=== PATIENT | male | born 1970 | race Caucasian/White ===

== ENCOUNTER 2018-06-19 10:01 | Observation (INO) ==
[2018-06-19 10:19] LABS: Basophils # 0.1 K/mm3 (0-0.2); Basophils % 0.6 % (0.1-2.0); Eosinophils # 0.3 K/mm3 (0.0-0.4); Eosinophils % 2.7 % (0.1-12.0); Hematocrit 46.9 % (42.0-52.0); Hemoglobin 15.3 g/dL (14.1-18.0); Lymphocytes # 2.3 K/mm3 (0.7-4.5); Lymphocytes % 23.5 % (10-50); Mean Corpuscular HGB Conc 32.7 g/dL (31.8-35.4); Mean Corpuscular Hemoglobin 30.2 pg (27.0-31.2); Mean Corpuscular Volume 92.5 fl (80-94); Mean Platelet Volume 6.5 fl (7.4-10.4); Monocytes # 0.6 K/mm3 (0.1-1.0); Monocytes % 6.3 % (1.7-9.3); Neutrophils # 6.5 K/mm3 (1.8-7.8); Neutrophils % 66.9 % (37.0-80.0); Platelet Count 292 K/mm3 (142-424); Red Blood Count 5.07 M/mm3 (4.60-6.20); White Blood Count 9.7 K/mm3 (4.8-10.8)
--- NOTE | 2018-06-19 10:23 | Emergency Department Note ---
ED Disposition Clinical Impression: Chest pain, Hyperlipidemia, Tobacco abuse disorder Disposition: Still a Patient Condition on Discharge: Fair Referrals: Provider,Referral, [Primary Care Provider] - - Critical Care Critical Care Time: No Attestation: On 06/19/18, the high probability of a clinically significant, sudden or life threatening deterioration of the following system(s) required my full and direct attention, intervention and personal management. The time I documented below is in addition to time spent performing reported procedures but includes the following listed in this critical care notation. Medical Decision Making - Medical Records Medical records reviewed: Yes: I reviewed the patient's medical records. - Ken Inquiry Pt receiving controlled substance: No Ken was queried for this patient: No Vital Signs: 06/19/18 10:02 06/19/18 10:14 06/19/18 11:03 Temperature 98.0 F Temperature Source Oral Pulse Rate Pulse Rate [Left Brachial] 71 74 71 Respiratory Rate 22 Blood Pressure [Left Arm] 139/76 124/87 134/83 Blood Pressure Mean [Left Arm] 97 99 100 Blood Pressure Source [Left Arm] Automatic Cuff Automatic Cuff Automatic Cuff Blood Pressure Position [Left Arm] Sitting Sitting Sitting 02 Sat by Pulse Oximetry 97 92 L 95 Oxygen Delivery Method Room Air Nasal Cannula 06/19/18 11:04 06/19/18 11:30 Temperature Temperature Source Pulse Rate 77 Pulse Rate [Left Brachial] 75 Respiratory Rate Blood Pressure [Left Arm] 143/84 H Blood Pressure Mean [Left Arm] 103 Blood Pressure Source [Left Arm] Automatic Cuff Blood Pressure Position [Left Arm] Sitting 02 Sat by Pulse Oximetry 95 95 Oxygen Delivery Method Room Air - Lab Data Lab Results 06/19/18 10:05: WBC 9.7, RBC 5.07, Hgb 15.3, Hct 46.9, MCV 92.5, MCH 30.2, MCHC 32.7, RDW 13.0, Plt Count 292, MPV 6.5 L, Neut % (Auto) 66.9, Lymph % (Auto) 23.5, [place] % (Auto) 6.3, Eos % (Auto) 2.7, Baso % (Auto) 0.6, Neut # (Auto) 6.5, Lymph # (Auto) 2.3, [place] # (Auto) 0.6, Eos # (Auto) 0.3, Baso # (Auto) 0.1 06/19/18 10:05: D-Dimer 101 06/19/18 10:05: Sodium 140, Potassium 4.0, Chloride 105, Carbon Dioxide 23, Anion Gap 16.0 H, BUN 7, Creatinine 0.85, Estimated Creat Clear 118, Estimated GFR 96, Est GFR ( Amer) 116, Glucose 84, Calcium 8.6, Troponin I < 0.02 06/19/18 10:05: Lactate 1.2 06/19/18 10:05: Total Bilirubin 0.5, Direct Bilirubin 0.2, Indirect Bilirubin 0.3, AST 14 L, ALT 27, Alkaline Phosphatase 68, Total Protein 7.3, Albumin 3.8 06/19/18 10:05: B-Natriuretic Peptide < 5 06/19/18 10:29: Specimen Source Left radial, O2 % room air, ABG pH 7.44, ABG pCO2 30.4 L, ABG pO2 73.5 L, ABG HCO3 20.4 L, ABG Total CO2 21.3 L, ABG O2 Saturation 95, ABG Base Excess -3.7 L, Seng Test Acceptable Result diagrams: 06/19/18 10:05 06/19/18 10:05 Orders (Tests/Meds): ED MEDICATIONS Discontinued Medications Generic Name Dose Route Start Last Admin Trade Name Freq PRN Reason Stop Dose Admin Albuterol/Ipratropium 3 ml 06/19/18 10:28 06/19/18 10:48 Duoneb 3ml Neb IH 06/19/18 10:29 3 ml ONCE ONE Administration Enoxaparin Sodium 80 mg 06/19/18 10:19 06/19/18 10:48 Lovenox 80mg/0.8ml Syringe SQ 06/19/18 10:20 80 mg ONCE ONE Administration Famotidine 20 mg 06/19/18 10:19 06/19/18 10:48 Pepcid 20mg/2ml Vial IV 06/19/18 10:20 20 mg ONCE ONE Administration Sodium Chloride 1,000 mls @ 999 mls/hr 06/19/18 10:30 06/19/18 10:48 Sod Chlor 0.9% 1000ml Bag IV 06/19/18 11:30 999 mls/hr .Q1H1M DIANELYS Administration Nitroglycerin 0.5 gm 06/19/18 10:19 06/19/18 10:48 Nitroglycerin 1 Inch Oint Udp TD 06/19/18 10:20 0.5 gm ONCE ONE Administration ORDERS Category Date Time Status Blood Culture Stat Micro 06/19/18 10:05 Received - Radiology Data #1 Image(s): Chest Image Reviewed: Yes I reviewed the patient's radiology image Preliminary Findings: Normal/NAD IMPRESSION: Stable chest with nothing definitely acute. - ECG Data Tracing #1 Normal sinus rhythm 85/min nonspecific T wave changes in lead III Q wave in V1 and V2 with no acute ST segment changes or T wave changes no acute changes from prior EKGs done in April and May 2017. ECG initial impression date: 06/19/18 ECG initial impression time: 10:05 Medical Decision Narrative: The patient underwent a DuoNeb nitroglycerin sublingual with decrease of his chest pain to 4/10, his first set of troponin was negative his dimer was 100 and his BNP was within normal. His cardiac catheterization and September 2014 was negative for coronary artery disease with normal LV function. The patient was hungry and requested a lunch tray. I discussed the patient presentation with Dr. Lowry his manager reporting. Then I called Dr. Kwon who was packaging sales consultant for Dr. Bautista his primary care physician. 1200 Dr. Kwon called back and accepted the patient for admission. Chest Pain HPI - General Chief Complaint: Chest Pain Stated Complaint: chest pain Time Seen by Provider: 06/19/18 10:05 - History of Present Illness HPI narrative: 47 years old white male smoker with history of hyperlipidemia and bradycardia status post pacemaker placement [address] Lowry. Today at 4 AM the patient developed left-sided chest pressure rated 8/10 woke him up from sleep with a result of shortness of breath and palpitations, the pain worsened by exertion and radiates to the left upper extremity. patient was given aspirin by the ambulance and nitroglycerin did reduce his chest pain to 6/10. he denies nausea vomiting hematemesis coffee-ground emesis melanotic stool or bleeding per rectum. MD complaint: chest pain indicative of cardiac Onset (ago): hour(s) (6 hours.) Time: 04:00 Duration: constant Activity at onset: during rest Pain location: left chest Severity: moderate Severity scale (1-10): 6 Pain radiation: LUE Relieving factors: nitroglycerin Exacerbating factors: nothing Associated symptoms: dyspnea, palpitations Risk Factors for CAD: Hypercholesterolemia, Smoking Treatments prior to or on arrival for Cardiac Chest Pain: aspirin - Related Data Home Medications Medication Instructions Recorded Confirmed aspirin 81 mg tablet,delayed 81 mg PO DAILY tab 11/06/17 06/19/18 release Clopidogrel Bisulfate [Plavix 75mg 75 mg PO DAILY 06/19/18 06/19/18 Tab] Lisinopril [Prinivil 20mg Tablet] 20 mg PO DAILY 06/19/18 06/19/18 Nebivolol HCl [Bystolic] 10 mg PO DAILY 06/19/18 06/19/18 Pravastatin Sodium [Pravachol] 40 mg PO DAILY 06/19/18 06/19/18 Allergies Allergy/AdvReac Type Severity Reaction Status Date / Time No Known Allergies Allergy Verified 11/10/17 09:51 [facility] History I have reviewed the patient's past medical history: Yes (I reviewed his catheter report from September 2014. ) Medical History: Reports:: Cardiomyopathy, Cerebrovascular Accident, Hypertension, Internal Pacemaker, Supraventricular Tachycardia Other Surgeries: Yes: Cardiac Catheterization, Hernia Repair, Pacemaker - Social History Smoking Status: Current every day smoker Tobacco Type: cigarettes # Packs/Day (cigarettes): 1 Alcohol Intake: never Family Hx:: Diabetes, Heart Attack ROS Obtained: Yes All systems reviewed & no additional complaints Physical Exam - General General appearance: alert, in no apparent distress, anxious - Head Head exam: atraumatic, normocephalic, normal inspection - Eye Eye exam: Present: normal appearance, PERRL, EOMI. Absent: scleral icterus, nystagmus - ENT ENT exam: Present: normal exam, normal oropharynx, mucous membranes moist, TM's normal bilaterally, normal external ear exam - Neck Neck exam: Present: normal inspection, full ROM, trachea midline. Absent: tenderness, meningismus, lymphadenopathy - Chest Chest inspection: Present: normal inspection, symmetric chest wall rise. Absent: tenderness - Respiratory Respiratory exam: Present: normal lung sounds bilaterally. Absent: respiratory distress, wheezes - Cardiovascular Cardiovascular exam: Present: regular rate, normal rhythm, normal heart sounds. Absent: JVD - Abdominal Exam Abdominal exam: Present: soft, normal bowel sounds. Absent: distention, tenderness, guarding, rebound, rigidity - Extremities Exam Extremities exam: Present: normal inspection, full ROM, normal capillary refill. Absent: tenderness, pedal edema, calf tenderness - Back Exam Back exam: Present: normal inspection. Absent: tenderness, CVA tenderness (R), CVA tenderness (L), paraspinal tenderness, vertebral tenderness - Neurological Exam Neurological exam: Present: alert, oriented X3, CN II-XII intact, motor sensory deficit, reflexes normal - Psychiatric Psychiatric exam: Present: normal affect, normal mood - Skin Skin exam: Present: warm, dry, intact, normal color - Lymphatic Lymphatic Findings: no adenopathy
[2018-06-19 10:32] LABS: Blood Urea Nitrogen 7 mg/dL (7-18); Calcium 8.6 mg/dL (8.5-10.1); Carbon Dioxide 23 mmol/L (21.0-32.0); Chloride 105 mmol/L (98-107); Glucose 84 mg/dL (74-106); Sodium 140 mmol/L (136-145)
[2018-06-19 10:34] LABS: Albumin Level 3.8 gm/dL (3.4-5.0); Bilirubin,Direct 0.2 mg/dL (0.0-0.2); Bilirubin,Indirect 0.3 mg/dL (0.0-0.9); Bilirubin,Total 0.5 mg/dL (0.2-1.0); Total Protein,Serum 7.3 gm/dL (6.4-8.2)
[2018-06-19 11:01] LABS: ABG Base Excess -3.7 mmol/L (-2.4-2.3); ABG HCO3 20.4 mmhg (22.0-26.0); ABG Oxygen Saturation 95 % (90-100); ABG PCO2 30.4 mmhg (35.0-45.0); ABG PH 7.44 mmol/L (7.35-7.45); ABG PO2 73.5 mmhg (80-100); ABG TCO2 21.3 mmhg (23-27)
[2018-06-19 11:06] LABS: Allen's Test Acceptable; Oxygen room air %
--- NOTE | 2018-06-19 12:35 | Pharmacy Consult Notes ---
[facility] Pharmacy VTE Monitoring - Patient Demographics Admission date: 06/19/18 Report Date: 06/19/18 Time: 12:34 Allergies/Adverse Reactions: Patient Allergies No Known Allergies Allergy (Verified 11/10/17 09:51) Height: 1.88 m Weight: 79.379 kg Patient Problems: Current Active Problems Chest pain (Acute) Tobacco abuse disorder (Acute) HLD (hyperlipidemia) (Chronic) - VTE Risk Labs: VTE Related Lab Results Hgb 15.3 g/dL (14.1-18.0) 06/19/18 10:05 Hct 46.9 % (42.0-52.0) 06/19/18 10:05 Plt Count 292 K/mm3 (142-424) 06/19/18 10:05 BUN 7 mg/dL (7-18) 06/19/18 10:05 Creatinine 0.85 mg/dL (0.70-1.30) 06/19/18 10:05 Estimated Creat Clear 118 mL/min (50-200) 06/19/18 10:05 - Prophylaxis VTE Prophylaxis Ordered?: Yes Types of VTE Prophylaxis: Pharmacological Pharmacologic Type: Enoxaparin - VTE Diagnosis Confirmed Treatment or plan recommended: Continue Current Treatment
[2018-06-20 06:42] LABS: Basophils % 0.6 % (0.1-2.0); Eosinophils # 0.4 K/mm3 (0.0-0.4); Eosinophils % 5.6 % (0.1-12.0); Hematocrit 44.3 % (42.0-52.0); Hemoglobin 14.3 g/dL (14.1-18.0); Lymphocytes # 2.1 K/mm3 (0.7-4.5); Lymphocytes % 28.2 % (10-50); Mean Corpuscular HGB Conc 32.2 g/dL (31.8-35.4); Mean Corpuscular Hemoglobin 30.2 pg (27.0-31.2); Mean Corpuscular Volume 93.7 fl (80-94); Mean Platelet Volume 6.5 fl (7.4-10.4); Monocytes # 0.6 K/mm3 (0.1-1.0); Monocytes % 7.9 % (1.7-9.3); Neutrophils # 4.3 K/mm3 (1.8-7.8); Neutrophils % 57.7 % (37.0-80.0); Platelet Count 275 K/mm3 (142-424); Red Blood Count 4.73 M/mm3 (4.60-6.20); White Blood Count 7.4 K/mm3 (4.8-10.8)
[2018-06-20 07:06] LABS: Anion Gap 12.5 mEq/L (5-15); Calcium 8.4 mg/dL (8.5-10.1); Chol/HDL Ratio 2.9 (1-3.5); Potassium 4.5 mmoL/L (3.5-5.1)
--- NOTE | 2018-06-20 12:17 | History & Physical Report ---
*Admission Date: 06/19/18 *Chief complaint: chest pain *History of present illness: this wm who has sig risk factors presents with new chest pain to the ed -years old white male smoker with history of hyperlipidemia and bradycardia status post pacemaker placement [address] Lowry. Today at 4 AM the patient developed left-sided chest pressure rated 8/10 woke him up from sleep with a result of shortness of breath and palpitations, the pain worsened by exertion and radiates to the left upper extremity. patient was given aspirin by the ambulance and nitroglycerin did reduce his chest pain to 6/10. [facility] History I have reviewed the patient's past medical history: Yes Medical History: Reports:: Cardiomyopathy, Cerebrovascular Accident, Hypertension, Internal Pacemaker, Supraventricular Tachycardia Denies:: Cancer, Diabetes Mellitus Type 1, Diabetes Mellitus Type 2, MRSA Other Surgeries: Yes: Cardiac Catheterization, Hernia Repair, Pacemaker Amputation: No Fractures: No - *Social History Educational Level: Completed GED/General Educational Development Smoking Status: Current every day smoker Tobacco Type: cigarettes # Packs/Day (cigarettes): 1 Alcohol Intake: current Alcohol Intake Frequency:: a few times a week Occupational Status: disabled Housing: house Household Members: significant other - Psychiatric History Expresses thoughts of harming self/others: None Suicide Plan Description: No Plan *Family Hx:: Diabetes, Heart Attack Review of Systems - Review of Systems Review of systems:: pertinent systems reviewed and negative unless documented b elow - Constitutional Denies fever(s) - Eyes Denies change in vision - ENT Denies dizziness - *Cardiovascular Reports chest pain at rest, Reports shortness of breath - *Respiratory Denies cough - *Gastrointestinal Denies abdominal pain - *Genitourinary Denies decreased urination - *Musculoskeletal Denies joint pain - Integumentary/Breasts Denies rash - *Neurologic Denies seizure-like activity - Psychiatric Denies anxiety Meds Home Medications Medication Instructions Recorded Confirmed Type aspirin 81 mg tablet,delayed 81 mg PO DAILY tab 11/06/17 06/19/18 History release Clopidogrel Bisulfate [Plavix 75mg 75 mg PO DAILY 06/19/18 06/19/18 History Tab] Lisinopril [Prinivil 20mg Tablet] 20 mg PO DAILY 06/19/18 06/19/18 History Nebivolol HCl [Bystolic] 10 mg PO DAILY 06/19/18 06/19/18 History Pravastatin Sodium [Pravachol] 40 mg PO DAILY 06/19/18 06/19/18 History Allergies Allergy/AdvReac Type Severity Reaction Status Date / Time No Known Allergies Allergy Verified 06/19/18 13:39 Exam Vital signs and Labs for Last 24 Hours: Temp Pulse Resp BP Pulse Ox 98.1 F 71 20 123/87 96 06/20/18 11:32 06/20/18 11:32 06/20/18 11:32 06/20/18 11:32 06/20/18 11:32 Laboratory Results - last 24 hr 06/19/18 15:18: Troponin I < 0.02 06/19/18 18:15: Troponin I < 0.02 06/20/18 06:20: WBC 7.4, RBC 4.73, Hgb 14.3, Hct 44.3, MCV 93.7, MCH 30.2, MCHC 32.2, RDW 13.0, Plt Count 275, MPV 6.5 L, Neut % (Auto) 57.7, Lymph % (Auto) 28.2, [place] % (Auto) 7.9, Eos % (Auto) 5.6, Baso % (Auto) 0.6, Neut # (Auto) 4.3, Lymph # (Auto) 2.1, [place] # (Auto) 0.6, Eos # (Auto) 0.4, Baso # (Auto) 0.0 06/20/18 06:20: Sodium 141, Potassium 4.5, Chloride 106, Carbon Dioxide 27, Anion Gap 12.5, BUN 9 D, Creatinine 0.91, Estimated Creat Clear 143, Estimated GFR 89, Est GFR ( Amer) 107, Glucose 85, Calcium 8.4 L, Triglycerides 83, Cholesterol 126 L, LDL Cholesterol 65, VLDL Cholesterol 17, HDL Cholesterol 44, Cholesterol/HDL Ratio 2.9 I & O for Last 24 hours: Intake & Output 06/18/18 06/19/18 06/20/18 06/21/18 11:59 11:59 11:59 11:59 Intake Total 840 / 840 Output Total 0 / 0 Balance 840 / 840 Weight 175 lb 227 lb 9 oz - Constitutional no acute distress, obese - *Routine HEENT Exam Head: Present: normocephalic Eye: Present: EOMI, PERRL ENT: Present: mucous membranes dry - *Routine Neck Exam Present: supple. Absent: JVD - Routine Chest/Breast/Axilla Exam Chest wall: Absent: tenderness - *Routine Respiratory Exam Present: CTA bilaterally - *Routine Cardiovascular Exam Present: RRR, murmur - *Routine Abdominal Exam Present: soft - *Routine Extremities Exam Absent: edema, calf tenderness - *Routine Skin Exam Present: intact - *Routine Neurological Exam Present: alert - Routine Psychiatric Exam Present: normal affect Assessment and Plan (1) Overweight Current visit: Yes Status: Acute Category: Medical Code(s): E66.3 - Overweight (2) Chest pain Current visit: Yes Status: Acute Category: Medical Code(s): R07.9 - Chest pain, unspecified (3) Tobacco abuse disorder Current visit: Yes Status: Acute Category: Medical Code(s): Z72.0 - Tobacco use (4) Cardiac pacemaker in situ Current visit: No Status: Chronic Category: Medical Code(s): Z95.0 - Presence of cardiac pacemaker
--- NOTE | 2018-06-21 08:08 | Consult Report ---
Addendum entered and electronically signed by NIKI Hill 06/21/18 15:38: Pacer interrogation shows no significant tachyarrhythmias. Cardiac cath showed only mild CAD with normal LVEF and mildly elevated LVEDP at 20 mm Hg. Stable from a cardiac standpoint for discharge. Follow up in 2 wks. Original Note: History of Present Illness Consult date: 06/21/18 Requesting physician: Chris Bautista Consult reason: chest pain Chief complaint: Chest pain Additional Medical History:: 1. Chest pain, 09/2014, A. LHC, 09/2014, normal coronaries with LVEF of 45-50%. Possible microvascular dysfunction 2. Cardiovascular Disease with history of CVA's a. Left side residual weakness, paresthesias and poor memory 3. Tobacco Use A. 1.5-2 ppd for many years 4. Hypertension 5. FH of CAD 6. Dyslipidemia 7. History of permanent pacemaker placement for symptomatic bradycardia, 10/2014 with a [employer] [place] [employer] device. A. Atrial lead repositioning approximately January 2015 B. History of brief episodes of nonsustained SVT and 2 seconds of VT, controlled on meds History of present illness: this wm who has sig risk factors presents with new chest pain to the ed -years old white male smoker with history of hyperlipidemia and bradycardia status post pacemaker placement [address] Lowry. Today at 4 AM the patient developed left-sided chest pressure rated 8/10 woke him up from sleep with a result of shortness of breath and palpitations, the pain worsened by exertion and radiates to the left upper extremity. patient was given aspirin by the ambulance and nitroglycerin did reduce his chest pain to 6/[address] Bautista 47-year-old white male is somewhat historian but states he had been up at night prior to admission drinking coffee and talking with a longtime friend. He does relate some history of palpitations but the next morning noted significant chest discomfort that alarmed him. EMS transported patient to the hospital for further evaluation and treatment. EKG showed sinus rhythm with poor R wave progression anteriorly but no acute ST segment changes. Symptoms did gradually resolve during initial part of his hospital stay with no recurrence since. His troponins have returned normal. Cardiology consulted for evaluation recommendations. [facility] History Medical History: Reports:: Cardiomyopathy, Cerebrovascular Accident, Hypertension, Internal Pacemaker, Supraventricular Tachycardia Denies:: Cancer, Diabetes Mellitus Type 1, Diabetes Mellitus Type 2, MRSA Other Surgeries: Yes: Cardiac Catheterization, Hernia Repair, Pacemaker Amputation: No Fractures: No - *Social History Educational Level: Completed GED/General Educational Development Smoking Status: Current every day smoker Tobacco Type: cigarettes # Packs/Day (cigarettes): 1 Alcohol Intake: current Alcohol Intake Frequency:: a few times a week Occupational Status: disabled Housing: house Household Members: significant other - Psychiatric History Expresses thoughts of harming self/others: None Suicide Plan Description: No Plan *Family Hx:: Diabetes, Heart Attack Meds Home Medications Medication Instructions Recorded Confirmed Type aspirin 81 mg tablet,delayed 81 mg PO DAILY tab 11/06/17 06/19/18 History release Clopidogrel Bisulfate [Plavix 75mg 75 mg PO DAILY 06/19/18 06/19/18 History Tab] Lisinopril [Prinivil 20mg Tablet] 20 mg PO DAILY 06/19/18 06/19/18 History Nebivolol HCl [Bystolic] 10 mg PO DAILY 06/19/18 06/19/18 History Pravastatin Sodium [Pravachol] 40 mg PO DAILY 06/19/18 06/19/18 History Allergies Allergy/AdvReac Type Severity Reaction Status Date / Time No Known Allergies Allergy Verified 06/19/18 13:39 Review of Systems - *Cardiovascular Reports chest pain, Reports shortness of breath with activity - *Respiratory Reports shortness of breath with activity - *Gastrointestinal Denies abdominal pain, Denies loose stools - *Genitourinary Denies blood in urine - *Musculoskeletal Reports back pain - *Neurologic Denies seizure-like activity, Denies dizziness Exam Vital signs and Labs for Last 24 Hours: Temp Pulse Resp BP Pulse Ox 97.9 F 70 18 135/85 96 06/21/18 07:53 06/21/18 07:53 06/21/18 07:53 06/21/18 07:53 06/21/18 07:53 I & O for Last 24 hours: Intake & Output 06/18/18 06/19/18 06/20/18 06/21/18 11:59 11:59 11:59 11:59 Intake Total 840 / 840 1140 / 1140 Output Total 0 / 0 3600 / 3600 Balance 840 / 840 -2460 / -2460 Weight 175 lb 227 lb 9 oz - *Routine Neck Exam Present: supple. Absent: JVD, carotid bruit - *Routine Respiratory Exam Present: stridor. Absent: accessory muscle use, rales, rhonchi, wheezes - *Routine Cardiovascular Exam Present: RRR. Absent: murmur, gallop, rubs - *Routine Abdominal Exam Present: soft. Absent: tenderness, distended, guarding - *Routine Extremities Exam Absent: edema, calf tenderness - *Routine Neurological Exam Present: alert, oriented X3, moving all extremities Assessment and Plan (1) Chest pain Current visit: Yes Status: Acute Category: Medical Code(s): R07.9 - Chest pain, unspecified (2) Overweight Current visit: Yes Status: Acute Category: Medical Code(s): E66.3 - Overweight (3) Tobacco abuse disorder Current visit: Yes Status: Acute Category: Medical Code(s): Z72.0 - Tobacco use (4) Cardiac pacemaker in situ Current visit: No Status: Chronic Category: Medical Code(s): Z95.0 - Presence of cardiac pacemaker - Assessment and plan all Dx Assessment and Plan for all problems:: 1. Significant chest pain while on beta-elyssa and aspirin therapy with significant smoking history and LUCY score of 3 (risk factors, ASA use, recurrent chest pain). Concern for unstable angina. Patient is a poor historian due to previous history of stroke. Recommend proceeding with left heart catheterization to evaluate. 2. Regarding history of palpitations will interrogate pacemaker for possible arrhythmias or recurrent lead malfunction. 3. Further recommendations to follow.
--- NOTE | 2018-06-21 15:28 | Discharge Summary ---
General - General Admission date:: 06/19/18 Discharge date: 06/21/18 HPI HPI: this wm who has sig risk factors presents with new chest pain to the ed -years old white male smoker with history of hyperlipidemia and bradycardia status post pacemaker placement [address] Lowry. Today at 4 AM the patient developed left-sided chest pressure rated 8/10 woke him up from sleep with a result of shortness of breath and palpitations, the pain worsened by exertion and radiates to the left upper extremity. patient was given aspirin by the ambulance and nitroglycerin did reduce his chest pain to 6/10. Hospital Course Hospital Course: pt remained stable in hospital and had neg enz- we discussed wt and tob use and compliance and diet - param stimulants - he was seen by jin -ezequiel [facility]cks, 09/2014, [facility], 09/2014, normal coronaries with LVEF of 45-50%. Possible microvascular dysfunction 2. Cardiovascular Disease with history of CVA's a. Left side residual weakness, paresthesias and poor memory 3. Tobacco Use A. 1.5-2 ppd for many years 4. Hypertension 5. FH of CAD 6. Dyslipidemia 7. History of permanent pacemaker placement for symptomatic bradycardia, 10/2014 with a [employer] device. A. Atrial lead repositioning approximately January 2015 B. History of brief episodes of nonsustained SVT and 2 seconds of VT, controlled on meds History of present illness: this wm who has sig risk factors presents with new chest pain to the ed -years old white male smoker with history of hyperlipidemia and bradycardia status post pacemaker placement [address] Lowry. Today at 4 AM the patient developed left-sided chest pressure rated 8/10 woke him up from sleep with a result of shortness of breath and palpitations, the pain worsened by exertion and radiates to the left upper extremity. patient was given aspirin by the ambulance and nitroglycerin did reduce his chest pain to 6/[address] Bautista 47-year-old white male is somewhat historian but states he had been up at night prior to admission drinking coffee and talking with a longtime friend. He does relate some history of palpitations but the next morning noted significant chest discomfort that alarmed him. EMS transported patient to the hospital for further evaluation and treatment. EKG showed sinus rhythm with poor R wave progression anteriorly but no acute ST segment changes. Symptoms did gradually resolve during initial part of his hospital stay with no recurrence since. His troponins have returned normal. Cardiology consulted for evaluation gnificant chest pain while on beta-elyssa and aspirin therapy with significant smoking history and LUCY score of 3 (risk factors, ASA use, recurrent chest pain). Concern for unstable angina. Patient is a poor historian due to previous history of stroke. Recommend proceeding with left heart catheterization to evaluate. 2. Regarding history of palpitations will interrogate pacemaker for possible arrhythmias or recurrent lead malfunction. 3. Further recommendations to follow. pt had card cath -GRAPHIC RESULTS: 1. The left main artery normal 2. The left anterior descending artery small mild luminal irregularities 10% 3. The circumflex artery nondominant luminal irregularities 10% 4. The right coronary artery large dominant luminal irregularities of 10% 5. The ALEMAN ventriculogram reveals normal 65% 6. The left ventricular end-diastolic pressure 20 mmHg IMPRESSION: 1. Mild nonflow limiting coronary disease 2. Normal ejection fraction 3. Elevated LVEDP consistent with diastolic dysfunction PLAN: 1. Medical management Objective Vital signs: Temp Pulse Resp BP Pulse Ox 98.4 F 70 18 115/74 93 L 06/21/18 11:41 06/21/18 15:10 06/21/18 15:10 06/21/18 15:10 06/21/18 15:10 no acute distress, obese - *Routine HEENT Exam Head: Present: normocephalic Eye: Present: EOMI, PERRL ENT: Present: mucous membranes dry - *Routine Neck Exam Present: supple - *Routine Respiratory Exam Present: CTA bilaterally - *Routine Cardiovascular Exam Present: RRR, murmur - *Routine Abdominal Exam Present: soft - *Routine Extremities Exam Absent: edema - *Routine Skin Exam Present: intact - *Routine Neurological Exam Present: alert, oriented X3, CN II-XII intact - Routine Psychiatric Exam Present: normal affect Results Labs on day of discharge: Preliminary micro results at discharge 06/19/18 10:05 Blood Culture - Preliminary Blood NO GROWTH AFTER 48 HOURS 06/19/18 10:05 Blood Culture - Preliminary Blood NO GROWTH AFTER 48 HOURS DS: Diagnosis - Discharge Diagnosis (1) Chest pain Status: Acute (2) Overweight Status: Acute (3) Tobacco abuse disorder Status: Acute (4) Cardiac pacemaker in situ Status: Chronic Discharge Plan - Patient Discharge Instructions ACTIVITY: Continue current activity DIET: continue same diet Patient Instructions: Angina, How to Quit Smoking - Follow up Plan Disposition: Home, Self-Residential Medications: Home Medications Medication Instructions Recorded Confirmed Type aspirin 81 mg tablet,delayed 81 mg PO DAILY tab 11/06/17 06/19/18 History release Clopidogrel Bisulfate [Plavix 75mg 75 mg PO DAILY 06/19/18 06/19/18 History Tab] Lisinopril [Prinivil 20mg Tablet] 20 mg PO DAILY 06/19/18 06/19/18 History Nebivolol HCl [Bystolic] 10 mg PO DAILY 06/19/18 06/19/18 History Pravastatin Sodium [Pravachol] 40 mg PO DAILY 06/19/18 06/19/18 History Prescriptions/Medication Reconciliation: New Nicotine [Nicoderm 21mg/24hr patch] 21 mg TD DAILYP PRN #30 patch.td24 PRN Reason: Nicotine Cravings Continue aspirin 81 mg tablet,delayed release 81 mg PO DAILY tab Nebivolol HCl [Bystolic] 10 mg PO DAILY Lisinopril [Prinivil 20mg Tablet] 20 mg PO DAILY Clopidogrel Bisulfate [Plavix 75mg Tab] 75 mg PO DAILY Pravastatin Sodium [Pravachol] 40 mg PO DAILY
== END 2018-06-21 19:05 | disposition home or self-care (01) ==
LOC: ER 10:01 → 2ND 10:01
PROVIDERS: ADMIT Family Medicine; ATTEND Emergency Medicine

== ENCOUNTER → 2018-08-24 12:02 | Outpatient (CLI) | payer MEDICARE, MEDICAID, SELFPAY ==
--- NOTE | 2018-08-24 12:22 | XR_ITS ---
EXAM: XR lumbar spine 6V w bending HISTORY: ITS.REASON: back pain ORDERING PHYSICIAN: Tracey Page PATIENT AGE: 48 years COMPARISON: None FINDINGS: Normal alignment. No fracture or dislocation. No lytic or blastic change. There is mild degenerative disc disease at L4-L5 and L5-S1. There is lumbarization of S1 with mild anterolisthesis of L5 on S1 of 3 mm. There is mild wedging involving T12 and L1 appears old with degenerative disc disease at T12-L1 and L1-L2. There are mild facet arthritic changes at L5-S1. IMPRESSION: Degenerative changes as described above
[2018-08-25 09:31] LABS: HIV Screen 4th Generation wRfx Non Reactive (Non Reactive)
[2018-08-26 08:13] LABS: Neisseria gonorrhoeae, NAA Negative (Negative)
== END ==
PROVIDERS: Visit Provider Nurse Practitioner Family
DX: Z20.2 Contact with and (suspected) exposure to infections with a predominantly sexual mode of transmission (principal); M79.605 Pain in left leg; M54.42 Lumbago with sciatica, left side; R21 Rash and other nonspecific skin eruption; Z11.4 Encounter for screening for human immunodeficiency virus [HIV]
CPT/HCPCS: 36415; 72114; 86695; 86703; 86790; 87491; 87591; G0432

== ENCOUNTER → 2019-05-23 14:57 | Outpatient (CLI) | payer MEDICARE, MEDICAID, SELFPAY ==
--- NOTE | 2019-05-23 15:00 | XR_ITS ---
PROCEDURE: XR CHEST 2V CLINICAL HISTORY: cough Cough, smoker, congestion COMPARISON: CXR CHEST(2 VIEWS-NOT PORTABLE) from 05/11/2015 CXR1 CHEST-PORTABLE from 06/12/2015 CXR1 CHEST-PORTABLE from 09/10/2015 CXR2V XR chest 2V from 06/19/2018 FINDINGS: Normal heart size. Bipolar pacemaker is present from the left subclavian approach. Mild atelectatic or fibrotic changes are present in the lingula. The remaining lungs are clear. Prior ORIF right clavicle. Degenerative changes thoracic spine IMPRESSION: Mild atelectatic change in the lingula Dictated by: Seng Pedroza MD 05/23/2019 15:15 Electronically signed by Seng Pedroza MD in [place] 05/23/2019 15:15
== END ==
PROVIDERS: PCP Nurse Practitioner Family; Visit Provider Nurse Practitioner Family
DX: R05 Cough (principal); R09.89 Other specified symptoms and signs involving the circulatory and respiratory systems
CPT/HCPCS: 71046

== ENCOUNTER → 2019-05-30 09:20 | Outpatient (CLI) | payer MEDICARE, MEDICAID, SELFPAY ==
--- NOTE | 2019-05-30 09:22 | FL_ITS ---
PROCEDURE: FL BARIUM SWALLOW CLINICAL INDICATION: trouble swallowing Dysphagia COMPARISON: No exams were available for comparison TECHNIQUE: In the upright position the patient was observed to swallow barium in both the AP and lateral view. The cervical esophagus was examined under fluoroscopy with images obtained. The patient was then placed prone in the right anterior oblique position and was observed to swallow barium with Valsalva technique . FLUOROSCOPY TIME: 42 seconds FINDINGS: There was no evidence of aspiration. There was normal peristalsis. No mucosal abnormalities or annular constricting lesions. Mild compression of the posterior aspect of the esophagus at C5-C6 and C6-C7 from osteophytes at those levels more prominent at C5-C6. No hiatal hernia or reflux. IMPRESSION: Mild impingement upon the posterior aspect of the esophagus at from osteophytes at C5-C6 and C6-C7 otherwise negative barium swallow Dictated by: Seng Pedroza MD 05/30/2019 11:46 Electronically signed by Seng Pedroza MD in [place] 05/30/2019 11:46
== END ==
PROVIDERS: PCP Nurse Practitioner Family; Visit Provider Nurse Practitioner Family
DX: R13.10 Dysphagia, unspecified (principal)
CPT/HCPCS: 74220

== ENCOUNTER → 2019-06-22 13:41 | Outpatient (CLI) | payer MEDICARE, MEDICAID, SELFPAY ==
--- NOTE | 2019-06-22 13:43 | CA_ITS ---
APPROVED REPORT EXAM: Comprehensive 2D, Doppler, and color-flow Echocardiogram Business Operations Consultant: Aiyana Bradley RDCS Ht: 5 ft 11 in Wt: 247lbs BSA: 2.31 BP: 130/88 mmHg Indications: Shortness of Breath, Dyspnea, Hyperlipidemia, Hypertension/HDD,PP 2D Dimensions LVOT 2.00 cm (M/F) 1.5-2.5 M-Mode Dimensions RVDd 3.11 cm (0.9-2.6) LVDd 4.70 cm (3.5-5.7) LVDs 3.22 cm (3.5-5.7) IVSd 0.98 cm (0.6-1.1) PWd 1.06 cm (0.6-1.1) EF (Teich) 59.40% FS 31.50% EDV (Teich) 102.40 mL ESV (Teich) 41.60 mL LV Diastology E/A Ratio 0.78 Mitral Valve MV A Velocity 64.00 (40-130 cm/s) Left Ventricle Left atrium is mildly enlarged, left ventricle is normal size, mild concentric left ventricular hypertrophy, visually estimated ejection fraction 55% with no regional wall motion abnormality, grade 1 diastolic dysfunction seen without tissue Doppler evidence of raise left atrial pressure. Right Ventricle Right atrium and right ventricular normal size and contractility, there is a pacemaker lead seen in the right ventricle. Aortic Valve Aortic valve is minimally thickened and fibrosed, there is no aortic stenosis aortic insufficiency. Mitral Valve Mitral valve is grossly normal, there is mild mitral regurgitation. Tricuspid Valve Tricuspid valve is grossly normal, there is mild tricuspid regurgitation. Pulmonic Valve Pulmonic valve is poorly visualized. Great Vessels Aortic root is normal size. Pericardium No significant pericardial effusion noted. Conclusion 1. Mildly enlarged left atrium, normal left ventricular size, mild concentric left ventricular hypertrophy, visually estimated ejection fraction 55% with no regional wall motion abnormality, grade 1 diastolic dysfunction seen without tissue Doppler evidence of raise left atrial pressure. 2. Mild mitral and tricuspid regurgitation. 3. No significant pericardial effusion noted. Electronically signed by : Travis Llanes, 06/23/2019 14:49:34
== END ==
PROVIDERS: PCP Emergency Medicine; Visit Provider Nurse Practitioner Family
DX: R06.09 Other forms of dyspnea (principal)
CPT/HCPCS: 93306

== ENCOUNTER → 2019-09-09 12:48 | Outpatient (CLI) | payer MEDICARE, MEDICAID, SELFPAY | PROVIDERS: PCP Emergency Medicine; Visit Provider Nurse Practitioner Family | DX: J44.9 Chronic obstructive pulmonary disease, unspecified (principal) | CPT/HCPCS: 94060; 94618; 94726; 94729 ==

== ENCOUNTER → 2019-09-13 10:28 | Outpatient (CLI) | payer MEDICARE, MEDICAID, SELFPAY ==
[2019-09-13 11:54] LABS: Prostate Specific Ag, Diagnost 8.86 ng/mL (0.0-4.0)
== END ==
PROVIDERS: Visit Provider Urology
DX: N40.0 Benign prostatic hyperplasia without lower urinary tract symptoms (principal)
CPT/HCPCS: 36415; 84153

== ENCOUNTER → 2019-09-22 14:09 | Outpatient (CLI) | payer MEDICARE, MEDICAID, SELFPAY ==
[2019-09-24 07:03] LABS: PSA, Free 0.66 ng/mL; Prostate Specific Ag 5.3 ng/mL (0.0-4.0)
== END ==
PROVIDERS: Visit Provider Urology
DX: R97.20 Elevated prostate specific antigen [PSA] (principal)
CPT/HCPCS: 36415; 84153; 84154

== ENCOUNTER 2020-02-24 12:13 | Emergency (ER) | payer MEDICARE, MEDICAID, SELFPAY ==
[2020-02-24 12:16] VITALS: BP 124/77; PULSE 69; RESP 18; TEMP 36.8; O2SAT 97; BMI 34.8
--- NOTE | 2020-02-24 12:31 | CT_ITS ---
PROCEDURE: CT ABDOMEN PELVIS W CON CLINICAL INDICATION: abd pain Abdominal pain with right red bleeding COMPARISON: ABDPELW CT ABD PELVIS W/ CONTRAST from 04/30/2014 TECHNIQUE: IV Contrast: 75ML OPTIRAY 350 Oral Contrast None Axial images obtained with sagittal and coronal reformats. All CT scans at the facility use one or more dose reduction, viz: automated exposure control, ma/kV adjustment per patient size (including targeted exams where dose is matched to indication, i.e. head), or iterative reconstruction technique. FINDINGS: LOWER THORAX: No acute finding. Artifact is present from pacemaker lead ABDOMEN & PELVIS: The liver, gallbladder, spleen, and pancreas have an unremarkable appearance. There is nodular enlargement of both adrenal glands not significantly changed and may be due to adenomatous involvement. No renal or ureteral calculi. No hydronephrosis. There is an exophytic hypodensity projecting off the anterior superior aspect of the left kidney which measures 2 cm which may represent a renal cyst and could be confirmed with ultrasound. There is a small umbilical hernia containing fat and a tiny supraumbilical hernia centrally 2 cm cephalad to the umbilicus containing a vessel. Unremarkable appendix. The prostate is enlarged at 5.2 cm. Unremarkable appearing urinary bladder. There is diverticulosis of the descending and sigmoid colon and transverse colon. No evidence of diverticulitis. Postsurgical changes with prior fusion at L4-5 with disc spacer device. There is a small right inguinal hernia which contains fat. IMPRESSION: 1. No acute abdominal or pelvic findings. 2. Colonic diverticulosis without diverticulitis 3. Other nonacute findings as described above. Dictated by: Seng Pedroza MD 02/24/2020 13:41 Electronically signed by Seng Pedroza MD in [place] 02/24/2020 13:41
[2020-02-24 12:48] LABS: Basophils # 0.1 K/mm3 (0-0.2); Basophils % 0.6 % (0.1-2.0); Eosinophils # 0.2 K/mm3 (0.0-0.4); Eosinophils % 2.7 % (0.1-12.0); Hematocrit 50.1 % (42.0-52.0); Hemoglobin 17.3 g/dL (14.1-18.0); Lymphocytes # 1.8 K/mm3 (0.7-4.5); Lymphocytes % 22.1 % (10-50); Mean Corpuscular HGB Conc 34.5 g/dL (31.8-35.4); Mean Corpuscular Hemoglobin 33.3 pg (27.0-31.2); Mean Corpuscular Volume 96.7 fl (80-94); Mean Platelet Volume 6.9 fl (7.4-10.4); Monocytes # 0.4 K/mm3 (0.1-1.0); Monocytes % 5.2 % (1.7-9.3); Neutrophils # 5.6 K/mm3 (1.8-7.8); Neutrophils % 69.3 % (37.0-80.0); Platelet Count 308 K/mm3 (142-424); Red Blood Count 5.19 M/mm3 (4.60-6.20); Red Cell Distribution Width 14.2 % (11.5-17.5); White Blood Count 8.1 K/mm3 (4.8-10.8)
[2020-02-24 12:56] LABS: Alanine Aminotransferase 18 U/L (12-78); Albumin Level 4.3 g/dl (3.5-5.0); Albumin/Globulin Ratio 1.2 (1.1-1.8); Alkaline Phosphatase 92 U/L (38-126); Amylase 83 U/L (30-110); Anion Gap 16.7 mEq/L (5-15); Aspartate Amino Transferase 26 U/L (17-59); Bilirubin,Total 0.5 mg/dl (0.2-1.3); Blood Urea Nitrogen 5 mg/dl (9-20); Calcium 9.3 mg/dl (8.4-10.2); Carbon Dioxide 21 mmol/L (22.0-30.0); Chloride 106 mmol/L (98-107); Creatinine Clearance Estimated 156 mL/min (50-200); Estimated Glomerular Filt Rate 89 ml/min (>60); GFR (African American) 108 ML/MIN (>60); Globulin 3.6 g/dL (1.3-3.2); Glucose 142 mg/dl (74-100); Lipase 135 U/L (23-300); Potassium 3.7 mmoL/L (3.5-5.1); Sodium 140 mmol/L (136-145); Total Protein,Serum 7.9 g/dl (6.3-8.2)
[2020-02-24 13:00] VITALS: BP 128/82; PULSE 70; O2SAT 95
--- NOTE | 2020-02-24 13:05 | PC.NURSE ---
Pt to rad.
--- NOTE | 2020-02-24 13:13 | HMH.EDABDPAI ---
ED Disposition Clinical Impression: Abdominal pain Disposition: Home, Self-Care Condition on Discharge: Good Instructions: Acute Abdominal Pain, Constipation Prescriptions: polyethylene glycoL 3350 [Miralax 17gm Packet] 17 gm PO DAILY #30 packet Transmission Status: P[facility] to [facility] Referrals: Chris Bautista MD [Primary Care Provider] - - Critical Care Critical Care Time: No Attestation: On 02/24/20, the high probability of a clinically significant, sudden or life threatening deterioration of the following system(s) required my full and direct attention, intervention and personal management. The time I documented below is in addition to time spent performing reported procedures but includes the following listed in this critical care notation. Medical Decision Making - Medical Records Medical records reviewed: Yes: I reviewed the patient's medical records. - Ken Inquiry Pt receiving controlled substance: No Vital Signs: 02/24/20 12:16 02/24/20 13:00 Temperature 98.2 F Temperature Source Oral Pulse Rate [Right] 69 70 Respiratory Rate 18 Blood Pressure [Right Arm] 124/77 128/82 Blood Pressure Mean [Right Arm] 92 97 Blood Pressure Source [Right Arm] Automatic Cuff Blood Pressure Position [Right Arm] Sitting 02 Sat by Pulse Oximetry 97 95 Oxygen Delivery Method Room Air - Lab Data Lab results reviewed: Yes: I reviewed the patient's lab results. Lab Results 02/24/20 12:34: WBC 8.1, RBC 5.19, Hgb 17.3, Hct 50.1, MCV 96.7 H, MCH 33.3 H, MCHC 34.5, RDW 14.2, Plt Count 308, MPV 6.9 L, Neut % (Auto) 69.3, Lymph % (Auto) 22.1, Lea % (Auto) 5.2, Eos % (Auto) 2.7, Baso % (Auto) 0.6, Neut # (Auto) 5.6, Lymph # (Auto) 1.8, Lea # (Auto) 0.4, Eos # (Auto) 0.2, Baso # (Auto) 0.1 02/24/20 12:34: Sodium 140, Potassium 3.7, Chloride 106, Carbon Dioxide 21 L, Anion Gap 16.7 H, BUN 5 L, Creatinine 0.90, Estimated Creat Clear 156, Estimated GFR 89, Est GFR ( Amer) 108, Glucose 142 H, Calcium 9.3, Total Bilirubin 0.5, AST 26, ALT 18, Alkaline Phosphatase 92, Total Protein 7.9, Albumin 4.3, Globulin 3.6 H, Albumin/Globulin Ratio 1.2, Amylase 83, Lipase 135 02/24/20 13:34: Urine Color Yellow, Urine Appearance Clear, Urine pH 7.5, Ur Specific [place] 1.010, Urine Protein Negative, Urine Glucose (UA) Negative, Urine Ketones Negative, Urine Blood Trace-i, Urine Nitrate Negative, Urine Bilirubin Negative, Urine Urobilinogen 0.2, Ur Leukocyte Esterase Trace Result diagrams: 02/24/20 12:34 02/24/20 12:34 Orders (Tests/Meds): ED MEDICATIONS Discontinued Medications Generic Name Dose Route Start Last Admin Trade Name Sylvia PRN Reason Stop Dose Admin Ioversol 75 ml 02/24/20 13:18 02/24/20 13:19 Rad-Optiray 350 100ml Vial IV 02/24/20 13:19 75 ml ONCE ONE Administration Protocol Sodium Chloride 10 ml 02/24/20 13:18 02/24/20 13:19 Rad-Saline Flush 10ml Syringe IV 02/24/20 13:19 10 ml ONCE ONE Administration ORDERS Category Date Time Status Occult Blood,Stool Stat Lab 02/24/20 12:31 Ordered Urinalysis and Microscopic Stat Lab 02/24/20 13:34 Results - CT Data CT Scan: Abdomen, Pelvis Time Received: 13:[address] Reviewed: Yes: I have viewed the radiologist's interpretation Preliminary Findings: Normal/NAD (Patient has diverticulosis without diverticulitis, and constipation.) Abdominal Pain HPI - General Chief Complaint: Abdominal Pain Stated Complaint: blood in stool abd pain Time Seen by Provider: 02/24/20 13:13 Mode of Arrival: Ambulatory Source of Information: Patient Limitations: No Limitations Description of Symptoms (Recalled from ER Triage Doc. by RN): C/O bleeding from his rectum this morning when he went to get out of bed. Pt also states his abdomen is hurt and feel tight Denies NVD. - History of Present Illness HPI narrative: 49-year-old male presents the emergency department with an acute onset of abdominal pain. He describes
[2020-02-24 13:40] LABS: Microscopic, Urine URINE MICROSCOPIC (MICROSCOPIC)
[2020-02-24 13:43] LABS: Appearance,Urine CLEAR (Clear); Bilirubin,Urine Negative (Negative); Blood, Urine TRACE-I (Negative); Color,Urine YELLOW (Yellow); Glucose,Urine (UA) Negative (Negative); Ketones,Urine Negative (Negative); Leukocyte Esterase,Urine TRACE (Negative); Nitrate,Urine Negative (Negative); PH,Urine 7.5 (5.0-8.5); Protein,Urine Negative (Negative); Urobilinogen,Urine 0.2 EU/dl (0.2)
[2020-02-24 13:53] LABS: Bacteria,Urine Trace /lpf
[2020-02-24 14:16] VITALS: BP 124/87; PULSE 80; RESP 18; TEMP 36.8; O2SAT 98
== END 2020-02-24 14:17 | disposition home or self-care (01) ==
PROVIDERS: Emergency Provider Family Medicine; PCP Emergency Medicine
DX: R10.31 Right lower quadrant pain (principal); I10 Essential (primary) hypertension; E78.5 Hyperlipidemia, unspecified; Z95.0 Presence of cardiac pacemaker; F17.210 Nicotine dependence, cigarettes, uncomplicated; Z86.73 Personal history of transient ischemic attack (TIA), and cerebral infarction without residual deficits; I42.8 Other cardiomyopathies; K21.9 Gastro-esophageal reflux disease without esophagitis; Z79.899 Other long term (current) drug therapy
CPT/HCPCS: 74177; 80053; 81001; 82150; 83690; 85025; 99283; Q9967

== ENCOUNTER → 2020-03-21 12:25 | Outpatient (CLI) | payer MEDICARE, MEDICAID, SELFPAY ==
[2020-03-21 14:16] LABS: Prostate Specific Ag, Diagnost 5.12 ng/ml (0.0-4.0)
== END ==
PROVIDERS: Visit Provider Urology
DX: N52.9 Male erectile dysfunction, unspecified (principal); R97.20 Elevated prostate specific antigen [PSA]
CPT/HCPCS: 36415; 84153

== ENCOUNTER → 2020-04-12 12:12 | Outpatient (CLI) | payer MEDICARE, MEDICAID, SELFPAY ==
[2020-04-12 12:34] LABS: Basophils # 0.1 K/mm3 (0-0.2); Basophils % 0.7 % (0.1-2.0); Eosinophils # 0.3 K/mm3 (0.0-0.4); Eosinophils % 3.8 % (0.1-12.0); Hematocrit 52.6 % (42.0-52.0); Hemoglobin 17.5 g/dL (14.1-18.0); Lymphocytes # 2.3 K/mm3 (0.7-4.5); Lymphocytes % 28.3 % (10-50); Mean Corpuscular HGB Conc 33.2 g/dL (31.8-35.4); Mean Corpuscular Hemoglobin 32.7 pg (27.0-31.2); Mean Corpuscular Volume 98.4 fl (80-94); Mean Platelet Volume 6.9 fl (7.4-10.4); Monocytes # 0.6 K/mm3 (0.1-1.0); Monocytes % 7.6 % (1.7-9.3); Neutrophils # 4.8 K/mm3 (1.8-7.8); Neutrophils % 59.6 % (37.0-80.0); Platelet Count 262 K/mm3 (142-424); Red Blood Count 5.34 M/mm3 (4.60-6.20); Red Cell Distribution Width 13.3 % (11.5-17.5); White Blood Count 8.1 K/mm3 (4.8-10.8)
[2020-04-12 14:56] LABS: Coronavirus 19 IgG Antibody Negative (Negative); Coronavirus 19 IgM Antibody Negative (Negative)
[2020-04-12 21:55] LABS: Chloride 105 mmol/L (98-107); Potassium 5.2 mmoL/L (3.5-5.1); Sodium 140 mmol/L (136-145)
[2020-04-12 21:58] LABS: Anion Gap 13.2 mEq/L (5-15); Blood Urea Nitrogen 8 mg/dl (9-20); Carbon Dioxide 27 mmol/L (22.0-30.0); Estimated Glomerular Filt Rate 102 ml/min (>60); GFR (African American) 123 ML/MIN (>60)
[2020-04-12 21:59] LABS: Calcium 9.3 mg/dl (8.4-10.2); Glucose 81 mg/dl (74-100)
== END ==
PROVIDERS: Visit Provider Urology
DX: R97.20 Elevated prostate specific antigen [PSA] (principal); Z20.828 Contact with and (suspected) exposure to other viral communicable diseases; R10.9 Unspecified abdominal pain
CPT/HCPCS: 36415; 80048; 85025; 86328

== ENCOUNTER → 2020-06-11 12:21 | Outpatient (CLI) | payer MEDICARE, MEDICAID, SELFPAY ==
[2020-06-11 16:01] LABS: Coronavirus 19 IgG Antibody Positive (Negative); Coronavirus 19 IgM Antibody Negative (Negative)
== END ==
PROVIDERS: Visit Provider Surgery
DX: Z01.818 Encounter for other preprocedural examination (principal); Z12.11 Encounter for screening for malignant neoplasm of colon; Z86.010 Personal history of colon polyps; Z86.19 Personal history of other infectious and parasitic diseases
CPT/HCPCS: 36415; 86328

== ENCOUNTER 2020-06-12 07:25 | Day surgery (SDC) | payer MEDICARE, MEDICAID, SELFPAY ==
[2020-06-07 14:47] VITALS: BMI 35.9
[2020-06-12 07:43] VITALS: BP 144/94; PULSE 72; RESP 20; TEMP 36.3; O2SAT 97
--- NOTE | 2020-06-12 08:04 | HMH.GSHP ---
HPI HPI: Presents for follow-up colonoscopy scheduling. He is a 49-year-old white male who is somewhat of a poor historian from [place], [place] with a reported history of prior stroke, pacemaker placement, coronary artery disease on Plavix. He was referred by Dr. Bautista 1 year ago for initial screening colonoscopy. His colonoscopy revealed numerous polyps. He had at least 8 or 9 tubular adenomas removed a couple of which were rather large greater than 1 cm. He also had a couple of serrated adenomas and several hyperplastic polyps. Given these findings I recommended a one-year follow-up colonoscopy. At the time of his colonoscopy he stated he had some hemorrhoid issues and I had given him a prescription for Anusol HC suppositories. Patient did not fill this due to the cost. He states that he still does have some occasional bleeding consistent with hemorrhoids. Of note, the patient is undergoing prostate biopsy on May 07. At the end of my discussion with the patient he stated that he had a hernia noted on recent CT scan and points to his umbilical area. Asymptomatic to him. [facility] History Medical History: Reports:: Cardiomyopathy, Congestive Heart Failure, Cerebrovascular Accident, Hyperlipidemia, Hypertension, Internal Pacemaker, Supraventricular Tachycardia, Transient Ischemic Attacks (TIA) Denies:: Cancer, Diabetes Mellitus Type 1, Diabetes Mellitus Type 2, Lung Disease, MRSA, Seizures *Have you ever received a pneumonia vaccine?: No *Have you received a flu vaccine this season?: No Other Medical History: Reports: Arthritis Other Surgeries: Yes: No Previous Surgery, Cardiac Catheterization, Colonoscopy, EGD, Hernia Repair, Pacemaker, Other Amputation: No Fractures: Yes (clavical) - *Social History Last grade of school completed: GED Smoking Status: Current every day smoker Tobacco Type: cigarettes # Packs/Day (cigarettes): 1 Alcohol Intake: current Alcohol Intake Frequency:: a few times a month Substance Use Type: denies use *Occupational Status:: disabled Housing: house Household Members: none *Travel in the last 8 weeks: None Family Hx:: Unable to obtain Meds Home Medications Medication Instructions Recorded Confirmed Type aspirin 81 mg tablet,delayed 81 mg PO DAILY tab 11/06/17 06/12/20 History release valacyclovir 500 mg tablet 500 mg PO BID #60 tab 01/04/20 06/12/20 Rx Cholecalciferol (Vitamin D3) 400 unit PO DAILY 04/10/20 06/12/20 History [Vitamin D3] Cyanocobalamin (Vitamin B-12) 5,000 mcg PO DAILY 04/10/20 06/12/20 History [Vitamin B12 5mg Tab] polyethylene glycoL 3350 [Miralax 17 gm PO DAILY 04/10/20 06/12/20 History 17gm Packet] clopidogrel 75 mg tablet 75 mg PO DAILY #90 tab 05/17/20 06/12/20 Rx lisinopril 10 mg tablet 10 mg PO DAILY #90 tab 05/17/20 06/12/20 Rx nebivolol 10 mg tablet 10 mg PO DAILY #90 tab 05/17/20 06/12/20 Rx omeprazole 40 mg capsule,delayed 40 mg PO DAILY #90 cap 05/17/20 06/12/20 Rx release pravastatin 40 mg tablet 40 mg PO DAILY #90 tab 05/17/20 06/12/20 Rx Umeclidinium Brm/Vilanterol Tr See Rx Instructions .ROUTE .COMPLEX 06/07/20 06/12/20 History [Anoro Ellipta 62.5-25 Mcg INH] Allergies Allergy/AdvReac Type Severity Reaction Status Date / Time No Known Allergies Allergy Verified 06/07/20 14:26 Exam Vital signs and Labs for Last 24 Hours: Temp Pulse Resp BP Pulse Ox 97.3 F L 72 20 144/94 H 97 06/12/20 07:43 06/12/20 07:43 06/12/20 07:43 06/12/20 07:43 06/12/20 07:43 - *Routine HEENT Exam Head: Present: normocephalic Eye: Present: EOMI, PERRL ENT: Present: mucous membranes moist - *Routine Neck Exam Present: supple. Absent: lymphadenopathy - *Routine Respiratory Exam Present: CTA bilaterally - *Routine Cardiovascular Exam Present: RRR - *Routine Abdominal Exam Present: soft, normoactive bowel sounds. Absent: tenderness - *Routine Extremities Exam Absent: cyanosis, clubbing, edema - *Routine Skin Exam P
[2020-06-12 08:15] VITALS: O2SAT 97
--- NOTE | 2020-06-12 09:14 | P.PCN_ITS ---
- Procedure: Date: 06/12/20 Patient Date of :: 1970 Procedure Performed:: Total colonoscopy to terminal ileum with biopsy and polypectomy by snare and cold biopsy forceps Indications:: Presents for follow-up colonoscopy. He is a 49-year-old white male who is somewhat of a poor historian from [place], [place] with a reported history of prior stroke, cardiomyopathy, congestive heart failure, pacemaker placement, coronary artery disease on Plavix. He was referred by Dr. Bautista 1 year ago for initial screening colonoscopy. His colonoscopy revealed numerous polyps. He had at least 8 or 9 tubular adenomas removed a couple of which were rather large greater than 1 cm. He also had a couple of serrated adenomas and several hyperplastic polyps. Given these findings I recommended a one-year follow-up colonoscopy. At the time of his colonoscopy he stated he had some hemorrhoid issues and I had given him a prescription for Anusol HC suppositories. Patient did not fill this due to the cost. He states that he still does have some occasional bleeding consistent with hemorrhoids. Of note, the patient is undergoing prostate biopsy on May 07. At the end of my discussion with the patient he stated that he had a hernia noted on recent CT scan and points to his umbilical area. Asymptomatic to him. Performing Provider:: Oswaldo Syed MD Referring Provider:: Ravindra Bautista MD Sedation:: MAC sedation Procedure:: Consent was obtained. Patient was taken to endoscopy procedure room. He was positioned in a lateral decubitus position. Variable stiffness Olympus colonoscope was inserted via the anus. Advanced to the cecum easily. Ileocecal valve and appendiceal orifice were clearly identified. Colonoscope was advanced a short distance into the terminal ileum. There is minor nodule which was biopsied, likely lymphoid nodule. Colonoscope was withdrawn through the colon with careful surveillance. In the descending colon there is a small polyp removed with cold cutting snare. Sigmoid polyp was removed with cold cutting snare. In the distal sigmoid there is a small polyp removed with cold cutting snare. Retroflexion was done in the rectum revealing minimal internal hemorrhoids which appeared noninflamed at this time. The rectal region there was a hyperplastic appearing polyp removed with cold biopsy forceps. Col onoscope was withdrawn. Findings:: Terminal ileum nodule, likely lymphoid Descending colon polyp removed with cold cutting snare, small Small sigmoid polyp removed with cold cutting snare Distal sigmoid polyp removed with cold cutting snare Hyperplastic appearing rectal polyp removed with biopsy forceps Significant diverticulosis Recommendations:: Likely repeat colonoscopy 2 years given the prior history Complications:: None immediately apparent Estimated blood obtained (mL): 2
[2020-06-12 09:15] VITALS: BP 126/69; PULSE 70; RESP 18; TEMP 36.1; O2SAT 95
--- NOTE | 2020-06-12 09:18 | P.PN_ITS ---
[facility] Anesthesia Checklist - Structural Data Admitted From: Home Planned Operative Procedure/s: colonoscopy Consent for Planned Operative Procedure(s) Verified: Yes - Additional verifications Anesthesia Reactions: No - Airway Assessment C-Spine Mobility Assessed: Yes TMJ Mobility Assessed: Yes Dentition: Good Dentition - Neurological Assessment Level of Consciousness: Awake, Alert, Appropriate - Anesthesia Plan Anesthesia Risk discussed: Yes Anesthesia Plan: Verified ASA Class: III Anesthesia Type: MAC [facility] History I have reviewed the patient's past medical history: Yes Medical History: Reports:: Cardiomyopathy, Congestive Heart Failure, Cerebrovascular Accident, Hyperlipidemia, Hypertension, Internal Pacemaker, Supraventricular Tachycardia, Transient Ischemic Attacks (TIA) Denies:: Cancer, Diabetes Mellitus Type 1, Diabetes Mellitus Type 2, Lung Disease, MRSA, Seizures *Have you ever received a pneumonia vaccine?: No *Have you received a flu vaccine this season?: No Other Medical History: Reports: Arthritis Anesthesia experience/problems:: none Other Surgeries: Yes: No Previous Surgery, Cardiac Catheterization, Colonoscopy, EGD, Hernia Repair, Pacemaker, Other Amputation: No Fractures: Yes (clavical) - *Social History Last grade of school completed: GED Smoking Status: Current every day smoker Tobacco Type: cigarettes # Packs/Day (cigarettes): 1 Alcohol Intake: current Alcohol Intake Frequency:: a few times a month Substance Use Type: denies use *Occupational Status:: disabled Housing: house Household Members: none *Travel in the last 8 weeks: None Family Hx:: Unable to obtain
[2020-06-12 09:30] VITALS: BP 154/76; PULSE 70; RESP 18; O2SAT 99
[2020-06-12 09:45] VITALS: BP 130/82; PULSE 71; RESP 16; O2SAT 97
== END 2020-06-12 09:45 | disposition home or self-care (01) ==
LOC: OUTP 07:26
PROVIDERS: PCP Emergency Medicine; Visit Provider Surgery
PROC: 0DJD8ZZ Inspection of Lower Intestinal Tract, Via Natural or Artificial Opening Endoscopic (ICD-10-PCS; CPT 45380; principal; 2020-06-12 08:30)
DX: Z12.11 Encounter for screening for malignant neoplasm of colon (principal); K63.5 Polyp of colon; K62.1 Rectal polyp; K57.30 Diverticulosis of large intestine without perforation or abscess without bleeding; K63.89 Other specified diseases of intestine; Z86.010 Personal history of colon polyps; Z86.73 Personal history of transient ischemic attack (TIA), and cerebral infarction without residual deficits; Z95.0 Presence of cardiac pacemaker; Z79.02 Long term (current) use of antithrombotics/antiplatelets; I25.10 Atherosclerotic heart disease of native coronary artery without angina pectoris; I42.9 Cardiomyopathy, unspecified; I10 Essential (primary) hypertension
CPT/HCPCS: 45380; 45385; 88305

== ENCOUNTER → 2020-10-16 14:30 | Outpatient (CLI) | payer MEDICARE, MEDICAID, SELFPAY ==
[2020-10-18 11:38] LABS: PSA, Free 0.72 ng/mL; Prostate Specific Ag 4.7 ng/mL (0.0-4.0)
== END ==
PROVIDERS: Visit Provider Urology
DX: R97.20 Elevated prostate specific antigen [PSA] (principal)
CPT/HCPCS: 36415; 84153; 84154

== ENCOUNTER → 2021-01-16 14:12 | Outpatient (CLI) | payer MEDICARE, MEDICAID, SELFPAY ==
--- NOTE | 2021-01-16 14:13 | CA_ITS ---
APPROVED REPORT EXAM: Comprehensive 2D, Doppler, and color-flow Echocardiogram Ovens Supervisor: Farrah Solis, LIZZY, RVS Ht: 5 ft 10 in Wt: 290lbs BSA: 2.44 BP: 137/86 mmHg Indications: Hx-CVA, Pacer, CM, CHF, SOA, Smoker Echo Enhancing Agent Comments: Techbically limited due to extreme body habitus with lung impedence 2D Dimensions IVSd 0.92 cm LVEF (Visual) 77.30 % PWd 1.31 cm LA Volume 50.30 mL LVDd 5.89 cm LA Volume Index 21.20 mL/m2 (M/F) 16-34 LVDs 3.14 cm LVOT 2.01 cm (M/F) 1.5-2.5 M-Mode Dimensions LA Diam 4.04 cm (1.9-4.0) Ao Diam 3.76 cm (2.0-3.7) EPSs 0.85 cm TAPSE 3.01 (<1.7) LV Diastology E Decel Time 273.00 (160-240 msec) E/A Ratio 0.81 MED E' 7.10 (< 7 cm/sec) MED A' 9.70 cm/s E'/MED E' Ratio 9.37 (>14) LAT E' 11.10 (<10 cm/sec) LAT A' 16.50 cm/s E/LAT E' Ratio 5.99 (>14) Aortic Valve LVOT Max 143.00 (70-110 cm/s) LVOT VTI 25.73 cm AoV Peak Matthew. 189.00 (50-130 cm/s) AO Peak GR. 14.30 mmHg AO Mean GR. 7.00 (<5 mmHg) AO VTI 30.23 (18-25 cm) DEBI (VTI) 2.70 (2.5-4.5 cm2) Mitral Valve MV A Velocity 82.00 (40-130 cm/s) E/A Ratio 0.81 MV Decel. Time 273.00 (160-240 ms) Pulmonary Valve PV Peak Velocity 87.00 (50-150 cm/s) Tricuspid Valve TR P. Velocity 186.00 cm/s RAP Estimate 15.00 mmHg RVSP 28.80 mmHg Left Ventricle Left atrium is mildly enlarged, left ventricle is normal size, mild concentric left ventricular hypertrophy, visually estimated ejection fraction 55% with no regional wall motion abnormality, grade 1 diastolic dysfunction seen without tissue Doppler evidence of raise left atrial pressure. Right Ventricle Right atrium and right ventricle are mildly enlarged with normal contractility, there is pacemaker lead seen in the right ventricle. Aortic Valve Aortic valve is minimally thickened and fibrosed, there is no aortic stenosis or aortic insufficiency. Mitral Valve Mitral valve is grossly normal, there is trace mitral regurgitation. Tricuspid Valve Tricuspid grossly normal, there is trace tricuspid regurgitation, tricuspid regurgitation jet velocity is inadequate for calculation of the right ventricular systolic pressure. Pulmonic Valve Pulmonic valve is poorly visualized. Great Vessels Aortic root is normal size. Pericardium No significant pericardial effusion noted. Conclusion 1. Mild biatrial enlargement, normal left ventricular size, mild concentric left ventricular hypertrophy, visually estimated ejection fraction 55% with no regional wall motion abnormality, grade 1 diastolic dysfunction seen without tissue Doppler evidence of raise left atrial pressure. 2. Mildly enlarged right ventricle with normal contractility. 3. Trace mitral and tricuspid regurgitation. 4. No significant pericardial effusion noted. Electronically signed by : Travis Llanes, 01/17/2021 10:49:20
== END ==
PROVIDERS: PCP Emergency Medicine; Visit Provider Urology
DX: R06.09 Other forms of dyspnea (principal)
CPT/HCPCS: 93306

== ENCOUNTER 2021-02-27 11:16 | Emergency (ER) | payer MEDICARE, MEDICAID, SELFPAY ==
--- NOTE | 2021-02-27 11:12 | ECG_ITS ---
APPROVED REPORT Exam: Resting ECG HR:118 bpm ECG Measurements Heart Rate 118 AXES WA 168 P 30 QRSd 90 QRS -24 QT 316 T 49 QTc 442 Conclusion Sinus tachycardia Poor r wave progression Abnormal ECG Electronically signed by : Federico Carrillo, 02/27/2021 21:01:34
[2021-02-27 11:17] VITALS: BP 167/110; PULSE 118; RESP 18; TEMP 37; O2SAT 95; BMI 36.6
--- NOTE | 2021-02-27 11:18 | XR_ITS ---
PROCEDURE: XR CHEST 2V CLINICAL HISTORY: chest pain COMPARISON: CR CXR1 CHEST-PORTABLE from 09/10/2015 CR CXR2V XR chest 2V from 06/19/2018 DX XR CHEST 2V from 05/23/2019 FINDINGS: Bipolar pacemaker is present from left subclavian approach. Normal heart size. No evidence of CHF. There are increased markings in the lung bases felt to be related to summation density from vessels and ribs and patient positioning. No lobar consolidation or collapse. Degenerative changes thoracic spine. There is fracture of the right clavicular bone plate in its mid aspect. Midshaft clavicular fracture also noted with inferior displacement of the distal fracture fragment by approximately 8 mm. IMPRESSION: 1. Right midshaft clavicular fracture with associated fracture of the previously placed bone plate with inferior displacement of the distal fracture fragment. 2. Otherwise negative Dictated by: Seng Pedroza MD 02/27/2021 11:36 Seng Pedroza MD in OV 02/27/2021 11:36
--- NOTE | 2021-02-27 11:19 | HMH.EDGENADL ---
ED Disposition Clinical Impression: Atypical chest pain Hypertension Qualifiers: Hypertension type: unspecified Qualified Code(s): I10 - Essential (primary) hypertension Disposition: Home, Self-Care Condition on Discharge: Good Instructions: DI for Atypical Chest Pain Additional Instructions: You have been evaluated for atypical chest pain. Please follow-up with Dr. Lowry in clinic. Return to the emergency department at once for any new or worsening symptoms. Referrals: Provider,MD Warren [Primary Care Provider] - Landon Lowry MD [Staff Physician] - Time of Disposition: 15:18 - Critical Care Critical Care Time: No Attestation: On , the high probability of a clinically significant, sudden or life threatening deterioration of the following system(s) required my full and direct attention, intervention and personal management. The time I documented below is in addition to time spent performing reported procedures but includes the following listed in this critical care notation. Medical Decision Making - Medical Records Medical records reviewed: Yes: I reviewed the patient's medical records. - Ken Inquiry Pt receiving controlled substance: No Vital Signs: 02/27/21 11:17 02/27/21 11:30 02/27/21 12:00 Temperature 98.6 F Temperature Source Oral Pulse Rate 110 H 97 H Pulse Rate [Left Radial] 118 H Respiratory Rate 18 Blood Pressure 147/108 H 137/97 H Blood Pressure [Right Arm] 167/110 H Blood Pressure Mean [Right Arm] 129 Blood Pressure Source [Right Arm] Automatic Cuff Blood Pressure Position [Right Arm] Sitting 02 Sat by Pulse Oximetry 95 94 L 94 L Oxygen Delivery Method Room Air Nasal Cannula Nasal Cannula Oxygen Flow Rate (LPM) 2 2 02/27/21 12:30 Temperature Temperature Source Pulse Rate 87 Pulse Rate [Left Radial] Respiratory Rate Blood Pressure 146/99 H Blood Pressure [Right Arm] Blood Pressure Mean [Right Arm] Blood Pressure Source [Right Arm] Blood Pressure Position [Right Arm] 02 Sat by Pulse Oximetry 94 L Oxygen Delivery Method Nasal Cannula Oxygen Flow Rate (LPM) 2 - Lab Data Lab Results 02/27/21 11:15: WBC 7.4, RBC 5.20, Hgb 16.6, Hct 48.5, MCV 93.4, MCH 31.9 H, MCHC 34.1, RDW 13.9, Plt Count 273, MPV 7.7, Neut % (Auto) 66.0, Lymph % (Auto) 24.6, [place] % (Auto) 7.3, Eos % (Auto) 1.5, Baso % (Auto) 0.6, Neut # (Auto) 4.9, Lymph # (Auto) 1.8, [place] # (Auto) 0.5, Eos # (Auto) 0.1, Baso # (Auto) 0.0 02/27/21 11:15: Sodium 139, Potassium 3.9, Chloride 107, Carbon Dioxide 21 L, Anion Gap 14.9, BUN 3 L, Creatinine 0.70, Estimated Creat Clear 202, Estimated GFR 118, Est GFR ( Amer) 143, Glucose 95, Calcium 8.9, Troponin I < 0.01 02/27/21 13:52: Troponin I < 0.01 Result diagrams: 02/27/21 11:15 02/27/21 11:15 Orders (Tests/Meds): ORDERS Category Date Time Status Troponin I Q3H Lab 02/27/21 17:30 Ordered ECG Request by /Nse Stat Y 02/27/21 11:18 Ordered - ECG Data Tracing #1 Ventricular rates of 118 bpm. QRS 90, QTc 442. ST segment flattening in the inferior leads. No ST segment elevation. No arrhythmia. - RASHAAD Score for Non-Stemi Age of Patient: 50-59 years old Heart Rate: 110-149 bpm Systolic Blood Pressure: 160-199 mmHg Serum Creatinine: 0.80-1.19 mg/dl CHF [place] Class: I-No CHF Other Risk Factors: None Non-Stemi Risk Score: 82 Medical Decision Narrative: In summary this is a 50-year-old male with history of coronary artery disease and stroke presenting to the emergency department with chest pain. Patient tachycardic and hypertensive on arrival. Otherwise stable, conversational. Concern for ACS, vasospasm. Will obtain CBC, CMP, chest x-ray, EKG, troponin profile. Patient has received full dose aspirin. Will hold nitroglycerin. Cardiac catheterization June 2018 ANGIOGRAPHIC RESULTS: 1. The left main artery normal 2. The left anterior descending artery small mild luminal irregularities 10% 3. The ci
[2021-02-27 11:30] VITALS: BP 147/108; PULSE 110; O2SAT 94
[2021-02-27 11:35] LABS: Anion Gap 14.9 mEq/L (5-15); Blood Urea Nitrogen 3 mg/dl (9-20); Calcium 8.9 mg/dl (8.4-10.2); Carbon Dioxide 21 mmol/L (22.0-30.0); Chloride 107 mmol/L (98-107); Creatinine Clearance Estimated 202 mL/min (50-200); Estimated Glomerular Filt Rate 118 ml/min (>60); GFR (African American) 143 ML/MIN (>60); Glucose 95 mg/dl (74-100); Potassium 3.9 mmoL/L (3.5-5.1); Sodium 139 mmol/L (136-145)
[2021-02-27 11:39] LABS: Basophils % 0.6 % (0.1-2.0); Eosinophils # 0.1 K/mm3 (0.0-0.4); Eosinophils % 1.5 % (0.1-12.0); Hematocrit 48.5 % (42.0-52.0); Hemoglobin 16.6 g/dL (14.1-18.0); Lymphocytes # 1.8 K/mm3 (0.7-4.5); Lymphocytes % 24.6 % (10-50); Mean Corpuscular HGB Conc 34.1 g/dL (31.8-35.4); Mean Corpuscular Hemoglobin 31.9 pg (27.0-31.2); Mean Corpuscular Volume 93.4 fl (80-94); Mean Platelet Volume 7.7 fl (7.4-10.4); Monocytes # 0.5 K/mm3 (0.1-1.0); Monocytes % 7.3 % (1.7-9.3); Neutrophils # 4.9 K/mm3 (1.8-7.8); Platelet Count 273 K/mm3 (142-424); Red Cell Distribution Width 13.9 % (11.5-17.5); White Blood Count 7.4 K/mm3 (4.8-10.8)
[2021-02-27 11:50] LABS: Troponin I < 0.01 ng/ml (0.00-0.034)
[2021-02-27 12:00] VITALS: BP 137/97; PULSE 97; O2SAT 94
[2021-02-27 12:30] VITALS: BP 146/99; PULSE 87; O2SAT 94
--- NOTE | 2021-02-27 13:59 | PC.NURSE ---
2.5 HOUR TROP SENT TO LAB PER
[2021-02-27 14:21] LABS: Troponin I < 0.01 ng/ml (0.00-0.034)
[2021-02-27 15:22] VITALS: BP 125/85; PULSE 76
--- NOTE | 2021-02-27 15:26 | HMH.CNCARD ---
History of Present Illness Consult date: 02/27/21 Requesting physician: Phyllis Muñiz Consult reason: chest pain Chief complaint: Chest pain History of present illness: 50-year-old male presented to ED with midsternal chest pain radiating down left arm. Patient states the chest pain and pressure started while he was doing laundry 2 hours prior to arrival to the ED. Patient states this a.m. he was having coffee with his friend, and after having this coffee is when the chest pain began. Patient states he did become short of breath and felt like his heart was racing. Patient states he was able to drive himself to the ED and once he arrived to the ED he was feeling much better. Patient denies chest pain, tightness or pressure during this assessment. Patient denies shortness of breath. Patient denies dizziness or palpitations. Patient was noted to have elevated blood pressure upon arrival to the ED. Vital signs are stable at this time. Patient states he did run out of his lisinopril and has not taken it for a few days. Lisinopril prescription had been sent to the pharmacy earlier today for him. Patient was just last seen in cardiology office in January 2021 for routine checkup. Echocardiogram was performed which revealed EF 55% with no regional wall abnormality grade 1 diastolic dysfunction with a trace of MR and TR noted. Patient does have permanent pacemaker due to tachybradycardia syndrome. Implant date was September 2014. Interrogation had been performed on pacemaker which revealed 3 episodes of non-sustained V. tach. Patient is currently on beta-elyssa. Patient does follow-up in the pacemaker clinic. Patient does have history of hypertension which is uncontrolled. Due to patient being noncompliant with medications. Patient has history of hyperlipidemia. Patient is on statin therapy. Patient does have history of CVA. Patient is currently on Plavix. Patient does have history of coronary artery disease. Left heart catheterization was in 2018 which revealed mild nonflow limiting coronary artery disease with elevated LVEDP consistent with diastolic dysfunction. Initial work-up was performed in the ED. Initial EKG sinus tach with a heart rate of 118 bpm. Heart rate is now 68 bpm. Serial troponins negative x2. Otherwise all lab work unremarkable. Chest x-ray was performed which revealed no acute findings. LHC:ANGIOGRAPHIC RESULTS: 1. The left main artery normal 2. The left anterior descending artery small mild luminal irregularities 10% 3. The circumflex artery nondominant luminal irregularities 10% 4. The right coronary artery large dominant luminal irregularities of 10% 5. The ALEMAN ventriculogram reveals normal 65% 6. The left ventricular end-diastolic pressure 20 mmHg IMPRESSION: 1. Mild nonflow limiting coronary disease 2. Normal ejection fraction 3. Elevated LVEDP consistent with diastolic dysfunction PLAN: 1. Medical management Echo (01/21)Conclusion 1. Mild biatrial enlargement, normal left ventricular size, mild concentric left ventricular hypertrophy, visually estimated ejection fraction 55% with no regional wall motion abnormality, grade 1 diastolic dysfunction seen without tissue Doppler evidence of raise left atrial pressure. 2. Mildly enlarged right ventricle with normal contractility. 3. Trace mitral and tricuspid regurgitation. 4. No significant pericardial effusion noted. CXR:Impression 1. Right midshaft clavicular fracture with associated fracture of the previously placed bone plate with inferior displacement of the distal fracture fragment. 2. Otherwise negative Discussed plan of care with Dr. Lowry. Orders received from Dr. Lowry. Patient was offered admission due to chest pain. Patient declined and stated if he begins to feel worse or the chest pain returns he will return to the ED. Troponins x2 were negative. Vital signs are stable. Patient is to follow-up in the car
[2021-02-27 15:45] VITALS: BP 121/83; PULSE 74; RESP 18; TEMP 37; O2SAT 96
== END 2021-02-27 15:45 | disposition home or self-care (01) ==
PROVIDERS: Emergency Provider Emergency Medicine
DX: R07.89 Other chest pain (principal); I10 Essential (primary) hypertension; I25.10 Atherosclerotic heart disease of native coronary artery without angina pectoris; I50.9 Heart failure, unspecified; E78.5 Hyperlipidemia, unspecified; Z86.73 Personal history of transient ischemic attack (TIA), and cerebral infarction without residual deficits; Z95.0 Presence of cardiac pacemaker; F17.210 Nicotine dependence, cigarettes, uncomplicated; Z79.899 Other long term (current) drug therapy
CPT/HCPCS: 71046; 80048; 84484; 85025; 93005; 99283

== ENCOUNTER → 2021-04-18 13:58 | Outpatient (CLI) | payer MEDICARE, MEDICAID, SELFPAY ==
[2021-04-20 11:11] LABS: PSA, Free 0.52 ng/mL; Prostate Specific Ag 3.6 ng/mL (0.0-4.0)
== END ==
PROVIDERS: Visit Provider Urology
DX: R97.20 Elevated prostate specific antigen [PSA] (principal)
CPT/HCPCS: 36415; 84153; 84154

== ENCOUNTER 2021-08-06 09:11 | Emergency (ER) | payer MEDICARE, MEDICAID, SELFPAY ==
[2021-08-06 09:15] VITALS: BP 143/93; PULSE 71; RESP 18; TEMP 36.6; O2SAT 95; BMI 36.9
[2021-08-06 10:11] VITALS: BP 143/93; PULSE 71; RESP 18; TEMP 36.6; O2SAT 95
--- NOTE | 2021-08-06 10:18 | HMH.EDUTC ---
[facility] [place] Clinical Impression: Bronchitis Sinusitis Qualifiers: Sinusitis location: unspecified location Chronicity: unspecified Qualified Code(s): J32.9 - Chronic sinusitis, unspecified Disposition: Home, Self-Care Condition on Discharge: Good Instructions: Sinusitis, Acute Bronchitis, DI for Sinusitis Additional Instructions: ? Start antibiotic today. Be sure to complete entire prescription even if feeling better ? Monitor temp. Tylenol every 4 hours as needed and / or ibuprofen every 6 hours as needed ( As long as your primary care physician has told you that it ok to take both. For fever/aches/pains ER if no less than 101 despite Tylenol or Motrin ? Humidifier/vaporizer or hot steamy shower *Tessalon Perles will not cause drowsiness but use at bedtime to help stop cough so that you may get some rest. *Start steroid today. Helps with inflammation therefore, cough and wheezing. Follow directions on the package. Reviewed side effects. Patient reports taking them before. Follow up IMMEDIATELY for new or worsening of symptoms OR no noticeable improvement over the next 48-72 hours. 911 immediately for any life threatening symptoms such as chest pain or difficulty breathing Prescriptions: Benzonatate [Benzonatate 100mg cap] 100 mg PO Q8HP PRN #15 cap PRN Reason: Cough Transmission Status: Pending to [facility] Amoxicillin/Potassium Clav [Augmentin 875-125 Tablet] 1 tab PO Q12H 7 Days #14 tab Transmission Status: Pending to [facility] predniSONE [Deltasone 10mg tablet] 10 mg PO BID 5 Days #10 tab Transmission Status: Pending to [facility] Referrals: Chris Bautista MD [Primary Care Provider] - As needed Forms: Work/School Release Time of Disposition: 10:45 Medical Decision Making - Ken Inquiry Pt receiving controlled substance: No Ken was queried for this patient: No Vital Signs: 08/06/21 09:15 08/06/21 10:11 Temperature 97.9 F 97.9 F Temperature Source Oral Pulse Rate 71 Pulse Rate [Left Brachial] 71 Respiratory Rate 18 18 Blood Pressure 143/93 H Blood Pressure [Left Arm] 143/93 H Blood Pressure Mean [Left Arm] 109 Blood Pressure Source [Left Arm] Automatic Cuff Blood Pressure Position [Left Arm] Sitting 02 Sat by Pulse Oximetry 95 Oxygen Delivery Method Room Air [facility] [place]PI - General Stated complaint: sore throat, cough, runny nose, congestion, fever Time Seen by Provider: 08/06/21 10:18 Mode of Arrival: Ambulatory Source of Information: Patient Limitations: No Limitations Description of Symptoms (Recalled from Triage Doc. by RN): PATIENT C/O COUGH, CONGESTION, AND FATIGUE SINCE THURSDAY. REQUESTING MEDICINE AND A WORK NOTE HEENT Symptoms (Recalled from RN notes): No Resp Symptoms (Recalled from RN notes): Yes Skin Symptoms (Recalled from RN notes): No MS Symptoms (Recalled from RN notes): No Functional Status (Recalled from RN notes): WNL - History of Present Illness Provider Complaint: Patient states that he has been having cough, sinus congestion and pressure draining in the back of his throat and chest congestion like he gets when he gets Bronchitis State that he came in to get medication to help and a work note - Related Data Home Medications Medication Instructions Recorded Confirmed aspirin 81 mg tablet,delayed 81 mg PO DAILY tab 11/06/17 04/18/21 release Cholecalciferol (Vitamin D3) 400 unit PO DAILY 04/10/20 04/18/21 [Vitamin D3] Cyanocobalamin (Vitamin B-12) 5,000 mcg PO DAILY 04/10/20 04/18/21 [Vitamin B12 5mg Tab] polyethylene glycoL 3350 [Miralax 17 gm PO DAILY 04/10/20 04/18/21 17gm Packet] linaclotide 72 mcg capsule 72 mcg PO DAILY cap 01/09/21 04/18/21 omeprazole 40 mg capsule,delayed 40 mg PO DAILY cap 01/09/21 04/18/21 release Previous Rx's Medication Instructions Recorded valacyclovir 500 mg tablet See Rx Instructions .ROUTE 04/12/21 .COMPLEX #60 tab clopidogrel 75 mg tablet See Rx In
== END 2021-08-06 10:57 | disposition home or self-care (01) ==
PROVIDERS: Emergency Provider Nurse Practitioner; PCP Emergency Medicine
DX: J20.9 Acute bronchitis, unspecified (principal); J32.9 Chronic sinusitis, unspecified; E78.5 Hyperlipidemia, unspecified; I10 Essential (primary) hypertension
CPT/HCPCS: G0463; 99202; C9803; U0003; U0005

== ENCOUNTER → 2021-08-13 10:30 | Outpatient (CLI) | payer MEDICARE, MEDICAID, SELFPAY | PROVIDERS: Visit Provider Nurse Practitioner | DX: U07.1 COVID-19 (principal) | CPT/HCPCS: C9803; U0003; U0005 ==

== ENCOUNTER → 2021-08-19 13:48 | Outpatient (CLI) | payer MEDICARE, MEDICAID, SELFPAY | PROVIDERS: PCP Emergency Medicine; Visit Provider Nurse Practitioner | DX: U07.1 COVID-19 (principal) | CPT/HCPCS: C9803; U0003; U0005 ==

== ENCOUNTER → 2021-10-24 14:20 | Outpatient (CLI) | payer MEDICARE, MEDICAID, SELFPAY ==
[2021-10-26 08:15] LABS: PSA, Free 0.84 ng/mL; Prostate Specific Ag 5.1 ng/mL (0.0-4.0)
== END ==
PROVIDERS: Visit Provider Urology
DX: R97.20 Elevated prostate specific antigen [PSA] (principal)
CPT/HCPCS: 84153; 84154

== ENCOUNTER 2022-01-13 08:52 | Emergency (ER) | payer MEDICARE, MEDICAID, SELFPAY ==
--- NOTE | 2022-01-13 09:13 | HMH.EDUTC ---
[facility] [place] Impression: COPD exacerbation, Exposure to COVID-19 virus, Viral syndrome Disposition: Home, Self-Care Condition on Discharge: Good Instructions: DI for Chronic Obstructive Pulmonary Disease, DI for COVID-19 (Suspected or Confirmed ), Preventing the Spread of Coronavirus Discharge Instructions Additional Instructions: Drink plenty of fluids. Take tylenol or ibuprofen for pain or fever. Take the medications as directed. Follow up with your regular doctor. GO TO THE ER FOR ANY WORSENING SYMPTOMS Quarantine until you know the results of your covid-19 test. Notify your school or workplace of your results and follow their instructions regarding return to work/school. Don't start the oral steroids until tomorrow, since you had the shot here today. Prescriptions: Albuterol Sulfate [Albuterol Sulfate Hfa] 2 puffs IH Q6HP PRN 30 Days #1 each PRN Reason: Shortness Of Breath Transmission Status: Received by [facility] Amoxicillin/Potassium Clav [Amox-Clav 875-125 mg Tablet] 1 tab PO BID #20 tab Transmission Status: Received by [facility] Benzonatate [Benzonatate 100mg cap] 100 mg PO TIDP PRN #30 cap PRN Reason: Cough Transmission Status: Received by [facility] methylPREDNISolone [Medrol] 4 mg PO DIRECTED 6 Days #21 packet Transmission Status: Received by [facility] Referrals: Chris Bautista MD [Primary Care Provider] - Forms: Work/School Release Time of Disposition: 10:02 Medical Decision Making - Medical Records Medical records reviewed: No: I reviewed the patient's medical records. - Ken Inquiry Pt receiving controlled substance: No Vital Signs: 01/13/22 09:22 01/13/22 10:05 Temperature 98.0 F 98.0 F Temperature Source Oral Pulse Rate 70 Pulse Rate [Left Radial] 70 Respiratory Rate 19 19 Blood Pressure 118/78 Blood Pressure [Right Arm] 118/78 Blood Pressure Mean [Right Arm] 91 02 Sat by Pulse Oximetry 95 - Lab Data Lab Results 01/13/22 09:10: Influenza Type A Ag Negative, Influenza Type B Ag Negative Orders (Tests/Meds): ED MEDICATIONS Discontinued Medications Generic Name Dose Route Start Last Admin Trade Name Freq PRN Reason Stop Dose Admin Ceftriaxone Sodium 1 gm 01/13/22 09:53 01/13/22 10:05 Ceftriaxone 1gm Vial IM 01/13/22 09:54 1 gm ONCE ONE Administration Lidocaine HCl 0 ml 01/13/22 09:53 01/13/22 10:05 Lidocaine 1% 5ml Pf Vial IM 01/13/22 09:54 2 ml ONCE ONE Administration Methylprednisolone Sodium Succinate 125 mg 01/13/22 09:53 01/13/22 10:05 Methylprednisolone Sod Succ 125mg Vial IM 01/13/22 09:54 125 mg ONCE ONE Administration ORDERS Category Date Time Status Full Resp Panel w/COVID ([facility]) Routine Lab 01/13/22 09:10 Received - Radiology Data #1 Image(s): Chest Image Reviewed: Yes I reviewed the patient's radiology image, Yes I have reviewed radiologist's interpretation Preliminary Findings: Normal/NAD, No Infiltrates Seen FINAL REPORT CLINICAL HISTORY: cough since sat. smoker COMPARISON: February 27, 2021 FINDINGS: Two views of the chest were obtained. There is a left subclavian pacemaker. The heart size and pulmonary vascularity are within normal limits. The mediastinum is normal. No acute pulmonary abnormality is identified. There is no pneumothorax. There is a chronic fracture of the mid right clavicle with a broken screw plate, stable from prior. IMPRESSION: No active cardiopulmonary disease. Reviewed, Interpreted and Dictated by Oswaldo Dinero III, MD Transcribed by Avery Glass Authenticated and [facility] HPI - General Stated complaint: cough, runny nose, congestion Time Seen by Provider: 01/13/22 09:14 - History of Present Illness Provider Complaint: He states that for the past 1 week he has irving
[2022-01-13 09:19] LABS: Adenovirus,PCR Not Detected (NotDetected); Bordetella Pertussis Not Detected (NotDetected); Chlamydophila Pneumoniae, PCR Not Detected (NotDetected); Coronavirus 19, PCR Not Detected (NotDetected); Coronavirus 229E Not Detected (NotDetected); Coronavirus NL63 Not Detected (NotDetected); Coronavirus OC43 Not Detected (NotDetected); Coronovirus HKU1,PCR Not Detected (NotDetected); Human Metapneumovirus Not Detected (NotDetected); Influenza A, PCR Not Detected (NotDetected); Influenza AH1, 2009 Not Detected (NotDetected); Influenza AH1, PCR Not Detected (NotDetected); Influenza AH3,PCR Not Detected (NotDetected); Influenza B, PCR Not Detected (NotDetected); Mycoplasma Pneumoniae, PCR Not Detected (NotDetected); Parainfluenza 1, PCR Not Detected (NotDetected); Parainfluenza 2, PCR Not Detected (NotDetected); Parainfluenza 4, PCR Not Detected (NotDetected); Respiratory Syncytial Virus Not Detected (NotDetected); Rhinovirus/Enterovirus Not Detected (NotDetected)
[2022-01-13 09:22] VITALS: BP 118/78; PULSE 70; RESP 19; TEMP 36.7; O2SAT 95; BMI 36.9
--- NOTE | 2022-01-13 09:30 | XR_ITS ---
FINAL REPORT CLINICAL HISTORY: cough since sat. smoker COMPARISON: February 27, 2021 FINDINGS: Two views of the chest were obtained. There is a left subclavian pacemaker. The heart size and pulmonary vascularity are within normal limits. The mediastinum is normal. No acute pulmonary abnormality is identified. There is no pneumothorax. There is a chronic fracture of the mid right clavicle with a broken screw plate, stable from prior. IMPRESSION: No active cardiopulmonary disease. Reviewed, Interpreted and Dictated by Oswaldo Dinero III, MD Transcribed by Avery Glass Authenticated and . [facility]
[2022-01-13 09:31] LABS: UTC Influenza A Antigen Negative (Negative); UTC Influenza B Antigen Negative (Negative)
[2022-01-13 10:05] VITALS: BP 118/78; PULSE 70; RESP 19; TEMP 36.7
[2022-01-13 13:37] LABS: Parainfluenza 3, PCR Detected (NotDetected)
== END 2022-01-13 10:16 | disposition home or self-care (01) ==
PROVIDERS: Emergency Provider Nurse Practitioner Family; PCP Emergency Medicine
DX: J44.1 Chronic obstructive pulmonary disease with (acute) exacerbation (principal); B34.9 Viral infection, unspecified; Z20.822 Contact with and (suspected) exposure to COVID-19; I42.9 Cardiomyopathy, unspecified; I50.9 Heart failure, unspecified; I11.0 Hypertensive heart disease with heart failure; E78.5 Hyperlipidemia, unspecified; Z95.0 Presence of cardiac pacemaker; Z86.14 Personal history of Methicillin resistant Staphylococcus aureus infection; Z86.73 Personal history of transient ischemic attack (TIA), and cerebral infarction without residual deficits; Z87.39 Personal history of other diseases of the musculoskeletal system and connective tissue; Z72.0 Tobacco use
CPT/HCPCS: 71046; 87581; 87632; 87798; 87804; 96372; 99212; C9803; G0463; J0696; U0003; U0005

== ENCOUNTER 2022-02-26 09:08 | Emergency (ER) | payer MEDICARE, MEDICAID, SELFPAY ==
[2022-02-26 09:29] VITALS: BP 142/89; PULSE 100; RESP 18; TEMP 36.9; O2SAT 97; BMI 35.8
--- NOTE | 2022-02-26 09:38 | HMH.EDUTC ---
[facility] [place] Disposition Clinical Impression: Exposure to COVID-19 virus, Viral syndrome Disposition: Home, Self-Care Condition on Discharge: Good Instructions: DI for COVID-19 (Suspected or Confirmed ), Preventing the Spread of Coronavirus Discharge Instructions, Ondansetron, DI for Nausea -- Adult Additional Instructions: *Monitor Temp, Over the counter Motrin or Tylenol as directed/as needed Tylenol every 4 hours and Motrin every 6 hours (as long as your family doctor has told you that you can take it) for fever or pain. and straight to ER if unable to lower temp less than 101.0 after medication given *Warm salt water gargles may help to soothe the throat *Throat Lozenges *Warm fluids like tea with honey may help to soothe the throat *Sleep elevated *Humidifier/Vaporizer Drink extra fluids with and between meals. If you have difficulty drinking, try very small amounts of water or suck on ice chips. ? Avoid fruit juices, as these do not replace minerals and can actually increase diarrhea. ? Children and adults can use sports drinks to replenish electrolytes. Younger children and infants should use products formulated for children, like oral rehydration solutions. ? Eat food in small amounts and let your stomach recover. ? Get lots of rest. You may feel tired or weak. ? No greasy or fried foods for the next 24-48 hours BRAT diet Bananas Rice Apples and [place] ? Make sure to drink plenty of liquids ? Return if needed ? Straight to ER if any life threatening symptoms ? Zofran as prescribed ? Follow up with family doctor in the next 48-72 hours if no improvement or any worsening of symptoms Follow up IMMEDIATELY for new or worsening symptoms or no Noticeable improvement over the next 48-72 hours. 911 for difficulty breathing or swallowing You were tested for today for COVID19 your test result should be back in the next 24-48 hours, you may check your Results on [facility] My Health Portal Make sure to take your Vitamins Vit. C Vit D and Zinc if you can take them Prescriptions: Ondansetron [Zofran 4mg ODT] 4 mg PO TIDP PRN #10 tab PRN Reason: Nausea Transmission Status: Pending to [facility] Referrals: Chris Bautista MD [Primary Care Provider] - As needed Forms: Work/School Release Time of Disposition: 09:44 Medical Decision Making - Ken Inquiry Pt receiving controlled substance: No Ken was queried for this patient: No Vital Signs: 02/26/22 09:29 Temperature 98.5 F Temperature Source Oral Pulse Rate [Left] 100 H Respiratory Rate 18 Blood Pressure [Right Arm] 142/89 H Blood Pressure Mean [Right Arm] 106 02 Sat by Pulse Oximetry 97 Orders (Tests/Meds): ORDERS Category Date Time Status Full Resp Panel w/COVID ([facility]) Routine Lab 02/26/22 09:28 Ordered [facility] HPI - General Stated complaint: vomiting, diarrhea, fatigue Time Seen by Provider: 02/26/22 09:38 Mode of Arrival: Ambulatory Source of Information: Patient Limitations: No Limitations Description of Symptoms (Recalled from Triage Doc. by RN): patient comes in for covid test. patient complains of nausea, vomitting, diarrhea, headache. symptoms began thursday. patient was exposed by a coworker last . HEENT Symptoms (Recalled from RN notes): No Resp Symptoms (Recalled from RN notes): No Skin Symptoms (Recalled from RN notes): No MS Symptoms (Recalled from RN notes): No Functional Status (Recalled from RN notes): n/a - History of Present Illness Provider Complaint: Patient state that he was around co worker last week that was positive for COVID states that he has been having body aches, chills, N/V/D and over all not feeling well for the last couple of days State that today he came in to get a COVID test when he was still not feeling well - Related Data Home Medications Medication Instructions Recorded Confirmed aspirin 81 mg tablet,delayed 81 mg PO DAILY tab 11/06/17 10/24/21 release Cholecalciferol (Vitamin D3) 400 un
[2022-02-26 09:45] LABS: Adenovirus,PCR Not Detected (NotDetected); Bordetella Pertussis Not Detected (NotDetected); Chlamydophila Pneumoniae, PCR Not Detected (NotDetected); Coronavirus 19, PCR Not Detected (NotDetected); Coronavirus 229E Not Detected (NotDetected); Coronavirus NL63 Not Detected (NotDetected); Coronavirus OC43 Not Detected (NotDetected); Coronovirus HKU1,PCR Not Detected (NotDetected); Human Metapneumovirus Not Detected (NotDetected); Influenza A, PCR Not Detected (NotDetected); Influenza AH1, 2009 Not Detected (NotDetected); Influenza AH1, PCR Not Detected (NotDetected); Influenza AH3,PCR Not Detected (NotDetected); Influenza B, PCR Not Detected (NotDetected); Mycoplasma Pneumoniae, PCR Not Detected (NotDetected); Parainfluenza 1, PCR Not Detected (NotDetected); Parainfluenza 2, PCR Not Detected (NotDetected); Parainfluenza 3, PCR Not Detected (NotDetected); Parainfluenza 4, PCR Not Detected (NotDetected); Respiratory Syncytial Virus Not Detected (NotDetected); Rhinovirus/Enterovirus Not Detected (NotDetected)
[2022-02-26 09:47] VITALS: BP 142/89; PULSE 100; RESP 18; TEMP 36.9
== END 2022-02-26 10:00 | disposition home or self-care (01) ==
PROVIDERS: Emergency Provider Nurse Practitioner; PCP Emergency Medicine
DX: Z20.822 Contact with and (suspected) exposure to COVID-19 (principal)
CPT/HCPCS: 87581; 87632; 87798; 99212; C9803; G0463; U0003; U0005

== ENCOUNTER 2022-03-05 10:30 | Emergency (ER) | payer MEDICARE, MEDICAID, SELFPAY ==
--- NOTE | 2022-03-05 10:43 | HMH.EDUTC ---
[facility] Disposition Clinical Impression: Gastroenteritis Disposition: Home, Self-Care Condition on Discharge: Good Instructions: Viral Gastroenteritis, DI for Viral Gastroenteritis -- Adult, Ondansetron Additional Instructions: Drink plenty of fluids. Take tylenol or ibuprofen for pain or fever. Take the medications as directed. Follow up with your regular doctor. GO TO THE ER FOR ANY WORSENING SYMPTOMS Prescriptions: Ondansetron [Zofran 4mg ODT] 4 mg PO Q8HP PRN #20 tab PRN Reason: Nausea Transmission Status: Received by [email or web address] Referrals: Chris Bautista MD [Primary Care Provider] - Forms: Work/School Release Time of Disposition: 10:57 Medical Decision Making - Medical Records Medical records reviewed: No: I reviewed the patient's medical records. - Ken Inquiry Pt receiving controlled substance: No Vital Signs: 03/05/22 10:49 03/05/22 11:01 Temperature 98.3 F 98.3 F Temperature Source Oral Pulse Rate 84 Pulse Rate [Left] 84 Respiratory Rate 16 16 Blood Pressure 119/86 Blood Pressure [Right Arm] 119/86 Blood Pressure Mean [Right Arm] 97 02 Sat by Pulse Oximetry 96 - Lab Data Lab results reviewed: Yes: I reviewed the patient's lab results. [facility] HPI - General Stated complaint: upset stomache Time Seen by Provider: 03/05/22 10:43 - History of Present Illness Provider Complaint: He states that he ate some homemade egg rolls last night. When he got up this morning he had nausea and he vomited once. He denies any abdominal pain. He has had some diarrhea this morning also. He denies any fever, chills or body aches. - Related Data Home Medications Medication Instructions Recorded Confirmed aspirin 81 mg tablet,delayed 81 mg PO DAILY tab 11/06/17 10/24/21 release Cholecalciferol (Vitamin D3) 400 unit PO DAILY 04/10/20 10/24/21 [Vitamin D3] Cyanocobalamin (Vitamin B-12) 5,000 mcg PO DAILY 04/10/20 10/24/21 [Vitamin B12 5mg Tab] polyethylene glycoL 3350 [Miralax 17 gm PO DAILY 04/10/20 10/24/21 17gm Packet] linaclotide 72 mcg capsule 72 mcg PO DAILY cap 01/09/21 10/24/21 omeprazole 40 mg capsule,delayed 40 mg PO DAILY cap 01/09/21 10/24/21 release Previous Rx's Medication Instructions Recorded clopidogrel 75 mg tablet See Rx Instructions .ROUTE 06/04/21 .COMPLEX #90 tab lisinopril 10 mg tablet 10 mg PO DAILY #90 tab 06/04/21 nebivolol 10 mg tablet See Rx Instructions .ROUTE 06/04/21 .COMPLEX #90 tab pravastatin 40 mg tablet See Rx Instructions .ROUTE 06/04/21 .COMPLEX #90 tab umeclidinium 62.5 mcg-vilanterol See Rx Instructions .ROUTE 07/22/21 25 mcg/actuation powdr for .COMPLEX #60 blister inhalation Benzonatate [Benzonatate 100mg 100 mg PO Q8HP PRN #15 cap 08/06/21 cap] sildenafil 100 mg tablet 100 mg PO .COMPLEX PRN #30 tab 08/19/21 valacyclovir 500 mg tablet See Rx Instructions .ROUTE 09/13/21 .COMPLEX #60 tab Albuterol Sulfate [Albuterol 2 puffs IH Q6HP PRN 30 Days #1 each 01/13/22 Sulfate Hfa] Amoxicillin/Potassium Clav 1 tab PO BID #20 tab 01/13/22 [Amox-Clav 875-125 mg Tablet] Benzonatate [Benzonatate 100mg 100 mg PO TIDP PRN #30 cap 01/13/22 cap] methylPREDNISolone [Medrol] 4 mg PO DIRECTED 6 Days #21 01/13/22 packet Ondansetron [Zofran 4mg ODT] 4 mg PO TIDP PRN #10 tab 02/26/22 Ondansetron [Zofran 4mg ODT] 4 mg PO Q8HP PRN #20 tab 03/05/22 Allergies Allergy/AdvReac Type Severity Reaction Status Date / Time No Known Allergies Allergy Verified 03/05/22 10:52 [facility] History - Hepatitis A Screen Attestation statement:: This patient has been screened for Hepatitis A risk factors. I have reviewed the patient's past medical history: Yes Medical History: Reports:: BPH, Cancer, Cardiomyopathy, Congestive Heart Failure, Cerebrovascular Accident, Hyperlipidemia, Hypertension, Internal Pacemaker, MRSA, Supraventricular Tachycardia, Transient Ischemic Attacks
[2022-03-05 10:49] VITALS: BP 119/86; PULSE 84; RESP 16; TEMP 36.8; O2SAT 96; BMI 35.8
[2022-03-05 11:01] VITALS: BP 119/86; PULSE 84; RESP 16; TEMP 36.8
== END 2022-03-05 11:01 | disposition home or self-care (01) ==
PROVIDERS: Emergency Provider Nurse Practitioner Family; PCP Emergency Medicine
DX: K52.9 Noninfective gastroenteritis and colitis, unspecified (principal)
CPT/HCPCS: 99212; G0463

== ENCOUNTER 2022-07-11 13:12 | Observation (INO) | payer MEDICARE, MEDICAID, SELFPAY ==
[2022-07-11] VITALS (19 sets, daily range): BP systolic 116–140; BP diastolic 71–92; PULSE 85–122; RESP 18–26; TEMP 36.7–36.8; O2SAT 88–94; BMI 36.8
--- NOTE | 2022-07-11 13:31 | XR_ITS ---
FINAL REPORT CLINICAL HISTORY: SOA, cough COMPARISON: 01/13/2022 FINDINGS: SINGLE-VIEW CHEST The heart size is normal. The mediastinum is normal. Left subclavian pacer is identified. There are mild bibasilar opacities, favor atelectasis over pneumonia. There is no pneumothorax. There is a subacute to chronic mid right clavicle fracture with a broken screw plate, stable since previous. IMPRESSION: Mild bibasilar opacities, favor atelectasis over pneumonia. Reviewed, Interpreted and Dictated by Oswaldo Dinero III, MD Transcribed by Meliza Bella Authenticated and [facility]
[2022-07-11 13:43] LABS: Coronavirus 19, PCR Not Detected (NotDetected); Influenza B, PCR Not Detected (NotDetected)
--- NOTE | 2022-07-11 13:47 | HMH.EDGENADL ---
Discharge Plan Disposition Patient Disposition: Admitted As Inpatient Chief Complaint: Shortness of Breath/Dyspnea Prescriptions Prescriptions: No Action aspirin [Aspir-81] 81 mg tablet,delayed release (DR/EC) 81 mg PO DAILY linaclotide 72 mcg capsule 72 mcg PO DAILY Label Comments: TAKE ONE CAPSULE BY MOUTH EVERY DAY nebivolol [Bystolic] 10 mg tablet See Rx Instructions .ROUTE .COMPLEX Qty: 90 2RF Dose Instruction: TAKE 1 TABLET BY MOUTH EVERY DAY Rx Instructions: TAKE 1 TABLET BY MOUTH EVERY DAY pravastatin 40 mg tablet See Rx Instructions .ROUTE .COMPLEX Qty: 90 2RF Dose Instruction: TAKE 1 TABLET BY MOUTH EVERY DAY Rx Instructions: TAKE 1 TABLET BY MOUTH EVERY DAY clopidogrel 75 mg tablet See Rx Instructions .ROUTE .COMPLEX Qty: 90 2RF Dose Instruction: TAKE 1 TABLET BY MOUTH EVERY DAY Rx Instructions: TAKE 1 TABLET BY MOUTH EVERY DAY Anoro Ellipta 62.5-25 mcg/actuation blister with device See Rx Instructions .ROUTE .COMPLEX Qty: 60 2RF Dose Instruction: inhale 1 PUFF BY MOUTH EVERY DAY Rx Instructions: inhale 1 PUFF BY MOUTH EVERY DAY sildenafil 100 mg tablet 100 mg PO .COMPLEX PRN (Reason: sexual activity) Qty: 30 3RF Rx Instructions: 100 mg PO prn PRN; valacyclovir 500 mg tablet See Rx Instructions .ROUTE .COMPLEX Qty: 60 2RF Dose Instruction: TAKE ONE TABLET BY MOUTH TWICE DAILY Rx Instructions: TAKE ONE TABLET BY MOUTH TWICE DAILY pantoprazole 40 mg tablet,delayed release (DR/EC) 40 mg PO DAILY Qty: 60 4RF lisinopril 10 mg tablet 10 mg PO DAILY Qty: 90 2RF polyethylene glycol 3350 17 GM powder in packet 17 g PO DAILY cholecalciferol (vitamin D3) 400 UNIT capsule 400 unit PO DAILY cyanocobalamin (vitamin B-12) 5,000 MCG tablet,disintegrating 5,000 mcg PO DAILY albuterol sulfate 8.5 GM HFA aerosol inhaler 2 puffs IH Q6HP PRN (Reason: Shortness Of Breath) 30 Days Qty: 1 5RF Referrals Follow up/Referrals: Chris Bautista MD [Primary Care Provider] - See instructions Clinical Impressions Clinical Impression: COPD exacerbation, Influenza A, Pneumonia Discharge ED Provider: Vaibhav Boswell General Adult HPI General Chief complaint: Shortness of Breath/Dyspnea Stated complaint: sob, fever Time Seen by Provider: 07/11/22 13:45 Mode of Arrival: Ambulatory Source of Information: Patient Limitations: No Limitations Description of Symptoms (Recalled from ER Triage Doc. by RN): Pt reports productive cough, SOA and fever that began on thursday of this week. Pt reports hx of COPD History of Present Illness HPI narrative: Patient is a 51-year-old male with past medical history of mild COPD not on home oxygen who presents emergency department for evaluation of shortness of breath and cough. Onset was acute, occurring Thursday, progressive symptoms. Patient has been in contact with people with similar symptoms. No other acute complaints at this time. Symptoms are moderate to severe in intensity. Patient denies chest pain. Related Data Home Medications Medication Instructions Recorded Confirmed aspirin 81 mg tablet,delayed 81 mg PO DAILY heart health 11/06/17 04/21/22 release (Aspir-) cholecalciferol (vitamin D3) 10 400 unit PO DAILY Supplement 04/10/20 04/21/22 mcg (400 unit) capsule cyanocobalamin (vitamin B-12) 5,000 mcg PO DAILY Supplement 04/10/20 04/21/22 5,000 mcg disintegrating tablet polyethylene glycol 3350 17 gram 17 g PO DAILY constipation 04/10/20 04/21/22 oral powder packet linaclotide 72 mcg capsule 72 mcg PO DAILY 01/09/21 04/21/22 Previous Rx's Medication Instructions Recorded clopidogrel 75 mg tablet See Rx Instructions .Route 06/04/21 .COMPLEX #90 tabs nebivolol 10 mg tablet (Bystolic) See Rx Instructions .Route 06/04/21 .COMPLEX #90 tabs pravastatin 40 mg tablet See Rx Instructions .Route 06/04/21 .CO
[2022-07-11 14:00] LABS: VBG Base Excess -0.2 mmol/L (-2.4-2.3); VBG HCO3 25.2 mmol/L (23-30); VBG Oxygen Saturation 89.7 % (50-70); VBG PCO2 45.6 mmol/L (35-51); VBG PH 7.36 mmol/L (7.31-7.41); VBG PO2 57.7 mmol/L (28-40); VBG Total CO2 26.6 mmol/L (23-27)
[2022-07-11 14:06] LABS: Influenza A, PCR Detected (NotDetected)
[2022-07-11 14:07] LABS: Basophils # 0.1 K/mm3 (0-0.2); Basophils % 0.7 % (0.1-2.0); Chloride 102 mmol/L (98-107); Eosinophils # 0.1 K/mm3 (0.0-0.4); Eosinophils % 0.5 % (0.1-12.0); Hematocrit 52.6 % (42.0-52.0); Hemoglobin 17.7 g/dL (14.1-18.0); Lymphocytes # 1.2 K/mm3 (0.7-4.5); Lymphocytes % 11.7 % (10-50); Mean Corpuscular HGB Conc 33.7 g/dL (31.8-35.4); Mean Corpuscular Hemoglobin 31.5 pg (27.0-31.2); Mean Corpuscular Volume 93.7 fl (80-94); Mean Platelet Volume 7.8 fl (7.4-10.4); Monocytes # 0.8 K/mm3 (0.1-1.0); Monocytes % 7.5 % (1.7-9.3); Neutrophils # 8.5 K/mm3 (1.8-7.8); Neutrophils % 79.6 % (37.0-80.0); Platelet Count 268 K/mm3 (142-424); Red Blood Count 5.61 M/mm3 (4.60-6.20); Red Cell Distribution Width 13.2 % (11.5-17.5); White Blood Count 10.7 K/mm3 (4.8-10.8)
[2022-07-11 14:08] LABS: Potassium 4.3 mmoL/L (3.5-5.1); Sodium 138 mmol/L (136-145)
[2022-07-11 14:10] LABS: Blood Urea Nitrogen 15 mg/dl (9-20); Creatinine Clearance Estimated 176 mL/min (50-200); Estimated Glomerular Filt Rate 101 ml/min (>60); GFR (African American) 122 ML/MIN (>60)
[2022-07-11 14:11] LABS: Anion Gap 13.3 mEq/L (5-15); Calcium 9.5 mg/dl (8.4-10.2); Carbon Dioxide 27 mmol/L (22.0-30.0); Glucose 104 mg/dl (74-100)
--- NOTE | 2022-07-11 14:20 | ECG_ITS ---
APPROVED REPORT Exam: Resting ECG HR:118 bpm ECG Measurements Heart Rate 118 AXES TX 165 P 51 QRSd 89 QRS 3 QT 313 T 60 QTc 383 Conclusion SINUS TACHYCARDIA Previously noted poor r wave progression ABNORMAL ECG UNCONFIRMED REPORT Electronically signed by : Federico Carrillo MD 07/11/2022 16:40:02
[2022-07-11 14:27] LABS: Troponin I < 0.01 ng/ml (0.00-0.034)
--- NOTE | 2022-07-11 14:44 | PC.NURSE ---
patient given some crackers and water
--- NOTE | 2022-07-11 16:00 | PC.NURSE ---
dr. esquivel(hospitalist) at
--- NOTE | 2022-07-11 16:10 | PC.NURSE ---
Lab at to draw blood cultures
--- NOTE | 2022-07-11 16:12 | PC.NURSE ---
lab at obtaining blood cultures and lactic acid
--- NOTE | 2022-07-11 16:27 | CT_ITS ---
PROCEDURE INFORMATION: Exam: CT Chest Without Contrast; Diagnostic Exam date and time: 07/11/2022 4:48 PM Age: 51 years old Clinical indication: Abnormal findings; Abnormal radiologic exam of lung or chest; Additional info: Abnormal cxr, tobacco HX, HX covid TECHNIQUE: Imaging protocol: Diagnostic computed tomography of the chest without contrast. Radiation optimization: All CT scans at this facility use at least one of these dose optimization techniques: automated exposure control; mA and/or kV adjustment per patient size (includes targeted exams where dose is matched to clinical indication); or iterative reconstruction. COMPARISON: CR XR CHEST PORTABLE 07/11/2022 2:11 PM FINDINGS: Tubes, catheters and devices: A pulse generator device is present, and its leads are in appropriate position. Lungs: There are scattered tree-in-bud opacities in right lower Pleural spaces: Unremarkable. No pneumothorax. No pleural effusion. Heart: Unremarkable. No cardiomegaly. No pericardial effusion. Coronary arteries: No significant coronary artery calcifications. Lymph nodes: Borderline prominent, multi station nodes likely reactive Vasculature: Aorta is nonaneurysmal. Bones/joints: status post ORIF of right clavicular fracture. Malalignment along the clavicular fixation plate is better characterized on preceding chest radiograph. Multilevel degenerative changes along the included spine. No acute osseous abnormality. Soft tissues: Unremarkable. Other findings: IMPRESSION: Right lower lobe bronchiolitis. Aspiration is in the differential.
--- NOTE | 2022-07-11 16:32 | PC.NURSE ---
HOUSE CALLED FOR ADMISSION
--- NOTE | 2022-07-11 16:40 | EXP.HP ---
History of Present Illness *Admission Date: 07/11/22 *Reason for visit:: Chief complaint: Shortness of air *History of present illness: This is a 51-year-old male that presents to [facility] emergency department with concerns of shortness of air since Thursday not resolving with home albuterol use. His past medical history is significant for tobacco dependence 1 pack/day for 35 years, COPD, arrhythmia with pacemaker insertion, CVA 2013, hypertension and degenerative disc disease of the lumbar spine. He reports he started coughing on Thursday and it has gotten worse. He is now experiencing shortness of air made worse with exertion. Last night he started experiencing shortness of air at rest. He reports increased croupy cough with yellow sputum production. He has identified occasional blood streaks. He reports subjective fever and chills. He reports a past history of COVID?19 diagnoses with previous COVID?19 vaccine series. He reports not receiving the annual influenza vaccine. He denies nausea, vomiting or diarrhea. He has not experienced any retrosternal chest pain, palpitations, confusion or syncopal episodes. In the ED his room air sats were diminished and improved with 3 L of oxygen via nasal cannula. He was tachycardic and tachypneic with abnormal findings on chest x-ray. His influenza A study was positive. His ECG identified sinus tachycardia with a normal QTC. His venous blood gas identified hypoxia. His lactic acid is pending and blood cultures have been ordered. He reports some improvement with the ED directed nebulizer therapy. [facility] Disclaimer: The information contained in this section may have been updated after the patient was seen, as this information can be updated by other users. Medical History (Updated 07/11/22 @ 17:11 by Cain Retana MD) CAD (coronary artery disease) COPD (chronic obstructive pulmonary disease) CVA (cerebral vascular accident) GERD (gastroesophageal reflux disease) Hypertension Tobacco abuse disorder Surgical History Fusion of lumbar spine H/O cardiac catheterization H/O colonoscopy Open right clavicular fracture Family History (Updated 07/11/22 @ 16:59 by Cain Retana MD) Mother Diabetes Father Heart attack Social History (Updated 07/11/22 @ 17:07 by Cain Retana MD) Smoking Status: Current every day smoker tobacco type: cigarettes packs per day: 1 smoking status start date: 1 pack/day 35 years and ongoing alcohol intake: current substance use type: denies use current occupational status: employed Travel in the last 8 weeks: None household members: none housing: apartment marital status: number of children: 1 service: No 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 [employer] current occupational exposures/hazards: No Hx Recent Travel: No caffeine: Yes Review of Systems Review of Systems Review of systems:: pertinent systems reviewed and negative unless documented below Constitutional Constitutional: Reports chills, Reports difficulty sleeping, Reports fever(s), Denies headache(s) and Reports lethargy ENT Ears, Nose, Mouth, and Throat: Denies headache(s), Reports nasal congestion and Reports post nasal drip *Cardiovascular Cardiovascular: Denies chest pain, Reports dyspnea and Reports dyspnea on exertion *Respiratory Respiratory: Reports cough, Reports dyspnea, Reports dyspnea on exertion and Reports excessive phlegm production *Gastrointestinal Gastrointestinal: Denies nausea and Denies vomiting *Musculoskeletal Musculoskeletal: Reports back pain Integumentary/Breasts Skin/Breast: Denies rash *Neurologic Neurologic: Denies confusion and Denies headache(s) Psychiatric Psychiatric: Denies confusion Meds Home Medications and Allergies Home Medications Medication Instructions Recorded Confirmed Type aspirin 81 mg tablet,delayed 81 m
--- NOTE | 2022-07-11 16:45 | PC.NURSE ---
pt to CT
--- NOTE | 2022-07-11 16:52 | PC.NURSE ---
Pt returned from CT via wc with surveying technician
[2022-07-11 16:53] LABS: Lactic Acid 1.3 mmol/L (0.7-2.1)
[2022-07-11 17:11] LABS: Troponin I < 0.01 ng/ml (0.00-0.034)
[2022-07-11 17:25] LABS: Procalcitonin 0.271 ng/mL (0.0-2.0)
--- NOTE | 2022-07-11 17:31 | PC.NURSE ---
report called to florentin mera on second floor, states she will send staff down to transport pt.
--- NOTE | 2022-07-11 17:51 | PC.NURSE ---
PT BEING TRANSPORTED UP FOR ADMISSION
[2022-07-11 20:34] LABS: Troponin I < 0.01 ng/ml (0.00-0.034)
[2022-07-12] VITALS (14 sets, daily range): BP systolic 109–155; BP diastolic 57–86; PULSE 70–78; RESP 16–22; TEMP 36.4–37.1; O2SAT 85–97; BMI 36.4
--- NOTE | 2022-07-12 06:47 | PC.NURSE ---
Pt A/Ox4. Pt has not voiced any c/o to staff. Pt was found multiple times on rounds to be asleep with oxygen off of face. RA sat 84-86%. Continuous pulse ox applied to pt and O2 titrated up to 5 L nc. Pt tolerating well with sats 90-92%. Call light within reach.
[2022-07-12 08:19] LABS: Basophils % 0.5 % (0.1-2.0); Eosinophils # 0.1 K/mm3 (0.0-0.4); Eosinophils % 0.7 % (0.1-12.0); Hematocrit 46.6 % (42.0-52.0); Lymphocytes # 0.8 K/mm3 (0.7-4.5); Lymphocytes % 8.7 % (10-50); Mean Corpuscular Hemoglobin 31.2 pg (27.0-31.2); Mean Corpuscular Volume 94.7 fl (80-94); Mean Platelet Volume 7.8 fl (7.4-10.4); Monocytes # 0.5 K/mm3 (0.1-1.0); Monocytes % 5.9 % (1.7-9.3); Neutrophils # 7.5 K/mm3 (1.8-7.8); Neutrophils % 84.3 % (37.0-80.0); Platelet Count 271 K/mm3 (142-424); Red Blood Count 4.92 M/mm3 (4.60-6.20); Red Cell Distribution Width 13.3 % (11.5-17.5); White Blood Count 8.9 K/mm3 (4.8-10.8)
[2022-07-12 08:29] LABS: Hemoglobin 15.4 g/dL (14.1-18.0)
[2022-07-12 08:36] LABS: Anion Gap 11.4 mEq/L (5-15); Blood Urea Nitrogen 15 mg/dl (9-20); Calcium 8.8 mg/dl (8.4-10.2); Carbon Dioxide 23 mmol/L (22.0-30.0); Chloride 109 mmol/L (98-107); Creatinine Clearance Estimated 199 mL/min (50-200); Estimated Glomerular Filt Rate 118 ml/min (>60); GFR (African American) 143 ML/MIN (>60); Glucose 152 mg/dl (74-100); Potassium 4.4 mmoL/L (3.5-5.1); Sodium 139 mmol/L (136-145)
[2022-07-12 08:46] LABS: NT Pro Brain Natriuretic Pep. 50.5 pg/mL (0-125)
[2022-07-12 08:53] LABS: Procalcitonin 0.142 ng/mL (0.0-2.0)
--- NOTE | 2022-07-12 11:47 | EXP.PN ---
Subjective *Date: 07/12/22 *Time: 11:47 Interval history: Date of service July 12, 2022 The patient reports no acute events overnight. He describes an improvement in his symptomatology. Nursing staff report that he has transition from nasal cannula oxygen to room air. He remains afebrile with improved blood pressures, heart rates and respiratory rates. His blood, sputum and MRSA screen evaluations are pending. His morning labs identify a normal white blood cell count, stable hemoglobin and macrocytosis. His electrolytes and creatinine are normal. His procalcitonin is negative. His ED lactic acid was normal. CT of the chest identifies right lower lobe pneumonia. Exam Data for Last 24 hours Vital signs and Labs for Last 24 Hours: Temp Pulse Resp BP Pulse Ox 98.1 F 73 18 150/79 H 85 L 07/12/22 08:00 07/12/22 11:36 07/12/22 08:00 07/12/22 08:00 07/12/22 11:36 Laboratory Results - last 24 hr 07/11/22 13:20: SARS-CoV-2 (PCR) Not detected, Influenza A Untype (PCR) Detected A, Influenza Type B (PCR) Not detected 07/11/22 13:30: VBG pH 7.36, VBG pCO2 45.6, VBG pO2 57.7 H, VBG HCO3 25.2, VBG Total CO2 26.6, VBG O2 Saturation 89.7 H, VBG Base Excess -0.2 07/11/22 13:59: WBC 10.7, RBC 5.61, Hgb 17.7, Hct 52.6 H, MCV 93.7, MCH 31.5 H, MCHC 33.7, RDW 13.2, Plt Count 268, MPV 7.8, Neut % (Auto) 79.6, Lymph % (Auto) 11.7, Baldwin % (Auto) 7.5, Eos % (Auto) 0.5, Baso % (Auto) 0.7, Neut # (Auto) 8.5 H, Lymph # (Auto) 1.2, Baldwin # (Auto) 0.8, Eos # (Auto) 0.1, Baso # (Auto) 0.1 07/11/22 13:59: Sodium 138, Potassium 4.3, Chloride 102, Carbon Dioxide 27, Anion Gap 13.3, BUN 15, Creatinine 0.80, Estimated Creat Clear 176, Estimated GFR 101, Est GFR ( Amer) 122, Glucose 104 H, Calcium 9.5, Troponin I < 0.01 07/11/22 13:59: Procalcitonin 0.271 07/11/22 16:30: Troponin I < 0.01 07/11/22 16:30: Lactate 1.3 07/11/22 19:49: Troponin I < 0.01 07/12/22 08:03: WBC 8.9, RBC 4.92, Hgb 15.4 D, Hct 46.6, MCV 94.7 H, MCH 31.2, MCHC 33.0, RDW 13.3, Plt Count 271, MPV 7.8, Neut % (Auto) 84.3 H, Lymph % (Auto) 8.7 L, Baldwin % (Auto) 5.9, Eos % (Auto) 0.7, Baso % (Auto) 0.5, Neut # (Auto) 7.5, Lymph # (Auto) 0.8, Baldwin # (Auto) 0.5, Eos # (Auto) 0.1, Baso # (Auto) 0.0 07/12/22 08:03: Sodium 139, Potassium 4.4, Chloride 109 H, Carbon Dioxide 23, Anion Gap 11.4, BUN 15, Creatinine 0.70, Estimated Creat Clear 199, Estimated GFR 118, Est GFR ( Amer) 143, Glucose 152 H D, Calcium 8.8, Magnesium 2.0, NT-Pro-B Natriuret Pep 50.5, Procalcitonin 0.142 I & O for Last 24 hours: Intake & Output 07/09/22 07/10/22 07/11/22 07/12/22 23:59 23:59 23:59 23:59 Intake Total 240 / 480 1994 Output Total 0 / 0 Balance 240 / 480 1994 Weight 116.573 kg 115.4 kg Constitutional Constitutional: no acute distress, morbidly obese and cooperative *Routine HEENT Exam Head: Present normocephalic Eye: Present EOMI and PERRL ENT: Present mucous membranes moist *Routine Neck Exam Neck: Present supple and trachea midline; Absent JVD *Routine Respiratory Exam Respiratory: Present rhonchi, wheezes and normal respiratory effort; Absent respiratory distress *Routine Cardiovascular Exam Cardiovascular: Present RRR; Absent murmur *Routine Abdominal Exam Abdominal: Present soft and normoactive bowel sounds; Absent tenderness *Routine Extremities Exam Extremities: Present full ROM; Absent cyanosis, clubbing or edema *Routine Skin Exam Skin: Present intact and warm; Absent erythema or rash *Routine Neurological Exam Neurological: Present alert, oriented X3, moving all extremities, vision grossly intact, hearing grossly intact and normal speech; Absent sensory deficit or motor deficit Routine Psychiatric Exam Psychiatric: Present normal affect, normal thought process, cooperative, good insight and good judgment Assessment and Plan *Assessment and plan (1) Sepsis with acute hypoxic respiratory failure: Status: Acute Category: Medical Code
--- NOTE | 2022-07-12 16:11 | PC.NURSE ---
pt alert x4, lungs bilat rhonchi, o2 on 5l via nc with sats between 91%-96%. pt c/o of soa with activity. no other question or concerns at this time, cb and personal items within reach.
[2022-07-13 04:00] VITALS: BP 150/91; PULSE 112; RESP 22; TEMP 36.9; O2SAT 91
[2022-07-13 05:00] VITALS: BMI 36.4
--- NOTE | 2022-07-13 06:05 | PC.NURSE ---
PT O2 SAT AT THIS TIME IS 91%, ON 5 L NC. ENCOURAGED PT TO USE INCENTIVE SPIROMETER FREQUENTLY WHILE AWAKE. LUNG SOUNDS - EXPIRATORY WHEEZES. PT IS RECEIVING SCHEDULED BREATHING TX. IV INFUSING PER ORDER. PT VOIDING PER URINAL WITH ADEQUATE URINE OUTPUT. NO NEEDS OR COMPLAINTS VOICED AT THIS TIME. CALL LIGHT IN REACH.
[2022-07-13 06:16] VITALS: O2SAT 98
[2022-07-13 06:17] VITALS: PULSE 71; PULSE 74
--- NOTE | 2022-07-13 06:51 | PC.NURSE ---
RT PUT PT ON 4 L NC. O2 SAT CURRENTLY 90%.
[2022-07-13 08:00] VITALS: BP 169/82; PULSE 73; RESP 22; TEMP 36.3; O2SAT 90
--- NOTE | 2022-07-13 08:41 | EXP.DC.SUM ---
General Admission date:: 07/11/22 Discharge date: 07/13/22 HPI HPI HPI: This is a 51-year-old male that presents to [facility] emergency department with concerns of shortness of air since Thursday not resolving with home albuterol use. His past medical history is significant for tobacco dependence 1 pack/day for 35 years, COPD, arrhythmia with pacemaker insertion, CVA 2013, hypertension and degenerative disc disease of the lumbar spine. He reports he started coughing on Thursday and it has gotten worse. He is now experiencing shortness of air made worse with exertion. Last night he started experiencing shortness of air at rest. He reports increased croupy cough with yellow sputum production. He has identified occasional blood streaks. He reports subjective fever and chills. He reports a past history of COVID?19 diagnoses with previous COVID?19 vaccine series. He reports not receiving the annual influenza vaccine. He denies nausea, vomiting or diarrhea. He has not experienced any retrosternal chest pain, palpitations, confusion or syncopal episodes. In the ED his room air sats were diminished and improved with 3 L of oxygen via nasal cannula. He was tachycardic and tachypneic with abnormal findings on chest x-ray. His influenza A study was positive. His ECG identified sinus tachycardia with a normal QTC. His venous blood gas identified hypoxia. His lactic acid is pending and blood cultures have been ordered. He reports some improvement with the ED directed nebulizer therapy. Hospital Course Hospital Course Hospital Course: The patient was admitted to the medical unit with telemetry and routine pulse oximetry monitoring. His MRSA screen was negative and blood cultures continue to demonstrate no growth to date. His sputum cultures identified no specific organism. He was maintained on IV antibiotic therapy with oxygen supplementation to maintain appropriate oxygen saturations. Tobacco cessation education was provided. Influenza A antiviral therapy was provided as well. His laboratory studies and inflammatory markers were trended and identified improvement. The patient identified reduced symptomatology and improvement and inquired about discharge home. He does not use oxygen at home and he was dismissed with oxygen supplementation secondary to his diagnosis to follow-up with his PCP for discussions on sleep apnea evaluation and targeted COPD therapies. We discussed a outpatient pulmonology evaluation as well. I have recommended that he discontinue smoking cigarettes and follow-up with his PCP. He will be discharged with a short course of antibiotic therapy, oxygen and inhaler therapy. I spent 35 minutes in [id number] time with the patient and nursing staff (Nanda ROSALES) concerning the discharge process. We discussed the admitting diagnoses and hospital course. We discussed identified improvement and the patient's desire to be discharged. We reviewed inpatient studies and imaging. The patient voiced understanding on the importance of follow-up with his primary care provider and specialist(s). The patient plans to be compliant with the medication regimen prescribed and follow-up appointments. He understands that he needs to discontinue smoking. He understands that he can return to the emergency department with any sudden changes or concerns. Exam Data for Last 24 hours Vital signs and Labs for Last 24 Hours: Temp Pulse Resp BP Pulse Ox 98.4 F 71 22 150/91 H 98 07/13/22 04:00 07/13/22 06:17 07/13/22 04:00 07/13/22 04:00 07/13/22 06:16 Laboratory Results - last 24 hr 07/12/22 08:03: Sodium 139, Potassium 4.4, Chloride 109 H, Carbon Dioxide 23, Anion Gap 11.4, BUN 15, Creatinine 0.70, Estimated Creat Clear 199, Estimated GFR 118, Est GFR ( Amer) 143, Glucose 152 H D, Calcium 8.8, Magnesium 2.0, NT-Pro-B Natriuret Pep 50.5, Procalcitonin 0.142 I & O for Last 24 hours: Intake & Output 07/10/22 1
--- NOTE | 2022-07-13 08:55 | PC.NURSE ---
PTS O2 SAT AT RA IS 87%
--- NOTE | 2022-07-13 10:10 | PC.NURSE ---
DC PACKET WENT OVER WITH PT. PT WAITING ON HOME O2.
== END 2022-07-13 10:50 | disposition home or self-care (01) | DRG 193 ==
LOC: ER 15:27 → 2ND 16:39
PROVIDERS: Admitting Provider Family Medicine; Emergency Provider Emergency Medicine; PCP Emergency Medicine; Visit Provider Family Medicine
DX: J10.00 Influenza due to other identified influenza virus with unspecified type of pneumonia (principal); J18.9 Pneumonia, unspecified organism; I25.10 Atherosclerotic heart disease of native coronary artery without angina pectoris; I10 Essential (primary) hypertension; J44.9 Chronic obstructive pulmonary disease, unspecified; J96.01 Acute respiratory failure with hypoxia; F17.210 Nicotine dependence, cigarettes, uncomplicated; Z79.899 Other long term (current) drug therapy; Z95.0 Presence of cardiac pacemaker; R06.09 Other forms of dyspnea; Z20.822 Contact with and (suspected) exposure to COVID-19
CPT/HCPCS: G0378; 36415; 71045; 71250; 80048; 82803; 83605; 83735; 83880; 84145; 84484; 85025; 87040; 87070; 87081; 87205; 93005; 94640; 94761; 99285; C9803; J0456; J0696; U0003; U0005

== ENCOUNTER 2022-07-25 08:47 | Outpatient (CLI) | payer MEDICARE, MEDICAID, SELFPAY ==
--- NOTE | 2022-07-25 09:12 | CA_ITS ---
APPROVED REPORT EXAM: Comprehensive 2D, Doppler, and color-flow Echocardiogram Fleet Maintenance Manager: Kristel Schreiber CRT Ht: 5 ft 10 in Wt: 264lbs BSA: 2.35 BP: 137/86 mmHg Indications: COPD, Shortness of Breath, Hyperlipidemia, Hypertension/HDD, pacer, cva, svt 2D Dimensions LVOT 2.04 cm (M/F) 1.5-2.5 LA Volume 32.00 mL LA Volume Index 13.30 mL/m2 (M/F) 16-34 M-Mode Dimensions RVDd 3.25 cm (0.9-2.6) LA Diam 2.44 cm (1.9-4.0) LVDd 3.86 cm (3.5-5.7) Ao Diam 4.67 cm (2.0-3.7) LVDs 2.65 cm (3.5-5.7) IVSd 1.66 cm (0.6-1.1) PWd 1.32 cm (0.6-1.1) EF (Teich) 59.90% FS 31.30% EDV (Teich) 64.30 mL TAPSE 2.78 (<1.7) ESV (Teich) 25.80 mL LV Diastology E Decel Time 217.00 (160-240 msec) E/A Ratio 0.70 MED E' 4.10 (< 7 cm/sec) MED A' 6.50 cm/s E'/MED E' Ratio 13.05 (>14) LAT E' 6.00 (<10 cm/sec) LAT A' 12.50 cm/s E/LAT E' Ratio 8.92 (>14) Aortic Valve AO Peak GR. 7.00 mmHg Mitral Valve MV A Velocity 76.00 (40-130 cm/s) E/A Ratio 0.70 MV Decel. Time 217.00 (160-240 ms) Pulmonary Valve PV Peak Velocity 134.00 (50-150 cm/s) Tricuspid Valve TR P. Velocity 125.00 cm/s RAP Estimate 10.00 mmHg RVSP 16.20 mmHg Left Ventricle Left atrium is mildly enlarged, left ventricle is normal size, mild concentric left ventricular hypertrophy, estimated ejection fraction 55% with no regional wall motion abnormality, grade 1 diastolic dysfunction seen without tissue Doppler evidence of raise left atrial pressure. Right Ventricle Right atrium and right ventricle are mildly enlarged with normal contractility. Aortic Valve Aortic valve is minimally thickened and fibrosed there is no aortic stenosis or aortic insufficiency. Mitral Valve Mitral valve is grossly normal, there is trace mitral regurgitation. Tricuspid Valve Tricuspid valve grossly normal, there is trace tricuspid regurgitation, tricuspid regurgitation jet velocity is inadequate for calculation of the right ventricular systolic pressure. Pulmonic Valve Pulmonic valve is poorly visualized. Great Vessels Aortic root is normal size. Inferior vena cava is poorly visualized. Pericardium No significant pericardial effusion noted. Conclusion 1. Mild biatrial enlargement, normal left ventricular size, mild concentric left ventricular hypertrophy, estimated ejection fraction 55% with no regional wall motion abnormality, grade 1 diastolic dysfunction seen without tissue Doppler evidence of raise left atrial pressure. 2. Mildly enlarged right ventricle with normal contractility. 3. Trace mitral and tricuspid regurgitation. 4. No significant pericardial effusion noted. Electronically signed by : Travis Llanes MD 07/25/2022 18:57:11
--- NOTE | 2022-07-29 09:24 | IR_ITS ---
APPROVED REPORT Patient Location: Outpatient Tube Machine Operator: MICHAEL Wilkinson RT (R) PROCEDURES 1. Pocket Revision 2. Removal of old Pacemaker 3. Implant of Permanent Pacemaker INDICATION End of battery life Informed consent was obtained prior to the procedure. COMPLICATIONS None Estimated Blood Loss: Less than 10 ML TECHNIQUE 1% lidocaine with epinephrine used to anesthetize the left anterior aspect of the chest. Scalpel was used to make the initial cutaneous incision and then used to dissect down to the existing pacemaker generator. The generator was removed from the existing pocket. Digital manipulation was required along with intermittent usage of scalpel in order to revise the pocket. The leads were removed from the old generator. The new generator was screwed to the existing leads and secured into place. Electronic interrogation proved acceptable thresholds and voltage within the lead. Antibiotics were used to flush the pocket and the pacemaker was secured using 3-0 silk into the newly revised pocket. Vicryl was used to close the subcutaneous tissue and then jodee were placed on the cutaneous area in order to approximate the incision. Patient was transferred to the postop holding area in stable condition. INTERROGATION Generator Model number: Cocodot [facility] [address] IS-1 L311 Generator Serial number: [id number] Atrial lead model number: 1882 Atrial lead serial number: [id number] P-wave: 7.0 mV Impedence: 447 Ohm Threshold: 2.3V@0.4ms Right Ventricular lead model number: 4137 Right Ventricular lead serial number: [id number] R-wave: 6.8 mV Impedence: 496 Ohm Threshold: 1.4V@0.4ms Pacing Parameters: Mode: DDDR Base/Max Track:70 ppm / 130 ppm No diaphragmatic stimulation at 10 volts. IMPRESSION 1. Successful Pocket Revision 2. Successful Removal of old Pacemaker 3. Successful Implant of Permanent Pacemaker PLAN 1. Post Op Wound Care Electronically signed by : Landon Lowry MD 07/29/2022 14:57:45
[2022-07-29 09:54] VITALS: BMI 36.2
[2022-07-29 10:44] VITALS: BP 151/100; PULSE 85; RESP 16; TEMP 36.9; O2SAT 94
[2022-07-29 10:48] VITALS: PULSE 83
[2022-07-29 14:27] VITALS: PULSE 86; RESP 18; O2SAT 94
[2022-07-29 14:30] VITALS: BP 121/75; PULSE 85; RESP 18; O2SAT 96
[2022-07-29 14:45] VITALS: BP 121/75; PULSE 85; RESP 18; O2SAT 93
[2022-07-29 15:27] VITALS: BP 140/84; PULSE 70; RESP 18; O2SAT 100
== END 2022-07-25 12:00 | disposition home or self-care (01) ==
LOC: CATHLAB 12:12 → RT 08-01 10:10
PROVIDERS: Internal Medicine; PCP Emergency Medicine; Visit Provider Physician Assistant
DX: E66.9 Obesity, unspecified (principal); E78.2 Mixed hyperlipidemia; G45.0 Vertebro-basilar artery syndrome; I10 Essential (primary) hypertension; I25.10 Atherosclerotic heart disease of native coronary artery without angina pectoris; J44.9 Chronic obstructive pulmonary disease, unspecified; K21.9 Gastro-esophageal reflux disease without esophagitis; Z95.0 Presence of cardiac pacemaker; Z68.38 Body mass index [BMI] 38.0-38.9, adult; I47.20 Ventricular tachycardia, unspecified
CPT/HCPCS: 93306; C1785

== ENCOUNTER → 2022-07-29 09:46 | Day surgery (SDC) | payer MEDICARE, MEDICAID, SELFPAY ==
--- NOTE | 2022-07-29 15:22 | EXP.ANES.I ---
[facility] Anesthesia Record Part I Anesthesia Record I Intake, IV Amount: 350 Estimated blood loss (mL): 0 Urine output (mL): 0 Blood Products used (#): none Blood Pressure: 121/75 SaO2: 94 Pulse Rate: 86 Respiratory Rate: 18 Temperature: 97.5 F Patient is:: Awake and Stable Stable to PACU at:: 14:30
[2022-07-29 15:24] VITALS: BP 121/75; PULSE 86; RESP 18; TEMP 36.4; O2SAT 94
== END ==
PROVIDERS: PCP Emergency Medicine; Visit Provider Internal Medicine
DX: Z45.010 Encounter for checking and testing of cardiac pacemaker pulse generator [battery] (principal); F17.210 Nicotine dependence, cigarettes, uncomplicated; I25.10 Atherosclerotic heart disease of native coronary artery without angina pectoris; I10 Essential (primary) hypertension; J44.9 Chronic obstructive pulmonary disease, unspecified; Z79.899 Other long term (current) drug therapy
CPT/HCPCS: 33228; C1785; J2704

== ENCOUNTER 2022-08-06 12:59 | Emergency (ER) | payer MEDICARE, MEDICAID, SELFPAY ==
--- NOTE | 2022-08-06 13:13 | EXP.UTC ---
Discharge Plan Disposition Patient Disposition: Home, Self-Care Condition: Good Prescriptions Prescriptions: New prednisone 10 mg tablet 10 mg PO DIRECTED 9 Days Qty: 21 0RF Rx Instructions: Take 4 tablets daily for 3 days, then take 2 tablets daily for 3 days, then take 1 tablet daily for 3 days, then stop. benzonatate [benzonatate] 100 mg capsule 100 mg PO TIDP PRN (Reason: Cough) Qty: 30 0RF amoxicillin-pot clavulanate 875-125 mg Tablet 1 tab PO Q12H Qty: 20 0RF guaifenesin [Mucinex] 600 mg tablet extended release 12hr 600 - 1,200 mg PO BIDP PRN (Reason: Congestion) Qty: 30 0RF No Action ipratropium-albuterol 0.5 mg-3 mg(2.5 mg base)/3 mL solution for nebulization 3 ml inhalation QID PRN (Reason: shortness of breath or wheezing) Qty: 180 1RF albuterol sulfate 8.5 GM HFA aerosol inhaler 2 puffs IH Q6HP PRN (Reason: Shortness Of Breath) 30 Days Qty: 1 5RF pravastatin 40 mg tablet See Rx Instructions .ROUTE .COMPLEX Rx Instructions: TAKE ONE TABLET BY MOUTH EVERY DAY clopidogrel 75 mg tablet See Rx Instructions .ROUTE .COMPLEX Rx Instructions: TAKE ONE TABLET BY MOUTH EVERY DAY nebivolol 10 mg tablet See Rx Instructions .ROUTE .COMPLEX Rx Instructions: TAKE ONE TABLET BY MOUTH EVERY DAY Trelegy Ellipta 100-62.5-25 mcg blister with device 1 inh inhalation DAILY pantoprazole 40 mg tablet,delayed release (DR/EC) 40 mg PO DAILY lisinopril 10 mg tablet 10 mg PO DAILY aspirin 81 mg Tablet,Delayed Release (Dr/Ec) 81 mg PO DAILY sildenafil 100 mg tablet 100 mg PO DAILYP PRN (Reason: sexual activity) Referrals Follow up/Referrals: Chris Bautista MD [Primary Care Provider] - See instructions Activity Restrictions/Add. Instructions Additional Instructions/Restrictions: Drink plenty of fluids. Take tylenol for pain or fever. Take the medications as directed. Follow up with your regular doctor. GO TO THE ER FOR ANY WORSENING SYMPTOMS The cough medication (promethazine dm) will make you drowsy, so don't drive or operate heavy machinery after taking it. Clinical Impressions Clinical Impression: COPD with acute exacerbation Instructions Patient Instructions: DI for Chronic Obstructive Pulmonary Disease Discharge ED Provider: Jd Aaron [facility] [place] General Stated complaint: chest congestion, cough Time Seen by Provider: 08/06/22 13:13 History of Present Illness Provider Complaint: He is here with complaints of having chest congestion and a productive cough for the past 5 days. He was hospitalized for pneumonia last month. Related Data Home Medications Medication Instructions Recorded Confirmed lisinopril 10 mg tablet 10 mg PO DAILY BP 07/11/22 07/29/22 pantoprazole 40 mg tablet,delayed 40 mg PO DAILY GERD 07/11/22 07/29/22 release aspirin 81 mg tablet,delayed 81 mg PO DAILY CIRCULATION 07/12/22 07/29/22 release sildenafil 100 mg tablet 100 mg PO DAILYP PRN sexual 07/12/22 07/29/22 activity clopidogrel 75 mg tablet See Rx Instructions .Route 07/29/22 07/29/22 .COMPLEX . fluticasone fur. 100 mcg-umeclid 1 inh inhalation DAILY . 07/29/22 07/29/22 62.5 mcg-vilant 25 mcg inhalat.powder (Trelegy Ellipta) nebivolol 10 mg tablet See Rx Instructions .Route 07/29/22 07/29/22 .COMPLEX . pravastatin 40 mg tablet See Rx Instructions .Route 07/29/22 07/29/22 .COMPLEX . Previous Rx's Medication Instructions Recorded albuterol sulfate 90 mcg/actuation 2 puffs inhalation Q6HP PRN 01/13/22 aerosol inhaler Shortness Of Breath 30 days #1 ea ipratropium 0.5 mg-albuterol 3 mg 3 ml inhalation QID PRN shortness 07/22/22 (2.5 mg base)/3 mL nebulization of breath or wheezing #180 mL soln amoxicillin 875 mg-potassium 1 tab PO Q12H #20 tabs 08/06/22 clavulanate 125 mg tablet benzonatate 100 mg capsule 100 mg PO TIDP PRN Cough #30 caps 08/06/22 guaifenesin 600 m
[2022-08-06 13:15] VITALS: BP 132/70; PULSE 74; RESP 19; TEMP 36.6; O2SAT 96; BMI 38.2
--- NOTE | 2022-08-06 13:39 | XR_ITS ---
PROCEDURE INFORMATION: Exam: XR Chest Exam date and time: 08/06/2022 2:26 PM Age: 51 years old Clinical indication: Cough and other: Congestion; Prior surgery; Surgery date: 6+ months; Surgery type: Pacemaker; Patient HX: Smoker, HX recent pneumonia and flu a; Additional info: Cough, congestion TECHNIQUE: Imaging protocol: Radiologic exam of the chest. Views: 2 views. COMPARISON: CT CHEST WO CON 07/11/2022 4:48 PM FINDINGS: Tubes, catheters and devices: A pulse generator device is present, and its leads are in appropriate position. Lungs: No evidence of pneumonia or interstitial edema. Pleural spaces: Unremarkable. No pleural effusion. No pneumothorax. Heart/Mediastinum: Unremarkable. No cardiomegaly. Bones/joints: Status post ORIF of right clavicular shaft IMPRESSION: No evidence of pneumonia or interstitial edema.
[2022-08-06 14:27] LABS: Basophils # 0.1 K/mm3 (0-0.2); Basophils % 1.5 % (0.1-2.0); Eosinophils # 0.5 K/mm3 (0.0-0.4); Eosinophils % 5.1 % (0.1-12.0); Hematocrit 46.6 % (42.0-52.0); Hemoglobin 15.7 g/dL (14.1-18.0); Lymphocytes # 2.5 K/mm3 (0.7-4.5); Lymphocytes % 28.3 % (10-50); Mean Corpuscular HGB Conc 33.6 g/dL (31.8-35.4); Mean Corpuscular Hemoglobin 31.4 pg (27.0-31.2); Mean Corpuscular Volume 93.2 fl (80-94); Mean Platelet Volume 7.4 fl (7.4-10.4); Monocytes # 0.5 K/mm3 (0.1-1.0); Monocytes % 5.4 % (1.7-9.3); Neutrophils # 5.2 K/mm3 (1.8-7.8); Neutrophils % 59.6 % (37.0-80.0); Platelet Count 379 K/mm3 (142-424); Red Cell Distribution Width 13.3 % (11.5-17.5); White Blood Count 8.8 K/mm3 (4.8-10.8)
[2022-08-06 15:57] VITALS: BP 132/70; PULSE 74; RESP 19; TEMP 36.6; O2SAT 96
[2022-08-06 16:18] LABS: Chloride 108 mmol/L (98-107); Sodium 140 mmol/L (136-145)
[2022-08-06 16:19] LABS: Potassium 3.9 mmoL/L (3.5-5.1)
[2022-08-06 16:22] LABS: Anion Gap 11.9 mEq/L (5-15); Blood Urea Nitrogen 8 mg/dl (9-20); Calcium 8.5 mg/dl (8.4-10.2); Carbon Dioxide 24 mmol/L (22.0-30.0); Creatinine Clearance Estimated 188 mL/min (50-200); Estimated Glomerular Filt Rate 101 ml/min (>60); GFR (African American) 122 ML/MIN (>60); Glucose 113 mg/dl (74-100)
[2022-08-06 19:25] LABS: INR 0.97 (0.9-1.1); Prothrombin Time 10.5 seconds (10.1-12.5)
== END 2022-08-06 15:57 | disposition home or self-care (01) ==
PROVIDERS: Emergency Provider Nurse Practitioner Family; PCP Emergency Medicine
DX: J44.1 Chronic obstructive pulmonary disease with (acute) exacerbation (principal); Z87.01 Personal history of pneumonia (recurrent); Z79.82 Long term (current) use of aspirin; Z79.899 Other long term (current) drug therapy; I25.10 Atherosclerotic heart disease of native coronary artery without angina pectoris
CPT/HCPCS: 36415; 71046; 80048; 85025; 85610; 99212; 99213; G0463

== ENCOUNTER → 2022-08-20 19:40 | Outpatient (CLI) | payer MEDICARE, MEDICAID, SELFPAY | PROVIDERS: PCP Emergency Medicine; Visit Provider Emergency Medicine | DX: G47.33 Obstructive sleep apnea (adult) (pediatric) (principal); R09.02 Hypoxemia; J44.9 Chronic obstructive pulmonary disease, unspecified | CPT/HCPCS: 95810 ==

== ENCOUNTER 2022-09-10 11:18 | Day surgery (SDC) | payer MEDICARE, MEDICAID, SELFPAY ==
[2022-08-21 12:53] VITALS: BMI 38.0
--- NOTE | 2022-09-10 11:52 | P.PN_ITS ---
[facility] Disclaimer: The information contained in this section may have been updated after the patient was seen, as this information can be updated by other users. Medical History Arthritis CAD (coronary artery disease) CAD (coronary artery disease) Cardiomyopathy CHF (congestive heart failure) COPD (chronic obstructive pulmonary disease) COPD (chronic obstructive pulmonary disease) CVA (cerebral vascular accident) Erectile dysfunction GERD (gastroesophageal reflux disease) Hx of cardiac pacemaker Hypertension MRSA (methicillin resistant staph aureus) culture positive SVT (supraventricular tachycardia) Tobacco abuse disorder Surgical History Fusion of lumbar spine H/O cardiac catheterization H/O colonoscopy Hx of ventral hernia repair Open right clavicular fracture Family History Mother Diabetes Father Heart attack Other Family history of diabetes mellitus type II Family history of hypertension Family history of myocardial infarction Social History Smoking Status: Current every day smoker tobacco type: cigarettes packs per day: 1 pack-years: 40 smoking status start date: 1 pack/day 35 years and ongoing alcohol intake: current substance use type: denies use current occupational status: employed Travel in the last 8 weeks: None household members: none housing: apartment lives independently: Yes marital status: single number of children: 1 service: No 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 [employer] current occupational exposures/hazards: No Hx Recent Travel: No caffeine: Yes special latasha needs: No agree to transfusion: No do you feel safe at home: Yes victim of physical abuse: No victim of emotional abuse: No victim of sexual abuse: No would you like helpful sources: No [facility] Anesthesia Checklist Patient Identification Patient Identification: Arm Band and Verbal (Name & ) Structural Data Admitted From: Home Planned Operative Procedure/s: Colonoscopy Consent for Planned Operative Procedure(s) Verified: Yes NPO Status Verified Time NPO: 00:00 Additional verifications Anesthesia Reactions: No Airway Assessment C-Spine Mobility Assessed: Yes TMJ Mobility Assessed: Yes Dentition: Poor Dentition (Extremeley poor dentition) Neurological Assessment Level of Consciousness: Awake Hx Seizures: No Numbness or tingling in extremities: No Anesthesia Plan Anesthesia Risk discussed: Yes Anesthesia Plan: Verified ASA Class: III Anesthesia Type: MAC
[2022-09-10 11:53] VITALS: BP 151/105; PULSE 88; RESP 18; TEMP 36.1; O2SAT 93
[2022-09-10 12:51] VITALS: O2SAT 97
--- NOTE | 2022-09-10 13:15 | P.PCN_ITS ---
Procedure: Date: 09/10/22 Patient Date of :: 1970 Procedure Performed:: Colonoscopy Indications:: The patient is a 52 year old who is here for surveillance colonoscopy for having a history of polyps in the past Performing Provider:: Zbigniew Lombardo MD Referring Provider:: Chris Bautista MD Sedation:: See RN records Procedure:: After placing the patient in the left lateral decubitus position, the colon oscopy was gently inserted into the rectum and under direct visualization advanced to the cecum which was identified by transillumination in the right lower quadrant, identification of the ileocecal valve, appendiceal orifice, and cecal strap. Color, texture, mucosa, and anatomy of the colon were carefully examined with the scope. Findings:: Anal canal: normal Rectum: Internal hemorroidsl Sigmoid colon: Diverticulosis. Fair preparation Descending colon: Diverticulosis. Fair preparation Splenic flexure: normal Transverse colon: normal without polyps or inflammatory changes Hepatic flexure: Diverticulosis Ascending colon: Polyp 12-13 mm in size proximal to an area of endoscopic marker. Polyp was completely removed with hot snare polypectomy. Diverticulosis Cecum: normal Terminal ileum: not visualized Impression: Polyp of ascending colon Diverticulosis Fair bowel preparation Recommendations:: Await pathology results Repeat colonoscopy in 2 years Complications:: None Estimated blood obtained (mL): 0
[2022-09-10 13:18] VITALS: BP 122/63; PULSE 89; RESP 16; TEMP 36.5; O2SAT 91
[2022-09-10 13:28] VITALS: BP 106/59; PULSE 84; RESP 17; O2SAT 91
[2022-09-10 13:38] VITALS: BP 110/68; PULSE 82; RESP 17; O2SAT 93
[2022-09-10 13:48] VITALS: BP 112/66; PULSE 76; RESP 16; O2SAT 95
== END 2022-09-10 13:50 | disposition home or self-care (01) ==
PROVIDERS: PCP Emergency Medicine; Visit Provider Internal Medicine
PROC: 0DJD8ZZ Inspection of Lower Intestinal Tract, Via Natural or Artificial Opening Endoscopic (ICD-10-PCS; CPT 45378; principal; 2022-09-10 13:00)
DX: Z12.11 Encounter for screening for malignant neoplasm of colon (principal); K63.5 Polyp of colon; Z86.010 Personal history of colon polyps; K57.30 Diverticulosis of large intestine without perforation or abscess without bleeding; F17.210 Nicotine dependence, cigarettes, uncomplicated; Z79.899 Other long term (current) drug therapy
CPT/HCPCS: 45385; 88305; J2704

== ENCOUNTER 2022-10-26 12:53 | Emergency (ER) | payer MEDICARE, MEDICAID, SELFPAY ==
[2022-10-26 13:05] VITALS: BP 122/77; PULSE 78; RESP 22; TEMP 36.8; O2SAT 95; BMI 39.7
--- NOTE | 2022-10-26 13:35 | EXP.UTC ---
Discharge Plan Disposition Patient Disposition: Home, Self-Care Condition: Good Prescriptions Prescriptions: New ondansetron 4 mg Tablet,Disintegrating 4 mg PO Q8H PRN (Reason: Nausea) Qty: 12 0RF No Action ipratropium-albuterol 0.5 mg-3 mg(2.5 mg base)/3 mL solution for nebulization 3 ml inhalation QID PRN (Reason: shortness of breath or wheezing) Qty: 180 1RF albuterol sulfate 8.5 GM HFA aerosol inhaler 2 puffs IH Q6HP PRN (Reason: Shortness Of Breath) 30 Days Qty: 1 5RF pravastatin 40 mg tablet 40 mg PO DAILY Rx Instructions: TAKE ONE TABLET BY MOUTH EVERY DAY clopidogrel 75 mg tablet See Rx Instructions .ROUTE .COMPLEX Hold Instructions: Resume on 09/11/22. Rx Instructions: TAKE ONE TABLET BY MOUTH EVERY DAY nebivolol 10 mg tablet 10 mg PO DAILY Rx Instructions: TAKE ONE TABLET BY MOUTH EVERY DAY Trelegy Ellipta 100-62.5-25 mcg blister with device 1 inh inhalation DAILY pantoprazole 40 mg tablet,delayed release (DR/EC) 40 mg PO DAILY lisinopril 10 mg tablet 10 mg PO DAILY aspirin 81 mg Tablet,Delayed Release (Dr/Ec) 81 mg PO DAILY Hold Instructions: Resume on 09/11/22. Linzess 72 mcg capsule 72 mcg PO DAILY Referrals Follow up/Referrals: Chris Bautista MD [Primary Care Provider] - See instructions Activity Restrictions/Add. Instructions Additional Instructions/Restrictions: Drink plenty of fluids. Take tylenol or ibuprofen for pain or fever. Take the medications as directed. Follow up with your regular doctor. GO TO THE ER FOR ANY WORSENING SYMPTOMS Clinical Impressions Clinical Impression: Gastroenteritis Stand Alone Forms Stand Alone Forms: Work/School Release Instructions Patient Instructions: DI for Viral Gastroenteritis -- Adult, Ondansetron Discharge ED Provider: Jd Aaron [facility] General Stated complaint: stomach ache Mode of Arrival: Ambulatory Source of Information: Patient Limitations: No Limitations Time Seen by Provider: 10/26/22 13:18 Description of Symptoms (Recalled from Triage Doc. by RN): PATIENT C/O NAUSEA AND VOMITING THAT STARTED TODAY HEENT Symptoms (Recalled from RN notes): No Resp Symptoms (Recalled from RN notes): No Skin Symptoms (Recalled from RN notes): No MS Symptoms (Recalled from RN notes): No Functional Status (Recalled from RN notes): WNL History of Present Illness Provider Complaint: He states that since yesterday he has had n/v/d. He has not vomited since last night, but has continued to have nausea and diarrhea. He denies any abdominal pain. Related Data Home Medications Medication Instructions Recorded Confirmed lisinopril 10 mg tablet 10 mg PO DAILY BP 07/11/22 09/10/22 pantoprazole 40 mg tablet,delayed 40 mg PO DAILY GERD 07/11/22 09/10/22 release aspirin 81 mg tablet,delayed 81 mg PO DAILY CIRCULATION 07/12/22 09/10/22 release clopidogrel 75 mg tablet See Rx Instructions .Route 07/29/22 09/10/22 .COMPLEX Blood thinner fluticasone fur. 100 mcg-umeclid 1 inh inhalation DAILY Asthma 07/29/22 09/10/22 62.5 mcg-vilant 25 mcg inhalat.powder (Trelegy Ellipta) nebivolol 10 mg tablet 10 mg PO DAILY HTN 07/29/22 09/10/22 pravastatin 40 mg tablet 40 mg PO DAILY Cholesterol 07/29/22 09/10/22 linaclotide 72 mcg capsule 72 mcg PO DAILY constipation 08/21/22 09/10/22 (Linzess) Previous Rx's Medication Instructions Recorded albuterol sulfate 90 mcg/actuation 2 puffs inhalation Q6HP PRN 01/13/22 aerosol inhaler Shortness Of Breath 30 days #1 ea ipratropium 0.5 mg-albuterol 3 mg 3 ml inhalation QID PRN shortness 07/22/22 (2.5 mg base)/3 mL nebulization of breath or wheezing #180 mL soln ondansetron 4 mg disintegrating 4 mg PO Q8H PRN Nausea #12 tabs 10/26/22 tablet Allergies Allergy/AdvReac Type Severity Reaction Status Date / Time No Known Allergies Allergy Verified 08/19/22 13:57 Worker's Comp Is this a
[2022-10-26 13:50] VITALS: BP 122/77; PULSE 78; RESP 22; TEMP 36.8; O2SAT 95
== END 2022-10-26 13:53 | disposition home or self-care (01) ==
PROVIDERS: Emergency Provider Nurse Practitioner Family; PCP Emergency Medicine
DX: R10.9 Unspecified abdominal pain (principal); K52.9 Noninfective gastroenteritis and colitis, unspecified; E78.5 Hyperlipidemia, unspecified; Z95.0 Presence of cardiac pacemaker; F17.210 Nicotine dependence, cigarettes, uncomplicated; J44.9 Chronic obstructive pulmonary disease, unspecified; I10 Essential (primary) hypertension
CPT/HCPCS: 99212; 99214; G0463

== ENCOUNTER 2022-11-29 12:01 | Emergency (ER) | payer MEDICARE, MEDICAID, SELFPAY ==
[2022-11-29 12:21] VITALS: BP 144/91; PULSE 76; RESP 19; TEMP 36.8; O2SAT 98; BMI 37.6
--- NOTE | 2022-11-29 12:32 | EXP.UTC ---
Discharge Plan Disposition Patient Disposition: Home, Self-Care Condition: Good Prescriptions Prescriptions: No Action ipratropium-albuterol 0.5 mg-3 mg(2.5 mg base)/3 mL solution for nebulization 3 ml inhalation QID PRN (Reason: shortness of breath or wheezing) Qty: 180 1RF metformin 500 mg tablet 500 mg PO DAILY Qty: 30 0RF Rx Instructions: step one metformin 500 mg tablet 500 mg PO BID Qty: 60 1RF albuterol sulfate 8.5 GM HFA aerosol inhaler 2 puffs IH Q6HP PRN (Reason: Shortness Of Breath) 30 Days Qty: 1 5RF pravastatin 40 mg tablet 40 mg PO DAILY Rx Instructions: TAKE ONE TABLET BY MOUTH EVERY DAY clopidogrel 75 mg tablet See Rx Instructions .ROUTE .COMPLEX Hold Instructions: Resume on 09/11/22. Rx Instructions: TAKE ONE TABLET BY MOUTH EVERY DAY nebivolol 10 mg tablet 10 mg PO DAILY Rx Instructions: TAKE ONE TABLET BY MOUTH EVERY DAY Trelegy Ellipta 100-62.5-25 mcg blister with device 1 inh inhalation DAILY pantoprazole 40 mg tablet,delayed release (DR/EC) 40 mg PO DAILY lisinopril 10 mg tablet 10 mg PO DAILY aspirin 81 mg Tablet,Delayed Release (Dr/Ec) 81 mg PO DAILY Hold Instructions: Resume on 09/11/22. Linzess 72 mcg capsule 72 mcg PO DAILY Referrals Follow up/Referrals: Chris Bautista MD [Primary Care Provider] - See instructions Activity Restrictions/Add. Instructions Additional Instructions/Restrictions: Monitor temperature. Seek treatment if fever develops. Follow-up immediately if new or worse symptoms worsen or no noticeable improvement over 48 hours. Increase fluids such as water, Gatorade, Powerade, juice or Pedialyte with limited formula/dietary in children No food is okay as long as you are drinking. Once ready to eat start bland such as bananas, rice, applesauce, toast. Contagious until no diarrhea, vomiting, fever times 48 hours without medication Avoid antidiarrheals unless told otherwise. Best to let the virus run its course. Follow-up immediately for new or worsening symptoms or no noticeable improvement over the next 48 hours. notify Pcp if symptoms do not improve Clinical Impressions Clinical Impression: Nausea Stand Alone Forms Stand Alone Forms: Work/School Release Instructions Patient Instructions: DI for Nausea -- Adult Discharge ED Provider: Yves ([facility])[place] [facility] [place] General Stated complaint: upset stomach Mode of Arrival: Ambulatory Source of Information: Patient Limitations: No Limitations Time Seen by Provider: 11/29/22 12:32 Description of Symptoms (Recalled from Triage Doc. by RN): pt c/o nausea x3 days. pt states 3d ago he started metformin. pt states he will need a note for work. HEENT Symptoms (Recalled from RN notes): No Resp Symptoms (Recalled from RN notes): No Skin Symptoms (Recalled from RN notes): No MS Symptoms (Recalled from RN notes): No Functional Status (Recalled from RN notes): wnl History of Present Illness Provider Complaint: 52 yr old male presents for nausea. pt states he recently started metformin and it causes him to have nausea even though he is taking it with food. pt states he had to miss work and needs a note Related Data Home Medications Medication Instructions Recorded Confirmed lisinopril 10 mg tablet 10 mg PO DAILY BP 07/11/22 11/21/22 pantoprazole 40 mg tablet,delayed 40 mg PO DAILY GERD 07/11/22 11/21/22 release aspirin 81 mg tablet,delayed 81 mg PO DAILY CIRCULATION 07/12/22 11/21/22 release clopidogrel 75 mg tablet See Rx Instructions .Route 07/29/22 11/21/22 .COMPLEX Blood thinner fluticasone fur. 100 mcg-umeclid 1 inh inhalation DAILY Asthma 07/29/22 11/21/22 62.5 mcg-vilant 25 mcg inhalat.powder (Trelegy Ellipta) nebivolol 10 mg tablet 10 mg PO DAILY HTN 07/29/22 11/21/22 pravastatin 40 mg tablet 40 mg PO DAILY Cholesterol 07/29/22 11/21/22 linaclotide 72 mcg capsule 72 mcg PO DAILY constipation
[2022-11-29 12:45] VITALS: BP 144/91; PULSE 79; RESP 19; TEMP 36.8
== END 2022-11-29 12:45 | disposition home or self-care (01) ==
PROVIDERS: Emergency Provider Nurse Practitioner Family; PCP Emergency Medicine
DX: R11.0 Nausea (principal); J44.9 Chronic obstructive pulmonary disease, unspecified; K21.9 Gastro-esophageal reflux disease without esophagitis; I10 Essential (primary) hypertension; F17.210 Nicotine dependence, cigarettes, uncomplicated; Z95.0 Presence of cardiac pacemaker; E11.9 Type 2 diabetes mellitus without complications; Z79.84 Long term (current) use of oral hypoglycemic drugs
CPT/HCPCS: 99212; 99213; G0463

== ENCOUNTER 2022-12-11 12:22 | Emergency (ER) | payer MEDICARE, MEDICAID, SELFPAY ==
[2022-12-11 12:27] VITALS: BP 166/106; PULSE 69; RESP 16; TEMP 36.8; O2SAT 96; BMI 37.6
--- NOTE | 2022-12-11 12:46 | EXP.UTC ---
Discharge Plan Disposition Patient Disposition: Home, Self-Care Condition: Good Prescriptions Prescriptions: New ondansetron 4 mg Tablet,Disintegrating 4 mg PO Q8H PRN (Reason: Nausea) Qty: 12 0RF No Action urea 39 % cream 3 applic topical BID MDD 10gm Qty: 227 3RF Rx Instructions: Apply to affected dry areas up to twice daily metformin 500 mg tablet 500 mg PO DAILY Qty: 30 0RF Rx Instructions: step one ipratropium-albuterol 0.5 mg-3 mg(2.5 mg base)/3 mL solution for nebulization See Rx Instructions .ROUTE .COMPLEX Qty: 180 1RF Dose Instruction: INHALE THE CONTENTS OF 1 VIAL VIA NEBULIZER FOUR TIMES DAILY NEEDED FOR SHORTNESS OF BREATH OR wheezing Rx Instructions: INHALE THE CONTENTS OF 1 VIAL VIA NEBULIZER FOUR TIMES DAILY NEEDED FOR SHORTNESS OF BREATH OR wheezing albuterol sulfate 8.5 GM HFA aerosol inhaler 2 puffs IH Q6HP PRN (Reason: Shortness Of Breath) 30 Days Qty: 1 5RF pravastatin 40 mg tablet 40 mg PO DAILY Rx Instructions: TAKE ONE TABLET BY MOUTH EVERY DAY clopidogrel 75 mg tablet See Rx Instructions .ROUTE .COMPLEX Hold Instructions: Resume on 09/11/22. Rx Instructions: TAKE ONE TABLET BY MOUTH EVERY DAY nebivolol 10 mg tablet 10 mg PO DAILY Rx Instructions: TAKE ONE TABLET BY MOUTH EVERY DAY Trelegy Ellipta 100-62.5-25 mcg blister with device 1 inh inhalation DAILY pantoprazole 40 mg tablet,delayed release (DR/EC) 40 mg PO DAILY lisinopril 10 mg tablet 10 mg PO DAILY aspirin 81 mg Tablet,Delayed Release (Dr/Ec) 81 mg PO DAILY Hold Instructions: Resume on 09/11/22. Linzess 72 mcg capsule 72 mcg PO DAILY Referrals Follow up/Referrals: Chris Bautista MD [Primary Care Provider] - See instructions Activity Restrictions/Add. Instructions Additional Instructions/Restrictions: Drink plenty of fluids. Take tylenol for pain or fever. Take the medications as directed. Follow up with your regular doctor. GO TO THE ER FOR ANY WORSENING SYMPTOMS Clinical Impressions Clinical Impression: Gastroenteritis Stand Alone Forms Stand Alone Forms: Work/School Release Instructions Patient Instructions: DI for Viral Gastroenteritis -- Adult Discharge ED Provider: Jd [facility] HPI General Stated complaint: Upset stomache Mode of Arrival: Ambulatory Source of Information: Patient Limitations: No Limitations Time Seen by Provider: 12/11/22 12:46 Description of Symptoms (Recalled from Triage Doc. by RN): pt c/o an upset stomach from metformin. pt is requesting a note for work HEENT Symptoms (Recalled from RN notes): No Resp Symptoms (Recalled from RN notes): No Skin Symptoms (Recalled from RN notes): No MS Symptoms (Recalled from RN notes): No Functional Status (Recalled from RN notes): wnl History of Present Illness Provider Complaint: HE states that he was recently started on metformin to help with weight loss. HE states that the medication causes him to have n/v/d. This makes it hard for him to work when he is having those symptoms. Related Data Home Medications Medication Instructions Recorded Confirmed lisinopril 10 mg tablet 10 mg PO DAILY BP 07/11/22 12/10/22 pantoprazole 40 mg tablet,delayed 40 mg PO DAILY GERD 07/11/22 12/10/22 release aspirin 81 mg tablet,delayed 81 mg PO DAILY CIRCULATION 07/12/22 12/10/22 release clopidogrel 75 mg tablet See Rx Instructions .Route 07/29/22 12/10/22 .COMPLEX Blood thinner fluticasone fur. 100 mcg-umeclid 1 inh inhalation DAILY Asthma 07/29/22 12/10/22 62.5 mcg-vilant 25 mcg inhalat.powder (Trelegy Ellipta) nebivolol 10 mg tablet 10 mg PO DAILY HTN 07/29/22 12/10/22 pravastatin 40 mg tablet 40 mg PO DAILY Cholesterol 07/29/22 12/10/22 linaclotide 72 mcg capsule 72 mcg PO DAILY constipation 08/21/22 12/10/22 (Linzess) Previous Rx's Medication Instructions Recorded albuterol s
[2022-12-11 12:48] VITALS: BP 166/106; PULSE 69; RESP 16; TEMP 36.8
== END 2022-12-11 12:56 | disposition home or self-care (01) ==
PROVIDERS: Emergency Provider Nurse Practitioner Family; PCP Emergency Medicine
DX: K52.9 Noninfective gastroenteritis and colitis, unspecified (principal); R11.2 Nausea with vomiting, unspecified; F17.210 Nicotine dependence, cigarettes, uncomplicated; J44.9 Chronic obstructive pulmonary disease, unspecified; I10 Essential (primary) hypertension; K21.9 Gastro-esophageal reflux disease without esophagitis; Z95.0 Presence of cardiac pacemaker
CPT/HCPCS: 99212; 99214; G0463

== ENCOUNTER → 2022-12-12 13:30 | Outpatient (CLI) | payer MEDICARE, MEDICAID, SELFPAY ==
[2022-12-12 14:27] LABS: Blood Urea Nitrogen 9 mg/dl (9-20); Estimated Glomerular Filt Rate 88 ml/min (>60); GFR (African American) 106 ML/MIN (>60)
== END ==
PROVIDERS: PCP Emergency Medicine; Visit Provider Surgery
DX: Z01.812 Encounter for preprocedural laboratory examination (principal)
CPT/HCPCS: 36415; 82565; 84520

== ENCOUNTER → 2022-12-15 08:55 | Outpatient (CLI) | payer MEDICARE, MEDICAID, SELFPAY ==
--- NOTE | 2022-12-15 08:55 | CT_ITS ---
FINAL REPORT TECHNIQUE: After the administration of intravenous contrast, axial images were obtained through the abdomen and pelvis by computed tomography. This study was performed with technique to keep radiation doses as low as reasonably achievable, (ALARA). Individualized dose reduction techniques using automated exposure control or adjustment of the MA and/or KV according to the patient's size were employed. CLINICAL HISTORY: abdominal pain, hx of hernia COMPARISON: 02/24/2020 FINDINGS: Abdomen: There is scarring at the lung bases. There is mild fatty infiltration of the liver. No focal hepatic lesion is identified. The spleen is unremarkable. There is mild bilateral adrenal gland enlargement which is stable from prior exam. Findings likely represent hyperplasia or adenomas. The pancreas is unremarkable. There are bilateral renal cysts with the largest measuring up to 22 mm. The aorta is normal in caliber. There is no free fluid or adenopathy. There is a small umbilical hernia containing fat as well as an infraumbilical hernia, also containing fat. Hernia sac measures 38 mm and transverse dimension. There is widespread colonic diverticulosis with mild stranding in the left lower quadrant of uncertain etiology. Findings may represent mild diverticulitis. Pelvis: The appendix is normal.. There is very bladder wall thickening which is likely inflammatory. There are bilateral inguinal hernias containing fat. There is no free fluid or adenopathy. Postoperative changes are noted of the lower cervical spine. IMPRESSION: Widespread colonic diverticulosis with mild stranding in the left lower quadrant. Cannot exclude mild diverticulitis. Reviewed, Interpreted and Dictated by Oswaldo Dinero III, MD Transcribed by Charis Person Authenticated and [facility]
== END ==
PROVIDERS: PCP Emergency Medicine; Visit Provider Surgery
DX: R10.9 Unspecified abdominal pain (principal)
CPT/HCPCS: 74177; Q9967

== ENCOUNTER → 2022-12-26 10:10 | Outpatient (CLI) | payer MEDICARE, MEDICAID, SELFPAY ==
[2022-12-26 10:44] LABS: Basophils # 0.1 K/mm3 (0-0.2); Basophils % 0.6 % (0.1-2.0); Eosinophils # 0.4 K/mm3 (0.0-0.4); Eosinophils % 4.7 % (0.1-12.0); Hematocrit 52.1 % (42.0-52.0); Hemoglobin 16.8 g/dL (14.1-18.0); Lymphocytes # 2.8 K/mm3 (0.7-4.5); Lymphocytes % 33.2 % (10-50); Mean Corpuscular HGB Conc 32.3 g/dL (31.8-35.4); Mean Corpuscular Hemoglobin 31.4 pg (27.0-31.2); Mean Corpuscular Volume 97.1 fl (80-94); Mean Platelet Volume 7.3 fl (7.4-10.4); Monocytes # 0.6 K/mm3 (0.1-1.0); Monocytes % 7.1 % (1.7-9.3); Neutrophils # 4.7 K/mm3 (1.8-7.8); Neutrophils % 54.4 % (37.0-80.0); Platelet Count 315 K/mm3 (142-424); Red Blood Count 5.37 M/mm3 (4.60-6.20); Red Cell Distribution Width 13.1 % (11.5-17.5); White Blood Count 8.6 K/mm3 (4.8-10.8)
[2022-12-26 11:50] LABS: Anion Gap 13.4 mEq/L (5-15); Blood Urea Nitrogen 9 mg/dl (9-20); Calcium 8.9 mg/dl (8.4-10.2); Carbon Dioxide 29 mmol/L (22.0-30.0); Chloride 106 mmol/L (98-107); Estimated Glomerular Filt Rate 88 ml/min (>60); GFR (African American) 106 ML/MIN (>60); Glucose 72 mg/dl (74-100); Potassium 5.4 mmoL/L (3.5-5.1); Sodium 143 mmol/L (136-145)
== END ==
PROVIDERS: PCP Emergency Medicine; Visit Provider Surgery
DX: K21.9 Gastro-esophageal reflux disease without esophagitis (principal); K43.9 Ventral hernia without obstruction or gangrene; Z01.812 Encounter for preprocedural laboratory examination
CPT/HCPCS: 36415; 80048; 85025

== ENCOUNTER 2023-01-19 12:24 | Observation (INO) | payer MEDICARE, MEDICAID, SELFPAY ==
[2023-01-19] VITALS (29 sets, daily range): BP systolic 91–145; BP diastolic 50–97; PULSE 45–153; RESP 15–20; TEMP 36.1–37.3; O2SAT 92–97; BMI 37.6; BMI 38.2
--- NOTE | 2023-01-19 09:28 | EXP.ANES.CKL ---
[facility] Disclaimer: The information contained in this section may have been updated after the patient was seen, as this information can be updated by other users. Medical History Arthritis CAD (coronary artery disease) CAD (coronary artery disease) Cardiomyopathy CHF (congestive heart failure) COPD (chronic obstructive pulmonary disease) COPD (chronic obstructive pulmonary disease) CVA (cerebral vascular accident) Encounter for pre-operative cardiovascular clearance Erectile dysfunction GERD (gastroesophageal reflux disease) Hx of cardiac pacemaker Hypertension MRSA (methicillin resistant staph aureus) culture positive SVT (supraventricular tachycardia) Tobacco abuse disorder Surgical History Fusion of lumbar spine H/O cardiac catheterization H/O colonoscopy Hx of ventral hernia repair Open right clavicular fracture Family History Mother , at the age of 58 Diabetes Father , at the age of 55 Heart attack Other Family history of diabetes mellitus type II Family history of hypertension Family history of myocardial infarction Social History Smoking Status: Current every day smoker tobacco type: cigarettes packs per day: 1 pack-years: 40 smoking status start date: 1 pack/day 35 years and ongoing alcohol intake: current substance use type: denies use current occupational status: employed Travel in the last 8 weeks: None household members: none housing: apartment lives independently: Yes marital status: single number of children: 1 service: No 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 [email or web address] current occupational exposures/hazards: No Hx Recent Travel: No caffeine: Yes special latasha needs: No agree to transfusion: No do you feel safe at home: Yes victim of physical abuse: No victim of emotional abuse: No victim of sexual abuse: No would you like helpful sources: No [facility] Anesthesia Checklist Patient Identification Patient Identification: Arm Band Structural Data Admitted From: Home Planned Operative Procedure/s: Laparoscopic Ventral Hernia Repair Consent for Planned Operative Procedure(s) Verified: Yes Verified Documents: Surgical Consent and History and Physical NPO Status Verified Time NPO: 00:00 Additional verifications Anesthesia Reactions: No Hx Blood Transfusions: No Airway Assessment C-Spine Mobility Assessed: Yes TMJ Mobility Assessed: Yes Dentition: Good Dentition Neurological Assessment Level of Consciousness: Awake and Alert Anesthesia Plan Anesthesia Risk discussed: Yes Anesthesia Plan: Verified ASA Class: III Anesthesia Type: General
--- NOTE | 2023-01-19 10:58 | SUR.PHASEI ---
1058 - RT at bedside performing EKG at this time. Pt resting in bed, asymptomatic, A&O x4 conversing w/ staff appropriately.
--- NOTE | 2023-01-19 11:01 | ECG_ITS ---
APPROVED REPORT Exam: Resting ECG HR:158 bpm ECG Measurements Heart Rate 158 AXES QRSd 97 QRS 32 QT 275 T -15 QTc 363 Conclusion ATRIAL FIBRILLATION WITH RAPID VENTRICULAR RESPONSE MODERATE ST DEPRESSION [0.05+ mV ST DEPRESSION] CRITICAL TEST RESULT UNCONFIRMED REPORT Electronically signed by : Federico Carrillo MD 01/19/2023 17:10:59
[2023-01-19 11:03] LABS: POC Glucose,Bedside 89 (70-110)
--- NOTE | 2023-01-19 11:06 | SUR.PHASEI ---
1104 - Cardiology contacted for consult at this time. NIKI Haque to call back 1107 - NIKI Haque called back to PACU at this time. Discussed events in OR and leading up to time in PACU. Pt continues to have HR ranging 120-150's. Pt remains asymptomatic, currently sitting up in bed. 1108 - Orders given per NIKI Haque to give pt 5 mg Lopressor IV x 1 now and 10 mg Bisoprolol PO x 1 now. RB+V, order faxed to pharmacy. 1125 - NIKI Haque at bedside. Verbal order for pt to receive another 5 mg Lopressor IV. HR ranging 110-130's. BP 141/65.
--- NOTE | 2023-01-19 11:40 | SUR.PHASEI ---
V/O per NIKI Haque to draw CBC, BMP, mag and troponin. Labs drawn and sent to lab. 1140 - V/O for pt to receive 5 mg Lopressor IV X1 now. RB+V.
--- NOTE | 2023-01-19 11:41 | EXP.CARD.CON ---
History of Present Illness History of Present Illness Consult date: 01/19/23 Requesting physician: Oswaldo Syed Consult reason: atrial fibrillation Chief complaint: A. fib with RVR Additional Medical History:: 1. CAD, A. [facility], 09/2014, normal coronaries with LVEF of 45-50%. Possible microvascular dysfunction B. [facility], 2018, Mild luminal irregularities, normal LVEF, LVEDP of 20 mm Hg 2. Cardiovascular Disease with history of CVA's a. Left side residual weakness, paresthesias and poor memory 3. Tobacco Use A. 1.5-2 ppd for many years 4. Hypertension A. Echo, 07/25/2022, mild biatrial enlargement, normal LV size, mild concentric LVH, EF 55% with no regional WMA. Grade 1 DD. Mild RV enlargement with normal contractility. Trace MR/TR 5. FH of CAD 6. Dyslipidemia 7.? History of permanent pacemaker placement for symptomatic bradycardia, 10/2014 with a [employer] device. A.? Atrial lead repositioning approximately January 2015 B.? History of brief episodes of nonsustained SVT and 2 seconds of VT, controlled on [place] C. Generator changed 08/2022 to [employer] 8. New onset atrial fibrillation, 01/19/2023, with RVR History of present illness: 52-year-old white male came to the hospital as an outpatient for planned hernia repair. However after being given anesthesia in the OR patient developed atrial fibrillation with rapid ventricular response up to 160 bpm. Surgery was canceled patient was taken to PACU and cardiology was consulted for evaluation. Despite IV metoprolol x3 patient remained in A-fib with RVR in the 130 to 160 bpm range. He also received oral bisoprolol 10 mg without conversion to sinus rhythm. It was then elected to begin him on IV diltiazem with plans to admit if he does not convert. [facility] Disclaimer: The information contained in this section may have been updated after the patient was seen, as this information can be updated by other users. Medical History Arthritis CAD (coronary artery disease) CAD (coronary artery disease) Cardiomyopathy CHF (congestive heart failure) COPD (chronic obstructive pulmonary disease) COPD (chronic obstructive pulmonary disease) CVA (cerebral vascular accident) Encounter for pre-operative cardiovascular clearance Erectile dysfunction GERD (gastroesophageal reflux disease) Hx of cardiac pacemaker Hypertension MRSA (methicillin resistant staph aureus) culture positive SVT (supraventricular tachycardia) Tobacco abuse disorder Surgical History Fusion of lumbar spine H/O cardiac catheterization H/O colonoscopy Hx of ventral hernia repair Open right clavicular fracture Family History Mother , at the age of 58 Diabetes Father , at the age of 55 Heart attack Other Family history of diabetes mellitus type II Family history of hypertension Family history of myocardial infarction Social History Smoking Status: Current every day smoker tobacco type: cigarettes packs per day: 1 pack-years: 40 smoking status start date: 1 pack/day 35 years and ongoing alcohol intake: current substance use type: denies use current occupational status: employed Travel in the last 8 weeks: None household members: none housing: apartment lives independently: Yes marital status: single number of children: 1 service: No 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
[2023-01-19 11:51] LABS: Basophils # 0.1 K/mm3 (0-0.2); Basophils % 0.7 % (0.1-2.0); Eosinophils # 0.4 K/mm3 (0.0-0.4); Eosinophils % 3.6 % (0.1-12.0); Hematocrit 50.7 % (42.0-52.0); Hemoglobin 16.7 g/dL (14.1-18.0); Lymphocytes # 2.5 K/mm3 (0.7-4.5); Lymphocytes % 24.3 % (10-50); Mean Corpuscular Hemoglobin 30.8 pg (27.0-31.2); Mean Corpuscular Volume 93.3 fl (80-94); Mean Platelet Volume 7.6 fl (7.4-10.4); Monocytes # 0.6 K/mm3 (0.1-1.0); Monocytes % 5.6 % (1.7-9.3); Neutrophils # 6.7 K/mm3 (1.8-7.8); Neutrophils % 65.8 % (37.0-80.0); Platelet Count 275 K/mm3 (142-424); Red Blood Count 5.43 M/mm3 (4.60-6.20); Red Cell Distribution Width 13.1 % (11.5-17.5); White Blood Count 10.2 K/mm3 (4.8-10.8)
--- NOTE | 2023-01-19 11:52 | SUR.PHASEI ---
1149 - verbal order to give 10 mg cardizem IV x now and to start pt on a cardizem gtt at 10 mg/hr and to tritrate to attain a HR < 100 bpm. RB+V. Order faxed and awaiting gtt and med to be brought down from pharmacy. Pt educated on meds and need for gtt. Pt agreeable and verbalized understanding.
[2023-01-19 11:54] LABS: Chloride 105 mmol/L (98-107)
[2023-01-19 11:55] LABS: Potassium 4.5 mmoL/L (3.5-5.1); Sodium 138 mmol/L (136-145)
[2023-01-19 11:58] LABS: Anion Gap 13.5 mEq/L (5-15); Blood Urea Nitrogen 9 mg/dl (9-20); Calcium 8.2 mg/dl (8.4-10.2); Carbon Dioxide 24 mmol/L (22.0-30.0); Creatinine Clearance Estimated 163 mL/min (50-200); Estimated Glomerular Filt Rate 88 ml/min (>60); GFR (African American) 106 ML/MIN (>60); Glucose 93 mg/dl (74-100); Magnesium 1.7 mg/dl (1.6-2.3)
--- NOTE | 2023-01-19 12:09 | SUR.PHASEII ---
1205 - 10 mg Diltiazem IV bolus given at this time. 1210 - Diltiazem gtt started at this time @ 10 mg/hr. Verified w/ S BOBBY Bhandari. Pacemaker rep at bedside assessing pt.
[2023-01-19 12:13] LABS: Troponin I 0.01 ng/ml (0.00-0.034)
--- NOTE | 2023-01-19 12:27 | SUR.PHASEI ---
1220 - J NIKI Madrid speaking to care management about admission. Awaiting bed assignment at this time. Pt and family updated on plan of care.
--- NOTE | 2023-01-19 12:57 | SUR.PHASEI ---
1252 - Detailed report called to Tomas Mae RN at this time
[2023-01-19 13:00] LABS: NT Pro Brain Natriuretic Pep. 824 pg/mL (0-125)
--- NOTE | 2023-01-19 13:08 | PC.NURSE ---
arrived to floor by stretcher from surgery
[2023-01-19 13:27] LABS: Free Thyroxine Index 2.5 ug/dL (5.93-13.13); T4 (Thyroxine) 6.7 ug/dl (5.53-11.0); Triiodothryronine (T3) Uptake 38 % (23.5-40.5)
--- NOTE | 2023-01-19 13:55 | XR_ITS ---
FINAL REPORT TECHNIQUE: Single view chest CLINICAL HISTORY: Afib with RVR post hernia repair sx. COMPARISON: 07/11/2022 FINDINGS: A single view of the chest was obtained. The heart is mildly enlarged. A pacemaker is in place.. The lungs are clear. There is no pneumothorax. Osseous structures demonstrate sideplate and screw fixation of the right clavicle which is disrupted. There is fracture of the mid right clavicle with inferior displacement of the distal fracture fragment. Findings are unchanged from prior exam. IMPRESSION: No acute cardiopulmonary process. Reviewed, Interpreted and Dictated by David De La Torre MD Transcribed by Charis Person Authenticated and [facility]
--- NOTE | 2023-01-19 13:55 | HMH.PHAINT1 ---
Pharmacy Intervention Comments: MEDICATION RECONCILIATION COMPLETED ON PATIENT USING EXTERNAL FILL HISTORY FROM PHARMACY. -SRINIVAS VALENCIA, PHOEBED
[2023-01-19 14:31] LABS: Coronavirus 19, PCR Not Detected (NotDetected); Influenza A, PCR Not Detected (NotDetected); Influenza B, PCR Not Detected (NotDetected)
[2023-01-19 14:35] LABS: Basophils % 0.4 % (0.1-2.0); Eosinophils # 0.4 K/mm3 (0.0-0.4); Eosinophils % 3.9 % (0.1-12.0); Hematocrit 51.3 % (42.0-52.0); Hemoglobin 16.9 g/dL (14.1-18.0); Lymphocytes # 2.4 K/mm3 (0.7-4.5); Lymphocytes % 23.6 % (10-50); Mean Corpuscular HGB Conc 32.9 g/dL (31.8-35.4); Mean Corpuscular Hemoglobin 30.5 pg (27.0-31.2); Mean Corpuscular Volume 92.6 fl (80-94); Mean Platelet Volume 7.6 fl (7.4-10.4); Monocytes # 0.6 K/mm3 (0.1-1.0); Monocytes % 5.5 % (1.7-9.3); Neutrophils # 6.7 K/mm3 (1.8-7.8); Neutrophils % 66.5 % (37.0-80.0); Platelet Count 288 K/mm3 (142-424); Red Blood Count 5.54 M/mm3 (4.60-6.20); Red Cell Distribution Width 13.5 % (11.5-17.5); White Blood Count 10.1 K/mm3 (4.8-10.8)
[2023-01-19 14:41] LABS: Alanine Aminotransferase 33 U/L (12-78); Albumin Level 3.8 g/dl (3.5-5.0); Albumin/Globulin Ratio 1.3 (1.1-1.8); Alkaline Phosphatase 79 U/L (38-126); Aspartate Amino Transferase 36 U/L (17-59); Bilirubin,Total 0.6 mg/dl (0.2-1.3); Blood Urea Nitrogen 9 mg/dl (9-20); Calcium 8.6 mg/dl (8.4-10.2); Carbon Dioxide 23 mmol/L (22.0-30.0); Chloride 106 mmol/L (98-107); Creatinine Clearance Estimated 186 mL/min (50-200); Estimated Glomerular Filt Rate 101 ml/min (>60); GFR (African American) 122 ML/MIN (>60); Glucose 111 mg/dl (74-100); Lactic Acid 1.8 mmol/L (0.7-2.1); Magnesium 1.8 mg/dl (1.6-2.3); Phosphorous 3.5 mg/dl (2.5-4.5); Sodium 139 mmol/L (136-145); Total Protein,Serum 6.8 g/dl (6.3-8.2)
[2023-01-19 14:46] LABS: D-Dimer 1.03 ug/mL (0.0-0.5)
[2023-01-19 15:00] LABS: Procalcitonin 0.077 ng/mL (0.0-2.0)
--- NOTE | 2023-01-19 15:49 | PC.NURSE ---
Addendum entered by Navya Mae RN 01/19/23 17:12: 1605 15mg iv diltiazem administered, order locked by mervat bailey who is unable to unlock. verified with sanjana baez. [id number] notified mervat bailey that pt did not convert with 15mg iv bolus of diltiazem. new orders for amiodarone bolus and amiodarone drip received at this time. clarified if pt was to still receive PO dose of diltiazem. per mervat bailey pt to still receive po diltiazem. when attempting to admin 240mg po dilt, med unavailable and pharmacy no longer in house. called and spoke with [facility] in [facility] pharmacy. ok to give 2 120mg diltiazem pills. order faxed to reflect change. 1640 amiodarone bolus and drip mixed with kathrin kruse RN. unable to scan amiodarone bolus r/t barcode for vial of amiodarone not in system. Original Note: [id number] notified mervat bailey that pt was requesting a nicotine patch. per mervat bailey nicotine 21mg td daily. 1316 contacted by mervat bailey, order has been entered for pt to have po dose then be taken off of drip. notified henry that pt is controlled, but has not converted. order was then entered by mervat bailey for pt to have 15mg iv bolus of diltiazem.
--- NOTE | 2023-01-19 17:07 | EXP.HP ---
History of Present Illness *Admission Date: 01/19/23 *Reason for visit:: rapid heartrate *History of present illness: Patient presents with rapid heart rate noted during preop for hernia repair today by Dr. Syed( General surgeon). Patient subsequently direct admitted to medical service, with Dr. Lowry (cardiology) managing A-fib with RVR. Denies chest discomfort. States this a.m. first episode of A-fib with RVR. Started on Xarelto by parts consultant. Placed on Cardizem drip, with heart rate consistently below 110 bpm on Cardizem drip. Denies fevers, chills, sick contacts, recent travel. [facility] Disclaimer: The information contained in this section may have been updated after the patient was seen, as this information can be updated by other users. Medical History Arthritis CAD (coronary artery disease) CAD (coronary artery disease) Cardiomyopathy CHF (congestive heart failure) COPD (chronic obstructive pulmonary disease) COPD (chronic obstructive pulmonary disease) CVA (cerebral vascular accident) Encounter for pre-operative cardiovascular clearance Erectile dysfunction GERD (gastroesophageal reflux disease) Hx of cardiac pacemaker Hypertension MRSA (methicillin resistant staph aureus) culture positive SVT (supraventricular tachycardia) Tobacco abuse disorder Surgical History Fusion of lumbar spine H/O cardiac catheterization H/O colonoscopy Hx of ventral hernia repair Open right clavicular fracture Family History Mother , at the age of 58 Diabetes Father , at the age of 55 Heart attack Other Family history of diabetes mellitus type II Family history of hypertension Family history of myocardial infarction Social History (Updated 01/19/23 @ 13:54 by Navya Mae RN) Smoking Status: Current every day smoker tobacco type: cigarettes packs per day: 1 pack-years: 40 smoking status start date: 1 pack/day 35 years and ongoing alcohol intake: current substance use type: denies use current occupational status: employed Travel in the last 8 weeks: None household members: none housing: apartment lives independently: Yes marital status: single number of children: 1 service: No 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 [employer] current occupational exposures/hazards: No Hx Recent Travel: No caffeine: Yes special latasha needs: No agree to transfusion: No do you feel safe at home: Yes victim of physical abuse: No victim of emotional abuse: No victim of sexual abuse: No would you like helpful sources: No Review of Systems Constitutional Constitutional: Reports system reviewed and no additional complaints, except as documented Eyes Eyes: Reports system reviewed and no additional complaints, except as documented ENT Ears, Nose, Mouth, and Throat: Reports system reviewed and no additional complaints, except as documented *Cardiovascular Cardiovascular: Reports palpitations *Respiratory Respiratory: Reports system reviewed and no additional complaints, except as documented *Gastrointestinal Gastrointestinal: Reports as per HPI *Genitourinary Genitourinary: Reports system reviewed and no additional complaints, except as documented *Musculoskeletal Musculoskeletal: Reports system reviewed and no additional complaints, except as documented Integumentary/Breasts Skin/Breast: Reports system reviewed and no additional complaints, except as documented *Neurologic Neurologic: Reports system reviewed and no additional complaints, except as documented Psychiatric Psychiatric: Reports system reviewed and no additional complaints, except as documented Endocrine Endocrine: Reports system reviewed and no additional complaints, except as documented and Repor
[2023-01-19 17:58] LABS: Troponin I 0.02 ng/ml (0.00-0.034)
--- NOTE | 2023-01-19 19:24 | PC.NURSE ---
1854 notified Cheryl HAUSER that pt has had o2 drop to 82 while sleeping. pt states he is supposed to wear cpap at home but does not always wear it. per cheryl, cpap to be ordered and managed by RT
--- NOTE | 2023-01-19 23:30 | PC.NURSE ---
Decreased Amiodarone infusion to 0.5mg/min or 16.7mls/hr per protocol. Pt still in A-fib but no acute distress noted. Will continue to monitor.
[2023-01-19 23:49] LABS: Troponin I 0.02 ng/ml (0.00-0.034)
[2023-01-20] VITALS (12 sets, daily range): BP systolic 108–135; BP diastolic 63–89; PULSE 66–89; RESP 14–19; TEMP 36.5–37.2; O2SAT 92–97; BMI 38.0
[2023-01-20 06:03] LABS: Basophils % 0.4 % (0.1-2.0); Eosinophils # 0.4 K/mm3 (0.0-0.4); Eosinophils % 4.6 % (0.1-12.0); Hematocrit 48.7 % (42.0-52.0); Lymphocytes # 2.2 K/mm3 (0.7-4.5); Lymphocytes % 25.7 % (10-50); Mean Corpuscular HGB Conc 32.8 g/dL (31.8-35.4); Mean Corpuscular Hemoglobin 30.9 pg (27.0-31.2); Mean Corpuscular Volume 94.2 fl (80-94); Mean Platelet Volume 7.3 fl (7.4-10.4); Monocytes # 0.6 K/mm3 (0.1-1.0); Monocytes % 6.8 % (1.7-9.3); Neutrophils # 5.2 K/mm3 (1.8-7.8); Neutrophils % 62.4 % (37.0-80.0); Platelet Count 246 K/mm3 (142-424); Red Blood Count 5.17 M/mm3 (4.60-6.20); Red Cell Distribution Width 13.3 % (11.5-17.5); White Blood Count 8.4 K/mm3 (4.8-10.8)
[2023-01-20 06:20] LABS: Chloride 105 mmol/L (98-107); Potassium 4.5 mmoL/L (3.5-5.1); Sodium 139 mmol/L (136-145)
[2023-01-20 06:23] LABS: Anion Gap 11.5 mEq/L (5-15); Blood Urea Nitrogen 10 mg/dl (9-20); Calcium 7.8 mg/dl (8.4-10.2); Carbon Dioxide 27 mmol/L (22.0-30.0); Cholesterol 150 mg/dl (140-200); Creatinine Clearance Estimated 184 mL/min (50-200); Estimated Glomerular Filt Rate 101 ml/min (>60); GFR (African American) 122 ML/MIN (>60); Glucose 94 mg/dl (74-100); Magnesium 1.9 mg/dl (1.6-2.3); Phosphorous 3.9 mg/dl (2.5-4.5); Triglycerides 110 mg/dl (30-150); VLDL Cholesterol 22 mg/dL (0-40)
[2023-01-20 06:24] LABS: Chol/HDL Ratio 3.9 (1-3.5); HDL Cholesterol 38 mg/dl (40-60)
[2023-01-20 06:35] LABS: Direct LDL Cholesterol 92.44 mg/dL (100-129)
--- NOTE | 2023-01-20 08:20 | EXP.CARD.PN ---
Subjective Subjective Date: 01/20/23 Time: 08:20 Principal diagnosis: Atrial fibrillation, new onset Interval history: 52-year-old white male in bed in no acute distress. States he feels better today. Telemetry shows continued atrial fibrillation with intermittent pacing. Rate is in the 70-80 bpm range. He is getting IV amiodarone loading Xarelto was started yesterday Exam Data for Last 24 hours Vital signs and Labs for Last 24 Hours: Temp Pulse Resp BP Pulse Ox FiO2 98.1 F 80 16 135/89 92 L 97 01/20/23 07:35 01/20/23 07:40 01/20/23 06:00 01/20/23 06:00 01/20/23 07:40 01/19/23 23:40 Laboratory Results - last 24 hr 01/19/23 10:57: POC Glucose 89 01/19/23 11:39: WBC 10.2, RBC 5.43, Hgb 16.7, Hct 50.7, MCV 93.3, MCH 30.8, MCHC 33.0, RDW 13.1, Plt Count 275, MPV 7.6, Neut % (Auto) 65.8, Lymph % (Auto) 24.3, [place] % (Auto) 5.6, Eos % (Auto) 3.6, Baso % (Auto) 0.7, Neut # (Auto) 6.7, Lymph # (Auto) 2.5, [place] # (Auto) 0.6, Eos # (Auto) 0.4, Baso # (Auto) 0.1 01/19/23 11:39: Sodium 138, Potassium 4.5, Chloride 105, Carbon Dioxide 24, Anion Gap 13.5, BUN 9, Creatinine 0.90, Estimated Creat Clear 163, Estimated GFR 88, Est GFR ( Amer) 106, Glucose 93, Calcium 8.2 L, Magnesium 1.7, Troponin I 0.01 01/19/23 11:39: NT-Pro-B Natriuret Pep 824 H 01/19/23 11:39: TSH 16.00 H, Free T4 Index 2.5 L, Thyroxine (T4) 6.7, T3 Uptake 38 01/19/23 14:20: Lactate 1.8 01/19/23 14:20: WBC 10.1, RBC 5.54, Hgb 16.9, Hct 51.3, MCV 92.6, MCH 30.5, MCHC 32.9, RDW 13.5, Plt Count 288, MPV 7.6, Neut % (Auto) 66.5, Lymph % (Auto) 23.6, [place] % (Auto) 5.5, Eos % (Auto) 3.9, Baso % (Auto) 0.4, Neut # (Auto) 6.7, Lymph # (Auto) 2.4, [place] # (Auto) 0.6, Eos # (Auto) 0.4, Baso # (Auto) 0.0 01/19/23 14:20: D-Dimer 1.03 H 01/19/23 14:20: Sodium 139, Potassium 4.0, Chloride 106, Carbon Dioxide 23, Anion Gap 14.0, BUN 9, Creatinine 0.80, Estimated Creat Clear 186, Estimated GFR 101, Est GFR ( Amer) 122, Glucose 111 H, Calcium 8.6, Phosphorus 3.5, Magnesium 1.8, Total Bilirubin 0.6, AST 36, ALT 33, Alkaline Phosphatase 79, Total Protein 6.8, Albumin 3.8, Globulin 3.0, Albumin/Globulin Ratio 1.3 01/19/23 14:20: Procalcitonin 0.077 01/19/23 14:21: SARS-CoV-2 (PCR) Not detected, Influenza A Untype (PCR) Not detected, Influenza Type B (PCR) Not detected 01/19/23 17:05: Troponin I 0.02 01/19/23 23:15: Troponin I 0.02 01/20/23 05:35: WBC 8.4, RBC 5.17, Hgb 16.0, Hct 48.7, MCV 94.2 H, MCH 30.9, MCHC 32.8, RDW 13.3, Plt Count 246, MPV 7.3 L, Neut % (Auto) 62.4, Lymph % (Auto) 25.7, [place] % (Auto) 6.8, Eos % (Auto) 4.6, Baso % (Auto) 0.4, Neut # (Auto) 5.2, Lymph # (Auto) 2.2, [place] # (Auto) 0.6, Eos # (Auto) 0.4, Baso # (Auto) 0.0 01/20/23 05:35: Sodium 139, Potassium 4.5, Chloride 105, Carbon Dioxide 27, Anion Gap 11.5, BUN 10, Creatinine 0.80, Estimated Creat Clear 184, Estimated GFR 101, Est GFR ( Amer) 122, Glucose 94, Calcium 7.8 L, Phosphorus 3.9, Magnesium 1.9, Triglycerides 110, Cholesterol 150, LDL Cholesterol Direct 92.44 L, VLDL Cholesterol 22, HDL Cholesterol 38 L, Cholesterol/HDL Ratio 3.9 H I & O for Last 24 hours: Intake & Output 01/17/23 01/18/23 01/19/23 01/20/23 11:59 11:59 11:59 11:59 Intake Total 1560 / 1560 Output Total 1300 / 1300 Balance 260 / 260 Weight 270 lb 272 lb Constitutional Constitutional: no acute distress *Routine Respiratory Exam Respiratory: Present CTA bilaterally *Routine Cardiovascular Exam Cardiovascular: Present irregularly irregular *Routine Extremities Exam Extremities: Present edema Progress Note: A&P Assessment and plan (1) Atrial fibrillation with RVR: Status: Acute (2) HLD (hyperlipidemia): Status: Chronic (3) Obesity: Status: Acute (4) COPD (chronic obstructive pulmonary disease): Status: Acute (5) CAD (coronary artery disease): Status: Acute (6) GERD (gastroesophageal reflux disease): Status: Acute Assessment and Plan Assessment and Plan for All Di
--- NOTE | 2023-01-20 08:28 | P.PNANES_ITS ---
[facility] Anesthesia Record Part II Anesthesia Record Part II Discharge Time: 11:25 Destination: floor PACU nurse assessment reviewed?: Yes Patient Condition:: Fair Anesthesia Complications:: surgery cancelled due to uncontrolled afib during surgery. cardiology is with pt in PACU trying to convert pt to NSR Swallowing reflex intact?: Yes Cyanosis?: No Blood Pressure: 122/63 Pulse Rate: 89 Temperature: 97.7 F Mental Status: Alert & Oriented Pain level:: 0 Nausea and/or vomitting:: None Intake, IV Amount: 2,000
--- NOTE | 2023-01-20 11:38 | EXP.DC.SUM ---
General Admission date:: 01/19/23 HPI HPI HPI: Patient presents with rapid heart rate noted during preop for hernia repair today by Dr. Syed( General surgeon). Patient subsequently direct admitted to medical service, with Dr. Lowry (cardiology) managing A-fib with RVR. Denies chest discomfort. States this a.m. first episode of A-fib with RVR. Started on Xarelto by [employer] business [employer] consultant. Placed on Cardizem drip, with heart rate consistently below 110 bpm on Cardizem drip. Denies fevers, chills, sick contacts, recent travel. Hospital Course Hospital Course Hospital Course: Patient admitted after preop hernia evaluation noted A-fib with RVR. Patient placed on Cardizem gtt. during hospitalization with heart rate decreasing to less than 110 bpm. Patient however remained in atrial fibrillation rhythm throughout hospitalization. Cardiology consulted, and started patient on IV amiodarone 01/20/2023. Patient discharged home on p.o. amiodarone, Cardizem CD, and nebivolol per cardiology consult advised. Patient also noted to suffer from hypothyroidism during hospitalization, and sent home on levothyroxine 75 mcg p.o. daily. Patient advised to follow-up with both cardiology and primary care physician on outpatient basis. Exam Data for Last 24 hours Vital signs and Labs for Last 24 Hours: Temp Pulse Resp BP Pulse Ox FiO2 98.6 F 70 19 112/78 95 97 01/20/23 11:00 01/20/23 09:47 01/20/23 09:47 01/20/23 09:47 01/20/23 09:47 01/19/23 23:40 Laboratory Results - last 24 hr 01/19/23 11:39: WBC 10.2, RBC 5.43, Hgb 16.7, Hct 50.7, MCV 93.3, MCH 30.8, MCHC 33.0, RDW 13.1, Plt Count 275, MPV 7.6, Neut % (Auto) 65.8, Lymph % (Auto) 24.3, [place] % (Auto) 5.6, Eos % (Auto) 3.6, Baso % (Auto) 0.7, Neut # (Auto) 6.7, Lymph # (Auto) 2.5, [place] # (Auto) 0.6, Eos # (Auto) 0.4, Baso # (Auto) 0.1 01/19/23 11:39: Sodium 138, Potassium 4.5, Chloride 105, Carbon Dioxide 24, Anion Gap 13.5, BUN 9, Creatinine 0.90, Estimated Creat Clear 163, Estimated GFR 88, Est GFR ( Amer) 106, Glucose 93, Calcium 8.2 L, Magnesium 1.7, Troponin I 0.01 01/19/23 11:39: NT-Pro-B Natriuret Pep 824 H 01/19/23 11:39: TSH 16.00 H, Free T4 Index 2.5 L, Thyroxine (T4) 6.7, T3 Uptake 38 01/19/23 14:20: Lactate 1.8 01/19/23 14:20: WBC 10.1, RBC 5.54, Hgb 16.9, Hct 51.3, MCV 92.6, MCH 30.5, MCHC 32.9, RDW 13.5, Plt Count 288, MPV 7.6, Neut % (Auto) 66.5, Lymph % (Auto) 23.6, [place] % (Auto) 5.5, Eos % (Auto) 3.9, Baso % (Auto) 0.4, Neut # (Auto) 6.7, Lymph # (Auto) 2.4, [place] # (Auto) 0.6, Eos # (Auto) 0.4, Baso # (Auto) 0.0 01/19/23 14:20: D-Dimer 1.03 H 01/19/23 14:20: Sodium 139, Potassium 4.0, Chloride 106, Carbon Dioxide 23, Anion Gap 14.0, BUN 9, Creatinine 0.80, Estimated Creat Clear 186, Estimated GFR 101, Est GFR ( Amer) 122, Glucose 111 H, Calcium 8.6, Phosphorus 3.5, Magnesium 1.8, Total Bilirubin 0.6, AST 36, ALT 33, Alkaline Phosphatase 79, Total Protein 6.8, Albumin 3.8, Globulin 3.0, Albumin/Globulin Ratio 1.3 01/19/23 14:20: Procalcitonin 0.077 01/19/23 14:21: SARS-CoV-2 (PCR) Not detected, Influenza A Untype (PCR) Not detected, Influenza Type B (PCR) Not detected 01/19/23 17:05: Troponin I 0.02 01/19/23 23:15: Troponin I 0.02 01/20/23 05:35: WBC 8.4, RBC 5.17, Hgb 16.0, Hct 48.7, MCV 94.2 H, MCH 30.9, MCHC 32.8, RDW 13.3, Plt Count 246, MPV 7.3 L, Neut % (Auto) 62.4, Lymph % (Auto) 25.7, [place] % (Auto) 6.8, Eos % (Auto) 4.6, Baso % (Auto) 0.4, Neut # (Auto) 5.2, Lymph # (Auto) 2.2, [place] # (Auto) 0.6, Eos # (Auto) 0.4, Baso # (Auto) 0.0 01/20/23 05:35: Sodium 139, Potassium 4.5, Chloride 105, Carbon Dioxide 27, Anion Gap 11.5, BUN 10, Creatinine 0.80, Estimated Creat Clear 184, Estimated GFR 101, Est GFR ( Amer) 122, Glucose 94, Calcium 7.8 L, Phosphorus 3.9, Magnesium 1.9, Triglycerides 110, Cholesterol 150, LDL Cholesterol Direct 92.44 L, VLDL Cholesterol 22, HDL Cholesterol 38 L, Cholesterol/HDL Ratio 3.9 H I & O for Last 24 hours: Intake & Output 0
--- NOTE | 2023-01-20 11:53 | HMH.PHAINT1 ---
Pharmacy Intervention Comments: MEDICATIONS COUNSELED UPON DISCHARGE: - AMIODARONE (DIZZINESS/LIGHT HEADEDNESS) - DILTIAZEM (DIZZINESS/LIGHT HEADEDNES)S -RIVAROXABAN/XARELTO(INCREASED BLEEDING/LESS CLOTTING) NO FURTHER QUESTIONS FROM PATIENT OR PATIENT'S . -XENIA BAIN,PHARM STUDENT
--- NOTE | 2023-01-21 12:58 | CARE MANAGER ---
Contacted patient related to hospital discharge. He is feeling weak, but better. He got his medications, but not his thyroid medicine. Contacted Dr. Hare who missed sending that one to the pharmacy. He states he will send now. Told patient it should be able to be picked up soon. He is aware of his follow up appointments. Denies other questions or concerns.
== END 2023-01-20 12:20 | disposition home or self-care (01) ==
LOC: 2ND 12:26
PROVIDERS: Physician Assistant; Surgery; Admitting Provider Internal Medicine; PCP Emergency Medicine; Visit Provider Internal Medicine
PROC: 0WQF4ZZ Repair Abdominal Wall, Percutaneous Endoscopic Approach (ICD-10-PCS; principal; 2023-01-19 09:30)
DX: I48.91 Unspecified atrial fibrillation (principal); K43.9 Ventral hernia without obstruction or gangrene; E11.9 Type 2 diabetes mellitus without complications; Z79.02 Long term (current) use of antithrombotics/antiplatelets; I11.0 Hypertensive heart disease with heart failure; I42.9 Cardiomyopathy, unspecified; I50.9 Heart failure, unspecified; I25.10 Atherosclerotic heart disease of native coronary artery without angina pectoris; Z95.0 Presence of cardiac pacemaker; Z79.899 Other long term (current) drug therapy; F17.210 Nicotine dependence, cigarettes, uncomplicated; E03.9 Hypothyroidism, unspecified; J44.9 Chronic obstructive pulmonary disease, unspecified; E78.2 Mixed hyperlipidemia; G47.33 Obstructive sleep apnea (adult) (pediatric); Z79.84 Long term (current) use of oral hypoglycemic drugs
CPT/HCPCS: G0378; G0379; 36415; 71045; 80048; 80053; 80061; 82962; 83605; 83735; 83880; 84100; 84145; 84436; 84443; 84479; 84484; 85025; 85378; 87635; 87636; 93005; 93306; 94640; 96374; C9803; J0282; J2405; J7060; U0003; U0005

== ENCOUNTER 2023-04-20 11:42 | Emergency (ER) | payer MEDICARE, MEDICAID, SELFPAY ==
[2023-04-20 12:10] VITALS: BP 151/92; PULSE 79; RESP 18; TEMP 37; O2SAT 96; BMI 37.0
--- NOTE | 2023-04-20 12:17 | EXP.UTC ---
Discharge Plan Disposition Patient Disposition: Home, Self-Care Condition: Good Prescriptions Prescriptions: New cephalexin 500 mg capsule 500 mg PO QID Qty: 40 0RF mupirocin 2 % ointment 1 applic topical TID 7 Days Qty: 15 0RF No Action amiodarone 200 mg tablet 200 mg PO DAILY Qty: 30 3RF diltiazem HCl [Cardizem CD] 240 mg capsule,extended release 24hr 240 mg PO DAILY Xarelto 20 mg tablet 20 mg PO DAILY Qty: 90 1RF Patient Comments: TAKE ONE TABLET BY MOUTH EVERY DAY with evening meal Ozempic 0.25 mg or 0.5 mg (2 mg/3 mL) pen injector 0.5 mg SQ WEEKLY Qty: 3 2RF Rx Instructions: for 4 weeks nebivolol 10 mg tablet See Rx Instructions .ROUTE .COMPLEX Qty: 90 1RF Dose Instruction: TAKE ONE TABLET BY MOUTH EVERY DAY Rx Instructions: TAKE ONE TABLET BY MOUTH EVERY DAY clopidogrel 75 mg tablet See Rx Instructions .ROUTE .COMPLEX Qty: 90 1RF Dose Instruction: TAKE ONE TABLET BY MOUTH EVERY DAY Rx Instructions: TAKE ONE TABLET BY MOUTH EVERY DAY pravastatin 40 mg tablet See Rx Instructions .ROUTE .COMPLEX Qty: 90 1RF Dose Instruction: TAKE ONE TABLET BY MOUTH EVERY DAY Rx Instructions: TAKE ONE TABLET BY MOUTH EVERY DAY lisinopril 10 mg tablet See Rx Instructions .ROUTE .COMPLEX Qty: 90 2RF Dose Instruction: TAKE ONE TABLET BY MOUTH EVERY DAY FOR BLOOD PRESSURE Rx Instructions: TAKE ONE TABLET BY MOUTH EVERY DAY FOR BLOOD PRESSURE pantoprazole 40 mg tablet,delayed release (DR/EC) 40 mg PO DAILY Qty: 30 11RF Linzess 72 mcg capsule 72 mcg PO DAILY ipratropium-albuterol 0.5 mg-3 mg(2.5 mg base)/3 mL solution for nebulization 3 ml inhalation QIDP PRN (Reason: Shortness Of Breath) levothyroxine [Synthroid] 75 mcg tablet 75 mcg PO DAILY Qty: 90 0RF Referrals Follow up/Referrals: Chris Bautista MD [Primary Care Provider] - See instructions Lala Spears DPM [Staff Physician] - See instructions Activity Restrictions/Add. Instructions Additional Instructions/Restrictions: Rest the extremity, Elevate the extremity as tolerated while you are resting. Follow up with Dr. Spears (podiatry). I put in a referral but you need to call her office and schedule an appointment. Follow up with your regular doctor. GO TO THE ER FOR ANY WORSENING SYMPTOMS Clinical Impressions Clinical Impression: Callus of foot, Cellulitis of right foot, Diabetes Stand Alone Forms Stand Alone Forms: Work/School Release Instructions Patient Instructions: Cellulitis Discharge [place] [facility] [place] Stated complaint: sores on the bottom of Rt foot Time Seen by Provider: 04/20/23 12:17 History of Present Illness Provider Complaint: He states that for the past few months he has had worsening calluses on the bottom of his right foot. He states that over the past few days he has had worsening foot pain and redness of the bottom of the foot. He is a diabetic. Related Data Home Medications Medication Instructions Recorded Confirmed linaclotide 72 mcg capsule 72 mcg PO DAILY CONSTIPATION 08/21/22 02/18/23 (Linzess) ipratropium 0.5 mg-albuterol 3 mg 3 ml inhalation QIDP PRN Shortness 01/19/23 02/18/23 (2.5 mg base)/3 mL nebulization Of Breath soln diltiazem HCl 240 mg 240 mg PO DAILY 01/27/23 02/18/23 capsule,extended release 24 hr (Cardizem CD) Previous Rx's Medication Instructions Recorded levothyroxine 75 mcg tablet 75 mcg PO DAILY #90 tabs 01/20/23 (Synthroid) amiodarone 200 mg tablet 200 mg PO DAILY #30 tabs 02/04/23 rivaroxaban 20 mg tablet (Xarelto) 20 mg PO DAILY #90 tabs 03/02/23 semaglutide 0.25 mg or 0.5 mg (2 0.5 mg (0.736 mL) SQ WEEKLY #3 mL 03/09/23 mg/3 mL) subcutaneous pen injector (Ozempic) clopidogrel 75 mg tablet See Rx Instructions .Route 03/17/23 .COMPLEX #90 tabs lisinopril 10 mg tablet See Rx Instructions .Route 0
[2023-04-20 13:03] VITALS: BP 151/92; PULSE 79; RESP 18; TEMP 37; O2SAT 96
== END 2023-04-20 13:02 | disposition home or self-care (01) ==
PROVIDERS: Emergency Provider Nurse Practitioner Family; PCP Emergency Medicine
DX: L03.115 Cellulitis of right lower limb (principal); E11.9 Type 2 diabetes mellitus without complications; L84 Corns and callosities; F17.210 Nicotine dependence, cigarettes, uncomplicated; J44.9 Chronic obstructive pulmonary disease, unspecified; I25.10 Atherosclerotic heart disease of native coronary artery without angina pectoris; I11.0 Hypertensive heart disease with heart failure; I50.9 Heart failure, unspecified; K21.9 Gastro-esophageal reflux disease without esophagitis; Z95.0 Presence of cardiac pacemaker; Z79.85 Long-term (current) use of injectable non-insulin antidiabetic drugs
CPT/HCPCS: 99212; 99214; G0463

== ENCOUNTER 2023-05-04 11:05 | Emergency (ER) | payer MEDICARE, MEDICAID, SELFPAY ==
[2023-05-04 11:06] VITALS: BP 112/67; PULSE 70; RESP 21; TEMP 36.4; O2SAT 98; BMI 39.4
--- NOTE | 2023-05-04 11:21 | CT_ITS ---
FINAL REPORT CLINICAL HISTORY: midline T spine pain after fall on gravel FINDINGS: Axial CT images of the thoracic spine were obtained without contrast. Sagittal and coronal reformatted images were also obtained. This study was performed with techniques to keep radiation doses as low as reasonably achievable (ALARA). Individualized dose reduction techniques using automated exposure control or adjustment of mA and/or kV according to the patient''s size were employed. There is no evidence of fracture. The vertebral alignment is normal. There is no evidence of significant canal stenosis. There is new paraspinous soft tissue at T8-9 of uncertain significance but may be inflammatory. There are severe degenerative changes of the thoracic spine. IMPRESSION: No fracture or acute bony abnormality. New soft tissue at T8-9 which may be inflammatory. If indicated, MRI with and without contrast could further evaluate. Reviewed, Interpreted and Dictated by Oswaldo Dinero III, MD Transcribed by Charis Person Authenticated and [facility]
--- NOTE | 2023-05-04 11:21 | CT_ITS ---
FINAL REPORT TECHNIQUE: Axial imaging of the chest was obtained without contrast. Reformatted images were also obtained and reviewed.This study was performed with techniques to keep radiation doses as low as reasonably achievable, (ALARA). Individualized dose reduction technique using automated exposure control or adjustment of mA and/or kV according to the patient's size were employed. CLINICAL HISTORY: bilateral rib pain post/lat after fall. 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 Postoperative changes are noted of the right clavicle. There is no axillary adenopathy. There is no hilar or mediastinal mass or adenopathy. Heart size is normal. There is no pericardial or pleural effusion. Limited images of the upper abdomen are unremarkable. There is a calcified granuloma in the left lung. Lungs are otherwise clear. There is new, paraspinous soft tissue at T8-9 which is of uncertain significance but may be inflammatory. No acute bony abnormality is identified. IMPRESSION: New soft tissue at T8-9 which may be inflammatory. Otherwise, unremarkable exam. Reviewed, Interpreted and Dictated by Oswaldo Dinero III, MD Transcribed by Charis Person Authenticated and [facility]
--- NOTE | 2023-05-04 11:41 | HMH.EDGENADL ---
Discharge Plan Disposition Patient Disposition: Home, Self-Care Chief Complaint: Fall Prescriptions Prescriptions: No Action amiodarone 200 mg tablet 200 mg PO DAILY Qty: 30 3RF Xarelto 20 mg tablet 20 mg PO DAILY Qty: 90 1RF Patient Comments: TAKE ONE TABLET BY MOUTH EVERY DAY with evening meal Ozempic 0.25 mg or 0.5 mg (2 mg/3 mL) pen injector 0.5 mg SQ WEEKLY Qty: 3 2RF Rx Instructions: for 4 weeks nebivolol 10 mg tablet See Rx Instructions .ROUTE .COMPLEX Qty: 90 1RF Dose Instruction: TAKE ONE TABLET BY MOUTH EVERY DAY Rx Instructions: TAKE ONE TABLET BY MOUTH EVERY DAY clopidogrel 75 mg tablet See Rx Instructions .ROUTE .COMPLEX Qty: 90 1RF Dose Instruction: TAKE ONE TABLET BY MOUTH EVERY DAY Rx Instructions: TAKE ONE TABLET BY MOUTH EVERY DAY pravastatin 40 mg tablet See Rx Instructions .ROUTE .COMPLEX Qty: 90 1RF Dose Instruction: TAKE ONE TABLET BY MOUTH EVERY DAY Rx Instructions: TAKE ONE TABLET BY MOUTH EVERY DAY lisinopril 10 mg tablet See Rx Instructions .ROUTE .COMPLEX Qty: 90 2RF Dose Instruction: TAKE ONE TABLET BY MOUTH EVERY DAY FOR BLOOD PRESSURE Rx Instructions: TAKE ONE TABLET BY MOUTH EVERY DAY FOR BLOOD PRESSURE pantoprazole 40 mg tablet,delayed release (DR/EC) 40 mg PO DAILY Qty: 30 11RF diltiazem HCl 240 mg capsule,extended release 24hr See Rx Instructions .ROUTE .COMPLEX Qty: 90 4RF Dose Instruction: TAKE ONE CAPSULE BY MOUTH EVERY DAY Rx Instructions: TAKE ONE CAPSULE BY MOUTH EVERY DAY levothyroxine 75 mcg tablet See Rx Instructions .ROUTE .COMPLEX Qty: 90 0RF Dose Instruction: TAKE ONE TABLET BY MOUTH EVERY DAY Rx Instructions: TAKE ONE TABLET BY MOUTH EVERY DAY cephalexin 500 mg capsule 500 mg PO QID Qty: 40 0RF mupirocin 2 % ointment 1 applic topical TID 7 Days Qty: 15 0RF Linzess 72 mcg capsule 72 mcg PO DAILY ipratropium-albuterol 0.5 mg-3 mg(2.5 mg base)/3 mL solution for nebulization 3 ml inhalation QIDP PRN (Reason: Shortness Of Breath) Referrals Follow up/Referrals: Chris Bautista MD [Primary Care Provider] - See instructions Activity Restrictions/Add. Instructions Additional Instructions/Restrictions: Call your family doctor to establish care for this visit to the emergency department and schedule follow-up within 48 hours to ensure improvement. If you have any worsening of your condition or any other concerning signs or symptoms, return to the emergency department or your primary care doctor for further evaluation. Take Tylenol 1000 mg every 6 hours (4 times daily) and ibuprofen 400 mg every 6 hours (4 times daily) as needed with food and water to prevent GI upset and kidney damage. Clinical Impressions Clinical Impression: Acute chest wall pain, Fall Discharge ED Provider: Royce Dennis General Adult HPI General Chief complaint: Fall Stated complaint: AO9/30@home, rib/back pain Time Seen by Provider: 05/04/23 11:09 Mode of Arrival: Family Vehicle Source of Information: Patient Limitations: No Limitations Description of Symptoms (Recalled from ER Triage Doc. by RN): Pt c/o pain to bilateral low back/rib areas. He reports he was on the porch and lost his footing and fell straight back. Denies any LOC or neck injury. He has bruising to lower bialt rib area and abd. Pt reports his abd bruising is from insulin injections. He ia taking xarelto for his hx of afib. Reports increased pain to his ribs and back with deep inspiration. Denies any cough or SOA. Related Data Home Medications Medication Instructions Recorded Confirmed linaclotide 72 mcg capsule 72 mcg PO DAILY CONSTIPATION 08/21/22 02/18/23 (Linzess) ipratropium 0.5 mg-albuterol 3 mg 3 ml inhalation QIDP PRN Shortness 01/19/23 02/18/23 (2.5 mg base)/3 mL nebulization Of Breath soln Previous Rx's Medication Instructions Record
[2023-05-04 12:00] VITALS: BP 134/89; PULSE 70; O2SAT 95
[2023-05-04 14:25] VITALS: BP 126/79; PULSE 72; RESP 17; TEMP 36.8; O2SAT 97
== END 2023-05-04 14:25 | disposition home or self-care (01) ==
PROVIDERS: Emergency Provider Emergency Medicine; PCP Emergency Medicine
DX: R07.89 Other chest pain (principal); M54.50 Low back pain, unspecified; I48.91 Unspecified atrial fibrillation; I25.10 Atherosclerotic heart disease of native coronary artery without angina pectoris; I42.9 Cardiomyopathy, unspecified; I11.0 Hypertensive heart disease with heart failure; I50.9 Heart failure, unspecified; J44.9 Chronic obstructive pulmonary disease, unspecified; K21.9 Gastro-esophageal reflux disease without esophagitis; F17.210 Nicotine dependence, cigarettes, uncomplicated; Z86.73 Personal history of transient ischemic attack (TIA), and cerebral infarction without residual deficits; Z79.01 Long term (current) use of anticoagulants; W17.89XA Other fall from one level to another, initial encounter
CPT/HCPCS: 71250; 72128; 99285

== ENCOUNTER 2023-05-08 11:34 | Emergency (ER) | payer MEDICARE, MEDICAID, SELFPAY ==
--- NOTE | 2023-05-08 11:40 | XR_ITS ---
FINAL REPORT CLINICAL HISTORY: PAIN. callus on ball of right foot. COMPARISON: None FINDINGS: RIGHT FOOT: Three views of the right foot were obtained. There is no acute fracture or dislocation. The joint spaces are intact. There is no soft tissue abnormality. IMPRESSION: No acute bony abnormality. Reviewed, Interpreted and Dictated by Oswaldo Dinero III, MD Transcribed by Gail Jin Authenticated and [facility]
[2023-05-08 12:15] VITALS: BP 130/91; PULSE 70; RESP 18; TEMP 37.1; O2SAT 98; BMI 44.8
--- NOTE | 2023-05-08 12:27 | EXP.UTC ---
Discharge Plan Disposition Patient Disposition: Home, Self-Care Condition: Good Prescriptions Prescriptions: New ibuprofen [ibuprofen] 600 mg tablet 600 mg PO Q6HP PRN (Reason: Mild Pain) Qty: 30 0RF No Action amiodarone 200 mg tablet 200 mg PO DAILY Qty: 30 3RF Xarelto 20 mg tablet 20 mg PO DAILY Qty: 90 1RF Patient Comments: TAKE ONE TABLET BY MOUTH EVERY DAY with evening meal Ozempic 0.25 mg or 0.5 mg (2 mg/3 mL) pen injector 0.5 mg SQ WEEKLY Qty: 3 2RF Rx Instructions: for 4 weeks nebivolol 10 mg tablet See Rx Instructions .ROUTE .COMPLEX Qty: 90 1RF Dose Instruction: TAKE ONE TABLET BY MOUTH EVERY DAY Rx Instructions: TAKE ONE TABLET BY MOUTH EVERY DAY clopidogrel 75 mg tablet See Rx Instructions .ROUTE .COMPLEX Qty: 90 1RF Dose Instruction: TAKE ONE TABLET BY MOUTH EVERY DAY Rx Instructions: TAKE ONE TABLET BY MOUTH EVERY DAY pravastatin 40 mg tablet See Rx Instructions .ROUTE .COMPLEX Qty: 90 1RF Dose Instruction: TAKE ONE TABLET BY MOUTH EVERY DAY Rx Instructions: TAKE ONE TABLET BY MOUTH EVERY DAY lisinopril 10 mg tablet See Rx Instructions .ROUTE .COMPLEX Qty: 90 2RF Dose Instruction: TAKE ONE TABLET BY MOUTH EVERY DAY FOR BLOOD PRESSURE Rx Instructions: TAKE ONE TABLET BY MOUTH EVERY DAY FOR BLOOD PRESSURE pantoprazole 40 mg tablet,delayed release (DR/EC) 40 mg PO DAILY Qty: 30 11RF diltiazem HCl 240 mg capsule,extended release 24hr See Rx Instructions .ROUTE .COMPLEX Qty: 90 4RF Dose Instruction: TAKE ONE CAPSULE BY MOUTH EVERY DAY Rx Instructions: TAKE ONE CAPSULE BY MOUTH EVERY DAY levothyroxine 75 mcg tablet See Rx Instructions .ROUTE .COMPLEX Qty: 90 0RF Dose Instruction: TAKE ONE TABLET BY MOUTH EVERY DAY Rx Instructions: TAKE ONE TABLET BY MOUTH EVERY DAY cephalexin 500 mg capsule 500 mg PO QID Qty: 40 0RF mupirocin 2 % ointment 1 applic topical TID 7 Days Qty: 15 0RF Linzess 72 mcg capsule 72 mcg PO DAILY ipratropium-albuterol 0.5 mg-3 mg(2.5 mg base)/3 mL solution for nebulization 3 ml inhalation QIDP PRN (Reason: Shortness Of Breath) Referrals Follow up/Referrals: Chris Bautista MD [Primary Care Provider] - See instructions Activity Restrictions/Add. Instructions Additional Instructions/Restrictions: Rest the extremity, Elevate the extremity as tolerated while you are resting. Follow up with Dr. Spears (podiatry). Follow up with your regular doctor. GO TO THE ER FOR ANY WORSENING SYMPTOMS Clinical Impressions Clinical Impression: Foot pain, right Stand Alone Forms Stand Alone Forms: Work/School Release Instructions Patient Instructions: DI for Foot Pain Discharge ED Provider: Jd Aaron [facility] [place] General Stated complaint: Rt foot pain, no accident Time Seen by Provider: 05/08/23 12:27 History of Present Illness Provider Complaint: He c/o right foot pain for the past few days. He has history of having large calluses on the bottom of his feet. He is followed by Dr. Spears for this. He states that he was unable to go to work today. Related Data Home Medications Medication Instructions Recorded Confirmed linaclotide 72 mcg capsule 72 mcg PO DAILY CONSTIPATION 08/21/22 02/18/23 (Linzess) ipratropium 0.5 mg-albuterol 3 mg 3 ml inhalation QIDP PRN Shortness 01/19/23 02/18/23 (2.5 mg base)/3 mL nebulization Of Breath soln Previous Rx's Medication Instructions Recorded amiodarone 200 mg tablet 200 mg PO DAILY #30 tabs 02/04/23 rivaroxaban 20 mg tablet (Xarelto) 20 mg PO DAILY #90 tabs 03/02/23 semaglutide 0.25 mg or 0.5 mg (2 0.5 mg (0.736 mL) SQ WEEKLY #3 mL 03/09/23 mg/3 mL) subcutaneous pen injector (Ozempic) clopidogrel 75 mg tablet See Rx Instructions .Route 03/17/23 .COMPLEX #90 tabs lisinopril 10 mg tablet See Rx Instructions .Route 03/17/23 .COMPLEX
[2023-05-08 12:55] VITALS: BP 130/91; PULSE 70; RESP 18; TEMP 37.1; O2SAT 98
== END 2023-05-08 12:55 | disposition home or self-care (01) ==
PROVIDERS: Emergency Provider Nurse Practitioner Family; PCP Emergency Medicine
DX: M79.671 Pain in right foot (principal); F17.210 Nicotine dependence, cigarettes, uncomplicated; J44.9 Chronic obstructive pulmonary disease, unspecified; I11.0 Hypertensive heart disease with heart failure; I50.9 Heart failure, unspecified; I25.10 Atherosclerotic heart disease of native coronary artery without angina pectoris; K21.9 Gastro-esophageal reflux disease without esophagitis; M19.09 Primary osteoarthritis, other specified site; Z95.0 Presence of cardiac pacemaker; Z86.73 Personal history of transient ischemic attack (TIA), and cerebral infarction without residual deficits
CPT/HCPCS: 73630; 99212; 99214; G0463

== ENCOUNTER 2023-05-12 12:13 | Emergency (ER) | payer MEDICARE, MEDICAID, SELFPAY ==
[2023-05-12 12:35] VITALS: BP 133/89; PULSE 80; RESP 18; TEMP 36.8; O2SAT 100; BMI 37.4
--- NOTE | 2023-05-12 13:15 | EXP.UTC ---
Discharge Plan Disposition Patient Disposition: Home, Self-Care Condition: Good Prescriptions Prescriptions: No Action amiodarone 200 mg tablet 200 mg PO DAILY Qty: 30 3RF Xarelto 20 mg tablet 20 mg PO DAILY Qty: 90 1RF Patient Comments: TAKE ONE TABLET BY MOUTH EVERY DAY with evening meal Ozempic 0.25 mg or 0.5 mg (2 mg/3 mL) pen injector 0.5 mg SQ WEEKLY Qty: 3 2RF Rx Instructions: for 4 weeks nebivolol 10 mg tablet See Rx Instructions .ROUTE .COMPLEX Qty: 90 1RF Dose Instruction: TAKE ONE TABLET BY MOUTH EVERY DAY Rx Instructions: TAKE ONE TABLET BY MOUTH EVERY DAY clopidogrel 75 mg tablet See Rx Instructions .ROUTE .COMPLEX Qty: 90 1RF Dose Instruction: TAKE ONE TABLET BY MOUTH EVERY DAY Rx Instructions: TAKE ONE TABLET BY MOUTH EVERY DAY pravastatin 40 mg tablet See Rx Instructions .ROUTE .COMPLEX Qty: 90 1RF Dose Instruction: TAKE ONE TABLET BY MOUTH EVERY DAY Rx Instructions: TAKE ONE TABLET BY MOUTH EVERY DAY lisinopril 10 mg tablet See Rx Instructions .ROUTE .COMPLEX Qty: 90 2RF Dose Instruction: TAKE ONE TABLET BY MOUTH EVERY DAY FOR BLOOD PRESSURE Rx Instructions: TAKE ONE TABLET BY MOUTH EVERY DAY FOR BLOOD PRESSURE pantoprazole 40 mg tablet,delayed release (DR/EC) 40 mg PO DAILY Qty: 30 11RF diltiazem HCl 240 mg capsule,extended release 24hr See Rx Instructions .ROUTE .COMPLEX Qty: 90 4RF Dose Instruction: TAKE ONE CAPSULE BY MOUTH EVERY DAY Rx Instructions: TAKE ONE CAPSULE BY MOUTH EVERY DAY levothyroxine 75 mcg tablet See Rx Instructions .ROUTE .COMPLEX Qty: 90 0RF Dose Instruction: TAKE ONE TABLET BY MOUTH EVERY DAY Rx Instructions: TAKE ONE TABLET BY MOUTH EVERY DAY cephalexin 500 mg capsule 500 mg PO QID Qty: 40 0RF mupirocin 2 % ointment 1 applic topical TID 7 Days Qty: 15 0RF ibuprofen [ibuprofen] 600 mg tablet 600 mg PO Q6HP PRN (Reason: Mild Pain) Qty: 30 0RF Linzess 72 mcg capsule 72 mcg PO DAILY ipratropium-albuterol 0.5 mg-3 mg(2.5 mg base)/3 mL solution for nebulization 3 ml inhalation QIDP PRN (Reason: Shortness Of Breath) Referrals Follow up/Referrals: Chris Bautista MD [Primary Care Provider] - See instructions Activity Restrictions/Add. Instructions Additional Instructions/Restrictions: Follow up with your Family Doctor if needed Follow up with Podiatry as scheduled Return if needed Straight to ER if any life threatening symptoms R Clinical Impressions Clinical Impression: Foot pain Qualifiers: Laterality: right Qualified Code(s): M79.671 - Pain in right foot Stand Alone Forms Stand Alone Forms: Work/School Release Instructions Patient Instructions: Calluses and Corns, DI for Calluses and Corns Discharge ED Provider: Sophia Petty [facility] [place] General Stated complaint: Rt foot pain, no accident Mode of Arrival: Ambulatory Source of Information: Patient Limitations: No Limitations Time Seen by Provider: 05/12/23 13:15 Description of Symptoms (Recalled from Triage Doc. by RN): PATIENT REQUESTING WORK EXCUSE HEENT Symptoms (Recalled from RN notes): No Resp Symptoms (Recalled from RN notes): No Skin Symptoms (Recalled from RN notes): No MS Symptoms (Recalled from RN notes): No Functional Status (Recalled from RN notes): WNL History of Present Illness Provider Complaint: Patient states that he has some pressure point calluses on the bottom of his right foot States that he was at work yesterday and got them hurting States that he has an appointment with Podiatry tomorrow but they was hurting him today and he was not able to work so he came in to get checked Related Data Home Medications Medication Instructions Recorded Confirmed linaclotide 72 mcg capsule 72 mcg PO DAILY CONSTIPATION 08/21/22 02/18/23 (Linzess) ipratropium 0.5 mg-albuterol 3 mg 3 ml inhalation QIDP PRN Shortness 06
[2023-05-12 13:19] VITALS: BP 133/89; PULSE 80; RESP 18; TEMP 36.8; O2SAT 100
== END 2023-05-12 13:27 | disposition home or self-care (01) ==
PROVIDERS: Emergency Provider Nurse Practitioner; PCP Emergency Medicine
DX: M79.671 Pain in right foot (principal); F17.210 Nicotine dependence, cigarettes, uncomplicated; J44.9 Chronic obstructive pulmonary disease, unspecified; I11.0 Hypertensive heart disease with heart failure; I25.10 Atherosclerotic heart disease of native coronary artery without angina pectoris; I50.9 Heart failure, unspecified; K21.9 Gastro-esophageal reflux disease without esophagitis; M19.09 Primary osteoarthritis, other specified site; Z95.0 Presence of cardiac pacemaker; Z86.73 Personal history of transient ischemic attack (TIA), and cerebral infarction without residual deficits
CPT/HCPCS: 99212; 99213; G0463

== ENCOUNTER 2023-05-14 13:12 | Emergency (ER) | payer MEDICARE, MEDICAID, SELFPAY ==
[2023-05-14 13:13] VITALS: BP 143/92; PULSE 79; RESP 18; TEMP 36.8; O2SAT 95; BMI 36.3
--- NOTE | 2023-05-14 13:45 | EXP.UTC ---
Discharge Plan Disposition Patient Disposition: Home, Self-Care Condition: Good Prescriptions Prescriptions: New urea 39 % cream 1 applic topical BID 10 Days Qty: 227 0RF No Action amiodarone 200 mg tablet 200 mg PO DAILY Qty: 30 3RF Xarelto 20 mg tablet 20 mg PO DAILY Qty: 90 1RF Patient Comments: TAKE ONE TABLET BY MOUTH EVERY DAY with evening meal Ozempic 0.25 mg or 0.5 mg (2 mg/3 mL) pen injector 0.5 mg SQ WEEKLY Qty: 3 2RF Rx Instructions: for 4 weeks nebivolol 10 mg tablet See Rx Instructions .ROUTE .COMPLEX Qty: 90 1RF Dose Instruction: TAKE ONE TABLET BY MOUTH EVERY DAY Rx Instructions: TAKE ONE TABLET BY MOUTH EVERY DAY clopidogrel 75 mg tablet See Rx Instructions .ROUTE .COMPLEX Qty: 90 1RF Dose Instruction: TAKE ONE TABLET BY MOUTH EVERY DAY Rx Instructions: TAKE ONE TABLET BY MOUTH EVERY DAY pravastatin 40 mg tablet See Rx Instructions .ROUTE .COMPLEX Qty: 90 1RF Dose Instruction: TAKE ONE TABLET BY MOUTH EVERY DAY Rx Instructions: TAKE ONE TABLET BY MOUTH EVERY DAY lisinopril 10 mg tablet See Rx Instructions .ROUTE .COMPLEX Qty: 90 2RF Dose Instruction: TAKE ONE TABLET BY MOUTH EVERY DAY FOR BLOOD PRESSURE Rx Instructions: TAKE ONE TABLET BY MOUTH EVERY DAY FOR BLOOD PRESSURE pantoprazole 40 mg tablet,delayed release (DR/EC) 40 mg PO DAILY Qty: 30 11RF diltiazem HCl 240 mg capsule,extended release 24hr See Rx Instructions .ROUTE .COMPLEX Qty: 90 4RF Dose Instruction: TAKE ONE CAPSULE BY MOUTH EVERY DAY Rx Instructions: TAKE ONE CAPSULE BY MOUTH EVERY DAY levothyroxine 75 mcg tablet See Rx Instructions .ROUTE .COMPLEX Qty: 90 0RF Dose Instruction: TAKE ONE TABLET BY MOUTH EVERY DAY Rx Instructions: TAKE ONE TABLET BY MOUTH EVERY DAY mupirocin 2 % ointment 1 applic topical TID 7 Days Qty: 15 0RF ibuprofen [ibuprofen] 600 mg tablet 600 mg PO Q6HP PRN (Reason: Mild Pain) Qty: 30 0RF Linzess 72 mcg capsule 72 mcg PO DAILY ipratropium-albuterol 0.5 mg-3 mg(2.5 mg base)/3 mL solution for nebulization 3 ml inhalation QIDP PRN (Reason: Shortness Of Breath) Referrals Follow up/Referrals: Chris Bautista MD [Primary Care Provider] - See instructions Activity Restrictions/Add. Instructions Additional Instructions/Restrictions: Rest the extremity, Elevate the extremity as tolerated while you are resting. Follow up with Dr. Spears's office. Follow up with your regular doctor. GO TO THE ER FOR ANY WORSENING SYMPTOMS Clinical Impressions Clinical Impression: Callus Stand Alone Forms Stand Alone Forms: Work/School Release Instructions Patient Instructions: Calluses and Corns, DI for Calluses and Corns Discharge ED Provider: Jd Aaron [facility] [place] HPI General Stated complaint: poss callus on r foot Mode of Arrival: Ambulatory Source of Information: Patient Limitations: No Limitations Time Seen by Provider: 05/14/23 13:44 Description of Symptoms (Recalled from Triage Doc. by RN): pressure point on callus on right foot. He had callus shaved down yesterday. HEENT Symptoms (Recalled from RN notes): Yes Resp Symptoms (Recalled from RN notes): No Skin Symptoms (Recalled from RN notes): No MS Symptoms (Recalled from RN notes): No Functional Status (Recalled from RN notes): n/a History of Present Illness Provider Complaint: He is here with right foot pain. 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 He came in today because he was unable to go to work today because of the foot pain. Related Data Home Medications Medication Instructions Recorded Confirmed linaclotide 72 mcg capsule 72 mcg PO DAILY CONSTIPATION 08/21/22 02/18/23 (Linzess) ipratropium 0.5 mg-albuterol 3 mg 3 ml inhalation QIDP PRN Shortness 01/19/23 02/18/23 (2.5 mg base)/3 mL nebulization Of [place]
[2023-05-14 13:56] VITALS: BP 143/92; PULSE 79; RESP 18; TEMP 36.8; O2SAT 95
== END 2023-05-14 13:56 | disposition home or self-care (01) ==
PROVIDERS: Emergency Provider Nurse Practitioner Family; PCP Emergency Medicine
DX: L84 Corns and callosities (principal); F17.210 Nicotine dependence, cigarettes, uncomplicated; J44.9 Chronic obstructive pulmonary disease, unspecified; I25.10 Atherosclerotic heart disease of native coronary artery without angina pectoris; I11.0 Hypertensive heart disease with heart failure; I50.9 Heart failure, unspecified; K21.9 Gastro-esophageal reflux disease without esophagitis; M19.09 Primary osteoarthritis, other specified site; Z86.73 Personal history of transient ischemic attack (TIA), and cerebral infarction without residual deficits; Z95.0 Presence of cardiac pacemaker
CPT/HCPCS: 99212; 99213; G0463

== ENCOUNTER 2023-05-24 13:19 | Emergency (ER) | payer MEDICARE, MEDICAID, SELFPAY ==
[2023-05-24 13:20] VITALS: BP 113/79; PULSE 68; RESP 18; TEMP 37.1; O2SAT 95; BMI 37.0
--- NOTE | 2023-05-24 13:46 | EXP.UTC ---
Discharge Plan Disposition Patient Disposition: Home, Self-Care Condition: Good Prescriptions Prescriptions: No Action amiodarone 200 mg tablet 200 mg PO DAILY Qty: 30 3RF tadalafil [Cialis] 10 mg tablet 10 mg PO DAILY PRN (Reason: sexual activity) Qty: 30 1RF Ozempic 1 mg/dose (4 mg/3 mL) pen injector 1 mg SQ WEEKLY Qty: 3 2RF Rx Instructions: for 4 weeks Xarelto 20 mg tablet 20 mg PO DAILY Qty: 90 1RF Patient Comments: TAKE ONE TABLET BY MOUTH EVERY DAY with evening meal nebivolol 10 mg tablet See Rx Instructions .ROUTE .COMPLEX Qty: 90 1RF Dose Instruction: TAKE ONE TABLET BY MOUTH EVERY DAY Rx Instructions: TAKE ONE TABLET BY MOUTH EVERY DAY clopidogrel 75 mg tablet See Rx Instructions .ROUTE .COMPLEX Qty: 90 1RF Dose Instruction: TAKE ONE TABLET BY MOUTH EVERY DAY Rx Instructions: TAKE ONE TABLET BY MOUTH EVERY DAY pravastatin 40 mg tablet See Rx Instructions .ROUTE .COMPLEX Qty: 90 1RF Dose Instruction: TAKE ONE TABLET BY MOUTH EVERY DAY Rx Instructions: TAKE ONE TABLET BY MOUTH EVERY DAY lisinopril 10 mg tablet See Rx Instructions .ROUTE .COMPLEX Qty: 90 2RF Dose Instruction: TAKE ONE TABLET BY MOUTH EVERY DAY FOR BLOOD PRESSURE Rx Instructions: TAKE ONE TABLET BY MOUTH EVERY DAY FOR BLOOD PRESSURE pantoprazole 40 mg tablet,delayed release (DR/EC) 40 mg PO DAILY Qty: 30 11RF diltiazem HCl 240 mg capsule,extended release 24hr See Rx Instructions .ROUTE .COMPLEX Qty: 90 4RF Dose Instruction: TAKE ONE CAPSULE BY MOUTH EVERY DAY Rx Instructions: TAKE ONE CAPSULE BY MOUTH EVERY DAY levothyroxine 75 mcg tablet See Rx Instructions .ROUTE .COMPLEX Qty: 90 0RF Dose Instruction: TAKE ONE TABLET BY MOUTH EVERY DAY Rx Instructions: TAKE ONE TABLET BY MOUTH EVERY DAY mupirocin 2 % ointment 1 applic topical TID 7 Days Qty: 15 0RF ibuprofen [ibuprofen] 600 mg tablet 600 mg PO Q6HP PRN (Reason: Mild Pain) Qty: 30 0RF Linzess 72 mcg capsule 72 mcg PO DAILY ipratropium-albuterol 0.5 mg-3 mg(2.5 mg base)/3 mL solution for nebulization 3 ml inhalation QIDP PRN (Reason: Shortness Of Breath) urea 39 % cream 1 applic topical BID 10 Days Qty: 227 0RF Referrals Follow up/Referrals: Chris Bautista MD [Primary Care Provider] - See instructions Activity Restrictions/Add. Instructions Additional Instructions/Restrictions: Drink plenty of fluids. Take tylenol or ibuprofen for pain or fever. Take the medications as directed. Follow up with your regular doctor. GO TO THE ER FOR ANY WORSENING SYMPTOMS Clinical Impressions Clinical Impression: Gastroenteritis Stand Alone Forms Stand Alone Forms: Work/School Release Instructions Patient Instructions: Viral Gastroenteritis, DI for Viral Gastroenteritis -- Adult Discharge ED Provider: Jd Aaron [facility] General Stated complaint: stomach pain Time Seen by Provider: 05/24/23 13:46 History of Present Illness Provider Complaint: He states that for the past 12 hours he has had n/v/d. He denies any abdominal pain. Related Data Home Medications Medication Instructions Recorded Confirmed linaclotide 72 mcg capsule 72 mcg PO DAILY CONSTIPATION 08/21/22 05/19/23 (Linzess) ipratropium 0.5 mg-albuterol 3 mg 3 ml inhalation QIDP PRN Shortness 01/19/23 05/19/23 (2.5 mg base)/3 mL nebulization Of Breath soln Previous Rx's Medication Instructions Recorded amiodarone 200 mg tablet 200 mg PO DAILY #30 tabs 02/04/23 rivaroxaban 20 mg tablet (Xarelto) 20 mg PO DAILY #90 tabs 03/02/23 clopidogrel 75 mg tablet See Rx Instructions .Route 03/17/23 .COMPLEX #90 tabs lisinopril 10 mg tablet See Rx Instructions .Route 03/17/23 .COMPLEX #90 tabs nebivolol 10 mg tablet See Rx Instructions .Route 03/17/23 .COMPLEX #90 tabs pravastatin 40 mg tablet See Rx Instructions .Ro
[2023-05-24 14:15] VITALS: BP 113/79; PULSE 68; RESP 18; TEMP 37.1; O2SAT 95
== END 2023-05-24 14:15 | disposition home or self-care (01) ==
PROVIDERS: Emergency Provider Nurse Practitioner Family; PCP Emergency Medicine
DX: A08.4 Viral intestinal infection, unspecified (principal); R11.2 Nausea with vomiting, unspecified; F17.210 Nicotine dependence, cigarettes, uncomplicated; J44.9 Chronic obstructive pulmonary disease, unspecified; I25.10 Atherosclerotic heart disease of native coronary artery without angina pectoris; I11.0 Hypertensive heart disease with heart failure; I50.9 Heart failure, unspecified; K21.9 Gastro-esophageal reflux disease without esophagitis; Z86.73 Personal history of transient ischemic attack (TIA), and cerebral infarction without residual deficits; Z95.0 Presence of cardiac pacemaker
CPT/HCPCS: 99212; 99214; G0463

== ENCOUNTER 2023-06-06 13:07 | Emergency (ER) | payer MEDICARE, MEDICAID, SELFPAY ==
[2023-06-06 13:07] VITALS: BP 138/85; PULSE 80; RESP 18; TEMP 36.9; O2SAT 94; BMI 37.0
--- NOTE | 2023-06-06 13:25 | EXP.UTC ---
Discharge Plan Disposition Patient Disposition: Home, Self-Care Condition: Good Prescriptions Prescriptions: New fluticasone propionate [fluticasone propionate] 50 mcg/actuation spray,suspension 1 spray intranasal DAILY Qty: 9.9 0RF loratadine [Claritin] 10 mg tablet 10 mg PO DAILY PRN (Reason: allergy symptoms) Qty: 30 0RF No Action amiodarone 200 mg tablet 200 mg PO DAILY Qty: 30 3RF tadalafil [Cialis] 10 mg tablet 10 mg PO DAILY PRN (Reason: sexual activity) Qty: 30 1RF Ozempic 1 mg/dose (4 mg/3 mL) pen injector 1 mg SQ WEEKLY Qty: 3 2RF Rx Instructions: for 4 weeks Xarelto 20 mg tablet 20 mg PO DAILY Qty: 90 1RF Patient Comments: TAKE ONE TABLET BY MOUTH EVERY DAY with evening meal nebivolol 10 mg tablet See Rx Instructions .ROUTE .COMPLEX Qty: 90 1RF Dose Instruction: TAKE ONE TABLET BY MOUTH EVERY DAY Rx Instructions: TAKE ONE TABLET BY MOUTH EVERY DAY clopidogrel 75 mg tablet See Rx Instructions .ROUTE .COMPLEX Qty: 90 1RF Dose Instruction: TAKE ONE TABLET BY MOUTH EVERY DAY Rx Instructions: TAKE ONE TABLET BY MOUTH EVERY DAY pravastatin 40 mg tablet See Rx Instructions .ROUTE .COMPLEX Qty: 90 1RF Dose Instruction: TAKE ONE TABLET BY MOUTH EVERY DAY Rx Instructions: TAKE ONE TABLET BY MOUTH EVERY DAY lisinopril 10 mg tablet See Rx Instructions .ROUTE .COMPLEX Qty: 90 2RF Dose Instruction: TAKE ONE TABLET BY MOUTH EVERY DAY FOR BLOOD PRESSURE Rx Instructions: TAKE ONE TABLET BY MOUTH EVERY DAY FOR BLOOD PRESSURE pantoprazole 40 mg tablet,delayed release (DR/EC) 40 mg PO DAILY Qty: 30 11RF diltiazem HCl 240 mg capsule,extended release 24hr See Rx Instructions .ROUTE .COMPLEX Qty: 90 4RF Dose Instruction: TAKE ONE CAPSULE BY MOUTH EVERY DAY Rx Instructions: TAKE ONE CAPSULE BY MOUTH EVERY DAY levothyroxine 75 mcg tablet See Rx Instructions .ROUTE .COMPLEX Qty: 90 0RF Dose Instruction: TAKE ONE TABLET BY MOUTH EVERY DAY Rx Instructions: TAKE ONE TABLET BY MOUTH EVERY DAY mupirocin 2 % ointment 1 applic topical TID 7 Days Qty: 15 0RF ibuprofen [ibuprofen] 600 mg tablet 600 mg PO Q6HP PRN (Reason: Mild Pain) Qty: 30 0RF Linzess 72 mcg capsule 72 mcg PO DAILY ipratropium-albuterol 0.5 mg-3 mg(2.5 mg base)/3 mL solution for nebulization 3 ml inhalation QIDP PRN (Reason: Shortness Of Breath) urea 39 % cream 1 applic topical BID 10 Days Qty: 227 0RF Referrals Follow up/Referrals: Chris Bautista MD [Primary Care Provider] - See instructions Activity Restrictions/Add. Instructions Additional Instructions/Restrictions: No sign of a bacterial infection. Likely viral. Viruses can take 7-14 days to run their course. Nasal saline and bulb syringe or nose Genny to remove nasal drainage to help with nasal congestion. Hard to eat, drink, sleep with nasal congestion so important to keep this cleaned out. Monitor temp. Tylenol or Motrin as needed for pain or fever Encourage fluids, water, Gatorade, Powerade, Pedialyte if /toddler/child Warm salt water gargles Warm fluids Sore throat lozenges Sleep elevated Humidifier/vaporizer Follow-up immediately for new or worsening symptoms or no noticeable improvement over the next 48-72 hours. Clinical Impressions Clinical Impression: Allergic rhinitis Qualifiers: Allergic rhinitis trigger: other Allergic rhinitis seasonality: seasonal Qualified Code(s): J30.89 - Other allergic rhinitis Instructions Patient Instructions: DI for Allergic Rhinitis Discharge ED Provider: Yves ([facility])[place] [facility] [place] HPI General Stated complaint: sinus pressure Mode of Arrival: Ambulatory Source of Information: Patient Limitations: No Limitations Time Seen by Provider: 06/06/23 13:25 Description of Symptoms (Recalled from Triage Doc. by RN): sinus pressure and nasal congestion HEENT Sym
[2023-06-06 13:40] VITALS: BP 136/85; PULSE 80; RESP 18; TEMP 36.9; O2SAT 94
== END 2023-06-06 13:40 | disposition home or self-care (01) ==
PROVIDERS: Emergency Provider Nurse Practitioner Family; PCP Emergency Medicine
DX: J30.89 Other allergic rhinitis (principal); F17.210 Nicotine dependence, cigarettes, uncomplicated; J44.9 Chronic obstructive pulmonary disease, unspecified; I11.0 Hypertensive heart disease with heart failure; I50.9 Heart failure, unspecified; I25.10 Atherosclerotic heart disease of native coronary artery without angina pectoris; K21.9 Gastro-esophageal reflux disease without esophagitis; Z95.0 Presence of cardiac pacemaker; Z86.73 Personal history of transient ischemic attack (TIA), and cerebral infarction without residual deficits
CPT/HCPCS: 99212; 99213; 99214; G0463

== ENCOUNTER → 2023-06-24 11:39 | Outpatient (CLI) | payer MEDICARE, MEDICAID, SELFPAY ==
[2023-06-24 12:05] LABS: Basophils % 0.5 % (0.1-2.0); Eosinophils # 0.2 K/mm3 (0.0-0.4); Eosinophils % 2.4 % (0.1-12.0); Hematocrit 48.4 % (42.0-52.0); Hemoglobin 15.9 g/dL (14.1-18.0); Lymphocytes # 2.4 K/mm3 (0.7-4.5); Lymphocytes % 27.9 % (10-50); Mean Corpuscular HGB Conc 32.9 g/dL (31.8-35.4); Mean Corpuscular Hemoglobin 32.1 pg (27.0-31.2); Mean Corpuscular Volume 97.6 fl (80-94); Mean Platelet Volume 7.4 fl (7.4-10.4); Monocytes # 0.5 K/mm3 (0.1-1.0); Monocytes % 5.8 % (1.7-9.3); Neutrophils # 5.4 K/mm3 (1.8-7.8); Neutrophils % 63.4 % (37.0-80.0); Platelet Count 419 K/mm3 (142-424); Red Blood Count 4.96 M/mm3 (4.60-6.20); Red Cell Distribution Width 12.8 % (11.5-17.5); White Blood Count 8.6 K/mm3 (4.8-10.8)
[2023-06-24 12:50] LABS: Alanine Aminotransferase 24 U/L (12-78); Alkaline Phosphatase 91 U/L (38-126); Anion Gap 12.1 mEq/L (5-15); Aspartate Amino Transferase 27 U/L (17-59); Bilirubin,Direct 0.3 mg/dl (0.0-0.4); Bilirubin,Indirect 0.1 mg/dL (0.0-0.9); Bilirubin,Total 0.4 mg/dl (0.2-1.3); Bilirubin,Unconjugated 0.1 mg/dL (0.0-1.1); Blood Urea Nitrogen 8 mg/dl (9-20); Calcium 8.4 mg/dl (8.4-10.2); Carbon Dioxide 24 mmol/L (22.0-30.0); Chloride 107 mmol/L (98-107); Chol/HDL Ratio 4.5 (1-3.5); Cholesterol 130 mg/dl (140-200); Estimated Glomerular Filt Rate 118 ml/min (>60); GFR (African American) 142 ML/MIN (>60); Glucose 102 mg/dl (74-100); HDL Cholesterol 29 mg/dl (40-60); Potassium 4.1 mmoL/L (3.5-5.1); Sodium 139 mmol/L (136-145); Total Protein,Serum 7.1 g/dl (6.3-8.2); Triglycerides 98 mg/dl (30-150); VLDL Cholesterol 20 mg/dL (0-40)
[2023-06-24 13:04] LABS: Direct LDL Cholesterol 94.05 mg/dL (100-129)
[2023-06-24 13:09] LABS: Free T4 (Free Thyroxine) 1.44 ng/dl (0.78-2.19)
== END ==
LOC: LAB 11:40
PROVIDERS: PCP Emergency Medicine; Visit Provider Internal Medicine
DX: E78.5 Hyperlipidemia, unspecified (principal); I25.10 Atherosclerotic heart disease of native coronary artery without angina pectoris; I11.9 Hypertensive heart disease without heart failure; R06.00 Dyspnea, unspecified; Z86.73 Personal history of transient ischemic attack (TIA), and cerebral infarction without residual deficits; K21.9 Gastro-esophageal reflux disease without esophagitis; Z95.0 Presence of cardiac pacemaker; E11.9 Type 2 diabetes mellitus without complications; Z79.85 Long-term (current) use of injectable non-insulin antidiabetic drugs; E66.9 Obesity, unspecified; Z68.36 Body mass index [BMI] 36.0-36.9, adult; Z72.0 Tobacco use
CPT/HCPCS: 36415; 80048; 80061; 80076; 84439; 84443; 85025

== ENCOUNTER 2023-08-11 15:08 | Emergency (ER) | payer MEDICARE, MEDICAID, SELFPAY ==
[2023-08-11 15:50] VITALS: BP 123/71; PULSE 72; RESP 18; TEMP 36.6; O2SAT 97; BMI 36.6
--- NOTE | 2023-08-11 15:50 | EXP.UTC ---
Discharge Plan Disposition Patient Disposition: Home, Self-Care Condition: Good Prescriptions Prescriptions: New Proctofoam HC 1-1 % foam 1 applic SD QID PRN (Reason: itching) Qty: 10 0RF No Action amiodarone 200 mg tablet 200 mg PO DAILY Qty: 30 3RF tadalafil [Cialis] 10 mg tablet 10 mg PO DAILY PRN (Reason: sexual activity) Qty: 30 1RF Ozempic 1 mg/dose (4 mg/3 mL) pen injector 1 mg SQ WEEKLY Qty: 3 2RF Rx Instructions: for 4 weeks Xarelto 20 mg tablet 20 mg PO DAILY Qty: 90 1RF Patient Comments: TAKE ONE TABLET BY MOUTH EVERY DAY with evening meal nebivolol 10 mg tablet See Rx Instructions .ROUTE .COMPLEX Qty: 90 1RF Dose Instruction: TAKE ONE TABLET BY MOUTH EVERY DAY Rx Instructions: TAKE ONE TABLET BY MOUTH EVERY DAY clopidogrel 75 mg tablet See Rx Instructions .ROUTE .COMPLEX Qty: 90 1RF Dose Instruction: TAKE ONE TABLET BY MOUTH EVERY DAY Rx Instructions: TAKE ONE TABLET BY MOUTH EVERY DAY lisinopril 10 mg tablet See Rx Instructions .ROUTE .COMPLEX Qty: 90 2RF Dose Instruction: TAKE ONE TABLET BY MOUTH EVERY DAY FOR BLOOD PRESSURE Rx Instructions: TAKE ONE TABLET BY MOUTH EVERY DAY FOR BLOOD PRESSURE pantoprazole 40 mg tablet,delayed release (DR/EC) 40 mg PO DAILY Qty: 30 11RF diltiazem HCl 240 mg capsule,extended release 24hr See Rx Instructions .ROUTE .COMPLEX Qty: 90 4RF Dose Instruction: TAKE ONE CAPSULE BY MOUTH EVERY DAY Rx Instructions: TAKE ONE CAPSULE BY MOUTH EVERY DAY levothyroxine 75 mcg tablet See Rx Instructions .ROUTE .COMPLEX Qty: 90 0RF Dose Instruction: TAKE ONE TABLET BY MOUTH EVERY DAY Rx Instructions: TAKE ONE TABLET BY MOUTH EVERY DAY atorvastatin [Lipitor] 40 mg tablet 40 mg PO HS Qty: 30 0RF mupirocin 2 % ointment 1 applic topical TID 7 Days Qty: 15 0RF ibuprofen [ibuprofen] 600 mg tablet 600 mg PO Q6HP PRN (Reason: Mild Pain) Qty: 30 0RF fluticasone propionate [fluticasone propionate] 50 mcg/actuation spray,suspension 1 spray intranasal DAILY Qty: 9.9 0RF loratadine [Claritin] 10 mg tablet 10 mg PO DAILY PRN (Reason: allergy symptoms) Qty: 30 0RF Linzess 72 mcg capsule 72 mcg PO DAILY ipratropium-albuterol 0.5 mg-3 mg(2.5 mg base)/3 mL solution for nebulization 3 ml inhalation QIDP PRN (Reason: Shortness Of Breath) urea 39 % cream 1 applic topical BID 10 Days Qty: 227 0RF Referrals Follow up/Referrals: Jeromy Wilder APRN [Primary Care Provider] - See instructions Activity Restrictions/Add. Instructions Additional Instructions/Restrictions: Drink plenty of fluids. Take tylenol for pain. Take the medications as directed. Follow up with your regular doctor. GO TO THE ER FOR ANY WORSENING SYMPTOMS Clinical Impressions Clinical Impression: Acute hemorrhoid Stand Alone Forms Stand Alone Forms: Work/School Release Instructions Patient Instructions: DI for Hemorrhoids Discharge ED Provider: Jd Aaron [facility] [place] HPI General Stated complaint: hemorrhoids Time Seen by Provider: 08/11/23 15:50 History of Present Illness Provider Complaint: He states that since earlier today he has had hemorrhoid pain with bleeding. He had to leave work because of this, so he came in to be seen. Related Data Home Medications Medication Instructions Recorded Confirmed linaclotide 72 mcg capsule 72 mcg PO DAILY CONSTIPATION 08/21/22 06/24/23 (Linzess) ipratropium 0.5 mg-albuterol 3 mg 3 ml inhalation QIDP PRN Shortness 01/19/23 06/24/23 (2.5 mg base)/3 mL nebulization Of Breath soln Previous Rx's Medication Instructions Recorded amiodarone 200 mg tablet 200 mg PO DAILY #30 tabs 02/04/23 rivaroxaban 20 mg tablet (Xarelto) 20 mg PO DAILY #90 tabs 03/02/23 clopidogrel 75 mg tablet See Rx Instructions .Route 03/17/23 .COMPLEX #90 tabs lisinopril 10 mg tablet See Rx Instructions .Route 03/17/23 .COMPLEX #90 tabs nebivolol 10 mg tablet See Rx Instructions .Route 03/17/23 .COMPLEX #90 tabs pantoprazole 40 mg tablet,delayed 40 mg PO DAILY Acid reflux #30 tabs 03/23/23 release mupirocin 2 % topical ointment 1 applic topical TID 7 days #15 04/20/23 grams diltiazem HCl 240 mg See Rx Instructions .Route 04/29/23 capsule,extended release 24 hr .COMPLEX #90 caps levothyroxine 75 mcg tablet See Rx Instructions .Route 05/04/23 .COMPLEX #90 tabs ibuprofen 600 mg tablet 600 mg PO Q6HP PRN Mild Pain #30 05/08/23 tabs urea 39 % topical cream 1 applic topical BID 10 days #227 05/14/23 grams semaglutide 1 mg/dose (4 mg/3 mL) 1 mg (0.75 mL) SQ WEEKLY #3 mL 05/15/23 subcutaneous pen injector tadalafil 10 mg tablet (Cialis) 10 mg PO DAILY PRN sexual activity 05/15/23 #30 tabs fluticasone propionate 50 1 spray intranasal DAILY #9.9 mL 06/06/23 mcg/actuation nasal spray,suspension loratadine 10 mg tablet (Claritin) 10 mg PO DAILY PRN allergy 06/06/23 symptoms #30 tabs atorvastatin 40 mg tablet (Lipitor) 40 mg PO HS #30 tabs 07/14/23 hydrocortisone 1 %-pramoxine 1 % 1 applic SD QID PRN itching #10 08/11/23 rectal foam (Proctofoam HC) grams Allergies Allergy/AdvReac Type Severity Reaction Status Date / Time No Known Allergies Allergy Verified 06/24/23 10:50 [facility] Disclaimer: The information contained in this section may have been updated after the patient was seen, as this information can be updated by other users. Medical History Arthritis CAD (coronary artery disease) CAD (coronary artery disease) Cardiomyopathy CHF (congestive heart failure) COPD (chronic obstructive pulmonary disease) COPD (chronic obstructive pulmonary disease) CVA (cerebral vascular accident) Encounter for pre-operative cardiovascular clearance Erectile dysfunction GERD (gastroesophageal reflux disease) Hx of cardiac pacemaker Hypertension MRSA (methicillin resistant staph aureus) culture positive SVT (supraventricular tachycardia) Tobacco abuse disorder Surgical History Fusion of lumbar spine H/O cardiac catheterization H/O colonoscopy Hx of ventral hernia repair Open right clavicular fracture Family History Mother , at the age of 58 Diabetes Father , at the age of 55 Heart attack Other Family history of diabetes mellitus type II Family history of hypertension Family history of myocardial infarction Social History Smoking Status: Current every day smoker tobacco type: cigarettes packs per day: 1 smoking status start date: 1 pack/day 35 years and ongoing alcohol intake: current substance use type: denies use current occupational status: employed Travel in the last 8 weeks: None household members: none housing: apartment lives independently: Yes marital status: single number of children: 1 service: No 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 [employer] current occupational exposures/hazards: No Hx Recent Travel: No caffeine: Yes special latasha needs: No agree to transfusion: No do you feel safe at home: Yes victim of physical abuse: No victim of emotional abuse: No victim of sexual abuse: No would you like helpful sources: No ROS Obtained: Yes All systems reviewed & no additional complaints except as documented Constitutional Constitutional: Denies chills and Denies fever(s) Eyes Eyes: Denies eye discharge ENT Ears, Nose, Mouth, and Throat: Denies dizziness, Denies otalgia and Denies sore throat Cardiovascular Cardiovascular: Denies chest pain Respiratory Respiratory: Denies shortness of breath, Denies chest congestion, Denies cough, Denies stridor and Denies wheezing Gastrointestinal Gastrointestingal: Denies nausea or vomiting Musculoskeletal Musculoskeletal: Reports system reviewed and no additional complaints, except as documented and Denies arthralgias Integumentary/Breasts Skin/Breast: Denies rash Neurologic Neurologic: Denies dizziness and Denies paresthesias Allergic/Immunologic Allergic/Immunologic: Denies wheezing Physical Exam General General appearance: alert and in no apparent distress Head Head exam: atraumatic, normocephalic and normal inspection Eye Eye exam: Present normal appearance, PERRL and EOMI ENT ENT exam: Present normal exam, normal oropharynx, mucous membranes moist, TM's normal bilaterally and normal external ear exam Neck Neck exam: Present normal inspection, full ROM and trachea midline; Absent meningismus or lymphadenopathy Chest Chest inspection: Present normal inspection and symmetric chest wall rise; Absent tenderness Respiratory Respiratory exam: Present normal lung sounds bilaterally; Absent respiratory distress Cardiovascular Cardiovascular exam: Present regular rate and normal rhythm; Absent JVD Abdominal Exam Abdominal exam: Present soft and normal bowel sounds; Absent distention, tenderness or guarding Extremities Exam Extremities exam: Present normal inspection, full ROM and normal capillary refill; Absent calf tenderness Back Exam Back exam: Present normal inspection; Absent tenderness Neurological Exam Neurological exam: Present alert and oriented X3 Psychiatric Psychiatric exam: Present normal affect and normal mood Skin Skin exam: Present warm, dry, intact and normal color Lymphatic Lymphatic Findings: no adenopathy Medical Decision Making Medical Records Medical records reviewed: No I reviewed the patient's medical records. Ken Inquiry Pt receiving controlled substance: No
[2023-08-11 16:28] VITALS: BP 123/71; PULSE 72; RESP 18; TEMP 36.6; O2SAT 97
== END 2023-08-11 16:28 | disposition home or self-care (01) ==
PROVIDERS: Emergency Provider Nurse Practitioner Family; PCP Nurse Practitioner Family
DX: K64.9 Unspecified hemorrhoids (principal); F17.210 Nicotine dependence, cigarettes, uncomplicated; K21.9 Gastro-esophageal reflux disease without esophagitis
CPT/HCPCS: 99212; 99214; G0463

== ENCOUNTER 2023-08-31 10:33 | Emergency (ER) | payer MEDICARE, MEDICAID, SELFPAY ==
[2023-08-31 11:30] VITALS: BP 136/84; PULSE 79; RESP 17; TEMP 36.5; O2SAT 98; BMI 43.7
--- NOTE | 2023-08-31 11:55 | ED_ITS ---
Discharge Plan Disposition Patient Disposition: Home, Self-Care Condition: Good Prescriptions Prescriptions: No Action tadalafil [Cialis] 10 mg tablet 10 mg PO DAILY PRN (Reason: sexual activity) Qty: 30 1RF Xarelto 20 mg tablet 20 mg PO DAILY Qty: 90 1RF Patient Comments: TAKE ONE TABLET BY MOUTH EVERY DAY with evening meal nebivolol 10 mg tablet See Rx Instructions .ROUTE .COMPLEX Qty: 90 1RF Dose Instruction: TAKE ONE TABLET BY MOUTH EVERY DAY Rx Instructions: TAKE ONE TABLET BY MOUTH EVERY DAY clopidogrel 75 mg tablet See Rx Instructions .ROUTE .COMPLEX Qty: 90 1RF Dose Instruction: TAKE ONE TABLET BY MOUTH EVERY DAY Rx Instructions: TAKE ONE TABLET BY MOUTH EVERY DAY lisinopril 10 mg tablet See Rx Instructions .ROUTE .COMPLEX Qty: 90 2RF Dose Instruction: TAKE ONE TABLET BY MOUTH EVERY DAY FOR BLOOD PRESSURE Rx Instructions: TAKE ONE TABLET BY MOUTH EVERY DAY FOR BLOOD PRESSURE pantoprazole 40 mg tablet,delayed release (DR/EC) 40 mg PO DAILY Qty: 30 11RF diltiazem HCl 240 mg capsule,extended release 24hr See Rx Instructions .ROUTE .COMPLEX Qty: 90 4RF Dose Instruction: TAKE ONE CAPSULE BY MOUTH EVERY DAY Rx Instructions: TAKE ONE CAPSULE BY MOUTH EVERY DAY Ozempic 2 mg/dose (8 mg/3 mL) pen injector 2 mg SQ WEEKLY Qty: 3 2RF atorvastatin 40 mg tablet See Rx Instructions .ROUTE .COMPLEX Qty: 90 4RF Dose Instruction: TAKE ONE TABLET BY MOUTH EVERY DAY AT BEDTIME Rx Instructions: TAKE ONE TABLET BY MOUTH EVERY DAY AT BEDTIME levothyroxine 75 mcg tablet See Rx Instructions .ROUTE .COMPLEX Qty: 90 0RF Dose Instruction: TAKE ONE TABLET BY MOUTH EVERY DAY Rx Instructions: TAKE ONE TABLET BY MOUTH EVERY DAY mupirocin 2 % ointment 1 applic topical TID 7 Days Qty: 15 0RF fluticasone propionate [fluticasone propionate] 50 mcg/actuation spray,suspension 1 spray intranasal DAILY Qty: 9.9 0RF loratadine [Claritin] 10 mg tablet 10 mg PO DAILY PRN (Reason: allergy symptoms) Qty: 30 0RF Linzess 72 mcg capsule 72 mcg PO DAILY ipratropium-albuterol 0.5 mg-3 mg(2.5 mg base)/3 mL solution for nebulization 3 ml inhalation QIDP PRN (Reason: Shortness Of Breath) urea 39 % cream 1 applic topical BID 10 Days Qty: 227 0RF Proctofoam HC 1-1 % foam 1 applic SC QID PRN (Reason: itching) Qty: 10 0RF Referrals Follow up/Referrals: Jeromy Wilder APRN [Primary Care Provider] - See instructions Marlene Dwyer APRN [Nurse Practitioner] - 08/31/23 1:00 pm Activity Restrictions/Add. Instructions Additional Instructions/Restrictions: Follow up with Podiatry today at 100pm for further evaluation and treatment Further care per Podiatry GO to your appointment today with Podiatry at 1pm Clinical Impressions Clinical Impression: Callus of foot Stand Alone Forms Stand Alone Forms: Work/School Release Instructions Patient Instructions: DI for Calluses and Corns Discharge ED Provider: Sophia Petty [facility] General Stated complaint: Pressure point calluses on R foot Mode of Arrival: Ambulatory Source of Information: Patient Limitations: No Limitations Time Seen by Provider: 08/31/23 11:55 Description of Symptoms (Recalled from Triage Doc. by RN): PATIENT C/O PRESSURE POINT CALLUS ON RIGHT FOOT X 1 WEEK HEENT Symptoms (Recalled from RN notes): No Resp Symptoms (Recalled from RN notes): No Skin Symptoms (Recalled from RN notes): Yes MS Symptoms (Recalled from RN notes): No Functional Status (Recalled from RN notes): WNL History of Present Illness Provider Complaint: Patient states that he has been having issues with a callus on the bottom of his right foot that hurts when he walks and puts weight on his foot States that when he walks it feels like something is poking him in the bottom of foot Related Data Home Medications Medication Instructions Recorded Confirmed linaclotide 72 mcg capsule 72 mcg PO DAILY CONSTIPATION 08/21/22 08/19/23 (Linzess) ipratropium 0.5 mg-albuterol 3 mg 3 ml inhalation QIDP PRN Shortness 01/19/23 08/19/23 (2.5 mg base)/3 mL nebulization Of Breath soln Previous Rx's Medication Instructions Recorded rivaroxaban 20 mg tablet (Xarelto) 20 mg PO DAILY #90 tabs 03/02/23 clopidogrel 75 mg tablet See Rx Instructions .Route 03/17/23 .COMPLEX #90 tabs lisinopril 10 mg tablet See Rx Instructions .Route 03/17/23 .COMPLEX #90 tabs nebivolol 10 mg tablet See Rx Instructions .Route 03/17/23 .COMPLEX #90 tabs pantoprazole 40 mg tablet,delayed 40 mg PO DAILY Acid reflux #30 tabs 03/23/23 release mupirocin 2 % topical ointment 1 applic topical TID 7 days #15 04/20/23 grams diltiazem HCl 240 mg See Rx Instructions .Route 04/29/23 capsule,extended release 24 hr .COMPLEX #90 caps urea 39 % topical cream 1 applic topical BID 10 days #227 05/14/23 grams tadalafil 10 mg tablet (Cialis) 10 mg PO DAILY PRN sexual activity 05/15/23 #30 tabs fluticasone propionate 50 1 spray intranasal DAILY #9.9 mL 06/06/23 mcg/actuation nasal spray,suspension loratadine 10 mg tablet (Claritin) 10 mg PO DAILY PRN allergy 06/06/23 symptoms #30 tabs hydrocortisone 1 %-pramoxine 1 % 1 applic SC QID PRN itching #10 08/11/23 rectal foam (Proctofoam HC) grams semaglutide 2 mg/dose (8 mg/3 mL) 2 mg (0.75 mL) SQ WEEKLY insulin 08/19/23 subcutaneous pen injector (Ozempic) resistance #3 mL atorvastatin 40 mg tablet See Rx Instructions .Route 08/27/23 .COMPLEX #90 tabs levothyroxine 75 mcg tablet See Rx Instructions .Route 08/27/23 .COMPLEX #90 tabs Allergies Allergy/AdvReac Type Severity Reaction Status Date / Time No Known Allergies Allergy Verified 08/19/23 11:16 Worker's Comp Is this a Worker's Comp case?: No [facility] Disclaimer: The information contained in this section may have been updated after the francoise taylor was seen, as this information can be updated by other users. Medical History Arthritis CAD (coronary artery disease) CAD (coronary artery disease) Cardiomyopathy CHF (congestive heart failure) COPD (chronic obstructive pulmonary disease) COPD (chronic obstructive pulmonary disease) CVA (cerebral vascular accident) Encounter for pre-operative cardiovascular clearance Erectile dysfunction GERD (gastroesophageal reflux disease) Hx of cardiac pacemaker Hypertension MRSA (methicillin resistant staph aureus) culture positive SVT (supraventricular tachycardia) Tobacco abuse disorder Surgical History Fusion of lumbar spine H/O cardiac catheterization H/O colonoscopy Hx of ventral hernia repair Open right clavicular fracture Family History Mother , at the age of 58 Diabetes Father , at the age of 55 Heart attack Other Family history of diabetes mellitus type II Family history of hypertension Family history of myocardial infarction Social History Smoking Status: Current every day smoker tobacco type: cigarettes packs per day: 1 smoking status start date: 1 pack/day 35 years and ongoing alcohol intake: current substance use type: denies use current occupational status: employed Travel in the last 8 weeks: None household members: none housing: apartment lives independently: Yes marital status: single number of children: 1 service: No 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 [employer] current occupational exposures/hazards: No Hx Recent Travel: No caffeine: Yes special latasha needs: No agree to transfusion: No do you feel safe at home: Yes victim of physical abuse: No victim of emotional abuse: No victim of sexual abuse: No would you like helpful sources: No ROS Obtained: Yes All systems reviewed & no additional complaints except as documented and Yes Systems reviewed as appropriate & no additional complaints except as documented Constitutional Constitutional: Reports system reviewed and no additional complaints, except as documented and Reports as per HPI Cardiovascular Cardiovascular: Reports system reviewed and no additional complaints, except as documented and Reports as per HPI Respiratory Respiratory: Reports system reviewed and no additional complaints, except as documented and Reports as per HPI Musculoskeletal Musculoskeletal: Reports system reviewed and no additional complaints, except as documented and Reports as per HPI Comments: pressure point callus on the bottom of his right foot that hurts when he walks Physical Exam General General appearance: alert and in no apparent distress Respiratory Respiratory exam: Present normal lung sounds bilaterally; Absent respiratory distress or wheezes Cardiovascular Cardiovascular exam: Present regular rate, normal rhythm and normal heart sounds Expanded Lower Extremity Exam Right: Bottom foot image: 1. dried skin/callus noted reports painful when he puts weight on it no redness Neurological Exam Neurological exam: Present alert, oriented X3 and normal gait Medical Decision Making Ken Inquiry Pt receiving controlled substance: No Ken was queried for this patient: No Vital Signs: 08/31/23 11:30 Temperature 97.7 F Temperature Source Oral Pulse Rate [Left Brachial] 79 Respiratory Rate 17 Blood Pressure [Left Arm] 136/84 Blood Pressure Mean [Left Arm] 101 Blood Pressure Source [Left Arm] Automatic Cuff Blood Pressure Position [Left Arm] Sitting 02 Sat by Pulse Oximetry 98 Oxygen Delivery Method Room Air Medical Decision Narrative: Spoke with staff in Podiatry office patient has been seen there before for this and now having pain again and they was able to get him in later today at 1pm patient agreed to appointment will dc and he will follow up in the Podiatry office as scheduled
[2023-08-31 12:13] VITALS: BP 136/84; PULSE 79; RESP 17; TEMP 36.5; O2SAT 98
== END 2023-08-31 12:15 | disposition home or self-care (01) ==
PROVIDERS: Emergency Provider Nurse Practitioner; PCP Nurse Practitioner Family
DX: L84 Corns and callosities (principal); M79.671 Pain in right foot; F17.210 Nicotine dependence, cigarettes, uncomplicated; J44.9 Chronic obstructive pulmonary disease, unspecified; I25.10 Atherosclerotic heart disease of native coronary artery without angina pectoris; I11.9 Hypertensive heart disease without heart failure; K21.9 Gastro-esophageal reflux disease without esophagitis
CPT/HCPCS: 99212; 99214; G0463

== ENCOUNTER 2023-09-06 13:46 | Emergency (ER) | payer MEDICARE, MEDICAID, SELFPAY ==
[2023-09-06 14:45] VITALS: BP 148/89; PULSE 74; RESP 18; TEMP 37.1; O2SAT 98; BMI 43.9
--- NOTE | 2023-09-06 15:03 | EXP.UTC ---
Discharge Plan Disposition Patient Disposition: Home, Self-Care Condition: Good Prescriptions Prescriptions: New amoxicillin-pot clavulanate 875-125 mg Tablet 1 tab PO Q12H Qty: 20 0RF No Action tadalafil [Cialis] 10 mg tablet 10 mg PO DAILY PRN (Reason: sexual activity) Qty: 30 1RF Xarelto 20 mg tablet 20 mg PO DAILY Qty: 90 1RF Patient Comments: TAKE ONE TABLET BY MOUTH EVERY DAY with evening meal nebivolol 10 mg tablet See Rx Instructions .ROUTE .COMPLEX Qty: 90 1RF Dose Instruction: TAKE ONE TABLET BY MOUTH EVERY DAY Rx Instructions: TAKE ONE TABLET BY MOUTH EVERY DAY clopidogrel 75 mg tablet See Rx Instructions .ROUTE .COMPLEX Qty: 90 1RF Dose Instruction: TAKE ONE TABLET BY MOUTH EVERY DAY Rx Instructions: TAKE ONE TABLET BY MOUTH EVERY DAY lisinopril 10 mg tablet See Rx Instructions .ROUTE .COMPLEX Qty: 90 2RF Dose Instruction: TAKE ONE TABLET BY MOUTH EVERY DAY FOR BLOOD PRESSURE Rx Instructions: TAKE ONE TABLET BY MOUTH EVERY DAY FOR BLOOD PRESSURE pantoprazole 40 mg tablet,delayed release (DR/EC) 40 mg PO DAILY Qty: 30 11RF diltiazem HCl 240 mg capsule,extended release 24hr See Rx Instructions .ROUTE .COMPLEX Qty: 90 4RF Dose Instruction: TAKE ONE CAPSULE BY MOUTH EVERY DAY Rx Instructions: TAKE ONE CAPSULE BY MOUTH EVERY DAY Ozempic 2 mg/dose (8 mg/3 mL) pen injector 2 mg SQ WEEKLY Qty: 3 2RF atorvastatin 40 mg tablet See Rx Instructions .ROUTE .COMPLEX Qty: 90 4RF Dose Instruction: TAKE ONE TABLET BY MOUTH EVERY DAY AT BEDTIME Rx Instructions: TAKE ONE TABLET BY MOUTH EVERY DAY AT BEDTIME levothyroxine 75 mcg tablet See Rx Instructions .ROUTE .COMPLEX Qty: 90 0RF Dose Instruction: TAKE ONE TABLET BY MOUTH EVERY DAY Rx Instructions: TAKE ONE TABLET BY MOUTH EVERY DAY mupirocin 2 % ointment 1 applic topical TID 7 Days Qty: 15 0RF fluticasone propionate [fluticasone propionate] 50 mcg/actuation spray,suspension 1 spray intranasal DAILY Qty: 9.9 0RF loratadine [Claritin] 10 mg tablet 10 mg PO DAILY PRN (Reason: allergy symptoms) Qty: 30 0RF Linzess 72 mcg capsule 72 mcg PO DAILY ipratropium-albuterol 0.5 mg-3 mg(2.5 mg base)/3 mL solution for nebulization 3 ml inhalation QIDP PRN (Reason: Shortness Of Breath) urea 39 % cream 1 applic topical BID 10 Days Qty: 227 0RF Proctofoam HC 1-1 % foam 1 applic ND QID PRN (Reason: itching) Qty: 10 0RF Referrals Follow up/Referrals: Provider,Referral, MD [Primary Care Provider] - See instructions Activity Restrictions/Add. Instructions Additional Instructions/Restrictions: Call tomorrow and make appointment with dentist may take you several weeks to get in Take antibiotics as prescribed Use dental balls as you was directed in [facility] You said you cannot take Ibuprofen so take Tylenol if you can for pain Clinical Impressions Clinical Impression: Abscess, dental Instructions Patient Instructions: Tooth Abscess, Amoxicillin and Clavulanic Acid Discharge ED Provider: Sophia Petty [facility] HPI General Stated complaint: chipped tooth infected Mode of Arrival: Ambulatory Source of Information: Patient Limitations: No Limitations Time Seen by Provider: 09/06/23 15:03 Description of Symptoms (Recalled from Triage Doc. by RN): PATIENT C/O ABSCESS TO TOP LEFT TOOTH SINCE YESTERDAY HEENT Symptoms (Recalled from RN notes): Yes Resp Symptoms (Recalled from RN notes): No Skin Symptoms (Recalled from RN notes): No MS Symptoms (Recalled from RN notes): No Functional Status (Recalled from RN notes): WNL History of Present Illness Provider Complaint: Patient states that he has several chipped and broken teeth on his left upper gum line States that he started yesterday having pain in his left upper teeth and having some swelling in his left jaw area States that today the swelling has continued and he knew he had a dental abscess and needed some antibiotics Related Data Home Medications Medication Instructions Recorded Confirmed linaclotide 72 mcg capsule 72 mcg PO DAILY CONSTIPATION 08/21/22 08/31/23 (Linzess) ipratropium 0.5 mg-albuterol 3 mg 3 ml inhalation QIDP PRN Shortness 01/19/23 08/31/23 (2.5 mg base)/3 mL nebulization Of Breath soln Previous Rx's Medication Instructions Recorded rivaroxaban 20 mg tablet (Xarelto) 20 mg PO DAILY #90 tabs 03/02/23 clopidogrel 75 mg tablet See Rx Instructions .Route 03/17/23 .COMPLEX #90 tabs lisinopril 10 mg tablet See Rx Instructions .Route 03/17/23 .COMPLEX #90 tabs nebivolol 10 mg tablet See Rx Instructions .Route 03/17/23 .COMPLEX #90 tabs pantoprazole 40 mg tablet,delayed 40 mg PO DAILY Acid reflux #30 tabs 03/23/23 release mupirocin 2 % topical ointment 1 applic topical TID 7 days #15 04/20/23 grams diltiazem HCl 240 mg See Rx Instructions .Route 04/29/23 capsule,extended release 24 hr .COMPLEX #90 caps urea 39 % topical cream 1 applic topical BID 10 days #227 05/14/23 grams tadalafil 10 mg tablet (Cialis) 10 mg PO DAILY PRN sexual activity 05/15/23 #30 tabs fluticasone propionate 50 1 spray intranasal DAILY #9.9 mL 06/06/23 mcg/actuation nasal spray,suspension loratadine 10 mg tablet (Claritin) 10 mg PO DAILY PRN allergy 06/06/23 symptoms #30 tabs hydrocortisone 1 %-pramoxine 1 % 1 applic ND QID PRN itching #10 08/11/23 rectal foam (Proctofoam HC) grams semaglutide 2 mg/dose (8 mg/3 mL) 2 mg (0.75 mL) SQ WEEKLY insulin 08/19/23 subcutaneous pen injector (Ozempic) resistance #3 mL atorvastatin 40 mg tablet See Rx Instructions .Route 08/27/23 .COMPLEX #90 tabs levothyroxine 75 mcg tablet See Rx Instructions .Route 08/27/23 .COMPLEX #90 tabs amoxicillin 875 mg-potassium 1 tab PO Q12H #20 tabs 09/06/23 clavulanate 125 mg tablet Allergies Allergy/AdvReac Type Severity Reaction Status Date / Time No Known Allergies Allergy Verified 08/31/23 13:09 Worker's Comp Is this a Worker's Comp case?: No [facility] Disclaimer: The information contained in this section may have been updated after the patient was seen, as this information can be updated by other users. Medical History Arthritis CAD (coronary artery disease) CAD (coronary artery disease) Cardiomyopathy CHF (congestive heart failure) COPD (chronic obstructive pulmonary disease) COPD (chronic obstructive pulmonary disease) CVA (cerebral vascular accident) Encounter for pre-operative cardiovascular clearance Erectile dysfunction GERD (gastroesophageal reflux disease) Hx of cardiac pacemaker Hypertension MRSA (methicillin resistant staph aureus) culture positive SVT (supraventricular tachycardia) Tobacco abuse disorder Surgical History Fusion of lumbar spine H/O cardiac catheterization H/O colonoscopy Hx of ventral hernia repair Open right clavicular fracture Family History Mother , at the age of 58 Diabetes Father , at the age of 55 Heart attack Other Family history of diabetes mellitus type II Family history of hypertension Family history of myocardial infarction Social History Smoking Status: Current every day smoker tobacco type: cigarettes packs per day: 1 smoking status start date: 1 pack/day 35 years and ongoing alcohol intake: current substance use type: denies use current occupational status: employed Travel in the last 8 weeks: None household members: none housing: apartment lives independently: Yes marital status: single number of children: 1 service: No 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 [email or web address] current occupational exposures/hazards: No Hx Recent Travel: No caffeine: Yes special latasha needs: No agree to transfusion: No do you feel safe at home: Yes victim of physical abuse: No victim of emotional abuse: No victim of sexual abuse: No would you like helpful sources: No ROS Obtained: Yes All systems reviewed & no additional complaints except as documented and Yes Systems reviewed as appropriate & no additional complaints except as documented Constitutional Constitutional: Reports system reviewed and no additional complaints, except as documented and Reports as per HPI ENT Ears, Nose, Mouth, and Throat: Reports system reviewed and no additional complaints, except as documented, Reports as per HPI and Reports dental pain Cardiovascular Cardiovascular: Reports system reviewed and no additional complaints, except as documented and Reports as per HPI Respiratory Respiratory: Reports system reviewed and no additional complaints, except as documented and Reports as per HPI Gastrointestinal Gastrointestingal: Reports system reviewed and no additional complaints, except as documented and as per HPI Physical Exam General General appearance: alert and in no apparent distress ENT ENT exam: Present mucous membranes moist Expanded ENT Exam Teeth exam: Present dental caries, fractured tooth # and gingival swelling (swelling in left upper cheek area with several chipped teeth and one broken off at gumline with swelling and redness noted in gum area) Respiratory Respiratory exam: Present normal lung sounds bilaterally; Absent respiratory distress or wheezes Cardiovascular Cardiovascular exam: Present regular rate, normal rhythm and normal heart sounds Neurological Exam Neurological exam: Present alert, oriented X3 and normal gait Medical Decision Making Ken Inquiry Pt receiving controlled substance: No Ken was queried for this patient: No Vital Signs: 09/06/23 14:45 Temperature 98.8 F Temperature Source Oral Pulse Rate [Left Brachial] 74 Respiratory Rate 18 Blood Pressure [Left Arm] 148/89 H Blood Pressure Mean [Left Arm] 108 Blood Pressure Source [Left Arm] Automatic Cuff Blood Pressure Position [Left Arm] Sitting 02 Sat by Pulse Oximetry 98 Oxygen Delivery Method Room Air
[2023-09-06 15:10] VITALS: BP 148/89; PULSE 74; RESP 18; TEMP 37.1; O2SAT 98
== END 2023-09-06 15:17 | disposition home or self-care (01) ==
PROVIDERS: Emergency Provider Nurse Practitioner
DX: K04.7 Periapical abscess without sinus (principal); F17.210 Nicotine dependence, cigarettes, uncomplicated; J44.9 Chronic obstructive pulmonary disease, unspecified; I11.9 Hypertensive heart disease without heart failure; I25.10 Atherosclerotic heart disease of native coronary artery without angina pectoris; K21.9 Gastro-esophageal reflux disease without esophagitis
CPT/HCPCS: 99212; 99214; G0463

== ENCOUNTER 2023-09-22 13:52 | Emergency (ER) | payer MEDICARE, MEDICAID, SELFPAY ==
[2023-09-22 14:35] VITALS: PULSE 70; RESP 16; TEMP 36.7; O2SAT 95; BMI 37.6
--- NOTE | 2023-09-22 14:43 | EXP.UTC ---
Discharge Plan Disposition Patient Disposition: Home, Self-Care Condition: Good Prescriptions Prescriptions: New ondansetron 4 mg Tablet,Disintegrating 4 mg PO Q8H PRN (Reason: Nausea) Qty: 12 0RF No Action tadalafil [Cialis] 10 mg tablet 10 mg PO DAILY PRN (Reason: sexual activity) Qty: 30 1RF amoxicillin-pot clavulanate 875-125 mg tablet 1 tab PO Q12H atorvastatin 40 mg tablet 40 mg PO HS clopidogrel 75 mg tablet 75 mg PO DAILY diltiazem HCl 240 mg capsule,extended release 24hr 240 mg PO DAILY levothyroxine 75 mcg tablet 75 mcg PO DAILY lisinopril 10 mg tablet 10 mg PO DAILY nebivolol 10 mg tablet 10 mg PO DAILY Wegovy 0.25 mg/0.5 mL pen injector 0.25 mg SQ WEEKLY Qty: 2 0RF Rx Instructions: administer weeks 1 through 4 of therapy Wegovy 0.25 mg/0.5 mL pen injector 0.5 mg SQ WEEKLY Qty: 2 0RF Rx Instructions: administer weeks 1 through 4 of therapy nicotine 21 mg/24 hr patch 24 hour 1 patch transdermal DAILY Qty: 14 0RF varenicline [Chantix Starting Month Box] 0.5 mg (11)- 1 mg (42) tablets,dose pack See Rx Instructions PO PER PKG DIR Qty: 53 0RF Rx Instructions: PO PER PKG DIR Xarelto 20 mg tablet 20 mg PO DAILY Qty: 90 1RF Patient Comments: TAKE ONE TABLET BY MOUTH EVERY DAY with evening meal pantoprazole 40 mg tablet,delayed release (DR/EC) 40 mg PO DAILY Qty: 30 11RF mupirocin 2 % ointment 1 applic topical TID 7 Days Qty: 15 0RF fluticasone propionate [fluticasone propionate] 50 mcg/actuation spray,suspension 1 spray intranasal DAILY Qty: 9.9 0RF loratadine [Claritin] 10 mg tablet 10 mg PO DAILY PRN (Reason: allergy symptoms) Qty: 30 0RF Linzess 72 mcg capsule 72 mcg PO DAILY ipratropium-albuterol 0.5 mg-3 mg(2.5 mg base)/3 mL solution for nebulization 3 ml inhalation QIDP PRN (Reason: Shortness Of Breath) urea 39 % cream 1 applic topical BID 10 Days Qty: 227 0RF Proctofoam HC 1-1 % foam 1 applic MS QID PRN (Reason: itching) Qty: 10 0RF Referrals Follow up/Referrals: Landon Ewing DO [Primary Care Provider] - See instructions Activity Restrictions/Add. Instructions Additional Instructions/Restrictions: Drink plenty of fluids. Take tylenol or ibuprofen for pain or fever. Take the medications as directed. Follow up with your regular doctor. GO TO THE ER FOR ANY WORSENING SYMPTOMS Clinical Impressions Clinical Impression: Gastroenteritis Stand Alone Forms Stand Alone Forms: Work/School Release Instructions Patient Instructions: DI for Viral Gastroenteritis -- Adult, Ondansetron Discharge ED Provider: Jd Aaron [facility] General Stated complaint: abd, vomiting Time Seen by Provider: 09/22/23 14:42 History of Present Illness Provider Complaint: He states that since this morning he has had n/v/d. He denies any abdominal pain. He denies fever. Related Data Home Medications Medication Instructions Recorded Confirmed linaclotide 72 mcg capsule 72 mcg PO DAILY CONSTIPATION 08/21/22 09/16/23 (Linzess) ipratropium 0.5 mg-albuterol 3 mg 3 ml inhalation QIDP PRN Shortness 01/19/23 09/16/23 (2.5 mg base)/3 mL nebulization Of Breath soln amoxicillin 875 mg-potassium 1 tab PO Q12H 09/09/23 09/16/23 clavulanate 125 mg tablet atorvastatin 40 mg tablet 40 mg PO HS 09/09/23 09/16/23 clopidogrel 75 mg tablet 75 mg PO DAILY 09/09/23 09/16/23 diltiazem HCl 240 mg 240 mg PO DAILY 09/09/23 09/16/23 capsule,extended release 24 hr levothyroxine 75 mcg tablet 75 mcg PO DAILY 09/09/23 09/16/23 lisinopril 10 mg tablet 10 mg PO DAILY 09/09/23 09/16/23 nebivolol 10 mg tablet 10 mg PO DAILY 09/09/23 09/16/23 Previous Rx's Medication Instructions Recorded rivaroxaban 20 mg tablet (Xarelto) 20 mg PO DAILY #90 tabs 03/02/23 pantoprazole 40 mg tablet,delayed 40 mg PO DAILY Acid reflux #30 tabs 03/23/23 release mupirocin 2 % topical ointment 1 applic topical TID 7 days #15 04/20/23 grams urea 39 % topical cream 1 applic topical BID 10 days #227 05/14/23 grams tadalafil 10 mg tablet (Cialis) 10 mg PO DAILY PRN sexual activity 05/15/23 #30 tabs fluticasone propionate 50 1 spray intranasal DAILY #9.9 mL 06/06/23 mcg/actuation nasal spray,suspension loratadine 10 mg tablet (Claritin) 10 mg PO DAILY PRN allergy 06/06/23 symptoms #30 tabs hydrocortisone 1 %-pramoxine 1 % 1 applic MS QID PRN itching #10 08/11/23 rectal foam (Proctofoam HC) grams nicotine 21 mg/24 hr daily 1 patch transdermal DAILY #14 ea 09/09/23 transdermal patch semaglutide (weight loss) 0.25 0.25 mg (0.5 mL) SQ WEEKLY #2 mL 09/09/23 mg/0.5 mL subcutaneous pen injector (Wegovy) semaglutide (weight loss) 0.25 0.5 mg SQ WEEKLY #2 mL 09/09/23 mg/0.5 mL subcutaneous pen injector (Wegovy) varenicline 0.5 mg (11)-1 mg (42) See Rx Instructions PO PER PKG DIR 09/09/23 tablets in a dose pack (Chantix #53 tabs Starting Month Box) ondansetron 4 mg disintegrating 4 mg PO Q8H PRN Nausea #12 tabs 09/22/23 tablet Allergies Allergy/AdvReac Type Severity Reaction Status Date / Time No Known Allergies Allergy Verified 09/22/23 15:02 [facility] Disclaimer: The information contained in this section may have been updated after the patient was seen, as this information can be updated by other users. Medical History Arthritis Body mass index [BMI] 40.0-44.9, adult CAD (coronary artery disease) CAD (coronary artery disease) Cardiomyopathy CHF (congestive heart failure) COPD (chronic obstructive pulmonary disease) COPD (chronic obstructive pulmonary disease) CVA (cerebral vascular accident) Encounter for pre-operative cardiovascular clearance Erectile dysfunction GERD (gastroesophageal reflux disease) Hx of cardiac pacemaker Hypertension MRSA (methicillin resistant staph aureus) culture positive SVT (supraventricular tachycardia) Tobacco abuse disorder Surgical History Fusion of lumbar spine H/O cardiac catheterization H/O colonoscopy Hx of ventral hernia repair Open right clavicular fracture Family History Mother , at the age of 58 Diabetes Father , at the age of 55 Heart attack Other Family history of diabetes mellitus type II Family history of hypertension Family history of myocardial infarction Social History Smoking Status: Current every day smoker tobacco type: cigarettes packs per day: 1 smoking status start date: 1 pack/day 35 years and ongoing alcohol intake: current substance use type: denies use current occupational status: employed Travel in the last 8 weeks: None household members: none housing: apartment lives independently: Yes marital status: single number of children: 1 service: No 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 [employer] current occupational exposures/hazards: No Hx Recent Travel: No caffeine: Yes special latasha needs: No agree to transfusion: No do you feel safe at home: Yes victim of physical abuse: No victim of emotional abuse: No victim of sexual abuse: No would you like helpful sources: No ROS Obtained: Yes All systems reviewed & no additional complaints except as documented Constitutional Constitutional: Denies chills, Denies fever(s) and Reports poor appetite ENT Ears, Nose, Mouth, and Throat: Denies dizziness and Denies sore throat Cardiovascular Cardiovascular: Denies dyspnea Respiratory Respiratory: Denies chest congestion, Denies cough and Denies dyspnea Gastrointestinal Gastrointestingal: Reports as per HPI, cramping, diarrhea, nausea and vomiting; Denies abdominal pain Musculoskeletal Musculoskeletal: Denies arthralgias Integumentary/Breasts Skin/Breast: Denies rash Neurologic Neurologic: Denies dizziness Physical Exam General General appearance: alert and in no apparent distress Head Head exam: atraumatic and normocephalic Eye Eye exam: Present normal appearance, PERRL and EOMI ENT ENT exam: Present normal exam, normal oropharynx, mucous membranes moist, TM's normal bilaterally and normal external ear exam Neck Neck exam: Present normal inspection, full ROM and trachea midline; Absent tenderness, meningismus or lymphadenopathy Chest Chest inspection: Present normal inspection and symmetric chest wall rise; Absent tenderness, rash or abscess Respiratory Respiratory exam: Present normal lung sounds bilaterally; Absent respiratory distress, wheezes or stridor Cardiovascular Cardiovascular exam: Present regular rate and normal rhythm; Absent irregular rhythm, systolic murmur, diastolic murmur or JVD Abdominal Exam Abdominal exam: Present soft and hyperactive bowel sounds; Absent distention, tenderness, guarding, rebound, rigidity, psoas sign, obturator sign, heel tap sign, Lock's sign, Rovsing's sign or tenderness at McBurney's Point Extremities Exam Extremities exam: Present normal inspection and full ROM; Absent tenderness Back Exam Back exam: Present normal inspection and full ROM; Absent tenderness, CVA tenderness (R) or CVA tenderness (L) Neurological Exam Neurological exam: Present alert, oriented X3 and CN II-XII intact Psychiatric Psychiatric exam: Present normal affect and normal mood Skin Skin exam: Present warm, dry, intact and normal color Lymphatic Lymphatic Findings: no adenopathy Medical Decision Making Medical Records Medical records reviewed: No I reviewed the patient's medical records. Ken Inquiry Pt receiving controlled substance: No Lab Data Lab results reviewed: Yes I reviewed the patient's lab results.
[2023-09-22 15:23] VITALS: BP 0/0; PULSE 70; RESP 16; TEMP 36.7; O2SAT 95
== END 2023-09-22 15:23 | disposition home or self-care (01) ==
PROVIDERS: Emergency Provider Nurse Practitioner Family; PCP Internal Medicine
DX: A08.4 Viral intestinal infection, unspecified (principal); R11.2 Nausea with vomiting, unspecified; R19.7 Diarrhea, unspecified; F17.210 Nicotine dependence, cigarettes, uncomplicated; J44.9 Chronic obstructive pulmonary disease, unspecified; I11.0 Hypertensive heart disease with heart failure; I50.9 Heart failure, unspecified; I25.10 Atherosclerotic heart disease of native coronary artery without angina pectoris; K21.9 Gastro-esophageal reflux disease without esophagitis; Z95.0 Presence of cardiac pacemaker
CPT/HCPCS: 99212; 99214; G0463

== ENCOUNTER 2023-11-10 12:06 | Emergency (ER) | payer MEDICARE, MEDICAID, SELFPAY ==
--- NOTE | 2023-11-10 12:17 | PC.NURSE ---
PT PLACED IN GOWN
[2023-11-10 12:18] VITALS: BP 120/78; PULSE 76; RESP 18; TEMP 36.6; O2SAT 96; BMI 39.7
--- NOTE | 2023-11-10 12:20 | PC.NURSE ---
DR SMITH AT BEDSIDE
--- NOTE | 2023-11-10 12:34 | HMH.EDGENADL ---
Discharge Plan Disposition Patient Disposition: Home, Self-Care Chief Complaint: GI Bleed Prescriptions Prescriptions: No Action tadalafil [Cialis] 10 mg tablet 10 mg PO DAILY PRN (Reason: sexual activity) Qty: 30 1RF atorvastatin 40 mg tablet 40 mg PO HS clopidogrel 75 mg tablet 75 mg PO DAILY diltiazem HCl 240 mg capsule,extended release 24hr 240 mg PO DAILY levothyroxine 75 mcg tablet 75 mcg PO DAILY lisinopril 10 mg tablet 10 mg PO DAILY nebivolol 10 mg tablet 10 mg PO DAILY nicotine 21 mg/24 hr patch 24 hour 1 patch transdermal DAILY Qty: 14 0RF Xarelto 20 mg tablet 20 mg PO DAILY Qty: 90 1RF Patient Comments: TAKE ONE TABLET BY MOUTH EVERY DAY with evening meal pantoprazole 40 mg tablet,delayed release (DR/EC) 40 mg PO DAILY Qty: 30 11RF varenicline 0.5 mg (11)- 1 mg (42) tablets,dose pack See Rx Instructions .ROUTE .COMPLEX Qty: 53 0RF Dose Instruction: TAKE ACCORDING TO PACKAGE INSTRUCTIONS Rx Instructions: TAKE ACCORDING TO PACKAGE INSTRUCTIONS Wegovy 0.25 mg/0.5 mL pen injector 0.25 mg SQ Q7D Qty: 2 0RF Rx Instructions: administer weeks 1 through 4 of therapy mupirocin 2 % ointment 1 applic topical TID 7 Days Qty: 15 0RF fluticasone propionate [fluticasone propionate] 50 mcg/actuation spray,suspension 1 spray intranasal DAILY Qty: 9.9 0RF loratadine [Claritin] 10 mg tablet 10 mg PO DAILY PRN (Reason: allergy symptoms) Qty: 30 0RF ondansetron 4 mg Tablet,Disintegrating 4 mg PO Q8H PRN (Reason: Nausea) Qty: 12 0RF Linzess 72 mcg capsule 72 mcg PO DAILY ipratropium-albuterol 0.5 mg-3 mg(2.5 mg base)/3 mL solution for nebulization 3 ml inhalation QIDP PRN (Reason: Shortness Of Breath) urea 39 % cream 1 applic topical BID 10 Days Qty: 227 0RF Proctofoam HC 1-1 % foam 1 applic NV QID PRN (Reason: itching) Qty: 10 0RF Referrals Follow up/Referrals: Russel Briones MD [Primary Care Provider] - See instructions Activity Restrictions/Add. Instructions Additional Instructions/Restrictions: Call your family doctor to establish care for this visit to the emergency department and schedule follow-up within 48 hours to ensure improvement. If you have any worsening of your condition or any other concerning signs or symptoms, return to the emergency department or your primary care doctor for further evaluation. Take MiraLAX 2 capfuls daily (2 doses) 1 in the morning and 1 at night for the first 3 days. From there on forward, take 1 capful daily. Continue taking other meds as prescribed. Clinical Impressions Clinical Impression: Rectal bleeding Stand Alone Forms Stand Alone Forms: Work/School Release Instructions Patient Instructions: DI for Gastrointestinal Bleeding Discharge ED Provider: Royce Dennis General Adult HPI General Chief complaint: GI Bleed Stated complaint: hemroids bleeding Time Seen by Provider: 11/10/23 12:12 Mode of Arrival: Ambulatory Source of Information: Patient Limitations: No Limitations Description of Symptoms (Recalled from ER Triage Doc. by RN): PT REPORTS BRIGHT RED BLOOD IN TOILET AFTER BOWEL MOVEMENT X 3-4 MONTHS. HX OF HEMORRHOIDS, NOT TAKING ANY STOOL SOFTENERS. DENIES PAIN History of Present Illness HPI narrative: 53-year-old male with history of hypertension, hyperlipidemia, CAD, COPD, CHF with pacemaker in place currently on Xarelto and Plavix, chronic rectal bleeding with internal/external hemorrhoids presenting with rectal bleeding. States that he has had rectal bleeding for a long time, months to year. Usually small amount when he wipes, today he noticed that he had blood in the stool prior to wiping. He states it was a small amount of blood that was bright red. No chest pain, shortness of breath, lightheadedness. Has been taking his blood thinners as prescribed, but has not been taking his bowel regimen of MiraLAX and magnesium citrate orally for no reason in particular. No pain, cramping, fevers, chills, urinary symptoms, history of abnormal colonoscopy, or any other concerns. Please note that above description of symptoms, in this electronic medical record under categorization of recalled from ER triage doctor by RN are reflective of an initial nursing assessment, however, is not reflective of my full history and physical exam that was personally taken and clarified. Consequentially, this preceding description of symptoms, which may include the patient's categorized chief complaint in the EMR, do not reflect my personal clinical impression, and the ultimate description of history of present illness and patient stated complaints should be deferred to this section of the note. Unless stated otherwise or congruent with this section of the note, additional signs, symptoms, or incongruence should be interpreted as inaccurate with my clinical impression. Related Data Home Medications Medication Instructions Recorded Confirmed linaclotide 72 mcg capsule 72 mcg PO DAILY CONSTIPATION 08/21/22 09/23/23 (Linzess) ipratropium 0.5 mg-albuterol 3 mg 3 ml inhalation QIDP PRN Shortness 01/19/23 09/23/23 (2.5 mg base)/3 mL nebulization Of Breath soln atorvastatin 40 mg tablet 40 mg PO HS 09/09/23 09/23/23 clopidogrel 75 mg tablet 75 mg PO DAILY 09/09/23 09/23/23 diltiazem HCl 240 mg 240 mg PO DAILY 09/09/23 09/23/23 capsule,extended release 24 hr levothyroxine 75 mcg tablet 75 mcg PO DAILY 09/09/23 09/23/23 lisinopril 10 mg tablet 10 mg PO DAILY 09/09/23 09/23/23 nebivolol 10 mg tablet 10 mg PO DAILY 09/09/23 09/23/23 Previous Rx's Medication Instructions Recorded rivaroxaban 20 mg tablet (Xarelto) 20 mg PO DAILY #90 tabs 03/02/23 pantoprazole 40 mg tablet,delayed 40 mg PO DAILY Acid reflux #30 tabs 03/23/23 release mupirocin 2 % topical ointment 1 applic topical TID 7 days #15 04/20/23 grams urea 39 % topical cream 1 applic topical BID 10 days #227 05/14/23 grams tadalafil 10 mg tablet (Cialis) 10 mg PO DAILY PRN sexual activity 05/15/23 #30 tabs fluticasone propionate 50 1 spray intranasal DAILY #9.9 mL 06/06/23 mcg/actuation nasal spray,suspension loratadine 10 mg tablet (Claritin) 10 mg PO DAILY PRN allergy 06/06/23 symptoms #30 tabs hydrocortisone 1 %-pramoxine 1 % 1 applic NV QID PRN itching #10 08/11/23 rectal foam (Proctofoam HC) grams nicotine 21 mg/24 hr daily 1 patch transdermal DAILY #14 ea 09/09/23 transdermal patch ondansetron 4 mg disintegrating 4 mg PO Q8H PRN Nausea #12 tabs 09/22/23 tablet varenicline 0.5 mg (11)-1 mg (42) See Rx Instructions .Route 10/08/23 tablets in a dose pack .COMPLEX #53 tabs semaglutide (weight loss) 0.25 0.25 mg (0.5 mL) SQ Q7D #2 mL 11/02/23 mg/0.5 mL subcutaneous pen injector (Wegovy) Allergies Allergy/AdvReac Type Severity Reaction Status Date / Time No Known Allergies Allergy Verified 09/23/23 11:32 [facility] Disclaimer: The information contained in this section may have been updated after the patient was seen, as this information can be updated by other users. Medical History Arthritis Body mass index [BMI] 40.0-44.9, adult CAD (coronary artery disease) CAD (coronary artery disease) Cardiomyopathy CHF (congestive heart failure) COPD (chronic obstructive pulmonary disease) COPD (chronic obstructive pulmonary disease) CVA (cerebral vascular accident) Encounter for pre-operative cardiovascular clearance Erectile dysfunction GERD (gastroesophageal reflux disease) Hx of cardiac pacemaker Hypertension MRSA (methicillin resistant staph aureus) culture positive SVT (supraventricular tachycardia) Tobacco abuse disorder Surgical History Fusion of lumbar spine H/O cardiac catheterization H/O colonoscopy Hx of ventral hernia repair Open right clavicular fracture Family History Mother , at the age of 58 Diabetes Father , at the age of 55 Heart attack Other Family history of diabetes mellitus type II Family history of hypertension Family history of myocardial infarction Social History Smoking Status: Current every day smoker tobacco type: cigarettes packs per day: 1 smoking status start date: 1 pack/day 35 years and ongoing alcohol intake: current substance use type: denies use current occupational status: employed Travel in the last 8 weeks: None household members: none housing: apartment lives independently: Yes marital status: single number of children: 1 service: No 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 [employer] current occupational exposures/hazards: No Hx Recent Travel: No caffeine: Yes special latasha needs: No agree to transfusion: No do you feel safe at home: Yes victim of physical abuse: No victim of emotional abuse: No victim of sexual abuse: No would you like helpful sources: No ROS Obtained: Yes All systems reviewed & no additional complaints except as documented Physical Exam General General appearance: alert and in no apparent distress Head Head exam: atraumatic and normocephalic Eye Eye exam: Present normal appearance, PERRL and EOMI ENT ENT exam: Present mucous membranes moist Neck Neck exam: Present normal inspection, full ROM and trachea midline Respiratory Respiratory exam: Absent respiratory distress, wheezes, stridor, accessory muscle use or prolonged expiratory phase Cardiovascular Cardiovascular exam: Present normal rhythm Abdominal Exam Abdominal exam: Present soft; Absent distention, tenderness, guarding, rebound or rigidity exam: Present other (Rectal exam with gross blood, dark red. External hemorrhoids present. Nontender. No evidence of fissure) Extremities Exam Extremities exam: Absent edema Neurological Exam Neurological exam: Present alert, oriented X3, CN II-XII intact and normal gait; Absent motor sensory deficit Skin Skin exam: Present warm and dry; Absent diaphoresis or erythema Medical Decision Making Medical Records Medical records reviewed: Yes I reviewed the patient's medical records. Ken Inquiry Pt receiving controlled substance: No Ken was queried for this patient: No Vital Signs: 11/10/23 12:18 Temperature 97.8 F Temperature Source Oral Pulse Rate [Radial] 76 Respiratory Rate 18 Blood Pressure [Right Arm] 120/78 Blood Pressure Mean [Right Arm] 92 Blood Pressure Source [Right Arm] Automatic Cuff Blood Pressure Position [Right Arm] Sitting 02 Sat by Pulse Oximetry 96 Oxygen Delivery Method Room Air Lab Data Lab Results 11/10/23 12:35: Hgb 13.9 L, Hct 42.3 11/10/23 12:35 Orders (Tests/Meds): ORDERS Category Date Time Status Hemoglobin and Hematocrit Stat Lab 11/10/23 12:35 Completed Medical Decision Narrative: 53-year-old male with history of hypertension, hyperlipidemia, CAD, COPD, CHF with pacemaker in place currently on Xarelto and Plavix, chronic rectal bleeding with internal/external hemorrhoids presenting with rectal bleeding. States that he has had rectal bleeding for a long time, months to year. Usually small amount when he wipes, today he noticed that he had blood in the stool prior to wiping. He states it was a small amount of blood that was bright red. No chest pain, shortness of breath, lightheadedness. Has been taking his blood thinners as prescribed, but has not been taking his bowel regimen of MiraLAX and magnesium citrate orally for no reason in particular. No pain, cathartic bowel movements, cramping, fevers, chills, urinary symptoms, history of abnormal colonoscopy, or any other concerns. History obtained with patient. On arrival, patient hemodynamically stable. He appears anxious. Rectal exam largely unremarkable. He does have internal and external hemorrhoids that are palpable, difficult to discern if any are actively bleeding, but blood rectal vault is dark red. No abdominal tenderness or cramping. Differential includes diverticulosis, internal hemorrhoid, external hemorrhoid, polyp, anemia, among others. H&H was checked, this demonstrated mild anemia with hemoglobin 13.9, nonactionable overall. Because patient at baseline without signs or symptoms of clinical decompensation, deemed appropriate for discharge. Results were relayed to patient who voiced understanding and were agreeable to outpatient management and follow up. I discussed my clinical impression with patient and answered all questions. At this time, the evidence for any other entities in the differential is insufficient to warrant any further testing or ED observation. This was explained as well. Advisory was given that persistent or worsening symptoms require further evaluation. I confirmed the understanding of this discussion. Critical Care Critical Care Time Critical Care Time: No
[2023-11-10 12:42] LABS: Hematocrit 42.3 % (42.0-52.0); Hemoglobin 13.9 g/dL (14.1-18.0)
--- NOTE | 2023-11-10 13:21 | PC.NURSE ---
DR SMITH AT BEDSIDE TO UPDATE PT
[2023-11-10 13:25] VITALS: BP 129/84; PULSE 74; RESP 18; TEMP 36.7; O2SAT 97
== END 2023-11-10 13:28 | disposition home or self-care (01) ==
PROVIDERS: Emergency Provider Emergency Medicine; PCP Family Medicine
DX: K62.5 Hemorrhage of anus and rectum (principal); F17.210 Nicotine dependence, cigarettes, uncomplicated; J44.9 Chronic obstructive pulmonary disease, unspecified; I11.0 Hypertensive heart disease with heart failure; I25.10 Atherosclerotic heart disease of native coronary artery without angina pectoris; E78.5 Hyperlipidemia, unspecified; I50.9 Heart failure, unspecified; K21.9 Gastro-esophageal reflux disease without esophagitis; Z79.01 Long term (current) use of anticoagulants; Z95.0 Presence of cardiac pacemaker
CPT/HCPCS: 85014; 85018; 99283

== ENCOUNTER 2024-02-22 07:08 | Outpatient (CLI) | payer MEDICARE, MEDICAID, SELFPAY ==
--- NOTE | 2024-02-22 07:14 | CT_ITS ---
FINAL REPORT CLINICAL HISTORY: soft tissue mass of right foot FINDINGS: CT RIGHT FOOT WITHOUT AND WITH CONTRAST TECHNIQUE: Axial and reformatted sagittal and coronal images were obtained of the right foot before and after the injection of IV contrast. This study was performed with techniques to keep radiation doses as low as reasonably achievable, (ALARA). Individualized dose reduction techniques using automated exposure control or adjustment of mA and/or kV according to the patient's size were employed. FINDINGS: There is no bony destruction or focal bony lesion. There is a multiloculated cystic mass extending from the deep soft tissues at the level of the mid first and second metatarsals, passing between the first and second digit flexor tendons with a component in the subcutaneous tissues. Although this is difficult to measure, the lesion appears to measure 58 mm in length x 17 mm in width x 32 mm in thickness. An abscess is favored over other processes such as cystic neoplasm or old hematoma. The enhancing soft tissue capsule measures up to 3 mm. IMPRESSION: No acute process Reviewed, Interpreted and Dictated by Melba Castañeda MD Transcribed by Alysa Sim Authenticated and . [facility]
[2024-02-22 07:54] LABS: Blood Urea Nitrogen 7 mg/dl (9-20); Estimated Glomerular Filt Rate 88 ml/min (>60); GFR (African American) 106 ML/MIN (>60)
== END 2024-02-22 23:59 | disposition home or self-care (01) ==
LOC: RAD 07:11
PROVIDERS: PCP Internal Medicine; Visit Provider Nurse Practitioner
DX: M79.89 Other specified soft tissue disorders (principal); M67.471 Ganglion, right ankle and foot; M72.2 Plantar fascial fibromatosis
CPT/HCPCS: 36415; 73702; 82565; 84520; Q9967

== ENCOUNTER 2024-03-01 11:41 | Outpatient (CLI) | payer MEDICARE, MEDICAID, SELFPAY ==
[2024-03-01 12:22] LABS: Basophils # 0.1 K/mm3 (0-0.2); Basophils % 0.9 % (0.1-2.0); Eosinophils # 0.6 K/mm3 (0.0-0.4); Eosinophils % 7.3 % (0.1-12.0); Hematocrit 41.5 % (42.0-52.0); Lymphocytes # 2.5 K/mm3 (0.7-4.5); Lymphocytes % 31.1 % (10-50); Mean Corpuscular HGB Conc 33.6 g/dL (31.8-35.4); Mean Corpuscular Hemoglobin 32.1 pg (27.0-31.2); Mean Corpuscular Volume 95.5 fl (80-94); Mean Platelet Volume 7.2 fl (7.4-10.4); Monocytes # 0.6 K/mm3 (0.1-1.0); Neutrophils # 4.3 K/mm3 (1.8-7.8); Neutrophils % 53.6 % (37.0-80.0); Platelet Count 333 K/mm3 (142-424); Red Blood Count 4.35 M/mm3 (4.60-6.20); Red Cell Distribution Width 13.1 % (11.5-17.5)
[2024-03-01 13:15] LABS: Alanine Aminotransferase 24 U/L (12-78); Albumin/Globulin Ratio 1.4 (1.1-1.8); Alkaline Phosphatase 64 U/L (38-126); Anion Gap 9.4 mEq/L (5-15); Aspartate Amino Transferase 26 U/L (17-59); Bilirubin,Total 0.4 mg/dl (0.2-1.3); Blood Urea Nitrogen 13 mg/dl (9-20); Calcium 9.3 mg/dl (8.4-10.2); Carbon Dioxide 26 mmol/L (22.0-30.0); Chloride 108 mmol/L (98-107); Estimated Glomerular Filt Rate 117 ml/min (>60); GFR (African American) 142 ML/MIN (>60); Globulin 2.9 g/dL (1.3-3.2); Glucose 86 mg/dl (74-100); Potassium 4.4 mmoL/L (3.5-5.1); Sodium 139 mmol/L (136-145); Total Protein,Serum 6.9 g/dl (6.3-8.2)
[2024-03-01 13:20] LABS: C-Reactive Protein 2.8 mg/L (0-4)
[2024-03-01 14:02] LABS: Erythrocyte Sedimentation Rate 17 mm/hr (0-20)
[2024-03-23 11:47] LABS: Nicotine 7.2
[2024-03-23 11:48] LABS: Cotinine 147.3
== END 2024-03-01 23:59 | disposition home or self-care (01) ==
LOC: LAB 11:43
PROVIDERS: PCP Internal Medicine; Visit Provider Podiatrist
DX: E11.9 Type 2 diabetes mellitus without complications (principal); M79.89 Other specified soft tissue disorders; M72.2 Plantar fascial fibromatosis; F17.200 Nicotine dependence, unspecified, uncomplicated
CPT/HCPCS: 36415; 80053; 80323; 83036; 85025; 85651; 86140; G0480

== ENCOUNTER 2024-06-20 16:44 | Emergency (ER) | payer MEDICARE, MEDICAID, SELFPAY ==
[2024-06-20 16:45] VITALS: BP 118/69; PULSE 84; RESP 18; TEMP 36.7; O2SAT 95; BMI 36.6
--- NOTE | 2024-06-20 17:01 | HMH.EDGENADL ---
Discharge Plan Disposition Patient Disposition: Home, Self-Care Condition: Good Prescriptions Prescriptions: No Action tadalafil [Cialis] 10 mg tablet 10 mg PO DAILY PRN (Reason: sexual activity) Qty: 30 1RF albuterol sulfate 90 mcg/actuation HFA aerosol inhaler 1 inh inhalation QID Qty: 6.7 5RF atorvastatin 40 mg tablet 40 mg PO HS methocarbamol 500 mg tablet See Rx Instructions .ROUTE .COMPLEX Qty: 120 2RF Dose Instruction: TAKE TWO TABLETS BY MOUTH THREE TIMES DAILY NEEDED FOR MUSCLE SPASMS. DO NOT TAKE WITHIN 8 HOURS OF EACH OTHER OR CYCLOBENZAPRINE Rx Instructions: TAKE TWO TABLETS BY MOUTH THREE TIMES DAILY NEEDED FOR MUSCLE SPASMS. DO NOT TAKE WITHIN 8 HOURS OF EACH OTHER OR CYCLOBENZAPRINE cyclobenzaprine 5 mg tablet 5 mg PO HS PRN (Reason: muscle spasm) Qty: 30 0RF bupropion HCl [Wellbutrin SR] 150 mg tablet sustained-release 12 hr 150 mg PO Q12H Qty: 60 2RF Xarelto 20 mg tablet 20 mg PO DAILY Qty: 90 1RF Patient Comments: TAKE ONE TABLET BY MOUTH EVERY DAY with evening meal clopidogrel 75 mg tablet See Rx Instructions .ROUTE .COMPLEX Qty: 90 3RF Dose Instruction: TAKE ONE TABLET BY MOUTH EVERY DAY Rx Instructions: TAKE ONE TABLET BY MOUTH EVERY DAY nebivolol 10 mg tablet See Rx Instructions .ROUTE .COMPLEX Qty: 90 3RF Dose Instruction: TAKE ONE TABLET BY MOUTH EVERY DAY Rx Instructions: TAKE ONE TABLET BY MOUTH EVERY DAY lisinopril 10 mg tablet See Rx Instructions .ROUTE .COMPLEX Qty: 90 2RF Dose Instruction: TAKE ONE TABLET BY MOUTH EVERY DAY FOR BLOOD PRESSURE Rx Instructions: TAKE ONE TABLET BY MOUTH EVERY DAY FOR BLOOD PRESSURE duloxetine 30 mg capsule,delayed release(DR/EC) See Rx Instructions .ROUTE .COMPLEX Qty: 180 0RF Dose Instruction: TAKE ONE CAPSULE BY MOUTH TWICE DAILY Rx Instructions: TAKE ONE CAPSULE BY MOUTH TWICE DAILY levothyroxine 75 mcg tablet See Rx Instructions .ROUTE .COMPLEX Qty: 90 0RF Dose Instruction: TAKE ONE TABLET BY MOUTH EVERY DAY Rx Instructions: TAKE ONE TABLET BY MOUTH EVERY DAY Linzess 72 mcg capsule See Rx Instructions .ROUTE .COMPLEX Qty: 30 0RF Dose Instruction: TAKE ONE CAPSULE BY MOUTH EVERY DAY Rx Instructions: TAKE ONE CAPSULE BY MOUTH EVERY DAY diltiazem HCl 240 mg capsule,extended release 24hr See Rx Instructions .ROUTE .COMPLEX Qty: 90 4RF Dose Instruction: TAKE ONE CAPSULE BY MOUTH EVERY DAY Rx Instructions: TAKE ONE CAPSULE BY MOUTH EVERY DAY pantoprazole 40 mg tablet,delayed release (DR/EC) 40 mg PO DAILY Qty: 90 1RF Wegovy 2.4 mg/0.75 mL pen injector 2.4 mg SQ WEEKLY Qty: 3.75 2RF fluticasone propionate [fluticasone propionate] 50 mcg/actuation spray,suspension 1 spray intranasal DAILY Qty: 9.9 0RF loratadine [Claritin] 10 mg tablet 10 mg PO DAILY PRN (Reason: allergy symptoms) Qty: 30 0RF ondansetron 4 mg Tablet,Disintegrating 4 mg PO Q8H PRN (Reason: Nausea) Qty: 12 0RF ipratropium-albuterol 0.5 mg-3 mg(2.5 mg base)/3 mL solution for nebulization 3 ml inhalation QIDP PRN (Reason: Shortness Of Breath) Referrals Follow up/Referrals: Landon Ewing DO [Primary Care Provider] - See instructions Activity Restrictions/Add. Instructions Additional Instructions/Restrictions: Discharge back to Dr. Syed for consideration of closure of ventral hernia. Follow-up with your PCP for no improvement or worsening signs or symptoms. Clinical Impressions Clinical Impression: Hernia, ventral Qualifiers: Obstruction and gangrene presence: without obstruction or gangrene Qualified Code(s): K43.9 - Ventral hernia without obstruction or gangrene Stand Alone Forms Stand Alone Forms: Work/School Release Instructions Patient Instructions: DI for Ventral Hernia Print Language Print Language: Nepalese Discharge ED Provider: Royce Dennis General Adult HPI <NIKI Leach - Last Filed: 06/21/24 16:29> General Chief complaint: Abdominal Pain Stated complaint: Naval hernia with pain Time Seen by Provider: 06/20/24 17:01 History of Present Illness HPI narrative: Patient presents for evaluation of ventral hernia pain. Patient has a longstanding history of a ventral hernia. He attempted to have a repair last year but apparently went into a cardiac arrhythmia during induction and the procedure was aborted. He has not followed up since. However he states over the last week he has had increasing discomfort but has had no nausea no vomiting is still passing gas and having bowel movements. Related Data Home Medications ?Medication ?Instructions ?Recorded ?Confirmed ipratropium 0.5 mg-albuterol 3 mg 3 ml inhalation QIDP PRN Shortness 01/19/23 05/24/24 (2.5 mg base)/3 mL nebulization Of Breath soln atorvastatin 40 mg tablet 40 mg PO HS 09/09/23 05/24/24 Previous Rx's ?Medication ?Instructions ?Recorded tadalafil 10 mg tablet (Cialis) 10 mg PO DAILY PRN sexual activity 05/15/23 #30 tabs fluticasone propionate 50 1 spray intranasal DAILY #9.9 mL 06/06/23 mcg/actuation nasal spray,suspension loratadine 10 mg tablet (Claritin) 10 mg PO DAILY PRN allergy 06/06/23 symptoms #30 tabs ondansetron 4 mg disintegrating 4 mg PO Q8H PRN Nausea #12 tabs 09/22/23 tablet rivaroxaban 20 mg tablet (Xarelto) 20 mg PO DAILY #90 tabs 12/04/23 albuterol sulfate 90 mcg/actuation 1 inh inhalation QID #6.7 grams 12/23/23 aerosol inhaler clopidogrel 75 mg tablet See Rx Instructions .Route 01/07/24 .COMPLEX #90 tabs nebivolol 10 mg tablet See Rx Instructions .Route 01/07/24 .COMPLEX #90 tabs lisinopril 10 mg tablet See Rx Instructions .Route 01/25/24 .COMPLEX #90 tabs duloxetine 30 mg capsule,delayed See Rx Instructions .Route 03/14/24 release .COMPLEX #180 caps levothyroxine 75 mcg tablet See Rx Instructions .Route 03/14/24 .COMPLEX #90 tabs linaclotide 72 mcg capsule See Rx Instructions .Route 04/18/24 (Linzess) .COMPLEX #30 caps bupropion HCl 150 mg tablet,12 hr 150 mg PO Q12H #60 ea 05/24/24 sustained-release (Wellbutrin SR) cyclobenzaprine 5 mg tablet 5 mg PO HS PRN muscle spasm #30 05/24/24 tabs methocarbamol 500 mg tablet See Rx Instructions .Route 05/24/24 .COMPLEX #120 tabs diltiazem HCl 240 mg See Rx Instructions .Route 05/31/24 capsule,extended release 24 hr .COMPLEX #90 caps pantoprazole 40 mg tablet,delayed 40 mg PO DAILY Acid reflux #90 tabs 06/17/24 release semaglutide (weight loss) 2.4 2.4 mg (0.75 mL) SQ WEEKLY #3.75 mL 06/17/24 mg/0.75 mL subcutaneous pen injector (Wegovy) Allergies Allergy/AdvReac Type Severity Reaction Status Date / Time No Known Allergies Allergy Verified 05/24/24 10:55 [facility] <NIKI Leach - Last Filed: 06/21/24 16:29> [facility] Disclaimer: The information contained in this section may have been updated after the patient was seen, as this information can be updated by other users. Medical History Atrial fibrillation Body mass index [BMI] 40.0-44.9, adult Encounter for pre-operative cardiovascular clearance Hx of cardiac pacemaker COPD (chronic obstructive pulmonary disease) Erectile dysfunction Arthritis CAD (coronary artery disease) SVT (supraventricular tachycardia) MRSA (methicillin resistant staph aureus) culture positive CHF (congestive heart failure) Cardiomyopathy Hypertension CAD (coronary artery disease) COPD (chronic obstructive pulmonary disease) GERD (gastroesophageal reflux disease) Tobacco abuse disorder CVA (cerebral vascular accident) Surgical History Hx of ventral hernia repair Fusion of lumbar spine Open right clavicular fracture H/O colonoscopy H/O cardiac catheterization Family History Mother , at the age of 58 Diabetes Father , at the age of 55 Heart attack Other Family history of diabetes mellitus type II Family history of hypertension Family history of myocardial infarction Social History Smoking Status: Never smoker smoking status start date: 1 pack/day 35 years and ongoing alcohol intake: current alcohol intake frequency: a few times a month substance use type: denies use current occupational status: employed Travel in the last 8 weeks: None household members: none housing: apartment lives independently: Yes marital status: single number of children: 1 service: No 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 [employer] current occupational exposures/hazards: No Hx Recent Travel: No caffeine: Yes special latasha needs: No agree to transfusion: No do you feel safe at home: Yes victim of physical abuse: No victim of emotional abuse: No victim of sexual abuse: No would you like helpful sources: No Other Medical History Have you received the Pneumonia Vaccine: Yes <NIKI Leach - Last Filed: 06/21/24 16:29> ROS Obtained: Yes Systems reviewed as appropriate & no additional complaints except as documented Physical Exam <NIKI Leach - Last Filed: 06/21/24 16:29> General General appearance: alert and in no apparent distress Head Head exam: normal inspection Neck Neck exam: Present lymphadenopathy Respiratory Respiratory exam: Present normal lung sounds bilaterally Cardiovascular Cardiovascular exam: Present regular rate Neurological Exam Neurological exam: Present alert and oriented X3 Medical Decision Making <NIKI Leach - Last Filed: 06/21/24 16:29> Medical Records Medical records reviewed: Yes I reviewed the patient's medical records. Screening: Per USPSTF and CDC recommendations, given the prevalence of disease in our region, it is our hospital?s policy to screen for HIV and viral Hepatitis for all patients aged 18 and over and those with ongoing risk factors. Ken Inquiry Pt receiving controlled substance: No Vital Signs: 06/20/24 16:45 06/20/24 20:02 06/20/24 21:06 Temperature 98.1 F 99.4 F 98.0 F Temperature Source Oral Oral Pulse Rate 75 Pulse Rate [Left Radial] 84 65 Respiratory Rate 18 20 18 Blood Pressure 122/87 Blood Pressure [Left Arm] 118/69 131/85 Blood Pressure Mean [Left Arm] 85 100 02 Sat by Pulse Oximetry 95 96 Oxygen Delivery Method Room Air Lab Data Lab results reviewed: Yes I reviewed the patient's lab results. Lab Results 06/20/24 19:11: WBC 9.1, RBC 4.64, Hgb 14.6, Hct 42.5, MCV 91.5, MCH 31.5 H, MCHC 34.5, RDW 13.0, Plt Count 338, MPV 6.9 L, Neut % (Auto) 52.9, Lymph % (Auto) 32.6, [place] % (Auto) 6.4, Eos % (Auto) 6.7, Baso % (Auto) 1.3, Neut # (Auto) 4.8, Lymph # (Auto) 3.0, [place] # (Auto) 0.6, Eos # (Auto) 0.6 H, Baso # (Auto) 0.1, Sodium 139, Potassium 4.3, Chloride 107, Carbon Dioxide 25, Anion Gap 11.3, BUN 9, Creatinine 0.80, Estimated Creat Clear 171, Estimated GFR 100, Est GFR ( Amer) 121, Glucose 104 H, Calcium 8.9, Total Bilirubin 0.3, AST 30, ALT 24, Alkaline Phosphatase 63, Total Protein 7.1, Albumin 4.0, Globulin 3.1, Albumin/Globulin Ratio 1.3 06/20/24 19:11 06/20/24 19:11 Orders (Tests/Meds): ED MEDICATIONS Discontinued Medications Generic Name Dose Route Start Last Admin Trade Name Freq PRN Reason Stop Dose Admin Iopamidol 75 ml 06/20/24 20:33 06/20/24 20:34 Iopamidol-370 (76%);100ml Bottle IV 06/20/24 20:34 75 ml ONCE ONE Administration Sodium Chloride 10 ml 06/20/24 20:33 06/20/24 20:34 Sodium Chloride 0.9% 10ml Syr (Rad Only) IV 07/20/24 20:32 10 ml NEEDED PRN Administration Maintain IV Site ORDERS Category Date Time Status CT abdomen pelvis w con Stat Cat Scan 06/20/24 17:10 Completed CBC w/Auto Diff [Complete Blood Count Auto Diff] Stat Lab 06/20/24 19:11 Completed CMP [Comprehensive Metabolic Panel] Stat Lab 06/20/24 19:11 Completed Medical Decision Narrative: In summary patient is a 3-year-old male who presents to the emergency department for evaluation of ventral hernia pain. Patient is hemodynamically stable upon arrival, afebrile. Physical exam is remarkable for well-nourished well-developed morbidly obese 53-year-old male. The current listed weight in the demographics is incorrect as there is no way that he is 24 kg. Physical exam reveals a supraumbilical ventral hernia on palpation that could have been a umbilical hernia originally. I do feel a loop of bowel protruding but it was easily reducible but recurred immediately. The remainder of his exam is unremarkable and nonfocal. He has normal bowel sounds no rebound no guarding no rigidity. Differential diagnosis includes patent nonobstructed incarcerated ventral hernia versus partial small bowel obstruction versus incarcerated hernia etc. Initial workup will be conducted with hematologic labs CT scan abdomen pelvis. Initial interventions include Tylenol and Motrin for now. Initial workup reviewed by me and his hematologic labs are nonactionable and my informal interpretation of CT scan abdomen pelvis shows a wid[place] ventral hernia with a fairly large hernia sac containing no bowel currently. In comparison to previous imaging the hernia sac itself appears to be larger in the interval. No other acute intra-abdominal processes are seen. Upon repeat evaluation patient remains hemodynamically stable and is tolerating oral intake. Given this patient will be referred back to general surgery for reevaluation of repair of the defect. Patient given strict return precautions. <Royce Dennis MD - Last Filed: 06/25/24 07:19> Vital Signs: 06/20/24 16:45 06/20/24 20:02 06/20/24 21:06 Temperature 98.1 F 99.4 F 98.0 F Temperature Source Oral Oral Pulse Rate 75 Pulse Rate [Left Radial] 84 65 Respiratory Rate 18 20 18 Blood Pressure 122/87 Blood Pressure [Left Arm] 118/69 131/85 Blood Pressure Mean [Left Arm] 85 100 02 Sat by Pulse Oximetry 95 96 Oxygen Delivery Method Room Air Lab Data Lab Results 06/20/24 19:11: WBC 9.1, RBC 4.64, Hgb 14.6, Hct 42.5, MCV 91.5, MCH 31.5 H, MCHC 34.5, RDW 13.0, Plt Count 338, MPV 6.9 L, Neut % (Auto) 52.9, Lymph % (Auto) 32.6, [place] % (Auto) 6.4, Eos % (Auto) 6.7, Baso % (Auto) 1.3, Neut # (Auto) 4.8, Lymph # (Auto) 3.0, [place] # (Auto) 0.6, Eos # (Auto) 0.6 H, Baso # (Auto) 0.1, Sodium 139, Potassium 4.3, Chloride 107, Carbon Dioxide 25, Anion Gap 11.3, BUN 9, Creatinine 0.80, Estimated Creat Clear 171, Estimated GFR 100, Est GFR ( Amer) 121, Glucose 104 H, Calcium 8.9, Total Bilirubin 0.3, AST 30, ALT 24, Alkaline Phosphatase 63, Total Protein 7.1, Albumin 4.0, Globulin 3.1, Albumin/Globulin Ratio 1.3 Orders (Tests/Meds): ED MEDICATIONS Discontinued Medications Generic Name Dose Route Start Last Admin Trade Name Sylvia PRN Reason Stop Dose Admin Iopamidol 75 ml 06/20/24 20:33 06/20/24 20:34 Iopamidol-370 (76%);100ml Bottle IV 06/20/24 20:34 75 ml ONCE ONE Administration Sodium Chloride 10 ml 06/20/24 20:33 06/20/24 20:34 Sodium Chloride 0.9% 10ml Syr (Rad Only) IV 07/20/24 20:32 10 ml NEEDED PRN Administration Maintain IV Site ORDERS Category Date Time Status CT abdomen pelvis w con Stat Cat Scan 06/20/24 17:10 Completed CBC w/Auto Diff [Complete Blood Count Auto Diff] Stat Lab 06/20/24 19:11 Completed CMP [Comprehensive Metabolic Panel] Stat Lab 06/20/24 19:11 Completed Medical Decision Narrative: In summary patient is a 3-year-old male who presents to the emergency department for evaluation of ventral hernia pain. Patient is hemodynamically stable upon arrival, afebrile. Physical exam is remarkable for well-nourished well-developed morbidly obese 53-year-old male. The current listed weight in the demographics is incorrect as there is no way that he is 24 kg. Physical exam reveals a supraumbilical ventral hernia on palpation that could have been a umbilical hernia originally. I do feel a loop of bowel protruding but it was easily reducible but recurred immediately. The remainder of his exam is unremarkable and nonfocal. He has normal bowel sounds no rebound no guarding no rigidity. Differential diagnosis includes patent nonobstructed incarcerated ventral hernia versus partial small bowel obstruction versus incarcerated hernia etc. Initial workup will be conducted with hematologic labs CT scan abdomen pelvis. Initial interventions include Tylenol and Motrin for now. Initial workup reviewed by me and his hematologic labs are nonactionable and my informal interpretation of CT scan abdomen pelvis shows a [place] ventral hernia with a fairly large hernia sac containing no bowel currently. In comparison to previous imaging the hernia sac itself appears to be larger in the interval. No other acute intra-abdominal processes are seen. Upon repeat evaluation patient remains hemodynamically stable and is tolerating oral intake. Given this patient will be referred back to general surgery for reevaluation of repair of the defect. Patient given strict return precautions. I was consulted by the HAILEY, and we discussed the complexity of the problems being addressed. I approved the treatment and management plan for this patient's care in the Emergency Department, thus performing a substantive portion of the medical decision making. Royce Dennis MD Critical Care <NIKI Leach - Last Filed: 06/21/24 16:29> Critical Care Time Critical Care Time: No
--- NOTE | 2024-06-20 17:10 | CT_ITS ---
PROCEDURE INFORMATION: Exam: CT Abdomen And Pelvis With Contrast Exam date and time: 06/20/2024 8:21 PM Age: 53 years old Clinical indication: Abdominal pain; Additional info: Ventral hernia pain TECHNIQUE: Imaging protocol: Computed tomography of the abdomen and pelvis with contrast. Radiation optimization: All CT scans at this facility use at least one of these dose optimization techniques: automated exposure control; mA and/or kV adjustment per patient size (includes targeted exams where dose is matched to clinical indication); or iterative reconstruction. Contrast material: ISOVUE; Contrast volume: 75 ml; Contrast route: IV; COMPARISON: CT ABDOMEN PELVIS W CON 12/15/2022 9:08 AM FINDINGS: Liver: Decreased density throughout the liver compatible with hepatic steatosis. Gallbladder and biliary ducts: Contracted gallbladder Pancreas: Pancreas unremarkable Spleen: The spleen is unremarkable. Adrenal glands: Persistent mild thickening of both adrenal glands. The bilateral adrenal adenomas again suggested. Kidneys and ureters: Perinephric stranding. Findings nonspecific and may reflect acute versus chronic inflammatory change.. Left renal cyst again demonstrated Stomach and bowel: No evidence of bowel extending into the defect. Mild-moderate stool burden. Colonic diverticulosis. No evidence of diverticulitis. Appendix: Appendix unremarkable Intraperitoneal space: Unremarkable. No free air. No significant fluid collection. Vasculature: Unremarkable. No abdominal aortic aneurysm. Lymph nodes: Unremarkable. No enlarged lymph nodes. Urinary bladder: Unremarkable as visualized. Reproductive: Prostatic calcification Bones/joints: Fusion hardware L4-L5. Soft tissues: Fat filled umbilical hernia. Periumbilical hernia again demonstrated slightly superiorly. Defect measuring 2 cm. Interim increase in size of the hernia sac to 4.4 cm. Prostatic enlargementFat filled inguinal hernias. Evidence of hernia repair along the anterior superior abdominal wall. IMPRESSION: 1. Periumbilical hernia again demonstrated slightly superiorly. Defect measuring 2 cm. Interim increase in size of the hernia sac to 4.4 cm. 2. No evidence of acute abnormality.
[2024-06-20 19:18] LABS: Basophils # 0.1 K/mm3 (0-0.2); Basophils % 1.3 % (0.1-2.0); Eosinophils # 0.6 K/mm3 (0.0-0.4); Eosinophils % 6.7 % (0.1-12.0); Hematocrit 42.5 % (42.0-52.0); Hemoglobin 14.6 g/dL (14.1-18.0); Lymphocytes % 32.6 % (10-50); Mean Corpuscular HGB Conc 34.5 g/dL (31.8-35.4); Mean Corpuscular Hemoglobin 31.5 pg (27.0-31.2); Mean Corpuscular Volume 91.5 fl (80-94); Mean Platelet Volume 6.9 fl (7.4-10.4); Monocytes # 0.6 K/mm3 (0.1-1.0); Monocytes % 6.4 % (1.7-9.3); Neutrophils # 4.8 K/mm3 (1.8-7.8); Neutrophils % 52.9 % (37.0-80.0); Platelet Count 338 K/mm3 (142-424); Red Blood Count 4.64 M/mm3 (4.60-6.20); White Blood Count 9.1 K/mm3 (4.8-10.8)
--- NOTE | 2024-06-20 19:25 | PC.NURSE ---
Pt resting comfortably in chair. States abd pain a 7 on 1-10 scale with some associated nausea. Bowel sounds + x4. Abd soft and rounded. Skin pink warm and dry REsp full and easy HERNANDEZ x4
[2024-06-20 19:40] LABS: Chloride 107 mmol/L (98-107); Potassium 4.3 mmoL/L (3.5-5.1); Sodium 139 mmol/L (136-145)
[2024-06-20 19:43] LABS: Alanine Aminotransferase 24 U/L (12-78); Albumin/Globulin Ratio 1.3 (1.1-1.8); Alkaline Phosphatase 63 U/L (38-126); Anion Gap 11.3 mEq/L (5-15); Aspartate Amino Transferase 30 U/L (17-59); Bilirubin,Total 0.3 mg/dl (0.2-1.3); Calcium 8.9 mg/dl (8.4-10.2); Carbon Dioxide 25 mmol/L (22.0-30.0); Globulin 3.1 g/dL (1.3-3.2); Glucose 104 mg/dl (74-100); Total Protein,Serum 7.1 g/dl (6.3-8.2)
[2024-06-20 19:59] LABS: Blood Urea Nitrogen 9 mg/dl (9-20); Creatinine Clearance Estimated 171 mL/min (50-200); Estimated Glomerular Filt Rate 100 ml/min (>60); GFR (African American) 121 ML/MIN (>60)
[2024-06-20 20:02] VITALS: BP 131/85; PULSE 65; RESP 20; TEMP 37.4; O2SAT 96; BMI 16.2
[2024-06-20] MEDS: SODIUM CHLORIDE 0.9% 10ML SYR (RAD ONLY) 10 ML IV (20:34)
[2024-06-20] MEDS: IOPAMIDOL-370 (76%);100ML BOTTLE 75 ML IV (20:34)
[2024-06-20 21:06] VITALS: BP 122/87; PULSE 75; RESP 18; TEMP 36.7; O2SAT 96
== END 2024-06-20 21:08 | disposition home or self-care (01) ==
PROVIDERS: Physician Assistant; Emergency Provider Emergency Medicine; PCP Internal Medicine
DX: K43.9 Ventral hernia without obstruction or gangrene (principal)
CPT/HCPCS: 74177; 80053; 85025; 99285; Q9967

== ENCOUNTER 2024-07-06 07:21 | Emergency (ER) | payer MEDICARE, MEDICAID, SELFPAY ==
[2024-07-06 07:23] VITALS: BP 134/81; PULSE 81; RESP 16; TEMP 36.6; O2SAT 98; BMI 35.6
--- NOTE | 2024-07-06 07:34 | CT_ITS ---
FINAL REPORT CLINICAL HISTORY: trauma, critical injury suspected COMPARISON: 05/11/2019 FINDINGS: Axial images of the head were obtained without contrast. Coronal reformatted images were also obtained. This study was performed with techniques to keep radiation doses as low as reasonably achievable (ALARA). Individualized dose reduction techniques using automated exposure control or adjustment of mA and/or kV according to the patient's size were employed. There is no evidence of intracranial hemorrhage or mass. There is encephalomalacia in the right occipital region consistent with a remote posterior cerebral artery distribution infarct, stable when compared to the prior exam of 2019. Mild age-appropriate atrophy is present. There is no evidence of shift of the midline structures. No abnormal extra axial fluid collection is identified. No skull abnormality is seen on the bone window images. There is mild soft tissue thickening in the maxillary and ethmoid sinuses. IMPRESSION: No acute intracranial abnormality. 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 Reviewed, Interpreted and Dictated by Oswaldo Dinero III, MD Transcribed by Hilda Boston Authenticated and [facility]
--- NOTE | 2024-07-06 07:34 | CT_ITS ---
FINAL REPORT TECHNIQUE: Pre-and postcontrast images of the abdomen and pelvis were performed by computed tomography. Extensive 3-D reconstruction images were performed. A CTA was performed. This study was performed with techniques to keep radiation doses as low as reasonably achievable (ALARA). Individualized dose reduction techniques using automated exposure control or adjustment of mA and/or kV according to the patient's size were employed. CLINICAL HISTORY: trauma, critical injury suspected COMPARISON: None FINDINGS: ABDOMEN AND PELVIS: CT ABDOMEN/PELVIS: The liver, spleen, pancreas are unremarkable in appearance. There is bilateral adrenal enlargement, favor adenomas. Bilateral renal cysts are noted as well. There is diverticulosis of the descending and sigmoid portions of the colon without evidence of acute inflammatory change. There is a supraumbilical hernia containing fat, as well as bilateral inguinal hernias containing fat. There is heterogeneous attenuation of the posterior aspect of the bladder, favor contrast mixing over other etiologies including hemorrhage. Degenerative changes of the spine are present with posterior fusion at the L4-5 level. CTA: The abdominal aorta is proper caliber, without evidence of aneurysm or dissection. The SMA, celiac axis, and SARA are patent. There is no significant stenosis or calcification. The renal arteries are patent bilaterally. IMPRESSION: No evidence of vascular dissection or aneurysm in the abdomen and pelvis. Bilateral adrenal enlargement, favor adenomas. Reviewed, Interpreted and Dictated by Oswaldo Dinero III, MD Transcribed by Hilda Boston Authenticated and [facility]
--- NOTE | 2024-07-06 07:34 | CT_ITS ---
FINAL REPORT TECHNIQUE: Thin-section axial CT with IV contrast supplemented with multi planar reconstruction under CT angiogram protocol was performed of the neck. This study was performed technique to keep radiation doses as low as reasonably achievable, (ALARA). NASCET criteria was utilized during interpretation. CLINICAL HISTORY: trauma, critical injury suspected COMPARISON: None FINDINGS: Aortic arch: Arch shows no significant narrowing. Great vessel origins are widely patent. Right carotid: No significant stenosis is seen at the cervical common or internal carotid artery. Left carotid: There is mild to moderate plaque in the left carotid bulb, without evidence of carotid stenosis. Vertebrals: Left vertebral artery is dominant. No significant stenosis is present. IMPRESSION: No evidence of significant stenosis or major branch occlusion. Mild to moderate plaque in the left carotid bulb without evidence of significant carotid artery stenosis. Reviewed, Interpreted and Dictated by Oswaldo Dinero III, MD Transcribed by Hilda Boston Authenticated and [facility]
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
--- NOTE | 2024-07-06 07:34 | CT_ITS ---
FINAL REPORT TECHNIQUE: Axial imaging of the lumbar spine was obtained without contrast. Sagittal and coronal reformatted images were also obtained and reviewed. This study was performed with techniques to keep radiation doses as low as reasonably achievable (ALARA). Individualized dose reduction techniques using automated exposure control or adjustment of mA and/or kV according to the patient's size were employed. CLINICAL HISTORY: trauma, critical injury suspected COMPARISON: None FINDINGS: There is no fracture. The vertebral alignment is normal. Mild and moderate degenerative change is present. There has been lumbar fusion at the L4-5 level. There is no evidence of significant central canal stenosis. There is mild retrolisthesis involving the L1-2, L3-4, and L5-S1 levels. There is moderate to severe bilateral neural foraminal narrowing at the L4-5 level. IMPRESSION: Multilevel degenerative change without acute bony abnormality. Reviewed, Interpreted and Dictated by Oswaldo Dinero III, MD Transcribed by Hilda Boston Authenticated and [facility]
--- NOTE | 2024-07-06 07:34 | CT_ITS ---
FINAL REPORT TECHNIQUE: Then section axial CT images of the chest were obtained with contrast. Three-D reformatted images were also obtained.This study was performed with techniques to keep radiation doses as low as reasonably achievable (ALARA). Individualized dose reduction techniques using automated exposure control or adjustment of mA and/or kV according to the patient's size were employed. CLINICAL HISTORY: trauma, critical injury suspected COMPARISON: CT chest 07/11/2022 FINDINGS: There is no evidence of pulmonary embolism. There is no evidence of thoracic aortic aneurysm or dissection. There is no evidence of mediastinal or hilar mass or adenopathy. No evidence of mediastinal hemorrhage is noted. A left subclavian pacer is present. No evidence of pneumothorax is identified. There is a chronic right clavicular fracture with orthopedic plates and screws, with chronic changes. Degenerative change of the spine and shoulders is noted. There is no evidence of pulmonary mass or suspicious nodule. No localized inflammatory process is seen within the lungs. Limited images of the upper abdomen are unremarkable. IMPRESSION: No evidence of pulmonary embolism, dissection, or aneurysm. No evidence of pneumothorax is identified. Reviewed, Interpreted and Dictated by Oswaldo Dinero III, MD Transcribed by Hilda Boston Authenticated and [facility]
--- NOTE | 2024-07-06 07:34 | CT_ITS ---
FINAL REPORT TECHNIQUE: Thin section axial CT with IV contrast supplemented with multiplanar reconstruction under CT angiogram protocol. 3-D reconstructions were performed. This study was performed with techniques to keep radiation doses as low as reasonably achievable (ALARA). Individualized dose reduction techniques using automated exposure control or adjustment of mA and/or kV according to the patient''s size were employed. CLINICAL HISTORY: trauma, critical injury suspected COMPARISON: None FINDINGS: The distal vertebral, basilar and distal internal carotid arteries have an unremarkable appearance. No aneurysm is seen. Major intracranial vessels are patent without significant stenosis. IMPRESSION: No intracranial vascular abnormality identified. Reviewed, Interpreted and Dictated by Oswaldo Dinero III, MD Transcribed by Hilda Boston Authenticated and [facility]
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
[2024-07-06 07:36] VITALS: BP 127/80; PULSE 81; RESP 16; TEMP 36.6; O2SAT 98; BMI 35.6
--- NOTE | 2024-07-06 07:36 | XR_ITS ---
FINAL REPORT CLINICAL HISTORY: trauma pain FINDINGS: Left elbow Three views were obtained. There is no fracture or dislocation. The joint spaces appear normal. There are multiple foreign bodies in the proximal forearm. IMPRESSION: Multiple foreign bodies. Reviewed, Interpreted and Dictated by Oswaldo Dinero III, MD Transcribed by Meliza Bella Authenticated and [facility]
--- NOTE | 2024-07-06 07:36 | XR_ITS ---
FINAL REPORT CLINICAL HISTORY: trauma pain FINDINGS: Left knee Three views were obtained. There is no fracture or dislocation. There are mild degenerative changes. No soft tissue abnormality is identified. IMPRESSION: No acute process. Reviewed, Interpreted and Dictated by Oswaldo Dinero III, MD Transcribed by Meliza Bella Authenticated and . [facility]
[2024-07-06] MEDS: LACTATED RINGERS 1000ML 1,000 ML 999 ML IV (07:42)
[2024-07-06] MEDS: ONDANSETRON 4MG/2ML VIAL 4 MG IV (07:42)
[2024-07-06] MEDS: TET/DIPHTH/PERT-ADULT 0.5ML SYRINGE 0.5 ML IM (07:42)
[2024-07-06] MEDS: MORPHINE 4MG/ML SYRINGE 4 MG IV (07:43)
[2024-07-06 07:44] LABS: Basophils # 0.1 K/mm3 (0-0.2); Eosinophils # 0.6 K/mm3 (0.0-0.4); Eosinophils % 5.6 % (0.1-12.0); Hematocrit 43.9 % (42.0-52.0); Hemoglobin 14.7 g/dL (14.1-18.0); Lymphocytes # 3.1 K/mm3 (0.7-4.5); Lymphocytes % 31.5 % (10-50); Mean Corpuscular HGB Conc 33.5 g/dL (31.8-35.4); Mean Corpuscular Hemoglobin 30.6 pg (27.0-31.2); Mean Corpuscular Volume 91.5 fl (80-94); Mean Platelet Volume 6.9 fl (7.4-10.4); Monocytes # 0.6 K/mm3 (0.1-1.0); Monocytes % 6.4 % (1.7-9.3); Neutrophils # 5.4 K/mm3 (1.8-7.8); Neutrophils % 55.5 % (37.0-80.0); Platelet Count 397 K/mm3 (142-424); White Blood Count 9.8 K/mm3 (4.8-10.8)
[2024-07-06 07:50] LABS: Albumin Level 4.5 g/dl (3.5-5.0); Chloride 108 mmol/L (98-107); Potassium 4.6 mmoL/L (3.5-5.1); Sodium 139 mmol/L (136-145)
[2024-07-06 07:52] LABS: Alanine Aminotransferase 26 U/L (12-78); Aspartate Amino Transferase 32 U/L (17-59); Blood Urea Nitrogen 10 mg/dl (9-20); Creatinine Clearance Estimated 148 mL/min (50-200); Estimated Glomerular Filt Rate 88 ml/min (>60); GFR (African American) 106 ML/MIN (>60)
[2024-07-06 07:53] LABS: Albumin/Globulin Ratio 1.5 (1.1-1.8); Alkaline Phosphatase 77 U/L (38-126); Anion Gap 7.6 mEq/L (5-15); Bilirubin,Total 0.5 mg/dl (0.2-1.3); Calcium 9.1 mg/dl (8.4-10.2); Carbon Dioxide 28 mmol/L (22.0-30.0); Globulin 3.1 g/dL (1.3-3.2); Glucose 81 mg/dl (74-100); Lipase 129 U/L (23-300); Total Protein,Serum 7.6 g/dl (6.3-8.2)
[2024-07-06 08:01] VITALS: BP 123/72
[2024-07-06 08:04] LABS: Activated Partial Thrombo Time 30.7 seconds (22.8-30.6); INR 1.01 (0.9-1.1); Prothrombin Time 11.3 seconds (10.1-12.5)
--- NOTE | 2024-07-06 08:09 | PC.NURSE ---
patient gone to CT at this time.
--- NOTE | 2024-07-06 08:19 | PC.NURSE ---
I rounded on the pt. no needs voiced. call orta in reach.
[2024-07-06] MEDS: SODIUM CHLORIDE 0.9% 10ML SYR (RAD ONLY) 10 ML IV (08:26)
[2024-07-06] MEDS: IOPAMIDOL-370 (76%);100ML BOTTLE 160 ML IV (08:26)
[2024-07-06] MEDS: 0.9 % SODIUM CHLORIDE 50 ML VIAL 100 ML IV (08:26)
--- NOTE | 2024-07-06 08:48 | PC.NURSE ---
patient back in room
[2024-07-06 09:01] VITALS: BP 135/78
[2024-07-06 09:31] VITALS: BP 127/79
[2024-07-06 09:54] LABS: HIV (1&2) Antibody Rapid NONREACTIVE (NONREACTIVE)
[2024-07-06 10:00] VITALS: BP 138/81; PULSE 78; RESP 18; TEMP 36.7; O2SAT 99
[2024-07-07 06:15] LABS: HCV Ab Non Reactive (Non Reactive)
== END 2024-07-06 10:09 | disposition home or self-care (01) ==
PROVIDERS: Emergency Provider Student in an Organized Health Care Education/Training Program; PCP Internal Medicine
DX: S50.01XA Contusion of right elbow, initial encounter (principal); S80.02XA Contusion of left knee, initial encounter; S80.219A Abrasion, unspecified knee, initial encounter; M25.522 Pain in left elbow; M25.562 Pain in left knee; M54.2 Cervicalgia; Z23 Encounter for immunization
CPT/HCPCS: 70450; 70496; 70498; 71275; 72125; 72128; 72131; 73080; 73562; 74174; 80053; 83690; 85025; 85610; 85730; 86803; 87389; 90471; 90715; 96361; 96374; 96375; 99285; J2270; J2405; J7120; Q9967

== ENCOUNTER 2024-07-15 10:28 | Outpatient (CLI) | payer MEDICARE, MEDICAID, SELFPAY ==
[2024-07-15 10:56] VITALS: BMI 35.9
[2024-07-15 11:01] LABS: Microscopic, Urine URINE MICROSCOPIC (MICROSCOPIC)
[2024-07-15 11:14] LABS: Appearance,Urine CLEAR (Clear); Bilirubin,Urine Negative (Negative); Blood, Urine Negative (Negative); Color,Urine YELLOW (Yellow); Glucose,Urine (UA) Negative (Negative); Ketones,Urine Negative (Negative); Leukocyte Esterase,Urine TRACE (Negative); Nitrate,Urine Negative (Negative); Protein,Urine Negative (Negative); Specific Gravity, Urine <= 1.005 (1.005-1.030); Urobilinogen,Urine 0.2 EU/dl (0.2)
== END 2024-07-15 23:59 | disposition home or self-care (01) ==
LOC: PREOP 10:29
PROVIDERS: PCP Internal Medicine; Visit Provider Surgery
DX: K43.9 Ventral hernia without obstruction or gangrene (principal)
CPT/HCPCS: 81001

== ENCOUNTER 2024-07-18 08:41 | Day surgery (SDC) | payer MEDICARE, MEDICAID, SELFPAY ==
[2024-07-18] VITALS (10 sets, daily range): BP systolic 103–157; BP diastolic 65–76; PULSE 74–83; RESP 18–24; TEMP 36.3–43; O2SAT 93–97; BMI 35.9
[2024-07-18] MEDS: LACTATED RINGERS 1000ML 1,000 ML 25 ML IV (09:11)
--- NOTE | 2024-07-18 10:21 | P.PNANES_ITS ---
[facility] Disclaimer: The information contained in this section may have been updated after the patient was seen, as this information can be updated by other users. Medical History SABRINA on CPAP History of pacemaker Preop cardiovascular exam Atrial fibrillation Body mass index [BMI] 40.0-44.9, adult Encounter for pre-operative cardiovascular clearance Hx of cardiac pacemaker COPD (chronic obstructive pulmonary disease) Erectile dysfunction Arthritis CAD (coronary artery disease) SVT (supraventricular tachycardia) MRSA (methicillin resistant staph aureus) culture positive CHF (congestive heart failure) Cardiomyopathy Hypertension CAD (coronary artery disease) COPD (chronic obstructive pulmonary disease) GERD (gastroesophageal reflux disease) Tobacco abuse disorder CVA (cerebral vascular accident) Surgical History Hx of ventral hernia repair Fusion of lumbar spine Open right clavicular fracture H/O colonoscopy H/O cardiac catheterization Family History Mother , at the age of 58 Diabetes Father , at the age of 55 Heart attack Other Family history of diabetes mellitus type II Family history of hypertension Family history of myocardial infarction Social History Smoking Status: Current every day smoker tobacco type: cigarettes packs per day: 1 smoking status start date: 1 pack/day 35 years and ongoing alcohol intake: former substance use type: denies use current occupational status: employed Travel in the last 8 weeks: None household members: none housing: apartment lives independently: Yes marital status: single number of children: 1 service: No 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 [employer] current occupational exposures/hazards: No Hx Recent Travel: No caffeine: Yes special latasha needs: No agree to transfusion: No do you feel safe at home: Yes victim of physical abuse: No victim of emotional abuse: No victim of sexual abuse: No would you like helpful sources: No Have you lived/traveled outside US in past 30 days?: No Contact w/someone who lives/traveled outside US past 30 days?: No Exposure to someone with infectious disease in past 14 days?: No Do you have a fever (greater than 100.4 F or 38 C)?: No Have you tested positive for COVID-19: No Exposed to someone with COVID-19 in past 14 days?: No Do you have a sore throat?: No Do you have a cough?: No Do you have any weakness?: No Do you have any diarrhea?: No Are you experiencing any unusual bleeding?: No Do you have any muscle aches/pain?: No Do you have any abdominal pain?: No Are you experiencing loss of taste or smell?: No [facility] Anesthesia Checklist Patient Identification Patient Identification: Arm Band Structural Data Admitted From: Home Planned Operative Procedure/s: Laparoscopic Ventral Hernia Repair Consent for Planned Operative Procedure(s) Verified: Yes Verified Documents: Surgical Consent and History and Physical NPO Status Verified Time NPO: 00:00 Additional verifications Anesthesia Reactions: No Hx Blood Transfusions: No Blood Transfusion Reaction: No Airway Assessment Mallampati Score:: Class II C-Spine Mobility Assessed: Yes TMJ Mobility Assessed: Yes Dentition: Poor Dentition Neurological Assessment Level of Consciousness: Awake, Alert and Appropriate Anesthesia Plan Anesthesia Risk discussed: Yes Anesthesia Plan: Verified ASA Class: III Anesthesia Type: General
[2024-07-18] MEDS: CEFAZOLIN SODIUM 2 GM in 0.9 % SODIUM CHLORIDE 100 ML IV (12:38)
[2024-07-18] MEDS: LIDOCAINE 1% 20ML MDV 20 ML (13:20)
[2024-07-18] MEDS: ROPIVACAINE 0.5% 30ML VIAL 150 MG (13:20)
--- NOTE | 2024-07-18 14:22 | EXP.OP.NOTE ---
Date of procedure: 07/18/24 Pre-op Diagnosis:: Ventral hernia Post-op Diagnosis:: Same Procedure performed:: Laparoscopic ventral hernia repair with placement of 11.[address] mesh Surgeon:: Oswaldo Syed MD SALES CONSULTING DIRECTOR:: Jd Hughes Anesthesia: GETA Estimated blood loss (mL): 10 Clinical Note:: Patient is a 53-year-old male who presents for hernia repair. I had previously performed colonoscopy on him. About 20 years ago performed laparoscopic ventral hernia repair for right upper quadrant hernia in [facility]. I saw him in the office last year on 12/04/22 with another ventral hernia. He had a bulge above and to the right of the umbilical area. I did have him undergo CT scan which revealed findings of umbilical hernia containing fat as well as infraumbilical hernia also containing fat. Patient had been seen by cardiology and was deemed a low and acceptable risk from a cardiovascular standpoint to proceed with surgery. When he was seen back in the office on 12/23/2022 it appears as though he had about a 3 cm fascial defect with questionable defect at the umbilical area and plan was to proceed with laparoscopic, possibly laparoscopic directed open repair versus fully laparoscopic repair. He was scheduled for surgery and when arriving in the operating room on 01/19/2023 he had marked elevation of heart rate and found to be in atrial fibrillation with rapid ventricular response. He did not undergo surgery at that time. He was admitted for inpatient management and cardiology evaluation. He recently had some increasing symptomatology from the hernia and presented to the emergency department on 06/20/2024. He underwent CT scan at that time on 06/20/2024 which revealed periumbilical hernia once again with increase in size of the hernia sac to 4.4 cm. He was able to be managed as an outpatient. He has subsequently seen cardiology for risk assessment. He wishes to pursue hernia repair. . Operative findings:: He was found to have approximately 3 cm fascial defect containing omentum. There were adhesions omentum to the right upper quadrant due to previously placed mesh. . Operative note:: Consent was obtained patient was taken the operating room. He was positioned in a supine position. General anesthesia was induced via endotracheal tube. Ann catheter was placed. Abdomen was prepped and draped in the standard surgical fashion. 5 mm left subcostal incision was made. Optical trocar was inserted under laparoscopic visualization carefully. CO2 pneumoperitoneum was achieved. Laparoscopic surveillance was carried out. There were omental adhesions to the anterior abdomen. 5 mm trocar was inserted in the left lower lateral abdomen. Hernia was identified containing adhesions. Adhesions were taken down using mostly SUSSY ultrasonic harmonic pamela incising the adhesions to surrounding peritoneum. Herniated omentum was then able to be reduced. The omentum that was adherent to the anterior abdomen in the upper portion was partially taken down to allow for additional trocar placement. The fascial edges of the hernia defect immediately above into the right of the umbilicus were evaluated. Fascial defect was approximately 3 or 3-1/2 cm diameter. Decision was made for fully laparoscopic repair with placement of 11.4 cm Bard Ventralex circular mesh. 12 mm optical trocar was inserted in the right upper quadrant and an additional 5 mm trocar was inserted in the right lateral abdomen. Mesh was inserted into the peritoneal cavity. Tiny 1 or 2 mm incision was made over the central portion of the hernia and the mesh balloon positioning system tubing was brought through the anterior abdomen. Balloon positioning system was inflated with traction held positioning the mesh in place with circumferential fascial overlap of approximately 4 cm. Mesh was secured around its periphery with several OPTi fix Endo anchors. The balloon positioning system was then removed. Mesh was secured additionally around its periphery and more centrally using the OPTi fix Endo anchors to position of the mesh and eliminate central space. Repair appeared adequate. There was good hemostasis. The 12 mm trocar site was closed with the laparoscopic needle close device using 2-0 Vicryl x 2. Trocars were removed. Local anesthetic was infiltrated in all trocar sites. Skin incisions closed with 4-0 Monocryl with some use of 4-0 plain gut. Dermabond and dressings were applied . Condition: stable Disposition: PACU Complications:: None immediately apparent.
[2024-07-18 14:30] LABS: Microscopic,Cath URINE MICROSCOPIC (MICROSCOPIC)
[2024-07-18] MEDS: MORPHINE 2MG/ML SYRINGE 2 MG IV (14:30)
--- NOTE | 2024-07-18 14:30 | EXP.ANES.I ---
[facility] Anesthesia Record Part I Anesthesia Record I Intake, IV Amount: 900 Hydration: Adequate Estimated blood loss (mL): 10 Urine output (mL): 800 Blood Products used (#): none Blood Pressure: 157/65 SaO2: 93 Pulse Rate: 83 Airway Patency: Patent Respiratory Rate: 24 Temperature: 97.3 F Patient is:: Drowsy and Stable Stable to PACU at:: 14:20
[2024-07-18 14:50] LABS: Appearance,Urine/Cath CLEAR (Clear); Bilirubin,Cath Negative (Negative); Blood, Urine/Cath Negative (Negative); Color,Urine/Cath YELLOW (Yellow); Glucose,Urine/Cath (UA) Negative (Negative); Ketones,Urine/Cath Negative (Negative); Leukocyte Esterase,Cath Negative (Negative); Nitrate,Cath Negative (Negative); Protein,Urine/Cath Negative (Negative); Urobilinogen,Cath 0.2 EU/dl (0.2)
[2024-07-18 16:13] LABS: RBC,Urine/Cath Occasional # /hpf (0-3); Squamous Epithelial Ur./Cath Occasional #/hpf (0-5)
--- NOTE | 2024-07-19 10:45 | EXP.ANES.II ---
[facility] Anesthesia Record Part II Anesthesia Record Part II Discharge Time: 14:50 Destination: Surgical Day Care (OP Surgery) PACU nurse assessment reviewed?: Yes Patient Condition:: Good Anesthesia Complications:: None Swallowing reflex intact?: Yes Airway Patency: Patent Cyanosis?: No Blood Pressure: 118/75 SaO2: 95 Respiratory Rate: 18 Pulse Rate: 75 Temperature: 97.3 F Mental Status: Alert & Oriented Pain level:: 4 Nausea and/or vomitting:: None Intake, IV Amount: 0 Hydration: Adequate
[2024-07-19 10:47] VITALS: BP 118/75; PULSE 75; RESP 18; TEMP 36.3; O2SAT 95
== END 2024-07-18 15:21 | disposition home or self-care (01) ==
PROVIDERS: PCP Internal Medicine; Visit Provider Surgery
PROC: (CPT 49593; principal; 2024-07-18 10:25)
DX: K43.9 Ventral hernia without obstruction or gangrene (principal)
CPT/HCPCS: 49593; 81001; J3490; C1781; J0690; J1100; J2250; J2270; J2405; J3010; J7120

== ENCOUNTER 2024-09-09 10:22 | Emergency (ER) | payer MEDICARE, MEDICAID, SELFPAY ==
[2024-09-09 11:18] VITALS: BP 148/92; PULSE 72; RESP 19; TEMP 36.7; O2SAT 99; BMI 39.2
--- NOTE | 2024-09-09 11:26 | EXP.UTC ---
Discharge Plan Disposition Patient Disposition: Home, Self-Care Condition: Good Prescriptions Prescriptions: No Action tadalafil [Cialis] 10 mg tablet 10 mg PO DAILY PRN (Reason: sexual activity) Qty: 30 1RF bupropion HCl 150 mg tablet sustained-release 12 hr PO Patient Comments: TAKE ONE TABLET BY MOUTH EVERY TWELVE HOURS albuterol sulfate 90 mcg/actuation HFA aerosol inhaler 1 inh inhalation QID Qty: 6.7 5RF atorvastatin 40 mg tablet 40 mg PO HS methocarbamol 500 mg tablet See Rx Instructions .ROUTE .COMPLEX Qty: 120 2RF Dose Instruction: TAKE TWO TABLETS BY MOUTH THREE TIMES DAILY NEEDED FOR MUSCLE SPASMS. DO NOT TAKE WITHIN 8 HOURS OF EACH OTHER OR CYCLOBENZAPRINE Rx Instructions: TAKE TWO TABLETS BY MOUTH THREE TIMES DAILY NEEDED FOR MUSCLE SPASMS. DO NOT TAKE WITHIN 8 HOURS OF EACH OTHER OR CYCLOBENZAPRINE clopidogrel 75 mg tablet See Rx Instructions .ROUTE .COMPLEX Qty: 90 3RF Dose Instruction: TAKE ONE TABLET BY MOUTH EVERY DAY Rx Instructions: TAKE ONE TABLET BY MOUTH EVERY DAY nebivolol 10 mg tablet See Rx Instructions .ROUTE .COMPLEX Qty: 90 3RF Dose Instruction: TAKE ONE TABLET BY MOUTH EVERY DAY Rx Instructions: TAKE ONE TABLET BY MOUTH EVERY DAY lisinopril 10 mg tablet See Rx Instructions .ROUTE .COMPLEX Qty: 90 2RF Dose Instruction: TAKE ONE TABLET BY MOUTH EVERY DAY FOR BLOOD PRESSURE Rx Instructions: TAKE ONE TABLET BY MOUTH EVERY DAY FOR BLOOD PRESSURE duloxetine 30 mg capsule,delayed release(DR/EC) See Rx Instructions .ROUTE .COMPLEX Qty: 180 0RF Dose Instruction: TAKE ONE CAPSULE BY MOUTH TWICE DAILY Rx Instructions: TAKE ONE CAPSULE BY MOUTH TWICE DAILY diltiazem HCl 240 mg capsule,extended release 24hr See Rx Instructions .ROUTE .COMPLEX Qty: 90 4RF Dose Instruction: TAKE ONE CAPSULE BY MOUTH EVERY DAY Rx Instructions: TAKE ONE CAPSULE BY MOUTH EVERY DAY pantoprazole 40 mg tablet,delayed release (DR/EC) 40 mg PO DAILY Qty: 90 1RF cyclobenzaprine 5 mg tablet See Rx Instructions .ROUTE .COMPLEX Qty: 30 0RF Dose Instruction: TAKE ONE TABLET BY MOUTH AT BEDTIME NEEDED FOR MUSCLE SPASMS Rx Instructions: TAKE ONE TABLET BY MOUTH AT BEDTIME NEEDED FOR MUSCLE SPASMS levothyroxine 75 mcg tablet See Rx Instructions .ROUTE .COMPLEX Qty: 90 0RF Dose Instruction: TAKE ONE TABLET BY MOUTH EVERY DAY Rx Instructions: TAKE ONE TABLET BY MOUTH EVERY DAY Xarelto 20 mg tablet 20 mg PO DAILY Qty: 90 1RF Patient Comments: TAKE ONE TABLET BY MOUTH EVERY DAY with evening meal Linzess 72 mcg capsule See Rx Instructions .ROUTE .COMPLEX Qty: 30 0RF Dose Instruction: TAKE ONE CAPSULE BY MOUTH EVERY DAY Rx Instructions: TAKE ONE CAPSULE BY MOUTH EVERY DAY Wegovy 2.4 mg/0.75 mL pen injector See Rx Instructions .ROUTE .COMPLEX Qty: 3 2RF Dose Instruction: INJECT THE CONTENTS OF 1 PEN (2.4 MG / 0.75ML) SUBCUTANEOUSLY ONCE A WEEK Rx Instructions: INJECT THE CONTENTS OF 1 PEN (2.4 MG / 0.75ML) SUBCUTANEOUSLY ONCE A WEEK fluticasone propionate [fluticasone propionate] 50 mcg/actuation spray,suspension 1 spray intranasal DAILY Qty: 9.9 0RF loratadine [Claritin] 10 mg tablet 10 mg PO DAILY PRN (Reason: allergy symptoms) Qty: 30 0RF ondansetron 4 mg Tablet,Disintegrating 4 mg PO Q8H PRN (Reason: Nausea) Qty: 12 0RF hydrocodone-acetaminophen 5-325 mg Tablet 1 - 2 tab PO Q6H PRN (Reason: Pain) Qty: 21 0RF cyclobenzaprine 10 mg tablet 10 mg PO TID PRN (Reason: muscle spasm) 5 Days Qty: 15 0RF ipratropium-albuterol 0.5 mg-3 mg(2.5 mg base)/3 mL solution for nebulization 3 ml inhalation QIDP PRN (Reason: Shortness Of Breath) Referrals Follow up/Referrals: Landon Ewing DO [Primary Care Provider] - See instructions Activity Restrictions/Add. Instructions Additional Instructions/Restrictions: Rest the extremity, Elevate the extremity as tolerated while you are resting. Take tylenol or ibuprofen for pain. Follow up with Dr. Spears (podiatry) as you already have scheduled on 09/12/24. Follow up with your regular doctor. GO TO THE ER FOR ANY WORSENING SYMPTOMS Clinical Impressions Clinical Impression: Foot pain, right Stand Alone Forms Stand Alone Forms: Work/School Release Print Language Print Language: Sudanese Discharge ED Provider: Jd Aaron [facility] HPI General Stated complaint: bump on R foot-pain Mode of Arrival: Ambulatory Source of Information: Patient Limitations: No Limitations Time Seen by Provider: 09/09/24 11:26 Description of Symptoms (Recalled from Triage Doc. by RN): Complaint of growth spot on right foot. Has already seen Dr. Spears related to this but stated he was unable to work today related to the pain it was causing. HEENT Symptoms (Recalled from RN notes): No Resp Symptoms (Recalled from RN notes): No Skin Symptoms (Recalled from RN notes): Yes MS Symptoms (Recalled from RN notes): No Functional Status (Recalled from RN notes): wnl History of Present Illness Provider Complaint: He states that for the past several months he has had a knot on the bottom of his right foot. He is being followed by podiatry (Dr. Spears) for this. He states that he called to get in today there, but they can't see him until Thursday. So, he came in to be checked and to discuss his options. Related Data Home Medications ?Medication ?Instructions ?Recorded ?Confirmed ipratropium 0.5 mg-albuterol 3 mg 3 ml inhalation QIDP PRN Shortness 01/19/23 08/11/24 (2.5 mg base)/3 mL nebulization Of Breath soln atorvastatin 40 mg tablet 40 mg PO HS 09/09/23 08/11/24 bupropion HCl 150 mg tablet,12 hr mg PO 08/11/24 08/11/24 sustained-release Previous Rx's ?Medication ?Instructions ?Recorded tadalafil 10 mg tablet (Cialis) 10 mg PO DAILY PRN sexual activity 05/15/23 #30 tabs fluticasone propionate 50 1 spray intranasal DAILY #9.9 mL 06/06/23 mcg/actuation nasal spray,suspension loratadine 10 mg tablet (Claritin) 10 mg PO DAILY PRN allergy 06/06/23 symptoms #30 tabs ondansetron 4 mg disintegrating 4 mg PO Q8H PRN Nausea #12 tabs 09/22/23 tablet albuterol sulfate 90 mcg/actuation 1 inh inhalation QID #6.7 grams 12/23/23 aerosol inhaler clopidogrel 75 mg tablet See Rx Instructions .Route 01/07/24 .COMPLEX #90 tabs nebivolol 10 mg tablet See Rx Instructions .Route 01/07/24 .COMPLEX #90 tabs lisinopril 10 mg tablet See Rx Instructions .Route 01/25/24 .COMPLEX #90 tabs duloxetine 30 mg capsule,delayed See Rx Instructions .Route 03/14/24 release .COMPLEX #180 caps methocarbamol 500 mg tablet See Rx Instructions .Route 05/24/24 .COMPLEX #120 tabs diltiazem HCl 240 mg See Rx Instructions .Route 05/31/24 capsule,extended release 24 hr .COMPLEX #90 caps pantoprazole 40 mg tablet,delayed 40 mg PO DAILY Acid reflux #90 tabs 06/17/24 release cyclobenzaprine 5 mg tablet See Rx Instructions .Route 07/05/24 .COMPLEX #30 tabs cyclobenzaprine 10 mg tablet 10 mg PO TID PRN muscle spasm 5 07/06/24 days #15 tabs levothyroxine 75 mcg tablet See Rx Instructions .Route 07/06/24 .COMPLEX #90 tabs hydrocodone 5 mg-acetaminophen 325 1 - 2 tab PO Q6H PRN Pain #21 tabs 07/18/24 mg tablet rivaroxaban 20 mg tablet (Xarelto) 20 mg PO DAILY #90 tabs 08/04/24 linaclotide 72 mcg capsule See Rx Instructions .Route 08/09/24 (Linzess) .COMPLEX #30 caps semaglutide (weight loss) 2.4 See Rx Instructions .Route 09/07/24 mg/0.75 mL subcutaneous pen .COMPLEX #3 mL injector (Wegovy) Allergies Allergy/AdvReac Type Severity Reaction Status Date / Time No Known Allergies Allergy Verified 08/11/24 10:30 Worker's Comp Is this a Worker's Comp case?: No [facility] Disclaimer: The information contained in this section may have been updated after the patient was seen, as this information can be updated by other users. Medical History SABRINA on CPAP History of pacemaker Preop cardiovascular exam Atrial fibrillation Body mass index [BMI] 40.0-44.9, adult Encounter for pre-operative cardiovascular clearance Hx of cardiac pacemaker COPD (chronic obstructive pulmonary disease) Erectile dysfunction Arthritis CAD (coronary artery disease) SVT (supraventricular tachycardia) MRSA (methicillin resistant staph aureus) culture positive CHF (congestive heart failure) Cardiomyopathy Hypertension CAD (coronary artery disease) COPD (chronic obstructive pulmonary disease) GERD (gastroesophageal reflux disease) Tobacco abuse disorder CVA (cerebral vascular accident) Surgical History Hx of ventral hernia repair Fusion of lumbar spine Open right clavicular fracture H/O colonoscopy H/O cardiac catheterization Family History Mother , at the age of 58 Diabetes Father , at the age of 55 Heart attack Other Family history of diabetes mellitus type II Family history of hypertension Family history of myocardial infarction Social History Smoking Status: Current every day smoker tobacco type: cigarettes packs per day: 1 smoking status start date: 1 pack/day 35 years and ongoing alcohol intake: former substance use type: denies use current occupational status: employed Travel in the last 8 weeks: None household members: none housing: apartment lives independently: Yes marital status: single number of children: 1 service: No 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 [employer] current occupational exposures/hazards: No Hx Recent Travel: No caffeine: Yes special latasha needs: No agree to transfusion: No do you feel safe at home: Yes victim of physical abuse: No victim of emotional abuse: No victim of sexual abuse: No would you like helpful sources: No Have you lived/traveled outside US in past 30 days?: No Contact w/someone who lives/traveled outside US past 30 days?: No Exposure to someone with infectious disease in past 14 days?: No Do you have a fever (greater than 100.4 F or 38 C)?: No Have you tested positive for COVID-19: No Exposed to someone with COVID-19 in past 14 days?: No Do you have a sore throat?: No Do you have a cough?: No Do you have any weakness?: No Do you have any diarrhea?: No Are you experiencing any unusual bleeding?: No Do you have any muscle aches/pain?: No Do you have any abdominal pain?: No Are you experiencing loss of taste or smell?: No ROS Obtained: Yes All systems reviewed & no additional complaints except as documented Constitutional Constitutional: Denies chills and Denies fever(s) Eyes Eyes: Denies eye discharge ENT Ears, Nose, Mouth, and Throat: Denies dizziness, Denies otalgia and Denies sore throat Cardiovascular Cardiovascular: Denies chest pain Respiratory Respiratory: Denies shortness of breath, Denies chest congestion, Denies cough, Denies stridor and Denies wheezing Gastrointestinal Gastrointestingal: Denies nausea or vomiting Musculoskeletal Musculoskeletal: Reports as per HPI Integumentary/Breasts Skin/Breast: Denies rash Neurologic Neurologic: Denies dizziness and Denies paresthesias Allergic/Immunologic Allergic/Immunologic: Denies wheezing Physical Exam General General appearance: alert and in no apparent distress Head Head exam: atraumatic, normocephalic and normal inspection Eye Eye exam: Present normal appearance, PERRL and EOMI ENT ENT exam: Present normal exam, normal oropharynx, mucous membranes moist, TM's normal bilaterally and normal external ear exam Neck Neck exam: Present normal inspection, full ROM and trachea midline; Absent meningismus or lymphadenopathy Chest Chest inspection: Present normal inspection and symmetric chest wall rise; Absent tenderness Respiratory Respiratory exam: Present normal lung sounds bilaterally; Absent respiratory distress Cardiovascular Cardiovascular exam: Present regular rate and normal rhythm; Absent JVD Abdominal Exam Abdominal exam: Present soft and normal bowel sounds; Absent distention, tenderness or guarding Extremities Exam Extremities exam: Present normal capillary refill; Absent calf tenderness Expanded Lower Extremity Exam Right: Knee exam: Present normal inspection and full ROM; Absent tenderness Lower leg exam: Present normal inspection, full ROM, tenderness and Achilles tendon intact; Absent swelling or Homans' sign Ankle exam: Present normal inspection and full ROM; Absent tenderness, tenderness over talofibular lig or anterior draw sign Foot/toe exam: Present full ROM, tenderness and swelling; Absent abrasion, laceration, ecchymosis, deformity, crepitus, dislocation, erythema, amputation, puncture wound, foreign body, calcaneal tenderness, tenderness at base of 5th metatarsal, nail avulsion or subungual hematoma Neurovascular/Tendon exam: Present normal capillary refill, normal 2-point discrimination and normal fine/light touch; Absent pulse deficit, motor deficit, sensory deficit, tendon deficit, extremity cold to touch or pallor Gait: observed and limited by pain Back Exam Back exam: Present normal inspection; Absent tenderness Neurological Exam Neurological exam: Present alert and oriented X3 Psychiatric Psychiatric exam: Present normal affect and normal mood Skin Skin exam: Present warm, dry, intact and normal color Lymphatic Lymphatic Findings: no adenopathy Medical Decision Making Medical Records Screening: Per USPSTF and CDC recommendations, given the prevalence of disease in our region, it is our hospital?s policy to screen for HIV and viral Hepatitis for all patients aged 18 and over and those with ongoing risk factors. Ken Inquiry Pt receiving controlled substance: No Vital Signs: 09/09/24 11:18 Temperature 98.0 F Temperature Source Oral Pulse Rate [Radial] 72 Respiratory Rate 19 Blood Pressure [Right Arm] 148/92 H Blood Pressure Mean [Right Arm] 110 Blood Pressure Source [Right Arm] Automatic Cuff Blood Pressure Position [Right Arm] Sitting 02 Sat by Pulse Oximetry 99 Oxygen Delivery Method Room Air
[2024-09-09 11:41] VITALS: BP 148/92; PULSE 72; RESP 19; TEMP 36.7; O2SAT 99
== END 2024-09-09 11:42 | disposition home or self-care (01) ==
PROVIDERS: Emergency Provider Nurse Practitioner Family; PCP Internal Medicine
DX: M79.671 Pain in right foot (principal)
CPT/HCPCS: 99212; G0381

== ENCOUNTER 2024-09-12 11:26 | Outpatient (CLI) | payer MEDICARE, MEDICAID, SELFPAY ==
[2024-09-12 12:02] LABS: Basophils # 0.1 K/mm3 (0-0.2); Basophils % 0.5 % (0.1-2.0); Eosinophils # 0.3 K/mm3 (0.0-0.4); Eosinophils % 3.2 % (0.1-12.0); Hematocrit 40.9 % (42.0-52.0); Hemoglobin 13.9 g/dL (14.1-18.0); Lymphocytes # 2.5 K/mm3 (0.7-4.5); Lymphocytes % 24.9 % (10-50); Mean Corpuscular Hemoglobin 30.5 pg (27.0-31.2); Mean Corpuscular Volume 89.7 fl (80-94); Mean Platelet Volume 9.1 fl (7.4-10.4); Monocytes # 0.6 K/mm3 (0.1-1.0); Neutrophils # 6.6 K/mm3 (1.8-7.8); Neutrophils % 65.1 % (37.0-80.0); Platelet Count 369 K/mm3 (142-424); Red Blood Count 4.56 M/mm3 (4.60-6.20); Red Cell Distribution Width 12.9 % (11.5-17.5); White Blood Count 10.1 K/mm3 (4.8-10.8)
[2024-09-12 12:14] LABS: Hemoglobin A1C 5.1 % (4.0-6.0)
[2024-09-12 12:17] LABS: Albumin Level 4.4 g/dl (3.5-5.0); Chloride 108 mmol/L (98-107); Potassium 4.4 mmoL/L (3.5-5.1); Sodium 139 mmol/L (136-145)
[2024-09-12 12:20] LABS: Alanine Aminotransferase 26 U/L (12-78); Albumin/Globulin Ratio 1.6 (1.1-1.8); Alkaline Phosphatase 88 U/L (38-126); Anion Gap 12.4 mEq/L (5-15); Aspartate Amino Transferase 28 U/L (17-59); Bilirubin,Total 0.3 mg/dl (0.2-1.3); Blood Urea Nitrogen 7 mg/dl (9-20); Calcium 9.4 mg/dl (8.4-10.2); Carbon Dioxide 23 mmol/L (22.0-30.0); Estimated Glomerular Filt Rate 117 ml/min (>60); GFR (African American) 141 ML/MIN (>60); Globulin 2.7 g/dL (1.3-3.2); Glucose 85 mg/dl (74-100); Total Protein,Serum 7.1 g/dl (6.3-8.2)
[2024-09-12 12:24] LABS: Erythrocyte Sedimentation Rate 15 mm/hr (0-20)
[2024-09-12 12:47] LABS: C-Reactive Protein 2.4 mg/L (0-4)
[2024-09-19 15:37] LABS: Cotinine 193.7 ng/mL (.); Nicotine 10.4 ng/mL (.)
== END 2024-09-12 23:59 | disposition home or self-care (01) ==
LOC: LAB 11:27
PROVIDERS: PCP Internal Medicine; Visit Provider Podiatrist
DX: M79.89 Other specified soft tissue disorders (principal); M72.2 Plantar fascial fibromatosis; M79.671 Pain in right foot; M79.672 Pain in left foot; L60.2 Onychogryphosis; L85.1 Acquired keratosis [keratoderma] palmaris et plantaris; F17.200 Nicotine dependence, unspecified, uncomplicated; E11.9 Type 2 diabetes mellitus without complications; E66.812 Obesity, class 2; Z68.36 Body mass index [BMI] 36.0-36.9, adult
CPT/HCPCS: 36415; 80053; 80323; 83036; 85025; 85651; 86140; G0480

== ENCOUNTER 2024-09-14 09:08 | Outpatient (CLI) | payer MEDICARE, MEDICAID, SELFPAY ==
--- NOTE | 2024-09-14 09:11 | US_ITS ---
FINAL REPORT CLINICAL HISTORY: pre-operative testing for removal of cystic structure on plantar surface of right foot. Smoker, HTN, HLD, previous TIA/CVA. COMPARISON: None FINDINGS: ANKLE-BRACHIAL PRESSURE INDICES Pressure indices are as follows: RIGHT LOWER EXTREMITY: Ankle-brachial pressure index: 1.22 Comments: Normal LEFT LOWER EXTREMITY: Ankle-brachial pressure index: 1.28 Comments: Normal IMPRESSION: No evidence of significant obstructive peripheral vascular disease of the lower extremities Reviewed, Interpreted and Dictated by Brigitte Avina MD Transcribed by Gail Jin Authenticated and [facility]
== END 2024-09-14 23:59 | disposition home or self-care (01) ==
LOC: RT 09:09
PROVIDERS: PCP Internal Medicine; Visit Provider Podiatrist
DX: Z01.818 Encounter for other preprocedural examination (principal); M79.671 Pain in right foot; M79.672 Pain in left foot; I10 Essential (primary) hypertension; Z86.73 Personal history of transient ischemic attack (TIA), and cerebral infarction without residual deficits; E11.9 Type 2 diabetes mellitus without complications; Z72.0 Tobacco use
CPT/HCPCS: 93923

== ENCOUNTER 2024-09-15 11:46 | Outpatient (CLI) | payer MEDICARE, MEDICAID, SELFPAY ==
--- NOTE | 2024-09-15 11:49 | XR_ITS ---
FINAL REPORT CLINICAL HISTORY: pre operative exam COMPARISON: None FINDINGS: CHEST 2 VIEWS: A left-sided pacemaker is present. No acute pulmonary density is evident. There is no evidence of effusion or other pleural disease. The mediastinum has a normal appearance. There is a clavicle fracture on the right with a disrupted bridging orthopedic plate, a finding of uncertain chronicity. The cardiac silhouette is unremarkable. IMPRESSION: No acute cardiopulmonary abnormality identified. Orthopedic plate bridging a right clavicle fracture is disrupted, a finding of uncertain chronicity. Reviewed, Interpreted and Dictated by Melba Castañeda MD Transcribed by Hilda Boston Authenticated and [facility]
--- NOTE | 2024-09-15 11:49 | XR_ITS ---
FINAL REPORT CLINICAL HISTORY: foot pain, soft tissue mass COMPARISON: None FINDINGS: RIGHT FOOT 3 views of the right foot were obtained. There is no acute fracture or dislocation. Visualized joint spaces are normally aligned. Soft tissues are unremarkable. IMPRESSION: No acute bony abnormality. Reviewed, Interpreted and Dictated by Melba Castañeda MD Transcribed by Hilda Boston Authenticated and . [facility]
== END 2024-09-15 23:59 | disposition home or self-care (01) ==
LOC: RAD 11:47
PROVIDERS: PCP Internal Medicine; Visit Provider Podiatrist
DX: Z01.818 Encounter for other preprocedural examination (principal); M79.89 Other specified soft tissue disorders
CPT/HCPCS: 71046; 73630

== ENCOUNTER 2024-09-28 08:17 | Day surgery (SDC) | payer MEDICARE, MEDICAID, SELFPAY ==
[2024-09-26 13:32] VITALS: BMI 38.2
[2024-09-28] VITALS (9 sets, daily range): BP systolic 113–142; BP diastolic 63–98; PULSE 72–89; RESP 16–20; TEMP 36.3–36.8; O2SAT 92–99
--- NOTE | 2024-09-28 10:13 | EXP.ANES.CKL ---
[facility] Disclaimer: The information contained in this section may have been updated after the patient was seen, as this information can be updated by other users. Medical History SABRINA on CPAP History of pacemaker Preop cardiovascular exam Atrial fibrillation Body mass index [BMI] 40.0-44.9, adult Encounter for pre-operative cardiovascular clearance Hx of cardiac pacemaker COPD (chronic obstructive pulmonary disease) Erectile dysfunction Arthritis CAD (coronary artery disease) SVT (supraventricular tachycardia) MRSA (methicillin resistant staph aureus) culture positive CHF (congestive heart failure) Cardiomyopathy Hypertension CAD (coronary artery disease) COPD (chronic obstructive pulmonary disease) GERD (gastroesophageal reflux disease) Tobacco abuse disorder CVA (cerebral vascular accident) Surgical History Hx of ventral hernia repair Fusion of lumbar spine Open right clavicular fracture H/O colonoscopy H/O cardiac catheterization Family History Mother , at the age of 58 Diabetes Father , at the age of 55 Heart attack Other Family history of diabetes mellitus type II Family history of hypertension Family history of myocardial infarction Social History Smoking Status: Current every day smoker tobacco type: cigarettes packs per day: 1 smoking status start date: 1 pack/day 35 years and ongoing alcohol intake: never substance use type: denies use current occupational status: employed Travel in the last 8 weeks: None household members: none housing: apartment lives independently: Yes marital status: single number of children: 1 service: No 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 [employer] current occupational exposures/hazards: No Hx Recent Travel: No caffeine: Yes special latasha needs: No agree to transfusion: No do you feel safe at home: Yes victim of physical abuse: No victim of emotional abuse: No victim of sexual abuse: No would you like helpful sources: No Have you lived/traveled outside US in past 30 days?: No Contact w/someone who lives/traveled outside US past 30 days?: No Exposure to someone with infectious disease in past 14 days?: No Do you have a fever (greater than 100.4 F or 38 C)?: No Have you tested positive for COVID-19: No Exposed to someone with COVID-19 in past 14 days?: No Do you have a sore throat?: No Do you have a cough?: No Do you have any weakness?: No Do you have any diarrhea?: No Are you experiencing any unusual bleeding?: No Do you have any muscle aches/pain?: No Do you have any abdominal pain?: No Are you experiencing loss of taste or smell?: No [facility] Anesthesia Checklist Patient Identification Patient Identification: Arm Band Structural Data Admitted From: Home Planned Operative Procedure/s: Right Foot Soft Tissue Mass Removal Consent for Planned Operative Procedure(s) Verified: Yes Verified Documents: Surgical Consent, History and Physical and Cardiac Clearance NPO Status Verified Time NPO: 00:00 Additional verifications Anesthesia Reactions: No Hx Blood Transfusions: No Blood Transfusion Reaction: No Airway Assessment Mallampati Score:: Class II C-Spine Mobility Assessed: Yes TMJ Mobility Assessed: Yes Dentition: Good Dentition Neurological Assessment Level of Consciousness: Awake, Alert and Appropriate Anesthesia Plan Anesthesia Risk discussed: Yes Anesthesia Plan: Verified ASA Class: III Anesthesia Type: General w/block (Right Popliteal/Adductor Canal Nerve Block. Risks/benefits explained. Pt Verbalizes understanding)
[2024-09-28] MEDS: CEFAZOLIN SODIUM 2 GM in 0.9 % SODIUM CHLORIDE 100 ML IV (10:37)
[2024-09-28] MEDS: GENTAMICIN 80 MG/2 ML VIAL (11:00)
[2024-09-28] MEDS: CLINDAMYCIN PHOSPHATE/D5W 900 MG/50 ML PIGGYBACK 25 MG (11:30)
--- NOTE | 2024-09-28 12:02 | P.PNANES_ITS ---
[facility] Anesthesia Record Part I Anesthesia Record I Intake, IV Amount: 600 Hydration: Adequate Estimated blood loss (mL): 10 Urine output (mL): 0 Blood Products used (#): none Blood Pressure: 135/88 SaO2: 92 Pulse Rate: 86 Airway Patency: Patent Respiratory Rate: 20 Temperature: 97.4 F Patient is:: Awake and Stable Stable to PACU at:: 12:02
--- NOTE | 2024-09-28 12:04 | P.OP_ITS ---
Date of procedure: 09/28/24 Pre-op Diagnosis:: Right foot sub 1st met soft tissue mass Right foot sub 5th soft tissue mass, bursa Right foot callus Post-op Diagnosis:: Same Procedure performed:: right foot excision of soft tissue mass/tumor (subfascial >5cm) I&D below fascia single (82870) right lateral foot excision of soft tissue mass/bursa (subfascial >1.5cm-73017) callus debridement x3 Surgeon:: Lala Spears DPM LANGUAGE AND LITERATURE DIVISION CHAIR:: Other (Andrew Rust) Anesthesia: GETA and regional (R nerve block) Estimated blood loss (mL): 15 Clinical Note:: Patient is a 54-year-old male who presents with painful soft tissue mass noted to the bottom of the right foot. He has tried conservative treatment including: modification of shoe gear, modification of activity, offloading painful area, supportive shoes with inserts, RICE protocol, NSAIDs prn, taping. Conservative treatment discussed but has been exhausted. We discussed surgery. Discussed patient is high risk for wound/incision healing and surgery due to cardiac history, smoking history, diet-controlled diabetes and obesity. We specifically discussed smoking can delay skin/wound healing and cause increased risk for infection. Discussed postop infection could warrant oral versus IV antibiotics, wound care. If infection spreads to bone, it may warrant debridement or partial foot amputation. Briefly discussed cavus recons to reduce pressure to the area however given his comorbidities we will hold off on an extensive reconstruction. Will focus on the soft tissue mass for removal and biopsy so he can more comfortably fit a shoe. Procedure/recovery would be easier for the patient if he socially needs to resume work quicker and cannot be off of the foot for several months. All risks and benefits were discussed including but not limited to: recurrence of the mass, damage to blood vessels and nerves, bleeding, infection, wound complications, need for further surgery, prolonged/permanent pain or swelling of the extremity, RSD/CRPS, DVT/PE, and anesthetic complications including . No guarantees were given. All questions fully answered. The patient verbalized understanding and agreed to proceed with surgery. Written consent was obtained. Operative findings:: Calluses right medial plantar hallux, sub 1st metatarsal, right sub 5th metatarsal. Callus x3 debrided, no underlying ulcer noted. Right subfifth metatarsal soft tissue mass approximately 2 x 2 cm round arising from the plantar bursa. Excised in total and sent to pathology specimen. No signs of infection noted. Palpable mass noted to medial arch just inferior to the sub 1st met callus. Mass is firm, non-mobile along medial central band of plantar fascia on right medial foot, ~3 x 2cm. Upon dissection the mass was lobulated. The inferior and superior aspect of the mass was firm. The center of the mass was more pliable almost like a ganglion cyst. Upon puncturing the central aspect of the mass there was thick creamy yellow-greenish drainage, wound culture taken. The mass extended through skin, subcu tissue subfascial along the abductor hallucis muscle and flexor hallucis brevis muscle. Total size of the mass 7x5cm. Picture included with path specimen. Operative note:: On this date and time, the patient was deemed an appropriate surgical candidate. With informed consent signed, the patient was taken to the operating theater after a pre-op regional adductor canal, popliteal nerve block was given by anesthesia. The patient was positioned supine. General anesthesia was induced. Tourniquet was applied to the right thigh. The right lower extremity was prepped and draped in normal sterile fashion. Right excision soft tissue mass: The tourniquet was inflated at 250 mmHg. Attention was directed to the medial foot where the incision was mapped from the subfirst metatarsal to medial plantar arch soft tissue mass. Dissection was carried through skin to subcutaneous tissue with care taken to maintain surgical hemostasis and safely retract neurovascular structures. Dissection then carried down to deep fascia. The lobulated mass was identified and isolated from subfascial along the adductor hallucis muscle extending to flexor hallucis brevis muscle. It was noted that there were both blood vessels as well as nerves extending to the mass. Small nerve branches were transected in order to excise the mass. Upon removal of the mass the central portion had yellowish-green drainage about 3 to 4 cc, wound culture taken. Mass was excised and sent to pathology as a specimen. The wound was flushed with gentamicin irrigation. Wound was reexplored and no deep signs of infection were noted. Toes were taken through range of motion individually and there was no restriction with range of motion. There was muslce/tendon still intact to the FHB. Right foot callus debridement: Calluses x 3 sharply debrided with a 15 blade through skin only. No underlying ulcers noted. Right subfifth metatarsal soft tissue mass/bursa excision: Soft tissue mass noted to the plantar lateral foot. 15 blade was used to make an elliptical incision over soft tissue mass full-thickness through skin into subcutaneous tissue. The mass was arising from the bursa. It was excised full-thickness and sent to pathology as a specimen. See operative finding for details. All wounds were flushed with gentamicin irrigation. Tourniquet deflated and immediate hyperemic response was noted to the digits. Bleeding controlled. 2-0 Vicryl used to reapproximate the subcutaneous tissue. 2-0 nylon used to reapproximate skin in a vertical mattress and simple interrupted suture fashion. The wounds were cleansed. Xeroform, Betadine soaked gauze, dry sterile dressing was then applied to the right foot. The patient was awoken from anesthesia and transferred to recovery with vital signs stable and neurovascular status intact. Discharge/Plan: Ok to discharge home today when vss. Patient is to maintain dressing clean dry and intact. Elevate on two pillows. No weight bearing to the right lower extremity with DME assistance (crutches, walker, rolling knee scooter). Take Bactrim DS x 7 days as directed. Follow up in one week as previously scheduled for incision check. Tourniquet time (min): 35 Condition: stable Disposition: same day Specimens:: Right medial foot soft tissue mass Right lateral foot soft tissue mass/bursa Right foot wound culture Complications:: None
--- NOTE | 2024-09-29 12:54 | EXP.ANES.II ---
[facility] Anesthesia Record Part II Anesthesia Record Part II Discharge Time: 12:32 Destination: Surgical Day Care (OP Surgery) PACU nurse assessment reviewed?: Yes Patient Condition:: Good Anesthesia Complications:: None Swallowing reflex intact?: Yes Airway Patency: Patent Cyanosis?: No Blood Pressure: 136/75 SaO2: 95 Respiratory Rate: 16 Pulse Rate: 75 Temperature: 98.2 F Mental Status: Alert & Oriented Pain level:: 0 Nausea and/or vomitting:: None Intake, IV Amount: 0 Hydration: Adequate
[2024-09-29 12:55] VITALS: BP 136/75; PULSE 75; RESP 16; TEMP 36.8; O2SAT 95
== END 2024-09-28 13:03 | disposition home or self-care (01) ==
PROVIDERS: PCP Internal Medicine; Visit Provider Podiatrist
PROC: (CPT 11056; principal; 2024-09-28 10:00)
DX: M79.671 Pain in right foot (principal); M67.471 Ganglion, right ankle and foot; M72.2 Plantar fascial fibromatosis; L84 Corns and callosities; I25.10 Atherosclerotic heart disease of native coronary artery without angina pectoris; I48.91 Unspecified atrial fibrillation; J44.9 Chronic obstructive pulmonary disease, unspecified; F17.210 Nicotine dependence, cigarettes, uncomplicated; E11.9 Type 2 diabetes mellitus without complications; Z95.0 Presence of cardiac pacemaker; Z79.899 Other long term (current) drug therapy; Z79.85 Long-term (current) use of injectable non-insulin antidiabetic drugs; Z79.01 Long term (current) use of anticoagulants; Z79.51 Long term (current) use of inhaled steroids
CPT/HCPCS: 11056; 28002; 28041; 87070; 87075; 87205; 88304; 88305; 96374; J0690; J0736; J1100; J1580; J2250; J2405; J3010

== ENCOUNTER 2024-10-27 13:33 | Outpatient (CLI) | payer MEDICARE, MEDICAID, SELFPAY ==
[2024-10-27 14:24] LABS: Basophils # 0.1 K/mm3 (0-0.2); Basophils % 0.6 % (0.1-2.0); Eosinophils # 0.3 K/mm3 (0.0-0.4); Eosinophils % 3.9 % (0.1-12.0); Hematocrit 38.7 % (42.0-52.0); Hemoglobin 13.1 g/dL (14.1-18.0); Lymphocytes # 2.7 K/mm3 (0.7-4.5); Lymphocytes % 31.2 % (10-50); Mean Corpuscular HGB Conc 33.9 g/dL (31.8-35.4); Mean Corpuscular Hemoglobin 30.5 pg (27.0-31.2); Mean Corpuscular Volume 90.2 fl (80-94); Mean Platelet Volume 8.9 fl (7.4-10.4); Monocytes # 0.8 K/mm3 (0.1-1.0); Monocytes % 9.7 % (1.7-9.3); Neutrophils # 4.7 K/mm3 (1.8-7.8); Neutrophils % 54.2 % (37.0-80.0); Platelet Count 316 K/mm3 (142-424); Red Blood Count 4.29 M/mm3 (4.60-6.20); Red Cell Distribution Width 12.6 % (11.5-17.5); White Blood Count 8.6 K/mm3 (4.8-10.8)
[2024-10-27 15:00] LABS: Albumin Level 4.2 g/dl (3.5-5.0); Chloride 107 mmol/L (98-107); Potassium 4.3 mmoL/L (3.5-5.1); Sodium 140 mmol/L (136-145)
[2024-10-27 15:03] LABS: Alanine Aminotransferase 23 U/L (12-78); Albumin/Globulin Ratio 1.8 (1.1-1.8); Alkaline Phosphatase 64 U/L (38-126); Anion Gap 14.3 mEq/L (5-15); Aspartate Amino Transferase 22 U/L (17-59); Bilirubin,Total 0.3 mg/dl (0.2-1.3); Blood Urea Nitrogen 6 mg/dl (9-20); Carbon Dioxide 23 mmol/L (22.0-30.0); Estimated Glomerular Filt Rate 117 ml/min (>60); GFR (African American) 141 ML/MIN (>60); Globulin 2.3 g/dL (1.3-3.2); Total Protein,Serum 6.5 g/dl (6.3-8.2)
[2024-10-27 15:04] LABS: Calcium 9.4 mg/dl (8.4-10.2); Glucose 87 mg/dl (74-100)
[2024-10-27 15:09] LABS: C-Reactive Protein 1.8 mg/L (0-4)
[2024-10-27 15:47] LABS: Erythrocyte Sedimentation Rate 19 mm/hr (0-20)
== END 2024-10-27 23:59 | disposition home or self-care (01) ==
LOC: LAB 13:35
PROVIDERS: PCP Internal Medicine; Visit Provider Nurse Practitioner
DX: Z98.890 Other specified postprocedural states (principal)
CPT/HCPCS: 36415; 80053; 85025; 85651; 86140

== ENCOUNTER 2024-11-30 10:31 | Outpatient (CLI) | payer MEDICARE, MEDICAID, SELFPAY ==
[2024-11-30 14:45] LABS: Chol/HDL Ratio 3.1 (1-3.5); Cholesterol 113 mg/dl (140-200); HDL Cholesterol 37 mg/dl (40-60); Triglycerides 77 mg/dl (30-150); VLDL Cholesterol 15 mg/dL (0-40)
[2024-11-30 14:56] LABS: Direct LDL Cholesterol 58.17 mg/dL (100-129)
[2024-11-30 15:48] LABS: Prostate Specific Ag Screen 8.2 ng/ml (0.0-4.0)
== END 2024-11-30 23:59 | disposition home or self-care (01) ==
LOC: LAB.DROPOF 12-01 13:44
PROVIDERS: PCP Internal Medicine; Visit Provider Internal Medicine
DX: R97.20 Elevated prostate specific antigen [PSA] (principal); Z12.5 Encounter for screening for malignant neoplasm of prostate; E78.5 Hyperlipidemia, unspecified
CPT/HCPCS: 80061; G0103

== ENCOUNTER 2024-12-30 14:00 | Outpatient (CLI) | payer MEDICARE, MEDICAID, SELFPAY ==
--- NOTE | 2024-12-30 14:03 | CA_ITS ---
APPROVED REPORT EXAM: Comprehensive 2D, Doppler, and color-flow Echocardiogram Network Architect Manager: Suyapa Nunn RVT Ht: 5 ft 10 in Wt: 266lbs BSA: 2.36 BP: 117/78 mmHg Indications: CM,CAD,SABRINA,PACER,A-FIB,COPD,EDEMA,SMOKER,HTN,HLD 2D Dimensions IVSd 0.89 cm M: 0.6-1.2 LVEF (Visual) 50.60 % PWd 0.98 cm M: 0.6 - 1.2 LA Volume 20.10 mL LVDd 5.74 cm M: 4.2 - 5.9 LA Volume Index 8.52 mL/m2 (M/F) 16-34 LVDs 4.24 cm M: 2.5 - 4.0 M-Mode Dimensions LA Diam 3.83 cm (1.9-4.0) TAPSE 2.07 (<1.7) LV Diastology E Decel Time 150 (160-240 msec) E/A Ratio 0.6 Aortic Valve DEBI Index 1.57 cm2/m2 AoV Peak Matthew. 128.0 (50-130 cm/s) AO Peak GR. 6.50 mmHg AO Mean GR. 3.70 (<5 mmHg) AO VTI 21.4 (18-25 cm) DEBI (VTI) 3.79 (2.5-4.5 cm2) Mitral Valve MV E Max Matthew. 60.0 (40-130 cm/s) MV A Velocity 94.0 (40-130 cm/s) E/A Ratio 0.64 MV PHT 44.0 ms Pulmonary Valve PV Peak Velocity 73.0 (50-150 cm/s) Tricuspid Valve TR P. Velocity 201.00 cm/s RAP Estimate 10.00 mmHg RVSP 26.20 mmHg Left Ventricle The left ventricle is normal size. The left ventricular systolic function is normal. The left ventricular ejection fraction is within the normal range. There is increased LV wall thickness. There is normal LV segmental wall motion. Transmitral Doppler flow pattern suggests impaired LV relaxation. LVEF is 55%. Right Ventricle The right ventricle is normal size. The right ventricular systolic function is normal. Atria The left atrium size is normal. The right atrium size is normal. There is no Doppler evidence of interatrial shunt. Aortic Valve Aortic valve is mildly thickened. There is no aortic valvular stenosis. Trace aortic regurgitation. Mitral Valve The mitral valve is normal in structure. No evidence of mitral valve stenosis. Trace mitral regurgitation. Tricuspid Valve The tricuspid valve leaflets are thin and pliable. Trace tricuspid regurgitation. There is insufficient TR jet to estimate RVSP. Pulmonic Valve The pulmonary valve is normal in structure. Trace pulmonic regurgitation. Great Vessels The aortic root is normal in size. IVC is normal in size and collapses >50% with inspiration. Pericardium There is no pericardial effusion. Other Information Study Quality: Fair Conclusion Normal biventricular systolic function. No significant valvular stenosis or regurgitation. Electronically signed by : Carolyn Kasper MD 01/09/2025 23:37:10
== END 2024-12-30 23:59 | disposition home or self-care (01) ==
LOC: RT 14:01
PROVIDERS: PCP Internal Medicine; Visit Provider Physician Assistant
DX: Z01.810 Encounter for preprocedural cardiovascular examination (principal); I25.10 Atherosclerotic heart disease of native coronary artery without angina pectoris; I48.0 Paroxysmal atrial fibrillation; I42.9 Cardiomyopathy, unspecified; G47.33 Obstructive sleep apnea (adult) (pediatric); J44.9 Chronic obstructive pulmonary disease, unspecified; F17.200 Nicotine dependence, unspecified, uncomplicated; E78.5 Hyperlipidemia, unspecified; I10 Essential (primary) hypertension; R60.9 Edema, unspecified; Z95.818 Presence of other cardiac implants and grafts
CPT/HCPCS: 93306

== ENCOUNTER 2025-01-13 08:11 | Day surgery (SDC) | payer MEDICARE, MEDICAID, SELFPAY ==
[2025-01-11 14:37] VITALS: BMI 38.2
--- NOTE | 2025-01-13 07:18 | EXP.GEN.HP ---
HPI HPI HPI: Patient is a 54-year-old male with history of obstructive sleep apnea, pacemaker placement, atrial fibrillation, COPD, coronary artery disease, congestive heart failure, cardiomyopathy, hypertension, GERD, tobacco use, cerebrovascular disease. I had previously seen him for hernia and colonoscopies. Most recently I had seen him for umbilical hernia repair. He was seen in his primary care provider's office, Florence Hoffmann, on 12/09/2024. He described bright red blood in the stool for approximately 1 year. Patient does have symptoms of hemorrhoids and also constipation. He takes MiraLAX and Citrucel. Patient was scheduled and referred to Dr. Ness to proceed with colonoscopy. This was scheduled for February 09. I had performed colonoscopy in 2018 at which time he had at least 8 or 9 tubular adenomas, a couple of these were greater than 1 cm, and also a couple of serrated adenomas. Colonoscopy was done on 06/12/2020. This revealed a couple of tubular adenomas. He has had hemorrhoid problems. He also has diverticulosis. After his colonoscopy on 06/12/2020 I recommended a 2-year follow-up colonoscopy. At that time there were minimal internal hemorrhoids noted upon retroflexion. Patient is past due for recommended colonoscopy. On physical examination hemorrhoid issues were minimal. Plan was to proceed with expeditious follow-up colonoscopy with possible hemorrhoid banding. [facility] Disclaimer: The information contained in this section may have been updated after the patient was seen, as this information can be updated by other users. Medical History (Updated 01/13/25 @ 09:54 by Oswaldo Syed MD) Paroxysmal atrial fibrillation Mixed hyperlipidemia SABRINA on CPAP History of pacemaker Preop cardiovascular exam Atrial fibrillation Body mass index [BMI] 40.0-44.9, adult Encounter for pre-operative cardiovascular clearance Hx of cardiac pacemaker COPD (chronic obstructive pulmonary disease) Erectile dysfunction Arthritis CAD (coronary artery disease) SVT (supraventricular tachycardia) MRSA (methicillin resistant staph aureus) culture positive CHF (congestive heart failure) Cardiomyopathy Hypertension CAD (coronary artery disease) COPD (chronic obstructive pulmonary disease) GERD (gastroesophageal reflux disease) Tobacco abuse disorder CVA (cerebral vascular accident) Surgical History Hx of ventral hernia repair Fusion of lumbar spine Open right clavicular fracture H/O colonoscopy H/O cardiac catheterization Family History Mother , at the age of 58 Diabetes Father , at the age of 55 Heart attack Other Family history of diabetes mellitus type II Family history of hypertension Family history of myocardial infarction Social History (Updated 01/13/25 @ 08:42 by Abbi Marinelli RN) Smoking Status: Current every day smoker tobacco type: cigarettes packs per day: 1 smoking status start date: 1 pack/day 35 years and ongoing alcohol intake: current alcohol intake frequency: a few times a month substance use type: denies use current occupational status: employed Travel in the last 8 weeks?: None household members: none housing: apartment lives independently: Yes marital status: single number of children: 1 service: No 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 [email or web address] current occupational exposures/hazards: No Hx Recent Travel: No caffeine: Yes special latasha needs: No agree to transfusion: No do you feel safe at home: Yes victim of physical abuse: No victim of emotional abuse: No victim of sexual abuse: No would you like helpful sources: No Have you lived/traveled outside US in past 30 days?: No Contact w/someone who lives/traveled outside US past 30 days?: No Exposure to someone with infectious disease in past 14 days?: No Do you have a fever (greater than 100.4 F or 38 C)?: No Have you tested positive for COVID-19?: No Exposed to someone with COVID-19 in past 14 days?: No Do you have a sore throat?: No Do you have a cough?: No Do you have any weakness?: No Are you experiencing any nausea/vomitting?: No Do you have any diarrhea?: No Are you experiencing any unusual bleeding?: No Do you have any muscle aches/pain?: No Do you have any abdominal pain?: No Are you experiencing loss of taste or smell?: No Other Medical History Have you received the Pneumonia Vaccine: Yes Meds Home Medications and Allergies Home Medications ?Medication ?Instructions ?Recorded ?Confirmed ?Type ipratropium 0.5 mg-albuterol 3 mg 3 ml inhalation QIDP PRN Shortness 01/19/23 01/13/25 History (2.5 mg base)/3 mL nebulization Of Breath soln tadalafil 10 mg tablet (Naty) 10 mg PO DAILY PRN sexual activity 05/15/23 01/13/25 Rx #30 tabs fluticasone propionate 50 1 spray intranasal DAILY #9.9 mL 06/06/23 01/13/25 Rx mcg/actuation nasal spray,suspension loratadine 10 mg tablet (Claritin) 10 mg PO DAILY PRN allergy 06/06/23 01/13/25 Rx symptoms #30 tabs albuterol sulfate 90 mcg/actuation 1 inh inhalation QID #6.7 grams 12/23/23 01/13/25 Rx aerosol inhaler clopidogrel 75 mg tablet See Rx Instructions .Route 01/07/24 01/13/25 Rx .COMPLEX #90 tabs nebivolol 10 mg tablet See Rx Instructions .Route 01/07/24 01/13/25 Rx .COMPLEX #90 tabs diltiazem HCl 240 mg See Rx Instructions .Route 05/31/24 01/13/25 Rx capsule,extended release 24 hr .COMPLEX #90 caps rivaroxaban 20 mg tablet (Xarelto) 20 mg PO DAILY #90 tabs 08/04/24 01/13/25 Rx levothyroxine 75 mcg tablet See Rx Instructions .Route 10/13/24 01/13/25 Rx .COMPLEX #90 tabs atorvastatin 40 mg tablet See Rx Instructions .Route 10/20/24 01/13/25 Rx .COMPLEX #90 tabs lisinopril 10 mg tablet See Rx Instructions .Route 11/23/24 01/13/25 Rx .COMPLEX #90 tabs lidocaine 5 % topical ointment 1 applic topical BID PRN pain 30 11/28/24 01/13/25 Rx days #50 grams cyclobenzaprine 5 mg tablet 5 mg PO DAILY #30 tabs 11/30/24 01/13/25 Rx methocarbamol 500 mg tablet 1,000 mg (2 x 500 mg) PO Q8H PRN 11/30/24 01/13/25 Rx muscle spasm #120 tabs hydrocortisone 2.5 % topical cream 1 applic AR Q12H PRN hemorrhoids 12/09/24 01/13/25 Rx with perineal applicator #30 grams (Proctosol HC) hydrocortisone 2.5 % topical cream 1 applic AR QD-BID PRN hemorrhoids 12/09/24 01/13/25 Rx with perineal applicator #30 grams (Proctozone-HC) pantoprazole 40 mg tablet,delayed 40 mg PO DAILY Acid reflux #90 tabs 12/14/24 01/13/25 Rx release sodium,potassium,mag sulfates 17.5 See Rx Instructions PO .COMPLEX 12/15/24 01/13/25 Rx gram-3.13 gram-1.6 gram oral soln #354 mL (Suprep Bowel Prep Kit) tirzepatide 7.5 mg/0.5 mL 7.5 mg (0.5 mL) SQ WEEKLY #2.5 mL 12/15/24 01/13/25 Rx subcutaneous pen injector varenicline tartrate 1 mg tablet 1 mg PO BID #56 tabs 12/16/24 01/13/25 Rx (Chantix Continuing Month Box) linaclotide 72 mcg capsule 72 mcg PO NEEDED PRN unk 01/11/25 01/13/25 History (Linzess) New Prescriptions to Start Prescriptions: Allergies Allergy/AdvReac Type Severity Reaction Status Date / Time No Known Allergies Allergy Verified 12/15/24 13:28 Exam Data for Last 24 hours I & O for Last 24 hours: Intake & Output 01/10/25 01/11/25 01/12/25 01/13/25 11:59 11:59 11:59 11:59 Weight 267 lb Constitutional Constitutional: no acute distress *Routine HEENT Exam Head: Present normocephalic Eye: Present EOMI and PERRL ENT: Present mucous membranes moist *Routine Neck Exam Neck: Present supple; Absent lymphadenopathy *Routine Respiratory Exam Respiratory: Present CTA bilaterally *Routine Cardiovascular Exam Cardiovascular: Present RRR *Routine Abdominal Exam Abdominal: Present soft and normoactive bowel sounds; Absent tenderness *Routine Rectal Exam Rectal:: deferred *Routine Genitalia Exam Genitalia:: deferred *Routine Extremities Exam Extremities: Absent cyanosis, clubbing or edema *Routine Skin Exam Skin: Present warm; Absent rash *Routine Neurological Exam Neurological: Present alert and oriented X3 Assessment and Plan *Assessment and plan (1) Hemorrhoids: Status: Acute Category: Medical Code(s): K64.9 - Unspecified hemorrhoids (2) Tubular adenoma of colon: Status: Acute Category: Medical Code(s): D12.6 - Benign neoplasm of colon, unspecified Plan Colonoscopy with possible hemorrhoid banding
[2025-01-13 08:42] VITALS: BP 138/79; PULSE 86; RESP 16; TEMP 36.3; O2SAT 95
[2025-01-13 08:51] VITALS: BMI 38.2
[2025-01-13] MEDS: LACTATED RINGERS 1000ML 1,000 ML 50 ML IV (08:54)
--- NOTE | 2025-01-13 08:59 | EXP.ANES.CKL ---
[facility] Disclaimer: The information contained in this section may have been updated after the patient was seen, as this information can be updated by other users. Medical History Paroxysmal atrial fibrillation Mixed hyperlipidemia SABRINA on CPAP History of pacemaker Preop cardiovascular exam Atrial fibrillation Body mass index [BMI] 40.0-44.9, adult Encounter for pre-operative cardiovascular clearance Hx of cardiac pacemaker COPD (chronic obstructive pulmonary disease) Erectile dysfunction Arthritis CAD (coronary artery disease) SVT (supraventricular tachycardia) MRSA (methicillin resistant staph aureus) culture positive CHF (congestive heart failure) Cardiomyopathy Hypertension CAD (coronary artery disease) COPD (chronic obstructive pulmonary disease) GERD (gastroesophageal reflux disease) Tobacco abuse disorder CVA (cerebral vascular accident) Surgical History Hx of ventral hernia repair Fusion of lumbar spine Open right clavicular fracture H/O colonoscopy H/O cardiac catheterization Family History Mother , at the age of 58 Diabetes Father , at the age of 55 Heart attack Other Family history of diabetes mellitus type II Family history of hypertension Family history of myocardial infarction Social History (Updated 01/13/25 @ 08:42 by Abbi Marinelli RN) Smoking Status: Current every day smoker tobacco type: cigarettes packs per day: 1 smoking status start date: 1 pack/day 35 years and ongoing alcohol intake: current alcohol intake frequency: a few times a month substance use type: denies use current occupational status: employed Travel in the last 8 weeks?: None household members: none housing: apartment lives independently: Yes marital status: single number of children: 1 service: No 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 [employer] current occupational exposures/hazards: No Hx Recent Travel: No caffeine: Yes special latasha needs: No agree to transfusion: No do you feel safe at home: Yes victim of physical abuse: No victim of emotional abuse: No victim of sexual abuse: No would you like helpful sources: No Have you lived/traveled outside [place] in past 30 days?: No Contact w/someone who lives/traveled outside US past 30 days?: No Exposure to someone with infectious disease in past 14 days?: No Do you have a fever (greater than 100.4 F or 38 C)?: No Have you tested positive for COVID-19?: No Exposed to someone with COVID-19 in past 14 days?: No Do you have a sore throat?: No Do you have a cough?: No Do you have any weakness?: No Are you experiencing any nausea/vomitting?: No Do you have any diarrhea?: No Are you experiencing any unusual bleeding?: No Do you have any muscle aches/pain?: No Do you have any abdominal pain?: No Are you experiencing loss of taste or smell?: No [facility] Anesthesia Checklist Patient Identification Patient Identification: Arm Band Structural Data Admitted From: Home Planned Operative Procedure/s: Colonoscopy Consent for Planned Operative Procedure(s) Verified: Yes Verified Documents: Surgical Consent and History and Physical NPO Status Verified Time NPO: 00:00 Additional verifications Anesthesia Reactions: No Hx Blood Transfusions: No Blood Transfusion Reaction: No Airway Assessment Mallampati Score:: Class II C-Spine Mobility Assessed: Yes TMJ Mobility Assessed: Yes Dentition: Good Dentition Neurological Assessment Level of Consciousness: Awake, Alert and Appropriate Anesthesia Plan Anesthesia Risk discussed: Yes Anesthesia Plan: Verified ASA Class: III Anesthesia Type: MAC
--- NOTE | 2025-01-13 09:54 | P.PCN_ITS ---
Procedure: Date: 01/13/25 Patient Date of :: 1970 Procedure Performed:: Total colonoscopy to terminal ileum with polypectomy Indications:: Patient is a 54-year-old male with history of obstructive sleep apnea, pacemaker placement, atrial fibrillation, COPD, coronary artery disease, congestive heart failure, cardiomyopathy, hypertension, GERD, tobacco use, cerebrovascular disease. I had previously seen him for hernia and colonoscopies. Most recently I had seen him for umbilical hernia repair. He was seen in his primary care provider's office, Florence Hoffmann, on 12/09/2024. He described bright red blood in the stool for approximately 1 year. Patient does have symptoms of hemorrhoids and also constipation. He takes MiraLAX and Citrucel. Patient was scheduled and referred to Dr. Ness to proceed with colonoscopy. This was scheduled for February 09. I had performed colonoscopy in 2018 at which time he had at least 8 or 9 tubular adenomas, a couple of these were greater than 1 cm, and also a couple of serrated adenomas. Colonoscopy was done on 06/12/2020. This revealed a couple of tubular adenomas. He has had hemorrhoid problems. He also has diverticulosis. After his colonoscopy on 06/12/2020 I recommended a 2-year follow-up colonoscopy. At that time there were minimal internal hemorrhoids noted upon retroflexion. Patient is past due for recommended colonoscopy. On physical examination hemorrhoid issues were minimal. Plan was to proceed with expeditious follow-up colonoscopy with possible hemorrhoid banding. In preoperative area patient described symptoms of a small knot to the left of his anus. He states that the bleeding has stopped for some time. . Performing Provider:: Oswaldo Syed MD Referring Provider:: Daniela Hoffmann Sedation:: MAC sedation Procedure:: Patient history was obtained and appropriate physical examination was performed. Patient's medications and allergies were reviewed. Informed consent was obtained after explaining the benefits, alternatives, and risks of the procedure including, but not limited to, bleeding, perforation, missed lesions, and adverse reaction to anesthesia medications. Patient was transported to endoscopy procedure room. Patient was connected to monitoring devices. Throughout the procedure the patient's blood pressure, pulse, and oxygen saturations were monitored continuously. Patient identification and planned procedure were verified by the staff. Patient was positioned in lateral decubitus position. Digital anorectal exam was performed. Variable stiffness Olympus colonoscope was inserted and a dvanced under direct visualization to the cecum. Adequacy of the colonic preparation was noted. The colonoscope was advanced a short distance into the terminal ileum. The colonoscope was then slowly withdrawn while carefully examining the color, texture, anatomy, and integrity of the mucosoa circumferentially. Within the rectum retroflexion was performed. Colonoscope was then withdrawn. Impression: Visual inspection externally revealed what appeared to be a minuscule sebaceous cyst to the left of the anus. There was some minor external hemorrhoids at this time. These appeared nonbleeding. Initially colonic preparation was fair. However good visualization was achieved with irrigation and suctioning. He had pandiverticulosis with some significant sigmoid diverticulosis. There were a couple of areas of previous tattooing with Nani ink in the proximal transverse colon and in the descending colon with no evidence of any local recurrent polyp. In the distal transverse colon there was a polyp removed with cold snare. In the descending colon there was a polyp removed with cold snare. Also in the descending colon there is a probable serrated adenomatous polyp, this appeared as a subtle ridge polyp removed with hot snare and sent as descending colon polyp #2. In the sigmoid colon there were a couple of tiny diminutive adenomatous polyps adjacent to 1 another removed with biopsy forceps. Distal to this there was a subtle diminutive polyp removed with biopsy forceps. The 3 of these were sent as sigmoid colon polyp x 3. Retroflexion within the rectum revealed a prolapsing hemorrhoid. Findings:: Hemorrhoids as noted above Perianal minuscule diminutive sebaceous cyst Diverticulosis Polyps as noted above. Total of 6 polyps. Recommendations:: Bleeding likely from hemorrhoids now resolved. If recurrent would be amenable to medical management initially. Repeat colonoscopy pending polyp pathology. Complications:: None immediately apparent Estimated blood obtained (mL): 1 Colonoscopy Component Colonoscopy Component Was a colonoscopy performed during today's procedure?: Yes Recommended follow up colonoscopy of at least 10 years?: No If no, follow up colonoscopy recommended in ___ years?: See above Reason for not recommending >/= 10 yr follow-up interval?: See above
[2025-01-13 09:55] VITALS: BP 120/83; PULSE 84; RESP 16; TEMP 36.4; O2SAT 95
[2025-01-13 10:15] VITALS: BP 130/88; PULSE 88; RESP 18; O2SAT 97
[2025-01-13 10:25] VITALS: BP 141/77; PULSE 85; RESP 18; TEMP 36.4; O2SAT 97
== END 2025-01-13 10:28 | disposition home or self-care (01) ==
PROVIDERS: PCP Internal Medicine; Visit Provider Surgery
PROC: 0DJD8ZZ Inspection of Lower Intestinal Tract, Via Natural or Artificial Opening Endoscopic (ICD-10-PCS; CPT 45380; principal; 2025-01-13 09:30)
DX: K64.8 Other hemorrhoids (principal); Z86.0101 Personal history of adenomatous and serrated colon polyps; K57.30 Diverticulosis of large intestine without perforation or abscess without bleeding; L72.3 Sebaceous cyst; D12.4 Benign neoplasm of descending colon; D12.3 Benign neoplasm of transverse colon; K63.5 Polyp of colon; G47.33 Obstructive sleep apnea (adult) (pediatric); J44.9 Chronic obstructive pulmonary disease, unspecified; I25.10 Atherosclerotic heart disease of native coronary artery without angina pectoris; I11.0 Hypertensive heart disease with heart failure; I50.9 Heart failure, unspecified; I42.9 Cardiomyopathy, unspecified; K59.00 Constipation, unspecified; K21.9 Gastro-esophageal reflux disease without esophagitis; Z87.19 Personal history of other diseases of the digestive system; I47.10 Supraventricular tachycardia, unspecified; I48.0 Paroxysmal atrial fibrillation; E78.2 Mixed hyperlipidemia; F17.210 Nicotine dependence, cigarettes, uncomplicated; M19.90 Unspecified osteoarthritis, unspecified site; Z86.14 Personal history of Methicillin resistant Staphylococcus aureus infection; Z79.899 Other long term (current) drug therapy; Z95.0 Presence of cardiac pacemaker; Z79.02 Long term (current) use of antithrombotics/antiplatelets; Z79.01 Long term (current) use of anticoagulants; Z79.890 Hormone replacement therapy; Z79.85 Long-term (current) use of injectable non-insulin antidiabetic drugs
CPT/HCPCS: 45380; 45385; J2003; J2704; J7120

== ENCOUNTER 2025-03-16 15:09 | Outpatient (CLI) | payer MEDICARE, MEDICAID, SELFPAY ==
--- OUTSIDE RECORDS SUMMARY | 2025-03-20 15:12 | XMS_ITS | Clinical Summary ---
Author Organization [facility] Address [address] [place] [address] Care Team Providers Care Facing Machine Operator Name Role Phone Chris Bautista MD Primary Care Provider [phone] Social History Tobacco Use Types Packs/Day Years [...] (2 of 2 - PCV) 2018 09/28/2014 [id number] Vaccine (3 - season) 2024 12/26/2020, 11/28/2020 [...] complete this topic Insurance MED[place]ID-[place] Care Teams Facing Machine Operator Relationship Specialty Start Date End Date Chris Bautista MD [address] [place] [address] PCP - General 12/14/20
--- OUTSIDE RECORDS SUMMARY | 2025-03-20 15:12 | XMS_ITS | Clinical Summary ---
Author Organization [facility] Address [address] [place] [address] Care Team Providers Care Belt Sewer Name Role Phone Chris Bautista MD Primary [...] 04/15/2021 Insurance [place] Care Teams Belt Sewer Relationship Specialty Start Date End Date Chris Bautista MD [address] [phone] PCP - General Emergency Medicine 03/31/23
== END 2025-03-16 23:59 ==
LOC: LAB.DROPOF 03-20 15:10
PROVIDERS: PCP Internal Medicine; Visit Provider Internal Medicine
DX: E11.9 Type 2 diabetes mellitus without complications (principal)
CPT/HCPCS: 82043; 82570

== ENCOUNTER 2025-03-17 07:17 | Outpatient (CLI) | payer MEDICARE, MEDICAID, SELFPAY ==
--- NOTE | 2025-03-17 07:20 | XR_ITS ---
FINAL REPORT CLINICAL HISTORY: Back pain w/radiaiton COMPARISON: None FINDINGS: 3 views of the lumbar spine were obtained. There is posterior and interbody fusion hardware bridging L4-5. There is no evidence of fracture. There is grade 1 spondylolisthesis of L4 on L5. Advanced facet sclerosis is noted in the lower lumbar spine. There are moderately advanced hypertrophic changes of degenerative disc disease at T9-10 and T10-11. IMPRESSION: Degenerative/chronic and postoperative changes without acute bony abnormality. Reviewed, Interpreted and Dictated by Davdi De La Torre MD Transcribed by Gail Jin Authenticated and [facility]
--- OUTSIDE RECORDS SUMMARY | 2025-03-17 07:20 | XMS_ITS | Clinical Summary ---
Author Organization [facility] Address [address] [place] [address] Care Team Providers Care Center Mgr Name Role Phone Chris Bautista MD Primary Care Provider Allergies No known active allergies Medications amiodarone (PACERONE) 200 MG tablet Take 1 tablet by mouth Daily. 01/21/20 23 Active clopidogrel (PLAVIX) 75 MG tablet Take 1 tablet by mouth Daily. 03/17/20 23 Active dilTIAZem CD (CARDIZEM CD) 240 MG 24 hr capsule Take 1 capsule by mouth Daily. 03/27/20 23 Active ipratropium-albute rol (DUO-NEB) 0.5-2.5 mg/3 ml nebulizer Take 3 mL by nebulization 4 (Four) Times a Day. 12/09/19 23 Active levothyroxine (SYNTHROID, LEVOTHROID) 75 MCG tablet Take 1 tablet by mouth Daily. 01/22/20 23 Active Linzess 72 MCG capsule capsule Take 1 capsule by mouth Daily. 12/09/19 23 Active lisinopril (PRINIVIL,ZESTRIL) 10 MG tablet Take 1 tablet by mouth Daily. for blood pressure 03/17/20 23 Active nebivolol (BYSTOLIC) 10 MG tablet Take 1 tablet by mouth Daily. 03/17/20 23 Active ondansetron ODT (ZOFRAN-ODT) [address] 1 tablet on the tongue As Needed. 12/12/19 23 Active pantoprazole (PROTONIX) 40 MG EC tablet Take 1 tablet by mouth Daily. 03/19/20 23 Active pravastatin (PRAVACHOL) 40 MG tablet Take 1 tablet by mouth Daily. 03/17/20 Active Xarelto 20 MG tablet Take 1 tablet by mouth Daily With Dinner. 03/19/20 Active Semaglutide, 1 MG/DOSE, (Ozempic, 1 MG/DOSE,) 4 MG/3ML solution pen-injector Inject 1 mg under the skin into the appropriate area as directed 1 (One) Time Per Week. 3 mL 04/08/20 Active Family History Medical History Relation Name Comments No Known Problems Brother Heart attack Father Hypertension Father No Known Problems Maternal Aunt No Known Problems Maternal Grandfather No Known Problems Maternal Grandmother No Known Problems Maternal Uncle Diabetes Mother Heart disease Mother No Known Problems Other No Known Problems Paternal Aunt No Known Problems Paternal Grandfather No Known Problems Paternal Grandmother No Known Problems Paternal Uncle No Known Problems Sister Anemia Neg Hx Arrhythmia Neg Hx Asthma Neg Hx Clotting disorder Neg Hx Fainting Neg Hx Heart failure Neg Hx Hyperlipidemia Neg Hx Relation Name Status Comments Brother Father Maternal Aunt Maternal Grandfather Maternal Grandmother Maternal Uncle Mother Other Paternal Aunt Paternal Grandfather Paternal Grandmother Paternal Uncle Sister Social History Tobacco Use Types Packs/Day Years Used Date Smoking Tobacco: Every Day Cigarettes 1.5 38.6 Started: 1988 Smokeless Tobacco: Never Tobacco Cessation:Ready to Q uit: Not Asked; Counseling Given: Not Answered Alcohol Use Standard Drinks/Week Comments Yes 0 (1 standard drink = 0.6 oz pur e alcohol) weekly Abuse Screen Answer Date Recorded Unsafe at Home or Work/School Not on file Feels Threatened by Someone? Not on file Does Anyone Keep You from Co ntacting Others or Doint Things Outside the Home? Not on file 05/15/2023 Physical Sign of Abuse Present Not on file 1 Housing Stability Answer Date Recorded Current Living Arrangements Not on file 05/03 Potentially Unsafe Housing Conditions Not on alejo e 05/15/2023 Family and Community Support Answer Arthur e Recorded Help with Day-to-Day Activities Not on file 05/15/2023 Lonely or Isolated Not on file 05/15/2023 Employment Answer Date Recorded Do you want help finding or keeping work or a musa b? Not on file 05/15/2023 Disabilities Answer Date Recorded Concentrating, Remembering, or Making Decisions Difficulty Not on file 05/15/2023 Doing Errands Independently Difficulty Not on fi le 05/15/2023 Education Answer Date Recorded Help with school or training? Not on file Preferred Language Not on file 05/15/2023 Sex and Gender Information Value Date Recorded Sex Assigned at Not on file Legal Sex Male 9:09 AM EDT Gender Identity Not on file Sexual Orientation Not on file Last Filed Vital Signs Vital Sign Reading Time Taken Comments Blood Pressure 116/74 03/31/2023 11:33 AM EDT Pulse 70 03/31/2023 11:33 AM EDT Temperature - - Respiratory Rate - - Oxygen Saturation 96% 03/31/2023 11:33 AM EDT Inhaled Oxygen Concentration - - Weight 122 kg (269 lb) 03/31/2023 11:33 AM EDT Height 177.8 cm (5' 10 ) 03/31/2023 11:33 AM EDT Body Mass Index 38.6 03/31/2023 11:33 AM EDT Plan of Treatment Health Maintenance Due Date Last Done Comments TDAP/TD VACCINES (2 - Tdap) 10/06/2006 10/06/1996 COLOGUARD 2013 COLON CANCER SCREENING 5 YEA R SIGMOIDOSCOPY 2013 COLONOSCOPY [address] CANCER SCREENING [address] COLONOGRAPHY 2013 FECAL OCCULT BLOOD TEST 2013 FIT Testing (1 year) 2013 Pneumococcal Vaccine 50+ (2 of 2 - PCV) 09/28/2015 09/28/2014 ANNUAL PHYSICAL 03/30/2023 HEPATITIS C SCREENING 03/30/2023 COVID-19 Vaccine ( season) 2024, 11/28/2020 INFLUENZA VACCINE 05/03/2025 09/02/2019, , 09/28/2014 ZOSTER VACCINE Completed 09/18/2021, 04/15/2021 Insurance [place] MEDICAID Q[employer] Care Teams Center Mgr Relationship Specialty Start Date End Date Chris Bautista MD [address] [phone] PCP - General Emergency Medicine 03/31/23
--- OUTSIDE RECORDS SUMMARY | 2025-03-17 07:20 | XMS_ITS | Clinical Summary ---
Author Organization [facility] Address [address] [place] [address] Care Team Providers Care Glove Cleaner Name Role Phone Chris Bautista MD Primary Care Provider [phone] Social History Tobacco Use Types Packs/Day Years Used Date Smoking Tobacco: Every Day Alcohol Use Standard Drinks/Week Comments Yes 0 (1 standard drink = 0.6 oz pure alcohol) Alcoholic Drinks/day: Occasional alcohol use Sex and Gender Information Value Date Recorded Sex Assigned at Not on file Legal Sex Male 7:25 PM EDT Gender Identity Not on file Sexual Orientation Not on file Last Filed Vital Signs Vital Sign Reading Time Taken Comments Blood Pressure 103/66 01/19/2023 5:27 PM EDT Pulse 150 01/19/2023 5:27 PM EDT Temperature - - Respiratory Rate - - Oxygen Saturation - - Inhaled Oxygen Concentration - - Weight 124 kg (274 lb) 01/19/2023 5:27 PM EDT Height 180.3 cm (5' 11 ) 01/19/2023 5:27 PM EDT Body Mass Index 38.22 01/19/2023 5:27 PM EDT Plan of Treatment Health Maintenance Due Date Last Done Comments [facility]-Depression Screening 1970 [facility]-Infant/Child/Adol SDOH Screenings 1970 [facility]- SDOH Screenings 1986 [facility]-Adult SDOH Screenings 1986 [facility]-Hepatitis B Vaccines (1 of 3 - 19+ 3-dose series) 1987 [facility]-DTaP,Tdap,and Td Vaccine s (1 - Tdap) 10/07/1996 10/06/1996 CT Colonography 2013 Colonoscopy 2013 FIT-DNA 2013 FIT 2013 FOBT 2013 Sigmoidoscopy 2013 [facility]-Colorectal Cancer Screening 2013 [facility]-Pneumococcal Vaccine: 50 + Years (2 of 2 - PCV) 2018 09/28/2014 [id number] Vaccine (3 - season) 2024 12/26/2020, 11/28/2020 [facility]-Influenza Vaccine (#1) 04/03/202509/02, 08/05/2018, 09/28/2014 [facility]-Hepatitis A Vaccines Aged Out 04/04/2020 No longer eligible based on patient's age to complete this topic [facility]-Zoster Vaccines Completed 09/18/2021, 04/15/2021 HPV Vaccines Aged Out No longer eligi ble based on patient's age to complete this topic [facility]-HIB Vaccines Aged Out No longer e ligible based on patient's age to complete this topic [facility]-IPV Vaccines Aged Out No longer e ligible based on patient's age to complete this topic [facility]-Rotavirus Vaccines Aged Out No lo nger eligible based on patient's age to complete this topic Insurance [place]ID-[place] Care Teams Glove Cleaner Relationship Specialty Start Date End Date Chris Bautista MD [address] [place] [address] PCP - General 12/14/20
== END 2025-03-17 23:59 | disposition home or self-care (01) ==
LOC: RAD 07:18
PROVIDERS: PCP Internal Medicine; Visit Provider Internal Medicine
DX: M47.816 Spondylosis without myelopathy or radiculopathy, lumbar region (principal); Z98.1 Arthrodesis status
CPT/HCPCS: 72100

== ENCOUNTER 2025-04-24 09:00 | Outpatient (RCR) | payer MEDICARE, MEDICAID, SELFPAY ==
--- NOTE | 2025-04-17 11:35 | HMH.PTOPEV ---
PT Evaluation Rehab PT Outpatient Evaluation Start: 04/17/25 08:44 Freq: Status: Active Protocol: Document 04/17/25 08:45 YADI (Rec: 04/17/25 11:35 YADI [id number]) E-signed By Guido Huddleston, PT Outpatient Therapy Subjective History Subjective History Pt is a 54 yom who is referred to [facility] outpatient PT with complaints of numbness into his thighs and back pain that has been ongoing for approximately 1 month. Pt reports that nothing seemed to predate the onset of this pain. Pt reports that his pain is worsened with standing, walking and coming upright from a bent over position. Pt reports that his pain will lessen some by stretching into a flexed position. Pt reports that he has had a prior lumbar spine surgery in 2019, due to sciatic nerve symptoms. Pt reports that he also has a pacemaker. Pt reports that his job aggravates his symptoms a lot because he is on his feet for most of the day. Pt had a recent radiograph, which showed chronic degenerative changes. 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 PMH: Paroxysmal atrial fibrillation Mixed hyperlipidemia SABRINA on CPAP History of pacemaker Preop cardiovascular exam Atrial fibrillation Body mass index [BMI] 40.0-44.9, adult Encounter for pre-operative cardiovascular clearance Hx of cardiac pacemaker COPD (chronic obstructive pulmonary disease) Erectile dysfunction Arthritis CAD (coronary artery disease) SVT (supraventricular tachycardia) MRSA (methicillin resistant staph aureus) culture positive CHF (congestive heart failure) Cardiomyopathy Hypertension CAD (coronary artery disease) COPD (chronic obstructive pulmonary disease) GERD (gastroesophageal reflux disease) Tobacco abuse disorder CVA (cerebral vascular accident) New diagnosis of No cancer in past 12 months? Chief Complaint Pain,Weakness Symptom Type Ache,Numbness,Tingling Symptoms Relieved By OTC Meds,Prescription Meds Symptoms Aggravated Standing,Physical Activity,Walking,Lifting By Prior Functional None Limitations Current Functional Lifting,Standing,Squatting,Walking,Stairs,Balance Limitations Level of pain today 2 (0-10) Pain scale - at its 0 best (0-10) Pain scale - at its 8 worst (0-10) Lumbopelvic Eval Posture Thoracic Spine Neutral Posture Standing Position Lumbar Spine Posture Flexed Standing Position Gait Observation General Gait Pattern Wide Based Gait Observation Palapation tenderness bilateral lumbar spinal Yes: 3/4 TTP to L2-L4 tenderness paraspinal Yes: 3/4 TTP to L2-L4 tenderness Accessory Movement L2 bilateral L3 bilateral L4 bilateral Range of Motion Lumbar Spine Active 40 Flexion Range of Motion (degrees) Lumbar Spine Active 5 Extension Range of Motion (degrees) Left Lumbar Spine 15 Lateral Flexion Active Range of Motion (degrees) Right Lumbar Spine 15 Lateral Flexion Active Range of Motion (degrees) Lumbar Spine ROM Soft Tissue Tightness,Pain Limitations Manual Muscle Test Bilateral Knee Extension 5 Normal Strength Grade Knee Flexion 5 Normal Strength Grade Hip Flexion Strength 4- Good- Grade Hip Abduction 3 Fair Strength Grade Hip Extension 3+ Fair+ Strength Grade Extensor Hallucis 5 Normal Longus Strength Grade Ankle Dorsiflexion 5 Normal Strength Grade Gastronemius/Soleus 5 Normal Strength Grade DTR Rt Patellar 2+ Lt Patellar 2+ Rt Gastroc/Soleus 1+ Lt Gastroc/Soleus 1+ Altered Sensation Bilateral Comment Intact to LT globally Special Tests Lumbar Spine Screen Positive Hip Scouring ( Negative Left,Negative Right Quadrant) Test Hip Robert (DONATO) Negative Left,Negative Right Test Crossed Straight Leg Negative Left,Negative Right Raise Test Hip Monse's Test Negative Left,Negative Right Sacroiliac Joint Negative Left,Negative Right Compression Test Oswestry Index Section 1 Pain Intensity The pain comes and goes and is moderate Section 2 Personal Care ( change my way of washing or dressing in order to avoid Washing,Dresing) pain Section 3 Lifting I can lift heavy weights, but it gives me extra pain Section 4 Walking I have some pain when walking but it does not increase with distance Section 5 Sitting I can sit in any chair for as long as I like Section 6 Standing I cannot stand more than 1 hour without increasing pain Section 7 Sleeping Because of my pain, my normal night's sleep is less than 6 hours sleep Section 8 Social Life My social life is normal but increases the degree of pain Section 9 Traveling I get no pain when traveling Section 10 Changing Degreee of My pain is neither getting better or worse Pain Score and Risk Level Oswestry Score 12 Oswestry Risk Level Mild Disability Miscellaneous Dx PT Eval Objective Objective Double Leg Lowering Test: + Outpatient Therapy Assessment Impairments Problems/ Palpation Tenderness,Impaired Range of Motion,Impaired Impairmments Strength,Impaired Walking,Impaired Standing,Impaired Lifting,Impaired Household Care,Impaired Bending, Subjective C/O Pain,Impaired Self Care/Self Management Prognosis Rehab Potential Good Comment w HEP compliance Clinical Impression Consistent with Yes Diagnosis Additional details: Low back pain with signs of Lumbar Stenosis PT Patient Goals PT Patient Goals PT Short Term 3 weeks: Patient Goals 1. Patient will report a 48 hour average pain of 5/10 on the numeric pain rating scale to demonstrate improvement in quality of life and increased functional capacity. 2. Patient will improve hip abductor strength upon manual muscle testing to 3+/5 facilitate increased spinal stabilization and improved functional capabilities. 3. Patient will demonstrate a reduction in trigger point sensitivity to Grade 2 with manual palpation to improve comfort during activity and soft tissue mobility. 4. Patient will improve lumbar ROM by 10 degrees in all planes to demonstrate improved movement patterns with functional mobility and ADLs. 5. Patient will be able to stand for 15 minutes at one time to demonstrate independence with loading manager, such as washing her dishes. 6. Pt will demonstrate HEP compliance by completing prescribed HEP 4-5x/week. 7. Pt will improve OLEG score to 9 to demonstrate overall functional improvement and improved quality of life PT Shelter Patient 6 weeks: Goals 1. Patient will report a 48 hour average pain of 2-3/10 on the numeric pain rating scale to demonstrate improvement in quality of life and increased functional capacity. 2. Patient will improve hip abductor strength upon manual muscle testing to 4/5 facilitate increased spinal stabilization and improved functional capabilities. 3. Patient will demonstrate a reduction in trigger point sensitivity to Grade 0-1 with manual palpation to improve comfort during activity and soft tissue mobility. 4. Patient will improve lumbar ROM by 15-20 degrees in all planes to demonstrate improved movement patterns with functional mobility and ADLs. 5. Patient will be able to stand/walk for 1 hour at one time to demonstrate improved community ambulation for activities, such as grocery shopping and normal work activities. 6. Pt will be able to lift a 10# weight from floor with proper lifting mechanics and less than 2/10 pain to demonstrate the ability to lift items, such as grocery bags, milk jugs, laundry basket, etc 7. Pt will improve OLEG score to 6 to demonstrate overall functional improvement and improved quality of life Outpatient Therapy Plan of Care Treatment Plan May Include Therapeutic Exercise Yes Including Home Exercise Program Manual Therapy Yes Techniques Neuromuscular Re- Yes education Therapeutic Yes Activities to Return to Previous Functional/Work Level Gait Training Yes ADL/Self Care Yes Education Thermal Modalities Yes Massage Yes Manual Lymphatic Yes Drainage Eval/Re-Eval Yes Frequency Times per week 2/week Duration Number of Weeks 4 weeks Addendums This patient is a No candidate for social or vocational rehab ? Patient/Guardian Yes verbally acknowledges understanding of treatment program and consents to further treatment? Patient/Guardian Yes verbally acknowledges understanding of diagnosis, prognosis and goals for treatment? Eval Complexity PT Charges 22251 - Moderate Complexity Shoulder/Elbow Eval Shoulder Objective Measurements Elbow Objective Measurements PHYSICIAN CERTIFICATION: I certify the specified therapy services for Ignacio Manjit Atwood are required, authorized, and reviewed every 30 days.
== END 2025-04-24 23:59 | disposition home or self-care (01) ==
LOC: PT 09:00
PROVIDERS: PCP Internal Medicine; Visit Provider Internal Medicine
DX: M54.50 Low back pain, unspecified (principal)
CPT/HCPCS: 97110; 97162; 97530

== ENCOUNTER 2025-05-16 11:05 | Outpatient (CLI) | payer MEDICARE, MEDICAID, SELFPAY ==
--- OUTSIDE RECORDS SUMMARY | 2025-05-16 11:08 | XMS_ITS | Clinical Summary ---
Author Organization Healthcare Address [address] [place] [address] Care Team Providers Care Cell Changer Name Role Phone Chris Bautista MD Primary Care Provider [phone] Social History Tobacco Use Types Packs/Day Years [...] (2 of 2 - PCV) 2018 09/28/2014 [id number] Vaccine (3 - 2024- season) 2025 12/26/2020, 11/28/2020 UKY-Influenza Vaccine (#1) 04/03/202509/02, 08/05/2018, [...] complete this topic Insurance MEDICAID-[place] Care Teams Cell Changer Relationship Specialty Start Date End Date Chris Bautista MD [address] [place] [address] PCP - General 12/14/20
--- OUTSIDE RECORDS SUMMARY | 2025-05-16 11:08 | XMS_ITS | Clinical Summary ---
Author Organization [facility] Address [address] [place] [address] Care Team Providers Care Tobacco Primer Machine Operator Name Role Phone Chris Bautista MD Primary Care Provider [phone] Allergies No known active allergies Medications amiodarone [...] Date Smoking Tobacco: Every Day Cigarettes 1.5 38.8 Started: 1988 Smokeless Tobacco: Never Tobacco Cessation:Ready [...] ANNUAL PHYSICAL 03/30/2023 HEPATITIS C SCREENING 03/30/2023 INFLUENZA VACCINE 03/03/2025 09/02/2019, , 09/28/2014 ZOSTER VACCINE Completed 09/18/2021, 04/15/2021 Insurance MEDICAID [place] Care Teams Tobacco Primer Machine Operator Relationship Specialty Start Date End Date Chris Bautista MD [address] [place] [address] PCP - General Emergency Medicine 03/31/23
[2025-05-16 11:24] LABS: Hematocrit 39.6 % (42.0-52.0); Hemoglobin 13.6 g/dL (14.1-18.0); Immature Granulocytes % 0.2 %; Mean Corpuscular HGB Conc 34.3 g/dL (31.8-35.4); Mean Corpuscular Hemoglobin 30.8 pg (27.0-31.2); Mean Corpuscular Volume 89.6 fl (80-94); Nucleated Red Blood Cells % 0 %; Platelet Count 344 K/mm3 (142-424); Red Blood Count 4.42 M/mm3 (4.60-6.20); Red Cell Distribution Width-SD 40.5 fL; White Blood Count 9.0 K/mm3 (4.8-10.8)
[2025-05-16 11:51] LABS: Albumin Level 3.7 g/dl (3.5-5.0); Chloride 105 mmol/L (98-107); Potassium 4.3 mmoL/L (3.5-5.1); Sodium 137 mmol/L (136-145)
[2025-05-16 11:54] LABS: Alanine Aminotransferase 15 U/L (12-78); Alkaline Phosphatase 102 U/L (38-126); Anion Gap 11.3 mEq/L (5-15); Aspartate Amino Transferase 21 U/L (17-59); Bilirubin,Direct 0.1 mg/dl (0.0-0.4); Bilirubin,Indirect 0.2 mg/dL (0.0-0.9); Bilirubin,Total 0.3 mg/dl (0.2-1.3); Bilirubin,Unconjugated 0.3 mg/dL (0.0-1.1); Blood Urea Nitrogen 11 mg/dl (9-20); Calcium 8.7 mg/dl (8.4-10.2); Carbon Dioxide 25 mmol/L (22.0-30.0); Cholesterol 98 mg/dl (140-200); Creatinine,Serum 0.70 mg/dl (0.66-1.25); Estimated Glomerular Filt Rate 117 ml/min (>60); GFR (African American) 141 ML/MIN (>60); Glucose 96 mg/dl (74-100); Total Protein,Serum 6.8 g/dl (6.3-8.2); Triglycerides 94 mg/dl (30-150)
[2025-05-16 11:55] LABS: HDL Cholesterol 30 mg/dl (40-60); Magnesium 1.9 mg/dl (1.6-2.3)
[2025-05-16 12:14] LABS: Free T4 (Free Thyroxine) 1.27 ng/dl (0.78-2.19)
[2025-05-16 12:24] LABS: Thyroid Stimulating Hormone 3.43 uIU/mL (0.465-4.68)
== END 2025-05-16 23:59 | disposition home or self-care (01) ==
LOC: LAB 11:05
PROVIDERS: PCP Internal Medicine; Visit Provider Physician Assistant
DX: I25.10 Atherosclerotic heart disease of native coronary artery without angina pectoris (principal); E78.5 Hyperlipidemia, unspecified; I48.0 Paroxysmal atrial fibrillation
CPT/HCPCS: 36415; 80048; 80061; 80076; 83735; 84439; 84443; 85025

== ENCOUNTER 2025-05-24 10:00 | Outpatient (RCR) | payer MEDICARE, MEDICAID, SELFPAY ==
--- NOTE | 2025-05-17 16:51 | HMH.RHREAS ---
Rehab Reassessment Rehab OP Re-assessment Start: 05/03/25 10:53 Freq: Status: Active Protocol: Document 05/17/25 16:41 PHORNE (Rec: 05/17/25 16:50 PHORNE [id number]) E-signed By Dario Leonard, PT Oswestry Index Section 1 Pain Intensity The pain comes and goes and is severe Section 2 Personal Care ( change my way of washing or dressing in order to avoid Washing,Dresing) pain Section 3 Lifting I can lift heavy weights, but it gives me extra pain Section 4 Walking I cannot walk more than one mile wihtout increasing pain Section 5 Sitting I can sit in any chair for as long as I like Section 6 Standing I cannot stand more than 1/2 hour without increasing pain Section 7 Sleeping Because of my pain, my normal night's sleep is less than 6 hours sleep Section 8 Social Life My social life is normal but increases the degree of pain Section 9 Traveling I get some pain when traveling, but none of my usual forms of travel m Section 10 Changing Degreee of My pain fluctuates, but overall is definitely getting Pain better Score and Risk Level Oswestry Score 15 Oswestry Risk Level Moderate Disability Rehab Re-assessment Subjective Subjective Pt reports pain this date is 8/10 in the middle of the low back. He reports average pain over the past week has been 4/10, but he began to have increased pain yesterday evening and he is unsure why. No changes in activity level or injuries noted at this time. Objective Objective Notes AROM Lumbar spine (in deg): FLEX 0-50, EXT 0-10, R SB 0 -15 (INCREASED PAIN), L SB 0-15 (INCREASED PAIN). MMT: B LE 5/5 throughout except B HIP ABD 4+/5, B HIP FLEX 4-/5 Pain: currently 8/10, average is 4/10 TTP: 0/4 B lumbar paraspinals this date: OLEG: 15 this date vs 13 on IE Assessment Progress Assessment Slower Than Expected Assessment Notes Pt has been present for 4 treatment session since initial evaluation. He did appear to be making steady progress with decreased pain over those sessions, but has acute increase in pain at this time. He has shown mild improvement in lumbar AROM, but OLEG score has increased, likely due to increased pain. Skilled therapy remains indicated to continue improvement in pain, ROM, and strength in order to aid improvement in pt QOL. PT Patient Goals PT Short Term 3 weeks: Patient Goals 1. Patient will report a 48 hour average pain of 5/10 on the numeric pain rating scale to demonstrate improvement in quality of life and increased functional capacity. 2. Patient will improve hip abductor strength upon manual muscle testing to 4+/5 facilitate increased spinal stabilization and improved functional capabilities. 3. Patient will demonstrate a reduction in trigger point sensitivity to Grade 2 with manual palpation to improve comfort during activity and soft tissue mobility. 4. Patient will improve lumbar ROM by 10 degrees in all planes to demonstrate improved movement patterns with functional mobility and ADLs. 5. Patient will be able to stand for 15 minutes at one time to demonstrate independence with theater technician, such as washing her dishes. 6. Pt will demonstrate HEP compliance by completing prescribed HEP 4-5x/week. 7. Pt will improve OLEG score to 9 to demonstrate overall functional improvement and improved quality of life PT Fdc Patient 6 weeks: Goals 1. Patient will report a 48 hour average pain of 2-3/10 on the numeric pain rating scale to demonstrate improvement in quality of life and increased functional capacity. 2. Patient will improve hip abductor strength upon manual muscle testing to 5/5 facilitate increased spinal stabilization and improved functional capabilities. 3. Patient will demonstrate a reduction in trigger point sensitivity to Grade 0-1 with manual palpation to improve comfort during activity and soft tissue mobility. 4. Patient will improve lumbar ROM by 15-20 degrees in all planes to demonstrate improved movement patterns with functional mobility and ADLs. 5. Patient will be able to stand/walk for 1 hour at one time to demonstrate improved community ambulation for activities, such as grocery shopping and normal work activities. 6. Pt will be able to lift a 10# weight from floor with proper lifting mechanics and less than 2/10 pain to demonstrate the ability to lift items, such as grocery bags, milk jugs, laundry basket, etc 7. Pt will improve OLEG score to 6 to demonstrate overall functional improvement and improved quality of life Plan Plan Updated POC sent to provider for their continued input and approval. Continued pt treatment may include any or all of the following interventions in order to improve functional outcomes and aid pt improvement in QOL: Frequency of Therapy 2 x/wk Duration of Therapy 4 wks Therapeutic Exercise Yes Including Home Exercise Program Manual Therapy Yes Techniques Neuromuscular Re- Yes education Therapeutic Yes Activities to Return to Previous Functional/Work Level ADL/Self Care Yes Education Thermal Modalities Yes Electrical Yes Stimulation Orthotics/Bracing/ Yes Splinting Massage Yes Eval/Re-Eval Yes Time and Billing Re-Eval Time 16 Re-Eval Billing 0 Units Charge for PT No reassessment? PHYSICIAN CERTIFICATION: I certify the specified therapy services for Ignacio Atwood are required, authorized, and reviewed every 30 days.
== END 2025-05-24 23:59 | disposition home or self-care (01) ==
LOC: PT 10:00
PROVIDERS: PCP Internal Medicine; Visit Provider Internal Medicine
DX: M54.50 Low back pain, unspecified (principal)
CPT/HCPCS: 97110; 97530

== ENCOUNTER 2025-06-02 10:35 | Outpatient (CLI) | payer MEDICARE, MEDICAID, SELFPAY ==
--- OUTSIDE RECORDS SUMMARY | 2025-06-05 10:49 | XMS_ITS | Clinical Summary ---
Author Organization Healthcare Address [address] [place] [address] Care Team Providers Care Head Counselor Name Role Phone Chris Bautista MD Primary Care Provider [phone] Social History Tobacco Use Types Packs/Day Years [...] (2 of 2 - PCV) 2018 09/28/2014 [id number] Vaccine (3 - 2024- season) 2025 12/26/2020, [...] complete this topic Insurance [place] Care Teams Head Counselor Relationship Specialty Start Date End Date Chris Bautista MD [address] [place] [address] PCP - General 12/14/20
--- OUTSIDE RECORDS SUMMARY | 2025-06-05 10:49 | XMS_ITS | Clinical Summary ---
Author Organization [facility] Address [address] [place] [address] Care Team Providers Care Nuisance Wildlife Specialist Name Role Phone Chris Bautista MD Primary [...] 09/18/2021, 04/15/2021 Insurance MEDICAID [place] Care Teams Nuisance Wildlife Specialist Relationship Specialty Start Date End Date Chris Bautista MD [address] [place] [address] PCP - General Emergency Medicine 03/31/23
== END 2025-06-02 23:59 ==
LOC: LAB.DROPOF 06-05 10:36
PROVIDERS: PCP Internal Medicine; Visit Provider Nurse Practitioner
DX: J02.9 Acute pharyngitis, unspecified (principal)
CPT/HCPCS: 87070

== ENCOUNTER 2025-06-21 14:00 | Outpatient (RCR) | payer MEDICARE, MEDICAID, SELFPAY ==
--- NOTE | 2025-06-21 14:19 | HMH.RHREAS ---
Rehab Reassessment Rehab OP Re-assessment Start: 06/07/25 09:56 Freq: Status: Active Protocol: Document 06/21/25 14:04 [email or web address] (Rec: 06/21/25 14:19 PHORNE [id number]) E-signed By Dario Leonard, PT Oswestry Index Section 1 Pain Intensity The pain comes and goes and is moderate Section 2 Personal Care ( my way of washing or dressing even though it causes Washing,Dresing) some pain Section 3 Lifting I can lift heavy weights, but it gives me extra pain Section 4 Walking I have some pain when walking but it does not increase with distance Section 5 Sitting I can sit in my favorite chair for as long as I like Section 6 Standing I cannot stand more than 1 hour without increasing pain Section 7 Sleeping Because of my pain, my normal night's sleep is less than 6 hours sleep Section 8 Social Life Pain has no significant effect on my social life apart from limiting Section 9 Traveling I get extra pain while traveling, but it does not compel me to seek al Section 10 Changing Degreee of My pain fluctuates, but overall is definitely getting Pain better Score and Risk Level Oswestry Score 15 Oswestry Risk Level Moderate Disability Rehab Re-assessment Subjective Subjective Pt reports average pain over the past 48 hours is 3/10. He reports he feels much better when performing all activities, but he does have increased pain leaning to the left. He reports pain in his L LE is much less frequent, but does still occur intermittently. Objective Objective Notes AROM Lumbar spine (in deg): FLEX 0-60, EXT 0-15, R SB 0 -20, L SB 0-15 (INCREASED PAIN). MMT: B LE 5/5 throughout except B HIP ABD 4+/5, B HIP FLEX 4/5 Pain: currently 3/10, average is 3/10 TTP: 0/4 B lumbar paraspinals this date: OLEG: 15 this date vs 13 on IE Assessment Progress Assessment Progressing as Expected Assessment Notes Pt has been present for 3 treatment sessions since his last reassessment was performed. Pt has seen considerable centralization of radicular symptoms and is having less pain overall. He does continue to have difficulty with home care and work activities due to increased low back pain and B LE weakness. Skilled therapy remains indicated to continue improvement in pain, ROM, and strength in order to aid improvement in pt QOL. All previous goals remain active or have been readjusted based on patient improvements. One STG has been MET at this time. PT Patient Goals PT Short Term 3 weeks: Patient Goals 1. Patient will report a 48 hour average pain of 2/10 on the numeric pain rating scale to demonstrate improvement in quality of life and increased functional capacity. 2. Patient will improve hip abductor strength upon manual muscle testing to 4+/5 facilitate increased spinal stabilization and improved functional capabilities. 3. Patient will demonstrate a reduction in trigger point sensitivity to Grade 2 with manual palpation to improve comfort during activity and soft tissue mobility. (MET) 4. Patient will improve lumbar ROM by 10 degrees in all planes to demonstrate improved movement patterns with functional mobility and ADLs. 5. Patient will be able to stand for 15 minutes at one time to demonstrate independence with irrigation manager, such as washing her dishes. 6. Pt will demonstrate HEP compliance by completing prescribed HEP 4-5x/week. 7. Pt will improve OLEG score to 9 to demonstrate overall functional improvement and improved quality of life PT Fdc Patient 6 weeks: Goals 1. Patient will report a 48 hour average pain of 1/10 on the numeric pain rating scale to demonstrate improvement in quality of life and increased functional capacity. 2. Patient will improve hip abductor strength upon manual muscle testing to 5/5 facilitate increased spinal stabilization and improved functional capabilities. 3. Patient will demonstrate a reduction in trigger point sensitivity to Grade 0-1 with manual palpation to improve comfort during activity and soft tissue mobility. 4. Patient will improve lumbar ROM by 15-20 degrees in all planes to demonstrate improved movement patterns with functional mobility and ADLs. 5. Patient will be able to stand/walk for 1 hour at one time to demonstrate improved community ambulation for activities, such as grocery shopping and normal work activities. 6. Pt will be able to lift a 10# weight from floor with proper lifting mechanics and less than 2/10 pain to demonstrate the ability to lift items, such as grocery bags, milk jugs, laundry basket, etc 7. Pt will improve OLEG score to 6 to demonstrate overall functional improvement and improved quality of life Plan Plan Updated POC sent to provider for their continued input and approval. Continued pt treatment may include any or all of the following interventions in order to improve functional outcomes and aid pt improvement in QOL: Frequency of Therapy 2 x/wk Duration of Therapy 4 wks Therapeutic Exercise Yes Including Home Exercise Program Manual Therapy Yes Techniques Neuromuscular Re- Yes education Therapeutic Yes Activities to Return to Previous Functional/Work Level ADL/Self Care Yes Education Thermal Modalities Yes Electrical Yes Stimulation Orthotics/Bracing/ Yes Splinting Eval/Re-Eval Yes Time and Billing Re-Eval Time 16 Re-Eval Billing 0 Units Charge for PT No reassessment? PHYSICIAN CERTIFICATION: I certify the specified therapy services for Ignacio Atwood are required, authorized, and reviewed every 30 days.
== END 2025-06-21 23:59 | disposition home or self-care (01) ==
LOC: PT 14:00
PROVIDERS: PCP Internal Medicine; Visit Provider Internal Medicine
DX: M54.50 Low back pain, unspecified (principal)
CPT/HCPCS: 97110

== ENCOUNTER 2025-07-19 10:08 | Outpatient (RCR) | payer MEDICARE, MEDICAID, SELFPAY ==
--- NOTE | 2025-07-19 12:16 | [facility].RHREAS ---
Rehab Reassessment Rehab OP Re-assessment Start: 07/19/25 10:13 Freq: Status: Active Protocol: Document 07/19/25 12:05 PHOGABRIELA (Rec: 07/19/25 12:16 PHORNE [id number]) E-signed By Dario Leonard, PT Oswestry Index Section 1 Pain Intensity The pain is mild and does not vary much Section 2 Personal Care ( my way of washing or dressing even though it causes Washing,Dresing) some pain Section 3 Lifting I can lift heavy weights, but it gives me extra pain Section 4 Walking I cannot walk more than one mile wihtout increasing pain Section 5 Sitting I can sit in any chair for as long as I like Section 6 Standing I have some pain on standing, but it does not increase with time Section 7 Sleeping I get pain in bed, but it does not prevent me from sleeping well Section 8 Social Life My social life is normal and gives me no extra pain Section 9 Traveling I get no pain when traveling Section 10 Changing Degreee of My pain fluctuates, but overall is definitely getting Pain better Score and Risk Level Oswestry Score 8 Oswestry Risk Level Mild Disability Rehab Re-assessment Subjective Subjective Pt reports that he feels his back is improving but would like to continue with PT. States he has lost around 27lbs since starting Ozempic and is feeling good . Pt reports he feels ~85% better since his initial evaluation, but continues to have increased feelings of stiffness and pain worse in the evening. This limits his ability to perform ADLs. Pt reports weather has limited his ability to attend several of his scheduled visits. Objective Objective Notes AROM Lumbar spine (in deg): FLEX 0-65, EXT 0-15, R SB 0 -20, L SB 0-15 (INCREASED PAIN). MMT: B LE 5/5 throughout except B HIP FLEX 4+/5 Pain: currently 3/10, average is 3/10 TTP: 0/4 B lumbar paraspinals this date: OLEG: 8 this date vs 13 on IE Assessment Progress Assessment Progressing as Expected Assessment Notes Pt has been present for 1 treatment sessions since his last reassessment was performed. Pt has seen considerable centralization of radicular symptoms and is having less pain overall. He does continue to have difficulty with home care and work activities due to increased low back pain and B LE weakness. Skilled therapy remains indicated to continue improvement in pain, ROM, and strength in order to aid improvement in pt QOL. All previous goals remain active or have been readjusted based on patient improvements. Three STG have been MET at this time. PT Patient Goals PT Short Term 3 weeks: Patient Goals 1. Patient will report a 48 hour average pain of 2/10 on the numeric pain rating scale to demonstrate improvement in quality of life and increased functional capacity. 2. Patient will improve hip abductor strength upon manual muscle testing to 4+/5 facilitate increased spinal stabilization and improved functional capabilities. (MET) 3. Patient will demonstrate a reduction in trigger point sensitivity to Grade 2 with manual palpation to improve comfort during activity and soft tissue mobility. (MET) 4. Patient will improve lumbar ROM by 10 degrees in all planes to demonstrate improved movement patterns with functional mobility and ADLs. 5. 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 6. Pt will demonstrate HEP compliance by completing prescribed HEP 4-5x/week. 7. Pt will improve OLEG score to 9 to demonstrate overall functional improvement and improved quality of life (MET) PT Skilled Nursing Patient 6 weeks: Goals 1. Patient will report a 48 hour average pain of 1/10 on the numeric pain rating scale to demonstrate improvement in quality of life and increased functional capacity. 2. Patient will improve hip abductor strength upon manual muscle testing to 5/5 facilitate increased spinal stabilization and improved functional capabilities. 3. Patient will demonstrate a reduction in trigger point sensitivity to Grade 0-1 with manual palpation to improve comfort during activity and soft tissue mobility. 4. Patient will improve lumbar ROM by 15-20 degrees in all planes to demonstrate improved movement patterns with functional mobility and ADLs. 5. Patient will be able to stand/walk for 1 hour at one time to demonstrate improved community ambulation for activities, such as grocery shopping and normal work activities. 6. Pt will be able to lift a 10# weight from floor with proper lifting mechanics and less than 2/10 pain to demonstrate the ability to lift items, such as grocery bags, milk jugs, laundry basket, etc 7. Pt will improve OLEG score to 6 to demonstrate overall functional improvement and improved quality of life Plan Plan Updated POC sent to provider for their continued input and approval. Continued pt treatment may include any or all of the following interventions in order to improve functional outcomes and aid pt improvement in QOL: Frequency of Therapy 2 x/wk Duration of Therapy 4 wks Therapeutic Exercise Yes Including Home Exercise Program Manual Therapy Yes Techniques Neuromuscular Re- Yes education Therapeutic Yes Activities to Return to Previous Functional/Work Level ADL/Self Care Yes Education Eval/Re-Eval Yes Time and Billing Re-Eval Time 17 Re-Eval Billing 0 Units Charge for PT No reassessment? PHYSICIAN CERTIFICATION: I certify the specified therapy services for Ignacio Atwood are required, authorized, and reviewed every 30 days.
== END 2025-07-19 23:59 | disposition home or self-care (01) ==
LOC: PT 10:08
PROVIDERS: PCP Internal Medicine; Visit Provider Internal Medicine
DX: M54.50 Low back pain, unspecified (principal)
CPT/HCPCS: 97110